=== PATIENT | male | born 1950 | race African-American/Black ===

== ENCOUNTER 2017-07-04 14:49 | Inpatient (IN) | payer OTHER, MEDICARE ==
[~2017-07-04] VITALS: Ht 172.7 cm; Wt 62.7 kg
[~2017-07-04 14:49] MED LIST: AMLODIPINE BESY10 M1 PO; AMLODIPINE10 MG PO; APRESOLINE50 MG PO; ASPIR 8181 MG PO; ASPIRIN EC81 M1 PO; ATORVASTATIN CA40 MG PO; BENADRYL ALLERG25 M1 PO; CALCIUM500 M1 PO; CARVEDILOL12.5 MG PO; CARVEDILOL6.25 M1 PO; COREG 25 MG TAB25 MG PO; COREG6.25 M1 PO; EDARBI40 M1 PO; FUROSEMIDE40 M1 PO; FUROSEMIDE80 M1 PO; HUMALOG MI100 UNIT/1 SC; HUMALOG MI100 UNIT/3 SC; HUMALOG MIX 75/10 ML SC; HUMALOG MIX75/253 ML SC; HYDRALAZINE HC100 M1 PO; HYDRALAZINE HCL25 M1 PO; HYDRALAZINE HCL25 MG PO; HYDRALAZINE10 MG PO; IMDUR30 MG PO; ISOSORBIDE MONO30 M1 PO; ISOSORBIDE MONO60 M1 PO; LASIX40 MG PO; LISINOPRIL10 M1 PO; LISINOPRIL10 MG PO; METOPROLOL SUCC25 MG; METOPROLOL SUCC25 MG PO; NEPHROCAPS1 TAB PO; NOVOLOG100 U/ML SC; OYSTER SHELL C500 M1 PO; OYSTER SHELL C500 M2 PO; PLAVIX 75MG TAB75 MG PO; PRAVASTATIN SOD20 M2 PO; PRAVASTATIN SOD20 MG PO; PRILOSEC 20MG C20 MG PO; PRINIVIL 5MG5 MG PO; PRINIVIL10 MG PO; PROCRIT20000 U/ML IV; PROCRIT20000 UNIT AD; RENAL CAPS SOFTG1 MG PO; RENVELA0.8 GM PO; RENVELA800 M1 PO; TOPROL XL25 MG PO; TRANDATE-NORMO100 MG PO; VALTREX 500MG500 MG PO; VITAMIN D1000 UNIT PO; VITAMIN D31000 IU PO; ZESTRIL10 M1 PO
--- NOTE | 2017-07-04 18:22 | ED GENERAL ADULT ---
History of Present Illness General Chief Complaint: General Adult Stated Complaint: SIB DR FOR DVT OF R ARM Source: patient, family Exam Limitations: no limitations Vital Signs & Intake/Output Vital Signs & Intake/Output Vital Signs Date Time Temp Pulse Resp B/P B/P Pulse O2 O2 Flow FiO2 Mean Ox Delivery Rate 07/09 0646 98.2 78 20 142/78 93 Nasal Cannula 07/09 0409 95 Nasal 2.0L Cannula 07/08 2312 98.6 77 20 152/62 95 Nasal 2.0L Cannula 07/08 2250 73 158/72 07/08 2249 73 158/72 07/08 1700 73 148/74 07/08 1443 98.5 73 20 148/74 87 07/08 1211 75 156/72 07/08 1100 75 156/72 07/08 1100 75 156/72 07/08 1100 753 156/72 ED Intake and Output 07/09 0000 07/08 1200 Intake Total 540 185.55 Output Total 175 30 Balance 365 155.55 Intake, IV 85.55 Intake, Oral 540 100 Output, Urine 175 30 Allergies Coded Allergies: NO KNOWN ALLERGIES (02/08/16) Reconcile Medications Amlodipine Besylate 10 MG TABLET 1 TAB PO DAILY HEART/BP (Reported) Aspirin (Ecotrin*) 81 MG TABLET.DR 1 TAB PO DAILY HEART/BLOOD (Reported) Azilsartan Medoxomil (Edarbi) 40 MG TABLET 1 TAB PO DAILY BP (Reported) Calcium Carbonate (Calcium) 500 MG CALCIUM (1,250 MG) TABLET 1 TAB PO DAILY SUPPLEMENT (Reported) Cholecalciferol (Vitamin D3) (Vitamin D) 1,000 UNIT TABLET 1 TAB PO DAILY SUPPLEMENT (Reported) Epoetin Slava (Procrit) 20,000 UNIT/ML VIAL 8,000 UNITS AD Monday DIALYSIS (Reported) Furosemide 80 MG TABLET 1 TAB PO AD DIURETIC (Reported) Hydralazine HCl 100 MG TABLET 1 TAB PO TID HEART (Reported) Insulin NPL/Insulin Lispro (Humalog Mix 75-25 Vial) 100 UNIT/1 ML VIAL 9 UNITS SC QAM DIABETES (Reported) Insulin NPL/Insulin Lispro (Humalog Mix 75-25 Vial) 100 UNIT/ML (75-25) VIAL 6 UNITS SC QHS DM (Reported) Insulin NPL/Insulin Lispro (Humalog Mix 75-25 Vial) 100 UNIT/ML (75-25) VIAL 6 U SC 5PM TAKES WITH DINNER (Reported) Isosorbide Mononitrate (Isosorbide Mononitrate ER) 60 MG TAB.ER.24H 1 TAB PO DAILY HEART (Reported) Labetalol HCl 100 MG TABLET 2 TAB PO BID HTN (Reported) Multiple Vitamin (Multivitamins) 1 EACH TABLET 1 TAB PO DAILY SUPPLEMENT ( Reported) Pravastatin Sodium 20 MG TABLET 1 TAB PO DAILY CHOLESTEROL (Reported) Prochlorperazine Maleate 10 MG TABLET 1 TAB PO Q6 PRN NAUSEA (Reported) Sevelamer Carbonate (Renvela) 800 MG TABLET 2 TAB PO TID KIDNEYS (Reported) Triage Note: 66M WITH HX METS [employer] [facility] [employer] DR HENSLEY DUE TO RIGHT ARM SWELLING, HAD U/S DONE WITH + OCCLUSIVE THROMBUS TO R ARM. DIALYSIS PT WITH SHUNT TO LEFT ARM. CONSTANT ACHING PAIN TO RIGHT ARM, WEAK. +RADIAL AND BRACHIAL PULSES TO AFFECTED ARM. AAOX3, DENIES SOB Triage Nurses Notes Reviewed? yes Onset: Gradual Duration: day(s): Timing: recent history Severity: moderate HPI: 66yo male with hx of CKD on dialysis, Stage IV right lung CA sent in by Dr. Saucedo to ED for right internal jugular DVT. Patient has had swelling of right arm for the past few days which has been steadily getting worse and his oncologist, Dr. Saucedo, obtained a right upper extremity ultrasound today showing a nearly occlusive thrombus in right internal jugular vein. Patient was sent here immediately for admission to the hospital. Patient is not currently on any blood thinners. He has no history of a blood clot. Patient complains of aching pain systemically as well as pleuritic pain with inspiration. He denies hemoptysis. (Yenny MENDEZ,Coral Demarco) Past History Travel History Traveled to [place] past 21 day No Medical History Any Pertinent Medical History? see below for history Neurological: NONE EENT: NONE Cardiovascular: cardiomyopathy (ischemic), CHF (systolic), hypertension, hyperlipidemia, CARDIAC CATH WITH bare-metal stents to the LAD and left circumflex pulmonary htn on [employer] Respiratory: NONE Gastrointestinal: NONE Hepatic: NONE Renal: chronic kidney disease (stage V on HD), HD- M/W/F RCW-ESME CATH Musculoskeletal: NONE Psychiatric: NONE Endocrine: diabetes (uncontrolled) Blood Disorders: NONE Cancer(s): NONE DEAF/HARD OF HEARING SPECIALIST/Reproductive: NONE Other Medical Hx: Shingles History of MRSA: No History of VRE: No History of CDIFF: No Surgical History Surgical History: cardiac cathwith bare-metal stents in LAD and left circumflex Psychosocial History Who do you live with Family What is your primary language Austrian Tobacco Use: Current Daily Use Daily Tobacco Use Amount/Type: =< 4 Cigarettes daily Illicit Drug Use: denies illicit drug use Family History Family History, If Any: MOTHER FH: cancer FATHER FH: cancer Hx Contributory? No (Coral Delacruz) Review of Systems Review of Systems Constitutional: Reports: no symptoms. EENTM: Reports: no symptoms. Respiratory: Reports: see HPI. Cardiovascular: Reports: see HPI. GI: Reports: no symptoms. Genitourinary: Reports: no symptoms. Musculoskeletal: Reports: see HPI. Skin: Reports: no symptoms. Neurological/Psychological: Reports: no symptoms. Hematologic/Endocrine: Reports: see HPI. Immunologic/Allergic: Reports: no symptoms. All Other Systems: Reviewed and Negative (Coral Delacruz) Physical Exam Physical Exam General Appearance: well developed/nourished, no apparent distress, alert, awake Head: atraumatic, normal appearance Eyes: Bilateral: normal appearance. Ears, Nose, Throat: hearing grossly normal Neck: normal inspection, supple, full range of motion Respiratory: normal breath sounds, no respiratory distress, lungs clear Cardiovascular: regular rate/rhythm Peripheral Pulses: 2+ radial (R), 2+ radial (L) Rectal: normal exam, normal rectal tone, heme negative stool Back: normal inspection, normal range of motion Extremities: normal range of motion, moderate swelling of right arm with tenderness Neurologic/Psych: awake, alert, oriented x 3 Skin: intact, normal color, warm/dry Core Measures ACS in differential dx? No CVA/TIA Diagnosis: No Sepsis Present: No Sepsis Focused Exam Completed? No (Coral Delacruz) Progress Differential Diagnoses I considered the following diagnoses in my evaluation of the patient: [DVT, cellulitis, edema, lung cancer] Plan of Care: Orders Procedure Date/time Status PROTHROMBIN TIME 07/09 600 Active CBC WITHOUT DIFFERENTIAL 07/09 600 Active BASIC ELECTROLYTES PLUS BUN&CR 07/09 06 Active PARTIAL THROMBOPLASTIN TIME 07/09 0500 Active OXYGEN SETUP (GEN) 07/08 2200 Complete PARTIAL THROMBOPLASTIN TIME 12/30 2000 Complete Nursing Misc 07/08 UNK Complete Current Medications Sig/Jed Start time Last Medication Dose Stop Time Status Admin Furosemide 40 MG SuTuThSa@1000 07/08 1000 AC 07/08 (Lasix) 1211 Lidocaine/Prilocaine 1 PENNY MoWeFr PRN 07/06 1530 AC (EMLA) Sevelamer Carbonate 1,600 MG 0800,1200,1700 07/06 0800 AC 07/08 (Renvela) 1700 Labetalol HCl 200 MG BID 07/05 2200 AC 07/08 (Trandate-Normodyne 2249 200MG Tab) Acetaminophen 650 MG Q6P PRN 07/05 2115 AC (Tylenol) Hydrocodone Bitart/ 1 TAB Q6P PRN 07/05 211 AC Acetaminophen (Vicodin) Morphine Sulfate 2 MG Q4P PRN 07/05 2115 AC 07/07 (Morphine) 2318 Pravastatin Sodium 20 MG 1700 07/05 1700 AC 07/08 (Pravachol) 1751 Prochlorperazine 10 MG TIDAC PRN 07/05 1133 AC 07/08 (Compazine) 0759 Epoetin Slava 6,000 UNIT MoWeFr PRN 07/05 1115 AC (Epogen Inj 3000 (DIALYSIS PATIENTS) Paricalcitol 4 MCG MoWeFr PRN 07/05 1115 AC (Zemplar Inj. 2MCG/ ML) Insulin Aspart 0 TIDAC 07/05 1100 AC 07/08 (NovoLOG) 0805 Amlodipine Besylate 10 MG DAILY 07/05 1000 AC 07/08 (Norvasc) 1100 Aspirin Buffered 81 MG DAILY 07/05 1000 AC 07/08 (Ecotrin) 1100 Calcium Carbonate 500 MG DAILY 07/05 1000 AC 07/08 (TUMS) 1001 Cholecalciferol 1,000 IU DAILY 07/05 1000 AC 07/08 (Vitamin D) 1100 Hydralazine HCl 100 MG TID 07/05 1000 AC 07/08 (Apresoline) 2250 Isosorbide 60 MG DAILY 07/05 1000 AC 07/08 Mononitrate 1100 (Imdur) Losartan Potassium 25 MG DAILY 07/05 1000 AC 07/08 (Cozaar) 1000 Multivitamins 1 TAB DAILY 07/05 1000 AC 07/08 Therapeutic 1100 (Theragran-M Vitamins Tabs) Heparin Sodium 25,000 UNIT Q24H 07/04 1900 AC 07/08 (Porcine) 2006 (Heparin) Sodium Chloride 500 ML Laboratory Tests 07/09/17 0610: PT Pending, INR Pending 07/09/17 0610: Sodium Pending, Potassium Pending, Chloride Pending, Carbon Dioxide Pending, Anion Gap Pending, BUN Pending, Creatinine Pending, BUN/Creatinine Ratio Pending , APTT Pending, CBC w Diff Pending, WBC Pending, RBC Pending, Hgb Pending, Hct Pending, MCV Pending, MCH Pending, RDW Pending, Plt Count Pending, MPV Pending, PUBS MCHC Pending 07/08/17 2055: APTT 37 07/08/17 1110: APTT [address] Vasquez spoke with Dr. Saucedo regarding this patient. It is recommended that patient be started on heparin then bridged to Coumadin. General medicine admission was also recommended. Discussed this patient with hospitalist, Dr. Kraus who recommends chest CT scan. Patient to be admitted regarding his DVT requiring IV anticoagulation, vascular consult, heme/on consult. Diagnostic Imaging: Viewed by Me: CT Scan, Ultrasound. Discussed w/RAD: CT Scan, Ultrasound. Radiology Impression: PATIENT: JAYSON ACHARYA PRESENT AGE: 66 PATIENT ACCOUNT NO: [id number] : 48 LOCATION: [facility] ORDERING PHYSICIAN: Artis Saucedo MD SERVICE DATE: 07/04/17 EXAM TYPE: US - US- UNILATERAL VENOUS DOPPLER EXAMINATION: US TRIPLEX UPPER EXTREMITY, RIGHT CLINICAL INFORMATION: 66-year-old male with history of large cell neuroendocrine lung cancer with new right upper extremity edema. COMPARISON: None TECHNIQUE: Color-flow triplex imaging with spectral analysis and compression Doppler were performed on the upper extremity. FINDINGS: Nearly occlusive thrombus is seen within the right internal jugular vein, above the insertion of the patient's tunneled dialysis catheter. The right subclavian and axillary veins demonstrate normal color Doppler flow suggesting patency. The right brachial and basilic veins are easily compressible and demonstrate normal color Doppler flow suggesting patency. The right cephalic vein is easily compressible suggesting patency. The right ulnar and radial veins are patent. IMPRESSION: Nearly occlusive thrombus within the right internal jugular vein. The remaining right upper extremity veins are patent. This critical result was discussed with Dr. Wisdom at 2:45 PM on 07/04/2017and it was ascertained that the content and urgency of the report was understood at the time of direct communication. DICTATED BY: Juan David Davenport DO DATE/TIME DICTATED:07/04/171439 CATALOGUE COMPILER:YANCY DATE/TIME TRANSCRIBED:07/04/171439 CONFIDENTIAL, DO NOT COPY WITHOUT APPROPRIATE AUTHORIZATION. <Electronically signed in Other Vendor System> SIGNED BY: Juan David Davenport DO 07/04/17 1450, PATIENT: JAYSON ACHARYA PRESENT AGE: 66 PATIENT ACCOUNT NO: [id number] : 48 LOCATION: [facility] ORDERING PHYSICIAN: Coral MENDEZ SERVICE DATE: 07/04/17 EXAM TYPE: CAT - CT CHEST WO IV CONTRAST EXAMINATION: CT CHEST WITHOUT CONTRAST CLINICAL INFORMATION: Recent right IJ thrombosis. Presumptive diagnosis: Right-sided lung mass. COMPARISON: CT lung biopsy images dated 04/06/2017 and PET-CT dated 03/28/2017 TECHNIQUE: Multidetector volumetric CT imaging of the chest was done. Axial MIP volume rendering provided. Sagittal and coronal reformatted images were obtained. DLP: 393.3 mGy-cm FINDINGS: PRODUCTION CONTROL CLERK: Right IJ dialysis catheter terminates in the right atrium. LUNGS: The 5.8 x 4.4 x 6.7 cm mass in the posterior segment of the right upper lobe is increased in size from 5.6 x 3.3 cm (axial images only) on the prior lung biopsy images from 04/06/2017. The 2.7 x 2.3 cm nodule in the medial aspect of the right lobe just to the right of the trachea and esophagus on image 17/18 of series 2 is decreased in size from 2.9 x 2.8 cm. The 1.3 cm nodule at the anterolateral aspect of the right upper lobe on image 18/80 of series 2 is unchanged. The 1.8 cm nodule in the anterior aspect of the right lower lobe on image 43/80 of series 2 is increased in size from 0.8 cm on the prior study. Numerous smaller nodules in both lungs are new if not increased in size as compared to prior. There is a nodular bands of airspace opacification in the lingula on image 31/80 series 2 which measures 3.6 by likely a conglomeration of smaller nodule seen on the prior study. The dominant mass in the right upper lobe with associated with hilar adenopathy and produces mild narrowing of the right upper lobe bronchi. There is similar mild narrowing of the right middle lobe bronchus. Right lower lobe bronchus is patent. There is atelectasis in the left lower lobe adjacent to the effusion. MEDIASTINUM: There is a 2.6 cm (short axis) precarinal lymph node which is similar in size to the prior PET-CT. Adenopathy is present in both hilar regions, though not well defined without intravenous contrast. Calcific atherosclerosis is present in the coronary arteries and thoracic aorta. Heart is enlarged. Small pericardial effusion. Adenopathy is near the SVC which appears narrow in caliber, though unchanged from prior. Right IJ dialysis catheter terminates in the high right atrium. PLEURA: There is a small to moderate-sized dependent left pleural effusion. No right-sided effusion. AXILLA: No lymphadenopathy. UPPER ABDOMEN: Kidneys appear atrophic. Gallbladder is hydropic. There is an ill-defined 1.8 cm hypodense lesion in the inferior aspect of hepatic segment 6 (image 77/80 of series 2. A similar small ill-defined 2 cm hypoattenuating lesion is present in hepatic segment 7 laterally on image 63/80 of series 2. These are not apparent on prior studies. There is diffuse soft tissue anasarca. OSSEOUS STRUCTURES: Diffuse idiopathic skeletal hyperostosis is present in the thoracic spine. No acute fractures. No osseous lesions are identified. IMPRESSION: 1. Progressive enlargement of the dominant 6.7 cm right upper lobe mass as compared to the prior study. Numerous additional pulmonary nodules are increased in size or new as compared to prior. These findings are consistent with progression of the underlying malignant disease. Adenopathy appears unchanged the comparison is limited without intravenous contrast. 2. Right IJ central venous catheter terminates in the right atrium. Assessment of the thrombus is limited without intravenous contrast material. Of note, there is mediastinal adenopathy near the SVC. 3. Two hypodense lesions in the right hepatic lobe which are not seen on prior studies, potentially additional metastatic disease. Consider correlation with an MRI of the abdomen if warranted. 4. Small to moderate-sized left pleural effusion 5. Anasarca. DICTATED BY: Last High MD DATE/TIME DICTATED:07/04/172017 CATALOGUE COMPILER:YANCY DATE/TIME TRANSCRIBED:07/04/172017 CONFIDENTIAL, DO NOT COPY WITHOUT APPROPRIATE AUTHORIZATION. <Electronically signed in Other Vendor System> SIGNED BY: Last High MD 07/04/172042 Initial ED EKG: sinus rhythm @75bpm, LAD, prolonged QT interval, nonspecific ST changes (Coral Delacruz) Departure Departure Disposition: STILL A PATIENT Condition: Stable Clinical Impression Primary Impression: DVT (deep venous thrombosis) Qualifiers: DVT location: upper extremity Affected thrombotic vein of extremity : other upper extremity vein Chronicity: acute Laterality: right Qualified Code: I82.621 - Acute embolism and thrombosis of deep veins of right upper extremity Referrals: Manuel MUSE,Corby Pack (PCP/Family) Departure Forms: Customer Survey General Discharge Information Admission Note Documentation of Exam: Documentation of any treatments & extenuating circumstances including Concerns Regarding Discharge (functional status, medication knowledge or non-compliance, living conditions, etc.) that warrant an admission rather than observation: [DVT requiring IV anticoagulation, vascular consults, heme/onc consult, possible nephrology consult, premature discharge would be medically unsafe] (Coral Delacruz) Admission Note Spoke With: Shane Kraus MD Documentation of Exam: Documentation of any treatments & extenuating circumstances including Concerns Regarding Discharge (functional status, medication knowledge or non-compliance, living conditions, etc.) that warrant an admission rather than observation: [IV ANTICOAGULATION, RENAL CONSULT, VASCULAR CONSULT] PA/SAMPLE HAND Co-Sign Statement Statement: ED Attending supervision documentation- [X] I saw and evaluated the patient. I have also reviewed all the pertinent lab results and diagnostic results. I agree with the findings and the plan of care as documented in the PA's/SAMPLE HAND's documentation. [X] I have reviewed the ED Record and agree with the PA's/SAMPLE HAND's documentation. [] Additions or exceptions (if any) to the PAs/SAMPLE HAND's note and plan are summarized below: [Anticoagulation for a DVT, will need dialysis while in house, a vascular consultation] (Kaushik MUSE,Dorian West) Critical Care Note Critical Care Note Critical Care Time: 30-74 min (Coral Delacruz)
--- NOTE | 2017-07-04 20:43 | CT SCAN REPORT ---
EXAMINATION: CT CHEST WITHOUT CONTRAST CLINICAL INFORMATION: Recent right IJ thrombosis. Presumptive diagnosis: Right-sided lung mass. COMPARISON: CT lung biopsy images dated 04/06/2017 and PET-CT dated 03/28/2017 TECHNIQUE: Multidetector volumetric CT imaging of the chest was done. Axial MIP volume rendering provided. Sagittal and coronal reformatted images were obtained. DLP: 393.3 mGy-cm FINDINGS: RESEARCH PROGRAM MANAGER: Right IJ dialysis catheter terminates in the right atrium. LUNGS: The 5.8 x 4.4 x 6.7 cm mass in the posterior segment of the right upper lobe is increased in size from 5.6 x 3.3 cm (axial images only) on the prior lung biopsy images from 04/06/2017. The 2.7 x 2.3 cm nodule in the medial aspect of the right lobe just to the right of the trachea and esophagus on image 17/18 of series 2 is decreased in size from 2.9 x 2.8 cm. The 1.3 cm nodule at the anterolateral aspect of the right upper lobe on image 18/80 of series 2 is unchanged. The 1.8 cm nodule in the anterior aspect of the right lower lobe on image 43/80 of series 2 is increased in size from 0.8 cm on the prior study. Numerous smaller nodules in both lungs are new if not increased in size as compared to prior. There is a nodular bands of airspace opacification in the lingula on image 31/80 series 2 which measures 3.6 by likely a conglomeration of smaller nodule seen on the prior study. The dominant mass in the right upper lobe with associated with hilar adenopathy and produces mild narrowing of the right upper lobe bronchi. There is similar mild narrowing of the right middle lobe bronchus. Right lower lobe bronchus is patent. There is atelectasis in the left lower lobe adjacent to the effusion. MEDIASTINUM: There is a 2.6 cm (short axis) precarinal lymph node which is similar in size to the prior PET-CT. Adenopathy is present in both hilar regions, though not well defined without intravenous contrast. Calcific atherosclerosis is present in the coronary arteries and thoracic aorta. Heart is enlarged. Small pericardial effusion. Adenopathy is near the SVC which appears narrow in caliber, though unchanged from prior. Right IJ dialysis catheter terminates in the high right atrium. PLEURA: There is a small to moderate-sized dependent left pleural effusion. No right-sided effusion. AXILLA: No lymphadenopathy. UPPER ABDOMEN: Kidneys appear atrophic. Gallbladder is hydropic. There is an ill-defined 1.8 cm hypodense lesion in the inferior aspect of hepatic segment 6 (image 77/80 of series 2. A similar small ill-defined 2 cm hypoattenuating lesion is present in hepatic segment 7 laterally on image 63/80 of series 2. These are not apparent on prior studies. There is diffuse soft tissue anasarca. OSSEOUS STRUCTURES: Diffuse idiopathic skeletal hyperostosis is present in the thoracic spine. No acute fractures. No osseous lesions are identified. IMPRESSION: 1. Progressive enlargement of the dominant 6.7 cm right upper lobe mass as compared to the prior study. Numerous additional pulmonary nodules are increased in size or new as compared to prior. These findings are consistent with progression of the underlying malignant disease. Adenopathy appears unchanged the comparison is limited without intravenous contrast. 2. Right IJ central venous catheter terminates in the right atrium. Assessment of the thrombus is limited without intravenous contrast material. Of note, there is mediastinal adenopathy near the SVC. 3. Two hypodense lesions in the right hepatic lobe which are not seen on prior studies, potentially additional metastatic disease. Consider correlation with an MRI of the abdomen if warranted. 4. Small to moderate-sized left pleural effusion 5. Anasarca.
[2017-07-04 20:58] LABS: ABSOLUTE BASOPHIL COUNT 0 /CUMM (0.0-0.2); ABSOLUTE EOSINOPHIL COUNT 0.1 /CUMM (0.0-0.7); ABSOLUTE GRANULOCYTE CT 11.9 /CUMM (1.4-6.5); ABSOLUTE LYMPH COUNT 0.9 /CUMM (1.2-3.4); BASOPHIL % 0.1 % (0.0-2.0); EOSINOPHIL % 0.8 % (0-5); HEMATOCRIT 30.7 % (42-52); MEAN CORPUSCULAR HGB 30.7 PG (27.0-31.0); MEAN CORPUSCULAR HGB CONC 32.9 G/DL (33.0-37.0); MEAN CORPUSCULAR VOLUME 93.3 FL (80.0-94.0); MEAN PLATELET VOLUME 7.4 FL (7.4-10.4); PLATELET COUNT 276 /CUMM (130-400); RBC DISTRIBUTION WIDTH 15.7 % (11.5-14.5); RED BLOOD CELL CT 3.29 /CUMM (4.70-6.10); WHITE BLOOD CELL COUNT 13.9 /CUMM (4.8-10.8)
[2017-07-04 21:06] LABS: PT 12.1 SEC (9.4-12.5); PTT 26 SEC (25-37)
[2017-07-04 21:20] LABS: GRANULOCYTE % 85.6 % (42.2-75.2)
--- NOTE | 2017-07-04 22:00 | History & Physical ---
Esmer John MD,[facility] 07/04/17 2159: General Information and HPI MD Statement: I have seen and personally examined JAYSON ACHARYA and documented this H&P. The patient is a 66 year old M who presented with a patient stated chief complaint of thrombosis in R arm. Source of Information: patient, old records, police History of Present Illness: 66-year-old gentleman with PMH of ESRD secondary to diabetic nephropathy ( dialysis Monday/Monday/Monday), hypertension, hyperlipidemia, coronary artery disease (s/p bare metal stents previously to LAD and left circumflex), prior ischemic cardiomyopathy with normalized EF [last echocardiogram in Mar 2017 EF 50-55% ], prior history of poximal cephalix vein thrombosis, Stage IV right lung CA (reported brain and liver mets, s/p radiotherapy) presented to the ED from Dr Saucedo office for evaluation of ED for right internal jugular DVT. Patient was poor historian, no family members were present for taking history. Patient noted that he was diagnosed with lung cancer in November 2016, he had 2 rounds of chemotherapy and was planned to received 3rd round today in Dr. Saucedo office. He was found to have right arm swelling, ultrasound was performed which showed thrombosis of the right internal jugular vein and he was sent to ED. Upon further questioning he admitted to have gradual increase in swelling of the right arm in the last couple of days. He also received Neupogen during the last week after which he had bone pain. He reported decreased activity because of lower extremities swelling, decreased appetite, insomnia, cough with white phlegm. He was being dialyzed from left arm AV fistula but he noted that it was diagnosed to be nonfunctional and is planned for surgical intervention in July. Allergies/Medications Allergies: Coded Allergies: NO KNOWN ALLERGIES (02/08/16) Home Med list Amlodipine Besylate 10 MG TABLET 1 TAB PO DAILY HEART/BP (Reported) Aspirin (Ecotrin*) 81 MG TABLET.DR 1 TAB PO DAILY HEART/BLOOD (Reported) Azilsartan Medoxomil (Edarbi) 40 MG TABLET 1 TAB PO DAILY BP (Reported) Calcium Carbonate (Calcium) 500 MG CALCIUM (1,250 MG) TABLET 1 TAB PO DAILY SUPPLEMENT (Reported) Cholecalciferol (Vitamin D3) (Vitamin D) 1,000 UNIT TABLET 1 TAB PO DAILY SUPPLEMENT (Reported) Epoetin Slava (Procrit) 20,000 UNIT/ML VIAL 8,000 UNITS AD Monday DIALYSIS (Reported) Furosemide 80 MG TABLET 1 TAB PO AD DIURETIC (Reported) Hydralazine HCl 100 MG TABLET 1 TAB PO TID HEART (Reported) Insulin NPL/Insulin Lispro (Humalog Mix 75-25 Vial) 100 UNIT/1 ML VIAL 9 UNITS SC QAM DIABETES (Reported) Insulin NPL/Insulin Lispro (Humalog Mix 75-25 Vial) 100 UNIT/ML (75-25) VIAL 6 UNITS SC QHS DM (Reported) Insulin NPL/Insulin Lispro (Humalog Mix 75-25 Vial) 100 UNIT/ML (75-25) VIAL 6 U SC 5PM TAKES WITH DINNER (Reported) Isosorbide Mononitrate (Isosorbide Mononitrate ER) 60 MG TAB.ER.24H 1 TAB PO DAILY HEART (Reported) Labetalol HCl 100 MG TABLET 2 TAB PO BID HTN (Reported) Multiple Vitamin (Multivitamins) 1 EACH TABLET 1 TAB PO DAILY SUPPLEMENT ( Reported) Pravastatin Sodium 20 MG TABLET 1 TAB PO DAILY CHOLESTEROL (Reported) Prochlorperazine Maleate 10 MG TABLET 1 TAB PO Q6 PRN NAUSEA (Reported) Sevelamer Carbonate (Renvela) 800 MG TABLET 2 TAB PO TID KIDNEYS (Reported) Past History Travel History Traveled to [place] past 21 day No Medical History Neurological: NONE EENT: NONE Cardiovascular: cardiomyopathy (ischemic), CHF (systolic), hypertension, hyperlipidemia, CARDIAC CATH WITH bare-metal stents to the LAD and left circumflex pulmonary htn on [employer] Respiratory: NONE Gastrointestinal: NONE Hepatic: NONE Renal: chronic kidney disease (stage V on HD), HD- M/W/F [facility] CATH Musculoskeletal: NONE Psychiatric: NONE Endocrine: diabetes (uncontrolled) Blood Disorders: NONE Cancer(s): NONE 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 girlfriend Primary Language: Danish Illicit Drug Use: denies illicit drug use Functional Ability ADLs Independent: dressing, eating, toileting, bathing. Ambulation: independent IADLs Independent: finances, telephone, medication admin. Needs Assist: shopping, housework, food prep, transportation. Review of Systems Review of Systems Constitutional: Reports: see HPI. Exam & Diagnostic Data Last 24 Hrs of Vital Signs/I&O Vital Signs Date Time Temp Pulse Resp B/P B/P Pulse O2 O2 Flow FiO2 Mean Ox Delivery Rate 07/05 0300 98.7 74 20 184/80 98 Room Air 07/05 0000 98.2 78 16 182/80 99 Room Air Room Air 07/04 2159 97.7 74 18 198/87 96 Room Air 07/04 1511 98.6 79 16 98 Room Air Intake & Output 07/05 0800 07/05 0000 07/04 1600 Intake Total 0 Output Total Balance 0 Intake, Oral 0 Patient 142 lb Weight Weight Reported by Patient Measurement Method Physical Exam General Appearance Alert, Oriented X3, Cooperative, No Acute Distress, poor historian, agitated at times Skin No Significant Lesion Skin Temp/Moisture Exam: Warm/Dry Sepsis Skin Exam (color): Normal for Ethnicity HEENT Atraumatic, EOMI, Mucous Membr. moist/pink, right side tunneled cath Neck No JVD Cardiovascular Normal S1, Normal S2 Lungs decrased breathing sounds bilaterally Abdomen Soft, No Tenderness Neurological Normal Speech, Strength at 5/5 X4 Ext, grossly normal Extremities Left arm AV fistula, RIGht arm swelling, bilateral LE edema Last 24 Hrs of Labs/Har[place]: Laboratory Tests 07/05/17 0300: Troponin I Pending, APTT Pending 07/04/171842: Troponin I Cancelled, Lupus Anticoagulant Pending, LA PTT Screen Pending, Dil Junaid Viper Venom Pending, Protein C Activity Pending, Protein S Pending, Factor V Leiden Pending, Factor V Leiden Interp Pending 07/04/171842: Anion Gap 14, Estimated GFR 12 L, BUN/Creatinine Ratio 5.6 L, Glucose 193 H, Calcium 9.7, Total Bilirubin 0.5, AST 25, ALT 13 L, Alkaline Phosphatase 109, Troponin I 0.02, Total Protein 6.1 L, Albumin 3.5, Globulin 2.6, Albumin/ Globulin Ratio 1.3, PT 12.1, INR 1.15, APTT 26, CBC w Diff NO MAN DIFF REQ, RBC 3.29 L, MCV 93.3, MCH 30.7, RDW 15.7 H, MPV 7.4, Gran % 85.6 H, Lymphocytes % 6.5 L, Monocytes % 7.0, Eosinophils % 0.8, Basophils % 0.1, Absolute Granulocytes 11.9 H, Absolute Lymphocytes 0.9 L, Absolute Monocytes 1.0 H, Absolute Eosinophils 0.1, Absolute Basophils 0, PUBS MCHC 32.9 L Assessment/Plan Assessment: 66-year-old gentleman with presented to the ED from Dr Saucedo office for evaluation of ED for right internal jugular DVT visited for 3rd round of chenmotherapy PMH: ESRD secondary to diabetic nephropathy (dialysis Monday/Monday/Monday), hypertension, hyperlipidemia, coronary artery disease (s/p bare metal stents previously to LAD and left circumflex), prior ischemic cardiomyopathy with normalized EF [last echocardiogram in Mar 2017 EF 50-55% ], prior history of poximal cephalix vein thrombosis, Stage IV right lung CA (reported brain mets, s /p radiotherapy). VS: No fever, pulse oximetry more than 95% in room air, pulse rate 79, respiratory rate 16, blood pressure 182/80 Labs at admission: Imagings at admission: Patient was admitted to telemetry floor for management of following conditions: DVT RIJ line Most likely in the setting of lung carcinoma. Patient will be started on IV heparin -Admit to telemetry floor -Monitor vital sign -IV heparin -Vascular consult in a.m. ESRD on dialysis Patient is on on MWF, we will continue dialysis in hospital -Nephro consult today -Dialysis today -Continue home medication, Lasix, sevelamir, vitamin D3, Procrit. Lung cancer -Consult Dr. Woodall -[facility] -O2 supplement when necessary chronic medical conditions: IDDM, CAD, hypertension, hyperlipidemia -Continue home medications -Accu-Cheks -Serial EKG and troponins DVT PPx: IV heparin and ALPS FC Heart healthy diet As Ranked By This Provider Problem List: 1. ESRD (end stage renal disease) 2. Thrombosis of intravascular line 3. DVT (deep venous thrombosis) Qualifiers DVT location: upper extremity Affected thrombotic vein of extremity: other upper extremity vein Chronicity: acute Laterality: right Qualified Code: I82.621 - Acute embolism and thrombosis of deep veins of right upper extremity Core Measures/Misc (03/26) Acute Coronary Syndrome ACS Diagnosis: No Congestive Heart Failure Congestive Heart Failure Diagnosis No Cerebrovascular Accident CVA/TIA Diagnosis: No VTE (View Protocol) VTE Risk Factors Age>40 No Mechanical VTE Prophylaxis d/t N/A MechProphylax Ordered No VTE Pharm Prophylaxis d/t NA PharmProphylax ordered Sepsis (View protocol) Sepsis Present: No Shari Pollard MD 07/05/17 0101: Resident Review Statement Resident Statement: examined this patient, discussed with internet marketing specialist, agreed with internet marketing specialist, discussed with family, reviewed EMR data (avail), discussed with nursing Other Findings: patient is a 66 YO M with PMH significant for CKD on dialysis (M,W,F), Stage IV large neuroendocrine tumor in the lung, ischemic cardiomyopathy (without CHF), HTN, HLD, DM sent in by Dr. Saucedo to ED for right internal jugular DVT. Patient has had swelling of right arm for the past few days which has been steadily getting worse and his oncologist Dr. Saucedo, obtained a RUE USG today showing a nearly occlusive thrombus in right internal jugular vein. Patient was diagnosed with stage IV Lung cancer on mar 14 2017 with metastasis in brain and liver. He underwent brain irradiation followed by 2 cycles of chemo so far. Today he went for his 3rd round of chemo and found to have signficnat swelling of his right arm. Few days ago he received Neupogen and suffering from significant bone pains, lying on the bed. Unable to eat well, reportedly had nausea and decreased appetite. He denies any fever, LOC, pain in the right arm. Patient reportedly had nonfunctional left AV fistula which needed to be repaired in July by tara. Currently undergoing dialysis by another axis present on right side - ?? Krystian vs port. Vital signs at presentation Afebrile, blood pressure 198/67 mmHg, heart rate 80s Physical examination Alert and oriented, mild distress, HEENT: PERRLA, palpable swelling in the right side of the neck. chest as well as to normal, systolic murmur present, lungs crackles at bases, right upper extremity significantly swollen 3+ edema. Abdomen normal bowel sounds. Labs White count of 13.9, H&H 10/30, platelets 276, AST 25/ALT 13, ALT 109, PT 12, INR 1.15, APTT 26. Venous Doppler Nearly occlusive thrombus within the right internal jugular vein with other remaining upper extremity veins being patent Chest CT Worsening right upper lobe miles around 6.7 cm increased compared to previous one. Scattered multiple pulmonary nodules. Thrombus in the right IJ thrombus is not completely evaluated. Right hepatic lobe consists of 2 hypodense lesions. Echocardiogram in March 2017 CONCLUSIONS Normal overall left and right ventricular systolic function. Mild left atrial enlargement. Mild to moderate Tricuspid regurgitation. Moderate Pulmonary hypertension. Small Pericardial effusion. Assessment Patient is a 66-year-old male with multiple comorbid conditions including stage IV lung carcinoma, ischemic cardiomyopathy, hypertension, hyperlipidemia, ESRD on dialysis presented to the [facility] after found to have right IJ thrombus which appears secondary to hypercoagulable state in the setting of adenocarcinoma. Vital signs unremarkable except for high blood pressure, labs unremarkable, CT chest shows worsening of right upper lobe miles despite on chemotherapy, venous Doppler demonstrated significant right IJ thrombus with remaining upper extremity veins being patent. Diagnosis Right IJ thrombus in the setting of widely disseminated stage IV lung cancer Problem list 1. Right internal jugular thrombus 2. 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 ESRD on dialysis - Monday, Monday, Monday 4. Uncontrolled diabetes mellitus 5. Ischemic cardiomyopathy 6. status post cardiac cath with bare-metal stents in LAD and left circumflex 7. Hypertension 8. Hyperlipidemia Plan Admit to telemetry floor Right internal jugular vein thrombosis Probably secondary to carcinoma. Patient was started on IV heparin bolus in the ER followed by IV heparin. * Continue IV heparin * Vascular consult in a.m. * consult Dr. Bustillo * As the patient has acute clot. 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 He is due for 3rd cycle of chemotherapy. * Consult * Symptomatic management ESRD on dialysis - Monday, Monday, Monday Undergoes dialysis 3 times a week with an axis on the right side. * Nephro consult * Dialysis today * Continue sevelamir, vitamin D3, Procrit. * Furosemide 80 mg on nondialysis days, 40 mg on dialysis days for its antihypertensive properties Uncontrolled diabetes mellitus Patient is insulin-dependent. Patient is on insulin mix 60 units subcutaneous in the morning and at 5 PM. Insulin lispro 9 units at bedtime. * Continue insulin * Accu-Cheks Ischemic cardiomyopathy s/p cardiac cath with bare-metal stents in LAD and left circumflex Currently denies any chest pain. We will continue all the home medications. * serial EKG and trop * Continue ASA, atorvastatin, Adarbi (converted to losartan), Coreg 6.25mg BID, Pravastatin * Continue imdur 60mg for antianginal properties. Hypertension Continue amlodipine 10mg daily, labetalol 200mg daily, hydralazine 100mg TID. Hyperlipidemia Continue pravastatin 20mg daily DVT prophylaxis on IV heparin Code status full code. Shane Kraus 07/05/17 0809: Attending MD Review Statement Attending Statement Attending MD Statement: examined this patient, discuss w/resident/PA/GENETIC ENGINEER, agreed w/resident/PA/GENETIC ENGINEER, reviewed EMR data (avail), reviewed images, amended to note Attending Assessment/Plan: CC: Right arm swelling PMH: ESRD on hemodialysis through a tunneled catheter on the right, history of HFrEF with normalized ejection fraction, HTN, CAD S/P stent, DM, NSVT, HLD, recently diagnosed non-small cell lung cancer stage IV Patient has been receiving chemotherapy outpatient for his lung cancer, today was the third round of chemotherapy when in the doctor's office it was noticed that patient has right arm swelling and pain. Patient does not complain much, has been almost bed bound because of bilateral lower extremity edema, decreased appetite, feeling weak and lethargic. Patient does not provide any much history. He has nonfunctioning left AV facial. In the oncologist office DVT Doppler was obtained for the right upper extremity and he was found to have nearly occluding the right IJ thrombus. Patient is a poor historian, appears frustrated and does not provide any detail , admits chronic cough, pain all over. Family not bedside. Vitals: Blood pressure 198/67 otherwise unremarkable. On exam: A O 3, cooperative, no acute distress, neck supple, JVD normal, no lymphadenopathy, mucosa moist, no focal neurological deficit, bilateral lower extremity edema, right upper extremity edema, right-sided tunneled catheter, no facial symmetry, no obvious skin rashes or inflammation CVS: S1-S2, RRR. RS: Decreased air entry right, no obvious crackles. Abdomen: Soft, NT, ND, bowel sounds present. Labs: WBC 13.9, hemoglobin 10.1, hematocrit 30.7, platelet 276, neutrophils 85%, , creatinine 4.8, BUN 27, glucose 193, otherwise BMP LFT unremarkable, troponin 0.02 Right upper extremity venous Doppler reviewed:Nearly occlusive thrombus within the right internal jugular vein. The remaining right upper extremity veins are patent. CT chest: 1. Progressive enlargement of the dominant 6.7 cm right upper lobe mass as compared to the prior study. Numerous additional pulmonary nodules are increased in size or new as compared to prior. These findings are consistent with progression of the underlying malignant disease. Adenopathy appears unchanged the comparison is limited without intravenous contrast. 2. Right IJ central venous catheter terminates in the right atrium. Assessment of the thrombus is limited without intravenous contrast material. Of note, there is mediastinal adenopathy near the SVC. 3. Two hypodense lesions in the right hepatic lobe which are not seen on prior studies, potentially additional metastatic disease. Consider correlation with an MRI of the abdomen if warranted. 4. Small to moderate-sized left pleural effusion 5. Anasarca. Assessment and plan 66-year-old male with past medical history significant for ESRD on hemodialysis through a tunneled catheter on the right, history of HFrEF with normalized ejection fraction, HTN, CAD S/P stent, DM, NSVT, HLD, recently diagnosed non- small cell lung cancer stage IV. Patient was found to have a right IJ thrombus on outpatient evaluation, when he went for expected chemotherapy today. Patient was found to have right upper extremity swelling which is new for him. He also has bilateral lower extremity edema. He has left AV fistula which is nonworking. According to him they have been using his tunneled catheter for chemotherapy as well as dialysis. I could not locate any port. Oncologist was called who suggested to admit and start heparin. We also obtained CT to see any tumor compression as patient has right upper lobe lung mass. IV contrast could not be obtained because of the ESRD. They did not mention anything about SVC compression but there is a lymphadenopathy near SVC, patient does not have any facial symmetry or any stridor. + Right IJ thrombus + History of non-small cell lung cancer stage IV + Moderate left pleural effusion + Malnutrition with anasarca + Leukocytosis unclear etiology + History of ESRD on hemodialysis through a tunneled catheter on the right, history of HFrEF with normalized ejection fraction, HTN, CAD S/P stent, DM, NSVT , HLD, - Admit to telemetry - Continuous telemetry monitoring - Serial troponin and EKG - Continue heparin ip - Heme consult in a.m. - Vascular consult in AM - Continue all his home medications - Nephrology consult for dialysis - ? Access for dialysis with this thrombosis - patient is full code
[2017-07-04] MEDS ORDERED: HUMALOG MI100 UNIT/1 SC (22:13)
[2017-07-04] MEDS ORDERED: LABETALOL HCL100 M1 PO (22:14)
[2017-07-04] MEDS ORDERED: PROCHLORPERAZIN10 MG PO (22:16)
[2017-07-04] MEDS ORDERED: MULTIVITAMINS1 EAC9 PO (22:16)
[2017-07-05 03:00] VITALS: BP 184/80
[2017-07-05 05:30] LABS: PTT 73 SEC (25-37)
[2017-07-05 06:56] VITALS: BP 152/78
[2017-07-05 08:09] LABS: ABSOLUTE BASOPHIL COUNT 0.1 /CUMM (0.0-0.2); ABSOLUTE EOSINOPHIL COUNT 0.1 /CUMM (0.0-0.7); ABSOLUTE GRANULOCYTE CT 12.6 /CUMM (1.4-6.5); ABSOLUTE MONOCYTE COUNT 0.9 /CUMM (0.10-0.60); BASOPHIL % 0.4 % (0.0-2.0); EOSINOPHIL % 0.5 % (0-5); GRANULOCYTE % 86.2 % (42.2-75.2); MEAN CORPUSCULAR HGB CONC 33.4 G/DL (33.0-37.0); MEAN PLATELET VOLUME 7.9 FL (7.4-10.4); PLATELET COUNT 278 /CUMM (130-400); RBC DISTRIBUTION WIDTH 15.9 % (11.5-14.5); RED BLOOD CELL CT 3.33 /CUMM (4.70-6.10); WHITE BLOOD CELL COUNT 14.6 /CUMM (4.8-10.8)
--- NOTE | 2017-07-05 08:12 | Admission Certification ---
Admission Certification Certification Statement - As attending physician, I certify that at the time of - admission, based on clinical presentation, severity of - symptoms, need for further diagnostic testing and - therapeutic interventions, and risk of adverse outcomes - without in-hospital treatment, in my clinical assessment, - this patient requires an acute hospital stay for a minimum - of two nights or longer. I have also considered psychsocial - factors such as support system, advanced age, financial - issues, cognitive issues, and failed out-patient treatments, - past re-admission history, safety of patient, and lack of - compliance as applicable. Specific rationale supporting this admission is: Right IJ thrombus
--- NOTE | 2017-07-05 10:21 | Cons- Oncology ---
General Information and HPI Consulting Request Date of Consult: 07/05/17 Requested By: Shane Kraus MD Reason for Consult: IJ clot, stage IV lung cancer Source of Information: patient Exam Limitations: no limitations History of Present Illness: Mr. 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 He was seen in clinic to get cycle 3 of carboplatin and etoposide yesterday. He noted increasing fatigue, decrease appetite, and insomnia. He also noted right arm swelling which was new. He has dyspnea with exertion. He has decreased stamina. He denies any chest pain. He does have bone pain after the Neulasta. He had no fever or chills. He was sent to have US of the right upper extremity. This was noted to be positive for right IJ DVT. He was sent to ED for evaluation and anticoagulation initiation. He is now on heparin drip. Allergies/Medications Allergies: Coded Allergies: NO KNOWN ALLERGIES (02/08/16) Home Med List: Amlodipine Besylate 10 MG TABLET 1 TAB PO DAILY HEART/BP (Reported) Aspirin (Ecotrin*) 81 MG TABLET.DR 1 TAB PO DAILY HEART/BLOOD (Reported) Azilsartan Medoxomil (Edarbi) 40 MG TABLET 1 TAB PO DAILY BP (Reported) Calcium Carbonate (Calcium) 500 MG CALCIUM (1,250 MG) TABLET 1 TAB PO DAILY SUPPLEMENT (Reported) Cholecalciferol (Vitamin D3) (Vitamin D) 1,000 UNIT TABLET 1 TAB PO DAILY SUPPLEMENT (Reported) Epoetin Slava (Procrit) 20,000 UNIT/ML VIAL 8,000 UNITS AD Monday DIALYSIS (Reported) Furosemide 80 MG TABLET 1 TAB PO AD DIURETIC (Reported) Hydralazine HCl 100 MG TABLET 1 TAB PO TID HEART (Reported) Insulin NPL/Insulin Lispro (Humalog Mix 75-25 Vial) 100 UNIT/1 ML VIAL 9 UNITS SC QAM DIABETES (Reported) Insulin NPL/Insulin Lispro (Humalog Mix 75-25 Vial) 100 UNIT/ML (75-25) VIAL 6 UNITS SC QHS DM (Reported) Insulin NPL/Insulin Lispro (Humalog Mix 75-25 Vial) 100 UNIT/ML (75-25) VIAL 6 U SC 5PM TAKES WITH DINNER (Reported) Isosorbide Mononitrate (Isosorbide Mononitrate ER) 60 MG TAB.ER.24H 1 TAB PO DAILY HEART (Reported) Labetalol HCl 100 MG TABLET 2 TAB PO BID HTN (Reported) Multiple Vitamin (Multivitamins) 1 EACH TABLET 1 TAB PO DAILY SUPPLEMENT ( Reported) Pravastatin Sodium 20 MG TABLET 1 TAB PO DAILY CHOLESTEROL (Reported) Prochlorperazine Maleate 10 MG TABLET 1 TAB PO Q6 PRN NAUSEA (Reported) Sevelamer Carbonate (Renvela) 800 MG TABLET 2 TAB PO TID KIDNEYS (Reported) Current Medications: Current Medications Sig/Jed Start time Last Medication Dose Route Stop Time Status Admin Amlodipine Besylate 10 MG DAILY 07/05 1000 AC PO Aspirin Buffered 81 MG DAILY 07/05 1000 AC PO Calcium Carbonate 500 MG DAILY 07/05 1000 AC PO Cholecalciferol 1,000 IU DAILY 07/05 1000 AC PO Epoetin Slava 6,000 UNIT MoWeFr PRN 07/05 1115 AC IV Epoetin Slava 8,000 UNIT 07/05 1000 DC SC Furosemide 40 MG BID 07/06 1000 AC PO Heparin Sodium 0 .STK-MED ONE 07/04 2057 DC (Porcine) .ROUTE Heparin Sodium 25,000 UNIT Q24H 07/04 1900 AC 07/04 (Porcine) IV 2110 Sodium Chloride 500 ML Heparin Sodium 4,000 UNIT ONCE ONE 07/04 1900 DC 07/04 (Porcine) IV 07/04 1901 2110 Hydralazine HCl 100 MG TID 07/05 1000 AC 07/05 PO 1053 Influenza Virus 0.5 ML ONCE ONE 07/05 0815 DC Vaccine IM 07/05 0816 Insulin Aspart 0 TIDAC 07/05 1100 AC SC Isosorbide 60 MG DAILY 07/05 1000 AC Mononitrate PO Labetalol HCl 200 MG BID 07/05 2200 AC PO Labetalol HCl 100 MG BID 07/05 1000 DC 07/05 PO 1054 Losartan Potassium 25 MG DAILY 07/05 1000 AC PO Multivitamins 1 TAB DAILY 07/05 1000 AC Therapeutic PO Paricalcitol 4 MCG MoWeFr PRN 07/05 1115 AC IV Pravastatin Sodium 20 MG 1700 07/05 1700 AC PO Prochlorperazine 10 MG TIDAC PRN 07/05 1133 UNVr PO Prochlorperazine 10 MG Q6 PRN 07/05 0030 DC 07/05 PO 1006 Sevelamer Carbonate 1,600 MG TID 07/05 1000 DC PO Sevelamer Carbonate 1,600 MG 0800,1200,1700 07/05 0800 AC PO Review of Systems Review of Systems Constitutional: Reports: malaise, weakness. EENTM: Denies: blurred vision, double vision. Cardiovascular: Denies: chest pain. Respiratory: Reports: short of breath. Denies: cough. GI: Denies: abdominal pain. Genitourinary: Denies: discharge. Musculoskeletal: Reports: back pain, joint pain. Skin: Denies: jaundice. Neurological/Psychological: Reports: depressed. Denies: cognitive dysfunction. 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 girlfriend Primary Language: Portuguese Smoking Status: Former Smoker Illicit Drug Use: denies illicit drug use Functional Ability ADLs Independent: dressing, eating, toileting, bathing. Ambulation: independent IADLs Independent: finances, telephone, medication admin. Needs Assist: shopping, housework, food prep, transportation. Exam & Diagnostic Data Vital Signs and I&O Vital Signs Date Time Temp Pulse Resp B/P B/P Pulse O2 O2 Flow FiO2 Mean Ox Delivery Rate 07/05 1053 74 160/70 07/05 0656 98.4 77 18 152/78 94 Room Air 07/05 0300 98.7 74 20 184/80 98 Room Air 07/05 0000 98.2 78 16 182/80 99 Room Air Room Air 07/04 2159 97.7 74 18 198/87 96 Room Air 07/04 1511 98.6 79 16 98 Room Air Intake & Output 07/05 1600 07/05 0800 07/05 0000 Intake Total 69.6 0 Output Total Balance 69.6 0 Intake, IV 69.6 Intake, Oral 0 Patient 64.41 kg Weight Physical Exam General Appearance: well developed/nourished, no apparent distress, comfortable Eyes: Bilateral: PERRL. Respiratory: normal breath sounds, chest non-tender, no respiratory distress, quiet respiration, crackles Cardiovascular: regular rate/rhythm Gastrointestinal: normal bowel sounds, soft, non-tender Extremities: no edema, LUE with AV fistula, +bruit Neurologic/Psych: awake, alert, oriented x 3 Other Physical Findings: right dialysis catheter Last 48 Hours of Lab Results: Laboratory Tests 07/05 07/05 07/04 0630 0300 1843 Chemistry Sodium (137 - 145 mmol/L) 141 Potassium (3.5 - 5.1 mmol/L) 3.7 Chloride (98 - 107 mmol/L) 103 Carbon Dioxide (22 - 30 mmol/L) 21 L Anion Gap (5 - 16) 16 BUN (9 - 20 mg/dL) 29 H Creatinine (0.7 - 1.2 mg/dL) 5.3 *H Estimated GFR (>60 ml/min) 11 L BUN/Creatinine Ratio (7 - 25 %) 5.5 L Troponin I (<0.11 ng/ml) 0.02 0.01 Cancelled Coagulation APTT (25 - 37 SEC) 73 H Lupus Anticoagulant Pending LA PTT Screen Pending Dil Junaid Viper Venom Pending Protein C Activity Pending Protein S Pending Factor V Leiden Pending Factor V Leiden Interp Pending Hematology CBC w Diff NO MAN DIFF REQ WBC (4.8 - 10.8 /CUMM) 14.6 H RBC (4.70 - 6.10 /CUMM) 3.33 L Hgb (14.0 - 18.0 G/DL) 10.3 L Hct (42 - 52 %) 31.0 L MCV (80.0 - 94.0 FL) 93.0 MCH (27.0 - 31.0 PG) 31.0 RDW (11.5 - 14.5 %) 15.9 H Plt Count (130 - 400 /CUMM) 278 MPV (7.4 - 10.4 FL) 7.9 Gran % (42.2 - 75.2 %) 86.2 H Lymphocytes % (20.5 - 51.1 %) 6.9 L Monocytes % (1.7 - 9.3 %) 6.0 Eosinophils % (0 - 5 %) 0.5 Basophils % (0.0 - 2.0 %) 0.4 Absolute Granulocytes (1.4 - 6.5 /CUMM) 12.6 H Absolute Lymphocytes (1.2 - 3.4 /CUMM) 1.0 L Absolute Monocytes (0.10 - 0.60 /CUMM) 0.9 H Absolute Eosinophils (0.0 - 0.7 /CUMM) 0.1 Absolute Basophils (0.0 - 0.2 /CUMM) 0.1 PUBS MCHC (33.0 - 37.0 G/DL) 33.4 07/04 1843 Chemistry Sodium (137 - 145 mmol/L) 138 Potassium (3.5 - 5.1 mmol/L) 4.3 Chloride (98 - 107 mmol/L) 103 Carbon Dioxide (22 - 30 mmol/L) 22 Anion Gap (5 - 16) 14 BUN (9 - 20 mg/dL) 27 H Creatinine (0.7 - 1.2 mg/dL) 4.8 H Estimated GFR (>60 ml/min) 12 L BUN/Creatinine Ratio (7 - 25 %) 5.6 L Glucose (65 - 99 mg/dL) 193 H Calcium (8.4 - 10.2 mg/dL) 9.7 Total Bilirubin (0.2 - 1.3 mg/dL) 0.5 AST (17 - 59 U/L) 25 ALT (21 - 72 U/L) 13 L Alkaline Phosphatase (< 127 U/L) 109 Troponin I (<0.11 ng/ml) 0.02 Total Protein (6.3 - 8.2 g/dL) 6.1 L Albumin (3.5 - 5.0 g/dL) 3.5 Globulin (1.9 - 4.2 gm/dL) 2.6 Albumin/Globulin Ratio (1.1 - 2.2 %) 1.3 Coagulation PT (9.4 - 12.5 SEC) 12.1 INR (0.90 - 1.17) 1.15 APTT (25 - 37 SEC) 26 Hematology CBC w Diff NO MAN DIFF REQ WBC (4.8 - 10.8 /CUMM) 13.9 H RBC (4.70 - 6.10 /CUMM) 3.29 L Hgb (14.0 - 18.0 G/DL) 10.1 L Hct (42 - 52 %) 30.7 L MCV (80.0 - 94.0 FL) 93.3 MCH (27.0 - 31.0 PG) 30.7 RDW (11.5 - 14.5 %) 15.7 H Plt Count (130 - 400 /CUMM) 276 MPV (7.4 - 10.4 FL) 7.4 Gran % (42.2 - 75.2 %) 85.6 H Lymphocytes % (20.5 - 51.1 %) 6.5 L Monocytes % (1.7 - 9.3 %) 7.0 Eosinophils % (0 - 5 %) 0.8 Basophils % (0.0 - 2.0 %) 0.1 Absolute Granulocytes (1.4 - 6.5 /CUMM) 11.9 H Absolute Lymphocytes (1.2 - 3.4 /CUMM) 0.9 L Absolute Monocytes (0.10 - 0.60 /CUMM) 1.0 H Absolute Eosinophils (0.0 - 0.7 /CUMM) 0.1 Absolute Basophils (0.0 - 0.2 /CUMM) 0 PUBS MCHC (33.0 - 37.0 G/DL) 32.9 L Imaging/Other Studies: CT chest 07/04/2017: 1. Progressive enlargement of the dominant 6.7 cm right upper lobe mass as compared to the prior study. Numerous additional pulmonary nodules are increased in size or new as compared to prior. These findings are consistent with progression of the underlying malignant disease. Adenopathy appears unchanged the comparison is limited without intravenous contrast. 2. Right IJ central venous catheter terminates in the right atrium. Assessment of the thrombus is limited without intravenous contrast material. Of note, there is mediastinal adenopathy near the SVC. 3. Two hypodense lesions in the right hepatic lobe which are not seen on prior studies, potentially additional metastatic disease. Consider correlation with an MRI of the abdomen if warranted. 4. Small to moderate-sized left pleural effusion 5. Anasarca. Assessment/Plan Assessment: Mr. 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 DVT is likely line related and malignancy related. He should be anticoagulated with heparin and bridge to warfarin. His ESRD prevents him from having other anticoagulant. His lung disease seems to have progressed after two cycles. He may need a change of therapy given the progression. This will be discussed as an outpatient. His chemotherapy administration will be difficult given his poor access. He will need port placement. This will be difficult with the dialysis line and DVT. He will need AV fistula evaluation and revision as soon as possible. Recommendations: Right IJ DVT: -Heparin transition to warfarin -VQ scan for PE evaluation AV fistula: -vascular evaluation for revision Stage IV large cell neuroendocrine: -pending access -obtain CT abdomen/pelvis -consider change to carboplatin/irinotecan ESRD: -nephrology consultation for dialysis Problem List: 1. Thrombosis of intravascular line 2. ESRD (end stage renal disease) Other Findings/Comments: Please call [phone] with any questions or concerns. Consult Acknowledgment - Thank you for your consult request.
--- NOTE | 2017-07-05 10:54 | PN- Housestaff ---
Anni MUSE,Mary 07/05/17 1054: Subjective Follow-up For: Right IJ thrombus Metastatic lung carcinoma with metastases to brain and liver End-stage renal disease on dialysis Diabetes Chemotherapy cardiomyopathy status post placement of bare metal stents History of proximal cephalic vein thrombus Tele-Events Since Last Visit: Normal sinus rhythm rate 74-78 Subjective: Patient was seen and examined bedside. Patient states that he is feeling okay. He has no chest pain and no shortness of breath. He states that he hasn't slept well in 3 days. Patient is currently on a heparin drip. Review of Systems Constitutional: Reports: no symptoms. EENTM: Reports: no symptoms. Cardiovascular: Reports: no symptoms. Respiratory: Reports: no symptoms. Gastrointestinal: Reports: no symptoms. Genitourinary: Reports: no symptoms. Musculoskeletal: Reports: no symptoms. Skin: Reports: no symptoms. Neurological/Psychological: Reports: no symptoms. Hematologic/Endocrine: Reports: no symptoms. Immunologic/Allergic: Reports: no symptoms. Objective Last 24 Hrs of Vital Signs/I&O Vital Signs Date Time Temp Pulse Resp B/P B/P Pulse O2 O2 Flow FiO2 Mean Ox Delivery Rate 07/05 1627 72 169/80 07/05 1517 72 169/80 07/05 1452 98.2 72 20 169/80 95 Room Air 07/05 1053 74 160/70 07/05 0656 98.4 77 18 152/78 94 Room Air 07/05 0300 98.7 74 20 184/80 98 Room Air 07/05 0000 98.2 78 16 182/80 99 Room Air Room Air 07/04 2159 97.7 74 18 198/87 96 Room Air Intake & Output 07/05 1600 07/05 0800 07/05 0000 Intake Total 665.6 69.6 0 Output Total 200 Balance 465.6 69.6 0 Intake, IV 185.6 69.6 Intake, Oral 480 0 Output, Urine 200 Patient 142 lb Weight Physical Exam General Appearance: Alert, Oriented X3, Cooperative, No Acute Distress Skin: No Rashes, No Breakdown, No Significant Lesion Skin Temp/Moisture Exam: Warm/Dry Sepsis Skin Exam (color): Normal for Ethnicity HEENT: Atraumatic, PERRLA, EOMI, Mucous Membr. moist/pink Neck: Supple, No JVD (right IJ catheter clean) Cardiovascular: Regular Rate, Normal S1, Normal S2, No Murmurs Lungs: Clear to Auscultation, Normal Air Movement Abdomen: Normal Bowel Sounds, Soft, No Tenderness, No Hepatospenomegaly, No Masses Neurological: Normal Speech Extremities: No Clubbing, No Cyanosis, No Edema, Normal Pulses, No Tenderness/ Swelling Vascular: Normal Pulses, Pulses Symmetrical Sepsis Peripheral Pulse Location: Radial Sepsis Peripheral Pulse Exam: Normal Sepsis Cap Refill Exam: <2 Sec Current Medications: Current Medications Sig/Jed Start time Last Medication Dose Route Stop Time Status Admin Amlodipine Besylate 10 MG DAILY 07/05 1000 AC 07/05 PO 1517 Aspirin Buffered 81 MG DAILY 07/05 1000 AC 07/05 PO 1517 Calcium Carbonate 500 MG DAILY 07/05 1000 AC 07/05 PO 1517 Cholecalciferol 1,000 IU DAILY 07/05 1000 AC 07/05 PO 1517 Epoetin Slava 6,000 UNIT MoWeFr PRN 07/05 1115 AC IV Epoetin Slava 8,000 UNIT 07/05 1000 DC SC Furosemide 40 MG BID 07/06 1000 AC PO Heparin Sodium 0 .STK-MED ONE 07/04 2057 DC (Porcine) .ROUTE Heparin Sodium 25,000 UNIT Q24H 07/04 1900 AC 07/04 (Porcine) IV 2110 Sodium Chloride 500 ML Heparin Sodium 4,000 UNIT ONCE ONE 07/04 1900 DC 07/04 (Porcine) IV 07/04 190 2110 Hydralazine HCl 100 MG TID 07/05 1000 AC 07/05 PO 1627 Influenza Virus 0.5 ML ONCE ONE 07/05 0815 DC Vaccine IM 07/05 0816 Insulin Aspart 0 TIDAC 07/05 1100 AC SC Isosorbide 60 MG DAILY 07/05 1000 AC 07/05 Mononitrate PO 1517 Labetalol HCl 200 MG BID 07/05 2200 AC PO Labetalol HCl 100 MG BID 07/05 1000 DC 07/05 PO 1054 Losartan Potassium 25 MG DAILY 07/05 1000 AC 07/05 PO 1517 Multivitamins 1 TAB DAILY 07/05 1000 AC 07/05 Therapeutic PO 1517 Paricalcitol 4 MCG MoWeFr PRN 07/05 1115 AC IV Pravastatin Sodium 20 MG 1700 07/05 1700 AC 07/05 PO 1627 Prochlorperazine 10 MG TIDAC PRN 07/05 1133 AC 07/05 PO 1515 Prochlorperazine 10 MG Q6 PRN 07/05 0030 DC 07/05 PO 1006 Sevelamer Carbonate 1,600 MG TID 07/05 1000 DC PO Sevelamer Carbonate 1,600 MG 0800,1200,1700 07/05 0800 AC 07/05 PO 1518 Warfarin Sodium 5 MG COUMADIN 1700 ONE 07/05 1700 DC PO 07/05 1701 Last 24 Hrs of Lab/[place] Results Last 24 Hrs of Labs/Mics: Laboratory Tests 07/05/17 1459: APTT 92 H 07/05/17 1147: Anion Gap 11, Estimated GFR 10 L, BUN/Creatinine Ratio 5.3 L, Calcium 9.2, CBC w Diff NO MAN DIFF REQ, RBC 3.29 L, MCV 92.4, MCH 30.7, RDW 15.1 H, MPV 7.9, Gran % 84.6 H, Lymphocytes % 7.2 L, Monocytes % 7.2, Eosinophils % 0.5, Basophils % 0.5, Absolute Granulocytes 10.7 H, Absolute Lymphocytes 0.9 L, Absolute Monocytes 0.9 H, Absolute Eosinophils 0.1, Absolute Basophils 0.1, PUBS MCHC 33.2 07/05/17 0630: Anion Gap 16, Estimated GFR 11 L, BUN/Creatinine Ratio 5.5 L, Troponin I 0.02, CBC w Diff NO MAN DIFF REQ, RBC 3.33 L, MCV 93.0, MCH 31.0, RDW 15.9 H, MPV 7.9, Gran % 86.2 H, Lymphocytes % 6.9 L, Monocytes % 6.0, Eosinophils % 0.5, Basophils % 0.4, Absolute Granulocytes 12.6 H, Absolute Lymphocytes 1.0 L, Absolute Monocytes 0.9 H, Absolute Eosinophils 0.1, Absolute Basophils 0.1, PUBS MCHC 33.4 07/05/17 0300: Troponin I 0.01, APTT 73 H 07/04/17 184: Troponin I Cancelled, Lupus Anticoagulant Pending, LA PTT Screen Pending, Dil Junaid Viper Venom Pending, Protein C Activity Pending, Protein S Pending, Factor V Leiden Pending, Factor V Leiden Interp Pending 07/04/17 184: Anion Gap 14, Estimated GFR 12 L, BUN/Creatinine Ratio 5.6 L, Glucose 193 H, Calcium 9.7, Total Bilirubin 0.5, AST 25, ALT 13 L, Alkaline Phosphatase 109, Troponin I 0.02, Total Protein 6.1 L, Albumin 3.5, Globulin 2.6, Albumin/ Globulin Ratio 1.3, PT 12.1, INR 1.15, APTT 26, CBC w Diff NO MAN DIFF REQ, RBC 3.29 L, MCV 93.3, MCH 30.7, RDW 15.7 H, MPV 7.4, Gran % 85.6 H, Lymphocytes % 6.5 L, Monocytes % 7.0, Eosinophils % 0.8, Basophils % 0.1, Absolute Granulocytes 11.9 H, Absolute Lymphocytes 0.9 L, Absolute Monocytes 1.0 H, Absolute Eosinophils 0.1, Absolute Basophils 0, PUBS MCHC 32.9 L Assessment/Plan Assessment: Assessment: 66-year-old gentleman with PMH of ESRD secondary to diabetic nephropathy ( dialysis Monday/Monday/Monday), hypertension, hyperlipidemia, coronary artery disease (s/p bare metal stents previously to LAD and left circumflex), prior ischemic cardiomyopathy with normalized EF [last echocardiogram in Mar 2017 EF 50-55% ], prior history of proximal cephalic vein thrombosis, 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 Patient has had this line for 2 years and receives hemodialysis through it. Vitals at admission were normal except blood pressure 182/80. Chest xray showed a known right upper lobe mass and persistent left lung base density that had no significant change from prior xray on 04/06/17. CT chest showed enlargement of the right upper mass with numerous additional pulmonary nodules. Central line assessment by CT was limited without intravenous contrast which was avoided in this ESRD patient. Of note patient has left AVF placed by Dr. Cruz. According to Dr. Durand, nephrology, who the patient has seen outpatient for treatment, the AVF is functional but not used as attempted cannulation was painful when it was attempted to be used. Thus, the RIJ continues to be used. The patient is set to have further cannulation in July with Dr. Cruz. Patient was admitted to telemetry floor for management of following conditions: DVT RIJ LINE ESRD ON DIALYSIS LUNG CANCER Plan: DVT RIJ line: Likely in the setting on indwelling catheter and cancer, both predisposing to coagulation. Patient was started on heparin drip in the ED. -Continue heparin drip with bridge to coumadin, goal INR 2-3 -Patient cannot have other anticoagulants due to ESRD -CT head showed no hemorrhagic conversion of his proximal cephalic thrombus -As per vascular surgery, if line is working, keep line and anticoagulate. -He will follow up with Dr. Cruz and if AVF is less painful and functioning, RIJ line will be removed. -VQ scan for PE evaluation ESRD on dialysis: -Continue MWF hemodialysis through tunneled catheter -Continue home medication, lasix, sevelamir, vitamin D3, procrit, eopgen, paricalcitol Lung cancer: -As per Dr. Saucedo, patient will likely need port placement given his current poor access and need for chemotherapy. -Chemotherapy seems to not be working. Drug may need to be altered. -Nebs -O2 supplementation when necessary Chronic medical conditions: IDDM, CAD, hypertension, hyperlipidemia -Continue home medications -Accu-Cheks -Serial EKG and troponins were negative DVT PPx: IV heparin, coumadin and ALPS Full Code Heart healthy diet Problem List: 1. Thrombosis of intravascular line 2. ESRD (end stage renal disease) 3. Lung mass Pain Ratin Pain Location: Generalized Pain Goal: Pain 4 or less Pain Plan: Offer pain pathway Tomorrow's Labs & Rationales: CBC, BEP Quincy Madrigal 07/05/17 1132: Attending MD Review Statement Attending Statement Attending MD Statement: examined this patient, discuss w/resident/PA/MACHINE TOOL ELECTRICIAN, agreed w/resident/PA/MACHINE TOOL ELECTRICIAN, discussed with family, reviewed EMR data (avail), discussed with nursing, discussed with case mgmt, reviewed images, amended to note Attending Assessment/Plan: 66 o/m with pmh of esrd on dialysis, htn, cad s/p stent, dm, nsvt, hld, lung cancer stage 4 admitted to telemetry monitoring for RIJ thrombus, and moderate plerual effusion and malnutrition with anasarca. Patient seen/examined bedside. No new complaints. Plan is to continue with heparin iv with transition to couamdin, vascular surgery consulted and recommend a/c and follow with Dr Cruz outpatient. Nephrology Dr Santillan for dialysis plan. M/W/F. Hematology/oncology for anticoagulation in his lung cancer histroy. f/u o/p for chemo. cont home meds gi/dvt prophyalxis full code.
--- NOTE | 2017-07-05 11:10 | Cons- Vascular Surgery ---
General Information and HPI Consulting Request Date of Consult: 07/05/17 Requested By: Shane Kraus MD History of Present Illness: 66-year-old man with multiple medical issues and stage IV lung cancer as well as end-stage renal diseaseon dialysis via right tunneled line which she is had for 2 years presented to the hospital with right arm swelling. An outside ultrasound has shown right IJ thrombosis. The patient has had left arm brachial basilic AV fistula creation by Dr. Cruz. Apparently The dialysis nurses have not been able to access the fistula. he is on the OR schedule for left arm AV fistula revision by Dr. Cruz in July. Allergies/Medications Allergies: Coded Allergies: NO KNOWN ALLERGIES (02/08/16) Home Med List: Amlodipine Besylate 10 MG TABLET 1 TAB PO DAILY HEART/BP (Reported) Aspirin (Ecotrin*) 81 MG TABLET.DR 1 TAB PO DAILY HEART/BLOOD (Reported) Azilsartan Medoxomil (Edarbi) 40 MG TABLET 1 TAB PO DAILY BP (Reported) Calcium Carbonate (Calcium) 500 MG CALCIUM (1,250 MG) TABLET 1 TAB PO DAILY SUPPLEMENT (Reported) Cholecalciferol (Vitamin D3) (Vitamin D) 1,000 UNIT TABLET 1 TAB PO DAILY SUPPLEMENT (Reported) Epoetin Slava (Procrit) 20,000 UNIT/ML VIAL 8,000 UNITS AD Monday DIALYSIS (Reported) Furosemide 80 MG TABLET 1 TAB PO AD DIURETIC (Reported) Hydralazine HCl 100 MG TABLET 1 TAB PO TID HEART (Reported) Insulin NPL/Insulin Lispro (Humalog Mix 75-25 Vial) 100 UNIT/1 ML VIAL 9 UNITS SC QAM DIABETES (Reported) Insulin NPL/Insulin Lispro (Humalog Mix 75-25 Vial) 100 UNIT/ML (75-25) VIAL 6 UNITS SC QHS DM (Reported) Insulin NPL/Insulin Lispro (Humalog Mix 75-25 Vial) 100 UNIT/ML (75-25) VIAL 6 U SC 5PM TAKES WITH DINNER (Reported) Isosorbide Mononitrate (Isosorbide Mononitrate ER) 60 MG TAB.ER.24H 1 TAB PO DAILY HEART (Reported) Labetalol HCl 100 MG TABLET 2 TAB PO BID HTN (Reported) Multiple Vitamin (Multivitamins) 1 EACH TABLET 1 TAB PO DAILY SUPPLEMENT ( Reported) Pravastatin Sodium 20 MG TABLET 1 TAB PO DAILY CHOLESTEROL (Reported) Prochlorperazine Maleate 10 MG TABLET 1 TAB PO Q6 PRN NAUSEA (Reported) Sevelamer Carbonate (Renvela) 800 MG TABLET 2 TAB PO TID KIDNEYS (Reported) Past History Medical History Neurological: NONE EENT: NONE Cardiovascular: cardiomyopathy (ischemic), CHF (systolic), hypertension, hyperlipidemia, CARDIAC CATH WITH bare-metal stents to the LAD and left circumflex pulmonary htn on LifeVest Respiratory: NONE Gastrointestinal: NONE Hepatic: NONE Renal: chronic kidney disease (stage V on HD), HD- M/W/F [facility]ME CATH Musculoskeletal: NONE Psychiatric: NONE Endocrine: diabetes (uncontrolled) Blood Disorders: NONE Cancer(s): NONE 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 girlfriend Primary Language: Irish Smoking Status: Former Smoker Illicit Drug Use: denies illicit drug use Functional Ability ADLs Independent: dressing, eating, toileting, bathing. Ambulation: independent IADLs Independent: finances, telephone, medication admin. Needs Assist: shopping, housework, food prep, transportation. Review of Systems Review of Systems: patient denies headache, dizziness, cough, palpitation, diarrhea or constipation Exam & Diagnostic Data Vital Signs and I&O Vital Signs Date Time Temp Pulse Resp B/P B/P Pulse O2 O2 Flow FiO2 Mean Ox Delivery Rate 07/05 1053 74 160/70 07/05 0656 98.4 77 18 152/78 94 Room Air 07/05 0300 98.7 74 20 184/80 98 Room Air 07/05 0000 98.2 78 16 182/80 99 Room Air Room Air 07/04 2159 97.7 74 18 198/87 96 Room Air 07/04 1511 98.6 79 16 98 Room Air Intake & Output 07/05 1600 07/05 0800 07/05 0000 07/04 1600 07/04 0800 07/04 0000 Intake Total 69.6 0 Output Total Balance 69.6 0 Intake, IV 69.6 Intake, Oral 0 Patient 142 lb 142 lb Weight Weight Reported by Patient Measurement Method Physical Exam: patient is alert and oriented 3 Lungs: Clear to auscultation bilaterally Cardiovascular: Regular rate and rhythm Abdomen: Soft, nontender and nondistended Extremities: There is moderate swelling of the right upper extremity. The right arm feel soft and there is a palpable radial pulse. There is a great palpable thrill over the left arm AV fistula. There is no facial swelling. Assessment/Plan Assessment/Plan 66-year-old man with stage IV lung cancer and end-stage renal disease on dialysis via I right tunneled line catheter which has been there for 2 years presented with right arm swelling and was found to have right IJ thrombosis. If the right tunneled line catheter is functioning, I would recommend anticoagulation with heparin with bridged to Coumadin when appropriate. The patient to follow with Dr. Cruz for his operation in July. Thank you for asking me to be involved in the care of this patient. Consult Acknowledgment - Thank you for your consult request. Attending MD Review Statement Attending Statement Attending MD Statement: examined this patient, discuss w/resident/PA/LOGGING TRACTOR OPERATOR SWAMP
[2017-07-05 12:10] LABS: ABSOLUTE BASOPHIL COUNT 0.1 /CUMM (0.0-0.2); ABSOLUTE EOSINOPHIL COUNT 0.1 /CUMM (0.0-0.7); ABSOLUTE GRANULOCYTE CT 10.7 /CUMM (1.4-6.5); ABSOLUTE LYMPH COUNT 0.9 /CUMM (1.2-3.4); ABSOLUTE MONOCYTE COUNT 0.9 /CUMM (0.10-0.60); BASOPHIL % 0.5 % (0.0-2.0); EOSINOPHIL % 0.5 % (0-5); HEMATOCRIT 30.5 % (42-52); MEAN CORPUSCULAR HGB 30.7 PG (27.0-31.0); MEAN CORPUSCULAR HGB CONC 33.2 G/DL (33.0-37.0); MEAN CORPUSCULAR VOLUME 92.4 FL (80.0-94.0); MEAN PLATELET VOLUME 7.9 FL (7.4-10.4); PLATELET COUNT 277 /CUMM (130-400); RBC DISTRIBUTION WIDTH 15.1 % (11.5-14.5); RED BLOOD CELL CT 3.29 /CUMM (4.70-6.10); WHITE BLOOD CELL COUNT 12.7 /CUMM (4.8-10.8)
--- NOTE | 2017-07-05 12:19 | Cons- Nephrology ---
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 The patient has been getting his hemodialysis via a right chest wall IJ catheter. He had a left upper arm AV fistula (?brachiocephalic) with Dr. Cruz earlier this fall. It is been declared usable in the outpatient dialysis unit has attempted cannulation although the patient refused further as he said it hurt. As a result, his right chest wall catheter continues to use. He has an appointment with Dr. Cruz in a couple weeks. The patient says he has noticed right arm swelling for the last week. He had presented to his oncologist office with the symptoms of right arm swelling for which she was sent for an ultrasound. The ultrasound demonstrated thrombosis of the right IJ and he was sent to the ED. He has since been started on a heparin drip. He has been seen by vascular surgery who has recommended the same. Further work-up here with CT scan done without contrast notable for progression of his cancer. Patient gets his hemodialysis at the [facility] unit Monday and Monday. His dry weight is 63.5 kg and he generally requires only a liter of fluid removal to get there. His last dialysis was on Monday because of the holiday and he left at 63.8 kg. Allergies/Medications Allergies: Coded Allergies: NO KNOWN ALLERGIES (02/08/16) Home Med List: Amlodipine Besylate 10 MG TABLET 1 TAB PO DAILY HEART/BP (Reported) Aspirin (Ecotrin*) 81 MG TABLET.DR 1 TAB PO DAILY HEART/BLOOD (Reported) Azilsartan Medoxomil (Edarbi) 40 MG TABLET 1 TAB PO DAILY BP (Reported) Calcium Carbonate (Calcium) 500 MG CALCIUM (1,250 MG) TABLET 1 TAB PO DAILY SUPPLEMENT (Reported) Cholecalciferol (Vitamin D3) (Vitamin D) 1,000 UNIT TABLET 1 TAB PO DAILY SUPPLEMENT (Reported) Epoetin Slava (Procrit) 20,000 UNIT/ML VIAL 8,000 UNITS AD Monday DIALYSIS (Reported) Furosemide 80 MG TABLET 1 TAB PO AD DIURETIC (Reported) Hydralazine HCl 100 MG TABLET 1 TAB PO TID HEART (Reported) Insulin NPL/Insulin Lispro (Humalog Mix 75-25 Vial) 100 UNIT/1 ML VIAL 9 UNITS SC QAM DIABETES (Reported) Insulin NPL/Insulin Lispro (Humalog Mix 75-25 Vial) 100 UNIT/ML (75-25) VIAL 6 UNITS SC QHS DM (Reported) Insulin NPL/Insulin Lispro (Humalog Mix 75-25 Vial) 100 UNIT/ML (75-25) VIAL 6 U SC 5PM TAKES WITH DINNER (Reported) Isosorbide Mononitrate (Isosorbide Mononitrate ER) 60 MG TAB.ER.24H 1 TAB PO DAILY HEART (Reported) Labetalol HCl 100 MG TABLET 2 TAB PO BID HTN (Reported) Multiple Vitamin (Multivitamins) 1 EACH TABLET 1 TAB PO DAILY SUPPLEMENT ( Reported) Pravastatin Sodium 20 MG TABLET 1 TAB PO DAILY CHOLESTEROL (Reported) Prochlorperazine Maleate 10 MG TABLET 1 TAB PO Q6 PRN NAUSEA (Reported) Sevelamer Carbonate (Renvela) 800 MG TABLET 2 TAB PO TID KIDNEYS (Reported) Current Medications: Current Medications Sig/Jed Start time Last Medication Dose Route Stop Time Status Admin Amlodipine Besylate 10 MG DAILY 07/05 1000 AC PO Aspirin Buffered 81 MG DAILY 07/05 1000 AC PO Calcium Carbonate 500 MG DAILY 07/05 1000 AC PO Cholecalciferol 1,000 IU DAILY 07/05 1000 AC PO Epoetin Slava 6,000 UNIT MoWeFr PRN 07/05 1115 AC IV Epoetin Slava 8,000 UNIT 07/05 1000 DC SC Furosemide 40 MG BID 07/06 1000 AC PO Heparin Sodium 0 .STK-MED ONE 07/04 2057 DC (Porcine) .ROUTE Heparin Sodium 25,000 UNIT Q24H 07/040 AC 07/04 (Porcine) IV 2109 Sodium Chloride 500 ML Heparin Sodium 4,000 UNIT ONCE ONE 07/04 1900 DC 07/04 (Porcine) IV 07/040 Hydralazine HCl 100 MG TID 07/05 1000 AC 07/05 PO 1053 Influenza Virus 0.5 ML ONCE ONE 07/05 0815 DC Vaccine IM 07/05 0816 Insulin Aspart 0 TIDAC 07/05 1100 AC SC Isosorbide 60 MG DAILY 07/05 1000 AC Mononitrate PO Labetalol HCl 200 MG BID 07/05 2200 AC PO Labetalol HCl 100 MG BID 07/05 1000 DC 07/05 PO 1054 Losartan Potassium 25 MG DAILY 07/05 1000 AC PO Multivitamins 1 TAB DAILY 07/05 1000 AC Therapeutic PO Paricalcitol 4 MCG MoWeFr PRN 07/05 1115 AC IV Pravastatin Sodium 20 MG 1700 07/05 1700 AC PO Prochlorperazine 10 MG TIDAC PRN 07/05 1133 AC PO Prochlorperazine 10 MG Q6 PRN 07/05 0030 DC 07/05 PO 1006 Sevelamer Carbonate 1,600 MG TID 07/05 1000 DC PO Sevelamer Carbonate 1,600 MG 0800,1200,1700 07/05 0800 AC PO Review of Systems Review of Systems: Complete 14 point ROS neg except as per HPI Past History Travel History Traveled to [place] past 21 day No Medical History Neurological: NONE EENT: NONE Cardiovascular: cardiomyopathy (ischemic), CHF (systolic), hypertension, hyperlipidemia, CARDIAC CATH WITH bare-metal stents to the LAD and left circumflex pulmonary htn on LifeVest Respiratory: NONE Gastrointestinal: NONE Hepatic: NONE Renal: chronic kidney disease (stage V on HD), HD- M/W/F W-BETHEL CATH Musculoskeletal: NONE Psychiatric: NONE Endocrine: diabetes (uncontrolled) Blood Disorders: NONE Cancer(s): NONE 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 girlfriend Primary Language: Mauritanian Smoking Status: Former Smoker Illicit Drug Use: denies illicit drug use Functional Ability ADLs Independent: dressing, eating, toileting, bathing. Ambulation: independent IADLs Independent: finances, telephone, medication admin. Needs Assist: shopping, housework, food prep, transportation. Exam & Diagnostic Data Vital Signs and I&O Vital Signs Date Time Temp Pulse Resp B/P B/P Pulse O2 O2 Flow FiO2 Mean Ox Delivery Rate 07/05 1053 74 160/70 07/05 0656 98.4 77 18 152/78 94 Room Air 07/05 0300 98.7 74 20 184/80 98 Room Air 07/05 0000 98.2 78 16 182/80 99 Room Air Room Air 07/04 2159 97.7 74 18 198/87 96 Room Air 07/04 1511 98.6 79 16 98 Room Air Intake & Output 07/05 1600 07/05 0400 07/04 0400 07/03 040 Intake Total 69.6 0 Output Total Balance 69.6 0 Intake, IV 69.6 Intake, Oral 0 Patient 142 lb 142 lb Weight Weight Reported by Patient Measurement Method Physical Exam: Gen - OK appearing Head - NCAT Eyes - EOMI, anicteric sclera Neck - supple, no LAD CV - RRR, no m/r/g Chest - clear anteriorly, no w/r/r Abd - soft, NTND, BS+ Upper ext- warm, RUE pitting edema, ELVIRA AVF +thrill/+bruit Lower ext - warm, no edema Skin - no rash or jaundice Neuro - AOX3, grossly nonfocal Results Pertinent Lab Results: Laboratory Tests 07/05 07/05 1147 0630 Chemistry Sodium (137 - 145 mmol/L) 136 L 141 Potassium (3.5 - 5.1 mmol/L) 3.7 3.7 Chloride (98 - 107 mmol/L) 101 103 Carbon Dioxide (22 - 30 mmol/L) 24 21 L Anion Gap (5 - 16) 11 16 BUN (9 - 20 mg/dL) 29 H 29 H Creatinine (0.7 - 1.2 mg/dL) 5.5 *H 5.3 *H Estimated GFR (>60 ml/min) 10 L 11 L BUN/Creatinine Ratio (7 - 25 %) 5.3 L 5.5 L Calcium (8.4 - 10.2 mg/dL) 9.2 Troponin I (<0.11 ng/ml) 0.02 Hematology CBC w Diff NO MAN DIFF REQ NO MAN DIFF REQ WBC (4.8 - 10.8 /CUMM) 12.7 H 14.6 H RBC (4.70 - 6.10 /CUMM) 3.29 L 3.33 L Hgb (14.0 - 18.0 G/DL) 10.1 L 10.3 L Hct (42 - 52 %) 30.5 L 31.0 L MCV (80.0 - 94.0 FL) 92.4 93.0 MCH (27.0 - 31.0 PG) 30.7 31.0 RDW (11.5 - 14.5 %) 15.1 H 15.9 H Plt Count (130 - 400 /CUMM) 277 278 MPV (7.4 - 10.4 FL) 7.9 7.9 Gran % (42.2 - 75.2 %) 84.6 H 86.2 H Lymphocytes % (20.5 - 51.1 %) 7.2 L 6.9 L Monocytes % (1.7 - 9.3 %) 7.2 6.0 Eosinophils % (0 - 5 %) 0.5 0.5 Basophils % (0.0 - 2.0 %) 0.5 0.4 Absolute Granulocytes (1.4 - 6.5 /CUMM) 10.7 H 12.6 H Absolute Lymphocytes (1.2 - 3.4 /CUMM) 0.9 L 1.0 L Absolute Monocytes (0.10 - 0.60 /CUMM) 0.9 H 0.9 H Absolute Eosinophils (0.0 - 0.7 /CUMM) 0.1 0.1 Absolute Basophils (0.0 - 0.2 /CUMM) 0.1 0.1 PUBS MCHC (33.0 - 37.0 G/DL) 33.2 33.4 07/05 07/04 07/04 0300 1843 1843 Chemistry Sodium (137 - 145 mmol/L) 138 Potassium (3.5 - 5.1 mmol/L) 4.3 Chloride (98 - 107 mmol/L) 103 Carbon Dioxide (22 - 30 mmol/L) 22 Anion Gap (5 - 16) 14 BUN (9 - 20 mg/dL) 27 H Creatinine (0.7 - 1.2 mg/dL) 4.8 H Estimated GFR (>60 ml/min) 12 L BUN/Creatinine Ratio (7 - 25 %) 5.6 L Glucose (65 - 99 mg/dL) 193 H Calcium (8.4 - 10.2 mg/dL) 9.7 Total Bilirubin (0.2 - 1.3 mg/dL) 0.5 AST (17 - 59 U/L) 25 ALT (21 - 72 U/L) 13 L Alkaline Phosphatase (< 127 U/L) 109 Troponin I (<0.11 ng/ml) 0.01 Cancelled 0.02 Total Protein (6.3 - 8.2 g/dL) 6.1 L Albumin (3.5 - 5.0 g/dL) 3.5 Globulin (1.9 - 4.2 gm/dL) 2.6 Albumin/Globulin Ratio (1.1 - 2.2 %) 1.3 Coagulation PT (9.4 - 12.5 SEC) 12.1 INR (0.90 - 1.17) 1.15 APTT (25 - 37 SEC) 73 H 26 Lupus Anticoagulant Pending LA PTT Screen Pending Dil Junaid Viper Venom Pending Protein C Activity Pending Protein S Pending Factor V Leiden Pending Factor V Leiden Interp Pending Hematology CBC w Diff NO MAN DIFF REQ WBC (4.8 - 10.8 /CUMM) 13.9 H RBC (4.70 - 6.10 /CUMM) 3.29 L Hgb (14.0 - 18.0 G/DL) 10.1 L Hct (42 - 52 %) 30.7 L MCV (80.0 - 94.0 FL) 93.3 MCH (27.0 - 31.0 PG) 30.7 RDW (11.5 - 14.5 %) 15.7 H Plt Count (130 - 400 /CUMM) 276 MPV (7.4 - 10.4 FL) 7.4 Gran % (42.2 - 75.2 %) 85.6 H Lymphocytes % (20.5 - 51.1 %) 6.5 L Monocytes % (1.7 - 9.3 %) 7.0 Eosinophils % (0 - 5 %) 0.8 Basophils % (0.0 - 2.0 %) 0.1 Absolute Granulocytes (1.4 - 6.5 /CUMM) 11.9 H Absolute Lymphocytes (1.2 - 3.4 /CUMM) 0.9 L Absolute Monocytes (0.10 - 0.60 /CUMM) 1.0 H Absolute Eosinophils (0.0 - 0.7 /CUMM) 0.1 Absolute Basophils (0.0 - 0.2 /CUMM) 0 PUBS MCHC (33.0 - 37.0 G/DL) 32.9 L Imaging/Other Studies: EXAM TYPE: CAT - CT CHEST WO IV CONTRAST EXAMINATION: CT CHEST WITHOUT CONTRAST CLINICAL INFORMATION: Recent right IJ thrombosis. Presumptive diagnosis: Right-sided lung mass. COMPARISON: CT lung biopsy images dated 04/06/2017 and PET-CT dated 03/28/2017 TECHNIQUE: Multidetector volumetric CT imaging of the chest was done. Axial MIP volume rendering provided. Sagittal and coronal reformatted images were obtained. DLP: 393.3 mGy-cm FINDINGS: MERCHANDISING PROFESSOR: Right IJ dialysis catheter terminates in the right atrium. LUNGS: The 5.8 x 4.4 x 6.7 cm mass in the posterior segment of the right upper lobe is increased in size from 5.6 x 3.3 cm (axial images only) on the prior lung biopsy images from 04/06/2017. The 2.7 x 2.3 cm nodule in the medial aspect of the right lobe just to the right of the trachea and esophagus on image 17/18 of series 2 is decreased in size from 2.9 x 2.8 cm. The 1.3 cm nodule at the anterolateral aspect of the right upper lobe on image 18/80 of series 2 is unchanged. The 1.8 cm nodule in the anterior aspect of the right lower lobe on image 43/80 of series 2 is increased in size from 0.8 cm on the prior study. Numerous smaller nodules in both lungs are new if not increased in size as compared to prior. There is a nodular bands of airspace opacification in the lingula on image 31/80 series 2 which measures 3.6 by likely a conglomeration of smaller nodule seen on the prior study. The dominant mass in the right upper lobe with associated with hilar adenopathy and produces mild narrowing of the right upper lobe bronchi. There is similar mild narrowing of the right middle lobe bronchus. Right lower lobe bronchus is patent. There is atelectasis in the left lower lobe adjacent to the effusion. MEDIASTINUM: There is a 2.6 cm (short axis) precarinal lymph node which is similar in size to the prior PET-CT. Adenopathy is present in both hilar regions, though not well defined without intravenous contrast. Calcific atherosclerosis is present in the coronary arteries and thoracic aorta. Heart is enlarged. Small pericardial effusion. Adenopathy is near the SVC which appears narrow in caliber, though unchanged from prior. Right IJ dialysis catheter terminates in the high right atrium. PLEURA: There is a small to moderate-sized dependent left pleural effusion. No right-sided effusion. AXILLA: No lymphadenopathy. UPPER ABDOMEN: Kidneys appear atrophic. Gallbladder is hydropic. There is an ill-defined 1.8 cm hypodense lesion in the inferior aspect of hepatic segment 6 (image 77/80 of series 2. A similar small ill-defined 2 cm hypoattenuating lesion is present in hepatic segment 7 laterally on image 63/80 of series 2. These are not apparent on prior studies. There is diffuse soft tissue anasarca. OSSEOUS STRUCTURES: Diffuse idiopathic skeletal hyperostosis is present in the thoracic spine. No acute fractures. No osseous lesions are identified. IMPRESSION: 1. Progressive enlargement of the dominant 6.7 cm right upper lobe mass as compared to the prior study. Numerous additional pulmonary nodules are increased in size or new as compared to prior. These findings are consistent with progression of the underlying malignant disease. Adenopathy appears unchanged the comparison is limited without intravenous contrast. 2. Right IJ central venous catheter terminates in the right atrium. Assessment of the thrombus is limited without intravenous contrast material. Of note, there is mediastinal adenopathy near the SVC. 3. Two hypodense lesions in the right hepatic lobe which are not seen on prior studies, potentially additional metastatic disease. Consider correlation with an MRI of the abdomen if warranted. 4. Small to moderate-sized left pleural effusion 5. Anasarca. Assessment/Plan Assessment/Recommendations Assessment: ESRD - Due for routine HD today. Has a ELVIRA AVF which has been deemed acceptable for use but the patient refused further cannulation - there may have been difficulty from our nurses in terms of cannulating as well. He continues HD via a R chest wall tunneled catheter which now has an associated DVT and ideally needs to be pulled. That being said, without it, he may not be able to reliably get HD. I would favor continuing anticoagulation (after confirming to hemorrhagic conversion of brain met) and initiating use of his AVF and if able to be reliably cannulated, pulling the tunneled cath in the next couple of weeks. The patient is agreeable to that plan. R IJ DVT - Started on AC. Clearly catheter associated. RUE edema - 2/2 thrombosis which clinically must extend to the SVC. Hopefully should improve with anticoagulation and removal of his catheter but may ultimately require angioplasty of the SVC - will defer to Dr. Cruz. Anemia - Hg at goal for level of CKD. Needs to continue Epogen 6000U TIW. MBD - Paricalcitol TIW. Recommendations: -Hep -> Coumadin bridge - Goal INR 2-3 - this can be followed at outpatient HD -CT Head to confirm no hemorrhagic conversion -Plan for HD on Monday using AVF for access with small needles -f/u with Dr. Cruz for AVF and then removal of tunneled HD catheter if AVF functioning -HD today - UF to EDW -Epogen 6000U TIW -Paricalcitol 4mcg TIW Please call [phone] with ?'s
[2017-07-05 13:02] LABS: GRANULOCYTE % 84.6 % (42.2-75.2)
[2017-07-05 14:52] VITALS: BP 169/80
[2017-07-05 16:38] LABS: PTT 92 SEC (25-37)
--- NOTE | 2017-07-05 18:07 | NUCLEAR MEDICINE REPORT ---
EXAMINATION: NM LUNG SCAN V/Q CLINICAL INFORMATION: DVT of right upper extremity. COMPARISON: CT chest 07/04/2017. TECHNIQUE: Ventilation/perfusion lung scan was performed routine. 7.81 mCi xenon-133 administered for ventilation. 4.4 mCi technetium 99m MAA given for perfusion. FINDINGS: Ventilation: Homogeneous perfusion of the right and left lung. No defect. There is good washout of the lungs Perfusion: No peripheral perfusion defects of lung. IMPRESSION: Normal ventilation/perfusion lung scan. No evidence of pulmonary embolism.
--- NOTE | 2017-07-05 18:42 | CT SCAN REPORT ---
EXAMINATION: CT HEAD WITHOUT CONTRAST CLINICAL INFORMATION: CT head for hemorrhagic conversion. DVT in the right upper extremity. COMPARISON: Brain MRI 03/23/2017. TECHNIQUE: Contiguous axial imaging was performed from the skull base to vertex without intravenous administration of contrast. DLP: 634 mGy-cm. FINDINGS: There is no intracranial hemorrhage or extra-axial collection. There is no CT evidence of large territory infarction. There is no dense vessel sign. The known 1 cm metastasis in the medial left temporal lobe is not well-defined. No other definite intracranial metastases are seen. There is redemonstration of chronic infarcts within the bilateral frontal lobe barrear radiata. There is mild scattered hypoattenuation in the bilateral cerebral white matter, which is nonspecific but likely reflects small vessel disease. There is mild diffuse brain parenchymal volume loss with prominence of the ventricles and sulci. The paranasal sinuses are clear. The mastoids and middle ear cavities are clear. IMPRESSION: 1. No intracranial hemorrhage, large territory infarction, or extra-axial collection. 2. The known 1 cm left medial temporal lobe metastasis is not well-defined. No other definite parenchymal lesions are seen. 3. Mild small vessel ischemic changes and chronic bilateral barrera radiata infarcts are again demonstrated.
--- NOTE | 2017-07-05 19:32 | CT SCAN REPORT ---
EXAMINATION: CT ABDOMEN AND PELVIS WITHOUT CONTRAST CLINICAL INFORMATION: Stage IV lung cancer. Rule out metastasis. COMPARISON: PET CT dated 03/28/2017. TECHNIQUE: Multidetector volumetric imaging was performed from the superior aspect of the liver through the pubic symphysis. Sagittal and coronal reformatted images were obtained on the technologist's workstation. DLP: 256.2 mGy-cm FINDINGS: LUNG BASES: Multiple pulmonary nodules are evident in the imaged portion of the right lung base. There is atelectasis in the left lower lobe due to the moderate-sized left pleural effusion. There is a small right pleural effusion. Heart is enlarged with calcific atherosclerosis in the coronary arteries. There is a small pericardial effusion. LIVER, GALLBLADDER, AND BILIARY TREE: Previously seen hypodense lesions are again noted in the right hepatic lobe, measuring 2.2 x 1.6 cm at the inferior tip of the right lobe on image 32/88 of series 2 and 2.4 x 1.4 cm on image 21/88 of series 2. Scrutinizing the prior PET CT, these measured 1.1 and 1 cm in diameter, at that time. No additional hepatic lesions are identified, though sensitivity is limited by the absence of intravenous contrast. These are normal in size and contour. Evaluation of the biliary ducts is limited by the absence of intravenous contrast in the presence of anasarca. The gallbladder is hydropic, measuring 5 cm in transverse diameter. No appreciable gallstones, gallbladder wall thickening, or obvious pericholecystic inflammatory changes. PANCREAS: Multifocal pancreatic calcifications are again noted, potentially due to chronic pancreatitis. The pancreas appears relatively atrophic. No ductal dilatation is identified. SPLEEN: Unremarkable. ADRENAL GLANDS: Unremarkable. KIDNEYS AND URETERS: Both kidneys are small, measuring 7.5 and 8.2 cm in diameter (right and left, respectively). There is mild associated cortical thinning. No hydronephrosis or urolithiasis. No focal lesions are identified. Ureters are unremarkable. BLADDER: Partially filled and unremarkable. GASTROINTESTINAL TRACT: Stomach, small bowel, and colon are normal in caliber. No bowel wall thickening or surrounding inflammatory changes. Appendix is normal. No intraperitoneal free air. There is a small volume of intraperitoneal free fluid, most notably around the liver and in the deep pelvis. ABDOMINAL WALL: No significant hernia is appreciated. There is diffuse soft tissue anasarca. LYMPH NODES: Normal. VASCULAR: Calcific atherosclerosis is present in the abdominal aorta and its branch vessels. No aneurysmal dilatation. PELVIC VISCERA: The prostate and seminal vesicles are unremarkable. OSSEOUS STRUCTURES: There is ankylosis of the SI joints and thoracic spine, either due to ankylosing spondylitis or, more likely, diffuse idiopathic skeletal hyperostosis. Marked degenerative disc disease is present at L5-S1. Multilevel facet arthropathy is present throughout the lumbar spine. There is a chronic superior endplate compression deformity at L1. No acute fractures. IMPRESSION: 1. Two hypoattenuating lesions within the right hepatic lobe measuring 2.4 and 2.2 cm in diameter, potentially metastatic These are not well-seen on the prior PET CT from 03/28/2017, and both appear increased in size from that time. No additional lesions are identified, though sensitivity and specificity of this intra-abdominal evaluation is limited without intravenous contrast material. 2. Anasarca with a small volume intraperitoneal ascites. 3. Mild renal atrophy. 4. Atrophic pancreas with multifocal calcifications, suggesting chronic pancreatitis.
--- NOTE | 2017-07-05 20:31 | RADIOLOGY REPORT ---
EXAMINATION: XR CHEST CLINICAL INFORMATION: DVT right upper extremity. Recent IJ thrombosis. COMPARISON: Chest x-ray 03/29/2017. Ventilation/perfusion lung scan today. CT chest 07/04/2017 TECHNIQUE: 2 views of the chest were obtained. FINDINGS: Patient has a known mass in the right upper lobe causing density at the medial right lung apex. Additional smaller lung lesions seen on CT chest are depicted with CAT scan than plain film x-ray. There is a moderate to large volume left pleural effusion opacifying the left lung base and silhouetting the left diaphragm. Underlying infiltrate or atelectasis could be present. This is similar in volume to the prior exams. No significant central pulmonary vascular congestion. Central port catheter tip at cavoatrial junction. IMPRESSION: Persistent density left lung base due to left pleural effusion and probable underlying consolidation/atelectasis. Known mass in right upper lobe posteriorly. No significant change since prior chest x-ray 04/06/2017.
[2017-07-05 22:09] VITALS: BP 140/80
[2017-07-06 01:11] LABS: PTT 48 SEC (25-37)
[2017-07-06 06:48] VITALS: BP 142/68
--- NOTE | 2017-07-06 08:04 | PN- Oncology ---
Subjective Subjective: He is feeling well. His right arm is less swollen. He had a busy day yesterday. He denies any new pain. He does have some nausea. He had an episode of emesis after breakfast yesterday. Review of Systems Constitutional: Denies: chills, fever. Cardiovascular: Denies: chest pain. Gastrointestinal: Reports: nausea, vomiting. Denies: abdominal pain, diarrhea. Musculoskeletal: Denies: back pain. All Other Systems: Reviewed and Negative Objective Vital Signs and I&Os Vital Signs Date Time Temp Pulse Resp B/P B/P Pulse O2 O2 Flow FiO2 Mean Ox Delivery Rate 07/06 0648 98.8 76 18 142/68 93 Room Air 07/06 0000 Room Air 07/05 2209 98.4 84 20 140/80 90 07/05 2131 72 169/80 07/05 1627 72 169/80 07/05 1517 72 169/80 07/05 1452 98.2 72 20 169/80 95 Room Air 07/05 1053 74 160/70 Intake & Output 07/06 0800 07/06 0000 07/05 1600 07/05 0800 07/05 0000 07/04 1600 Intake Total 426.4 200 665.6 69.6 0 Output Total 200 200 Balance 226.4 200 465.6 69.6 0 Intake, IV 186.4 185.6 69.6 Intake, Oral 240 200 480 0 Output, Urine 200 200 Patient 64.41 kg 64.41 kg Weight Weight Reported by Patient Measurement Method Physical Exam: General Appearance: well developed/nourished, no apparent distress, comfortable HEENT: right face swollen. Eyes: Bilateral: PERRL. Respiratory: normal breath sounds, chest non-tender, no respiratory distress, quiet respiration, crackles Cardiovascular: regular rate/rhythm Gastrointestinal: normal bowel sounds, soft, non-tender Extremities: no edema, LUE with AV fistula, +bruit Neurologic/Psych: awake, alert, oriented x 3 Other Physical Findings: right dialysis catheter Current Medications: Current Medications Sig/Jed Start time Last Medication Dose Route Stop Time Status Admin Acetaminophen 650 MG Q6P PRN 07/05 2115 AC PO Amlodipine Besylate 10 MG DAILY 07/05 1000 AC 07/05 PO 1517 Aspirin Buffered 81 MG DAILY 07/05 1000 AC 07/05 PO 1517 Calcium Carbonate 500 MG DAILY 07/05 1000 AC 07/05 PO 1517 Cholecalciferol 1,000 IU DAILY 07/05 1000 AC 07/05 PO 1517 Epoetin Slava 6,000 UNIT MoWeFr PRN 07/05 1115 AC IV Epoetin Slava 8,000 UNIT MONDAY WED THURSDAY 07/05 1000 DC SC Furosemide 40 MG BID 07/06 1000 DC PO Furosemide 40 MG SuTuThSa@0700,1500 07/06 1000 AC PO Heparin Sodium 2,564 UNIT ONCE ONE 07/06 0133 DC 07/06 (Porcine) IV 07/06 0134 0211 Heparin Sodium 25,000 UNIT Q24H 07/04 1900 AC 07/05 (Porcine) IV 1900 Sodium Chloride 500 ML Hydralazine HCl 100 MG TID 07/05 1000 AC 07/05 PO 2131 Hydrocodone Bitart/ 1 TAB Q6P PRN 07/05 2115 AC Acetaminophen PO Influenza Virus 0.5 ML ONCE ONE 07/05 0815 DC Vaccine IM 07/05 0816 Insulin Aspart 0 TIDAC 07/05 1100 AC SC Isosorbide 60 MG DAILY 07/05 1000 AC 07/05 Mononitrate PO 1517 Labetalol HCl 200 MG BID 07/05 2200 AC 07/05 PO 2131 Labetalol HCl 100 MG BID 07/05 1000 DC 07/05 PO 1054 Losartan Potassium 25 MG DAILY 07/05 1000 AC 07/05 PO 1517 Morphine Sulfate 2 MG Q4P PRN 07/05 2115 AC 07/05 IV 2131 Multivitamins 1 TAB DAILY 07/05 1000 AC 07/05 Therapeutic PO 1517 Paricalcitol 4 MCG MoWeFr PRN 07/05 1115 AC IV Pravastatin Sodium 20 MG 1700 07/05 1700 AC 07/05 PO 1627 Prochlorperazine 10 MG TIDAC PRN 07/05 1133 AC 07/06 PO 0737 Prochlorperazine 10 MG Q6 PRN 07/05 0030 DC 07/05 PO 1006 Sevelamer Carbonate 1,600 MG TID 07/05 1000 DC PO Sevelamer Carbonate 1,600 MG 0800,1200,1700 07/05 0800 AC PO Warfarin Sodium 5 MG COUMADIN 1700 ONE 07/05 1700 DC 07/05 PO 07/05 1701 1800 Results Last 24 Hours of Lab Results: Laboratory Tests 07/06 07/06 07/05 07/05 0647 0020 1459 1147 Chemistry Sodium (137 - 145 mmol/L) Pending 136 L Potassium (3.5 - 5.1 mmol/L) Pending 3.7 Chloride (98 - 107 mmol/L) Pending 101 Carbon Dioxide (22 - 30 mmol/L) Pending 24 Anion Gap (5 - 16) Pending 11 BUN (9 - 20 mg/dL) Pending 29 H Creatinine (0.7 - 1.2 mg/dL) Pending 5.5 *H Estimated GFR (>60 ml/min) 10 L BUN/Creatinine Ratio (7 - 25 %) Pending 5.3 L Calcium (8.4 - 10.2 mg/dL) 9.2 Coagulation PT Pending INR Pending APTT (25 - 37 SEC) 48 H 92 H Hematology CBC w Diff Pending NO MAN DIFF REQ WBC (4.8 - 10.8 /CUMM) Pending 12.7 H RBC (4.70 - 6.10 /CUMM) Pending 3.29 L Hgb (14.0 - 18.0 G/DL) Pending 10.1 L Hct (42 - 52 %) Pending 30.5 L MCV (80.0 - 94.0 FL) Pending 92.4 MCH (27.0 - 31.0 PG) Pending 30.7 RDW (11.5 - 14.5 %) Pending 15.1 H Plt Count (130 - 400 /CUMM) Pending 277 MPV (7.4 - 10.4 FL) Pending 7.9 Gran % (42.2 - 75.2 %) 84.6 H Lymphocytes % (20.5 - 51.1 %) 7.2 L Monocytes % (1.7 - 9.3 %) 7.2 Eosinophils % (0 - 5 %) 0.5 Basophils % (0.0 - 2.0 %) 0.5 Absolute Granulocytes (1.4 - 6.5 /CUMM) 10.7 H Absolute Lymphocytes (1.2 - 3.4 /CUMM) 0.9 L Absolute Monocytes (0.10 - 0.60 /CUMM) 0.9 H Absolute Eosinophils (0.0 - 0.7 /CUMM) 0.1 Absolute Basophils (0.0 - 0.2 /CUMM) 0.1 PUBS MCHC (33.0 - 37.0 G/DL) Pending 33.2 Recent Imaging Studies: VQ scan 07/05/2017: Normal ventilation/perfusion lung scan. No evidence of pulmonary embolism. CT Head 07/05/2017: 1. No intracranial hemorrhage, large territory infarction, or extra-axial collection. 2. The known 1 cm left medial temporal lobe metastasis is not well-defined. No other definite parenchymal lesions are seen. 3. Mild small vessel ischemic changes and chronic bilateral barrera radiata infarcts are again demonstrated. CT abdomen/pelvis 07/05/2017: 1. Two hypoattenuating lesions within the right hepatic lobe measuring 2.4 and 2.2 cm in diameter, potentially metastatic These are not well-seen on the prior PET CT from 03/28/2017, and both appear increased in size from that time. No additional lesions are identified, though sensitivity and specificity of this intra-abdominal evaluation is limited without intravenous contrast material. 2. Anasarca with a small volume intraperitoneal ascites. 3. Mild renal atrophy. 4. Atrophic pancreas with multifocal calcifications, suggesting chronic pancreatitis. Assessment/Plan Assessment/Recommendations: Mr. 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 DVT is likely line related and malignancy related. He should be anticoagulated with heparin and bridge to warfarin. He is doing well clinically. Swelling seems to have improved. Staging scan demonstrated progression of disease after 2 cycles. I will plan to switch him to a different regimen as an outpatient. Option would be carboplatin with irinotecan. IV access will be an issue for the patient. He will need a port ultimately. Right IJ DVT: -Heparin transition to warfarin Stage IV large cell neuroendocrine: -consider change to carboplatin/irinotecan -follow up as outaptient ESRD: -nephrology following Please call [phone] with any questions/concerns. Problem List: 1. Thrombosis of intravascular line 2. ESRD (end stage renal disease) 3. DVT (deep venous thrombosis) 4. Lung cancer
[2017-07-06 08:41] LABS: ABSOLUTE BASOPHIL COUNT 0 /CUMM (0.0-0.2); ABSOLUTE EOSINOPHIL COUNT 0.1 /CUMM (0.0-0.7); ABSOLUTE GRANULOCYTE CT 9.3 /CUMM (1.4-6.5); ABSOLUTE LYMPH COUNT 0.9 /CUMM (1.2-3.4); ABSOLUTE MONOCYTE COUNT 1.3 /CUMM (0.10-0.60); BASOPHIL % 0.3 % (0.0-2.0); EOSINOPHIL % 0.8 % (0-5); GRANULOCYTE % 79.9 % (42.2-75.2); HEMATOCRIT 29.3 % (42-52); MEAN CORPUSCULAR HGB 31.2 PG (27.0-31.0); MEAN CORPUSCULAR HGB CONC 33.1 G/DL (33.0-37.0); MEAN CORPUSCULAR VOLUME 94.3 FL (80.0-94.0); MEAN PLATELET VOLUME 7.9 FL (7.4-10.4); PLATELET COUNT 272 /CUMM (130-400); RBC DISTRIBUTION WIDTH 15.5 % (11.5-14.5); RED BLOOD CELL CT 3.11 /CUMM (4.70-6.10); WHITE BLOOD CELL COUNT 11.7 /CUMM (4.8-10.8)
[2017-07-06 09:08] LABS: PT 12.7 SEC (9.4-12.5)
--- NOTE | 2017-07-06 09:12 | PN- Housestaff ---
Anni MUSE,Mary 07/06/17 0911: Subjective Follow-up For: RIJ catheter thrombus esrd on dialysis lung cancer iddm cad sp stents d Tele-Events Since Last Visit: nsr 85-94 Subjective: patient seen and evaluated. Notes that he feels good. Complains of baseline all over pain since he began his cancer treatments. Review of Systems Constitutional: Reports: no symptoms. EENTM: Reports: no symptoms. Cardiovascular: Reports: no symptoms. Respiratory: Reports: no symptoms. Gastrointestinal: Reports: no symptoms. Genitourinary: Reports: no symptoms. Musculoskeletal: Reports: muscle pain. Skin: Reports: no symptoms. Neurological/Psychological: Reports: no symptoms. Hematologic/Endocrine: Reports: no symptoms. Immunologic/Allergic: Reports: no symptoms. Objective Last 24 Hrs of Vital Signs/I&O Vital Signs Date Time Temp Pulse Resp B/P B/P Pulse O2 O2 Flow FiO2 Mean Ox Delivery Rate 07/06 1431 98.4 74 18 140/76 93 Room Air 07/06 0834 76 146/60 07/06 0800 Room Air 07/06 0648 98.8 76 18 142/68 93 Room Air 07/06 0000 Room Air 07/05 2209 98.4 84 20 140/80 90 07/05 2131 72 169/80 Intake & Output 07/06 1600 07/06 0800 07/06 0000 Intake Total 702 426.4 200 Output Total 200 200 Balance 502 226.4 200 Intake, IV 142 186.4 Intake, Oral 560 240 200 Output, Urine 200 200 Patient 137 lb 137 lb Weight Weight Chair scale Measurement Method Physical Exam General Appearance: Alert, Oriented X3, Cooperative, No Acute Distress Skin: No Rashes Skin Temp/Moisture Exam: Warm/Dry HEENT: Atraumatic Cardiovascular: Regular Rate, Normal S1, Normal S2, No Murmurs Lungs: Clear to Auscultation, Normal Air Movement Abdomen: Normal Bowel Sounds, Soft, No Tenderness Extremities: No Clubbing, No Edema, Normal Pulses Vascular: Normal Pulses, Pulses Symmetrical Current Medications: Current Medications Sig/Jed Start time Last Medication Dose Route Stop Time Status Admin Acetaminophen 650 MG Q6P PRN 07/055 AC PO Amlodipine Besylate 10 MG DAILY 07/05 1000 AC 07/06 PO 0835 Aspirin Buffered 81 MG DAILY 07/05 1000 AC 07/06 PO 0834 Calcium Carbonate 500 MG DAILY 07/05 1000 AC 07/06 PO 0835 Cholecalciferol 1,000 IU DAILY 07/05 1000 AC 07/06 PO 0835 Epoetin Slava 6,000 UNIT MoWeFr PRN 07/05 1115 AC IV Furosemide 40 MG BID 07/06 1000 DC PO Furosemide 40 MG SuTuThSa@0700,1500 07/06 1000 AC 07/06 PO 0834 Heparin Sodium 5,000 UNIT .STK-MED ONE 07/06 0202 DC (Porcine) IV 07/06 0203 Heparin Sodium 2,564 UNIT ONCE ONE 07/06 0133 DC 07/06 (Porcine) IV 07/06 0134 0211 Heparin Sodium 25,000 UNIT Q24H 07/04 1900 AC 07/05 (Porcine) IV 1900 Sodium Chloride 500 ML Hydralazine HCl 100 MG TID 07/05 1000 AC 07/06 PO 0834 Hydrocodone Bitart/ 1 TAB Q6P PRN 07/05 2115 AC Acetaminophen PO Insulin Aspart 0 TIDAC 07/05 1100 AC 07/06 SC 1219 Isosorbide 60 MG DAILY 07/05 1000 AC 07/06 Mononitrate PO 0834 Labetalol HCl 200 MG BID 07/05 2200 AC 07/06 PO 0835 Lidocaine/Prilocaine 1 PENNY MoWeFr PRN 07/06 1530 AC TOP Losartan Potassium 25 MG DAILY 07/05 1000 AC 07/06 PO 0834 Morphine Sulfate 2 MG Q4P PRN 07/05 2115 AC 07/05 IV 2131 Multivitamins 1 TAB DAILY 07/05 1000 AC 07/06 Therapeutic PO 0835 Paricalcitol 4 MCG MoWeFr PRN 07/05 1115 AC IV Pravastatin Sodium 20 MG 1700 07/05 1700 AC 07/05 PO 1627 Prochlorperazine 10 MG TIDAC PRN 07/05 1133 AC 07/06 PO 0737 Sevelamer Carbonate 1,600 MG 0800,1200,1700 07/06 0800 AC PO Sevelamer Carbonate 1,600 MG 0800,1200,1700 07/05 0800 DC PO Warfarin Sodium 5 MG COUMADIN 1700 ONE 07/06 1700 AC PO 07/06 1701 Warfarin Sodium 5 MG COUMADIN 1700 ONE 07/05 1700 DC 07/05 PO 07/05 1701 1800 Last 24 Hrs of Lab/Haroon Results Last 24 Hrs of Labs/Mics: Laboratory Tests 07/06/17 0647: Anion Gap 11, Estimated GFR 16 L, BUN/Creatinine Ratio 4.9 L, PT 12.7 H, INR 1.21 H, APTT > 120 *H, CBC w Diff NO MAN DIFF REQ, RBC 3.11 L, MCV 94.3 H, MCH 31.2 H, RDW 15.5 H, MPV 7.9, Gran % 79.9 H, Lymphocytes % 7.7 L, Monocytes % 11.3 H, Eosinophils % 0.8, Basophils % 0.3, Absolute Granulocytes 9.3 H, Absolute Lymphocytes 0.9 L, Absolute Monocytes 1.3 H, Absolute Eosinophils 0.1, Absolute Basophils 0, PUBS MCHC 33.1 07/06/17 0020: APTT 48 H Assessment/Plan Assessment: Assessment: 66-year-old gentleman with PMH of ESRD secondary to diabetic nephropathy ( dialysis Monday/Monday/Monday), hypertension, hyperlipidemia, coronary artery disease (s/p bare metal stents previously to LAD and left circumflex), prior ischemic cardiomyopathy with normalized EF [last echocardiogram in Mar 2017 EF 50-55% ], prior history of proximal cephalic vein thrombosis, 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 Patient has had this line for 2 years and receives hemodialysis through it. Vitals at admission were normal except blood pressure 182/80. Chest xray showed a known right upper lobe mass and persistent left lung base density that had no significant change from prior xray on 04/06/17. CT chest showed enlargement of the right upper mass with numerous additional pulmonary nodules. Central line assessment by CT was limited without intravenous contrast which was avoided in this ESRD patient. Of note patient has left AVF placed by Dr. Cruz. According to Dr. Durand, nephrology, who the patient has seen outpatient for treatment, the AVF is functional but not used as attempted cannulation was painful when it was attempted to be used. Thus, the RIJ continues to be used. The patient is set to have further cannulation in July with Dr. Cruz. Patient was admitted to telemetry floor for management of following conditions: DVT RIJ LINE ESRD ON DIALYSIS LUNG CANCER Plan: DVT RIJ line: Likely in the setting on indwelling catheter and cancer, both predisposing to coagulation. Patient was started on heparin drip in the ED. -Continue heparin drip with bridge to coumadin, goal INR 2-3 -Patient cannot have other anticoagulants due to ESRD -CT head showed no hemorrhagic conversion of his proximal cephalic thrombus -As per vascular surgery, if line is working, keep line and anticoagulate. -He will follow up with Dr. Cruz and if AVF is less painful and functioning, RIJ line will be removed. -VQ scan showed no evidence of PE ESRD on dialysis: -Continue MWF hemodialysis through tunneled catheter -Continue home medication, lasix, sevelamir, vitamin D3, procrit, eopgen, paricalcitol Lung cancer: -As per Dr. Saucedo, patient will likely need port placement given his current poor access and need for chemotherapy. -CT abdomen and pelvis showed liver metastases increased since prior study. -Chemotherapy seems to not be working. Drug may need to be altered. -Nebs -O2 supplementation when necessary Chronic medical conditions: IDDM, CAD, hypertension, hyperlipidemia -Continue home medications -Accu-Cheks -Serial EKG and troponins were negative DVT PPx: IV heparin, coumadin and ALPS Full Code Heart healthy diet Problem List: 1. Ischemic cardiomyopathy 2. DVT (deep venous thrombosis) 3. ESRD (end stage renal disease) 4. Thrombosis of intravascular line 5. Lung mass Pain Ratin Pain Location: generalized Pain Goal: Pain 4 or less Pain Plan: pathway Tomorrow's Labs & Rationales: cbc bep Quincy Madrigal 07/06/17 1158: Attending MD Review Statement Attending Statement Attending MD Statement: examined this patient, discuss w/resident/PA/[employer]ST WORKER, agreed w/resident/PA/[employer]ST WORKER, discussed with family, reviewed EMR data (avail), discussed with nursing, discussed with case mgmt, reviewed images, amended to note Attending Assessment/Plan: 66 o/m with pmh of esrd on dialysis, htn, cad s/p stent, dm, nsvt, hld, lung cancer stage 4 admitted to telemetry monitoring for RIJ thrombus, and moderate plerual effusion and malnutrition with anasarca. Patient seen/examined bedside. No new complaints. Plan is to continue with heparin iv with transition to couamdin, vascular surgery consulted and recommend a/c and follow with Dr Cruz outpatient. Monitor INR. Coumadin 5 mg given yestedray. Nephrology Dr Santillan for dialysis plan. M/W/F. Had dialysis yesterday Hematology/oncology for anticoagulation in his lung cancer histroy. f/u o/p for chemo. cont home meds, asa, sevelamer, amlodopine, nitrates, losartan, hydralazine, labetalol, lasix. gi/dvt prophyalxis full code. Plan of care d.wed patient bedside.
--- NOTE | 2017-07-06 09:12 | Discharge Summary ---
See Addendum Visit Information Visit Dates Admission Date: 07/04/17 Discharge Date: 07/14/17 Hospital Course Course Attending Physician: Queta MUSE,Juan Jose Flynn Primary Care Physician: Corby Jackson MD Hospital Course: 66-year-old gentleman with PMH of ESRD secondary to diabetic nephropathy ( dialysis Monday/Monday/Monday), hypertension, hyperlipidemia, coronary artery disease (s/p bare metal stents previously to LAD and left circumflex), prior ischemic cardiomyopathy with normalized EF [last echocardiogram in Mar 2017 EF 50-55% ], prior history of proximal cephalic vein thrombosis, Stage IV right lung CA (reported brain and liver mets, s/p radiotherapy) presented to the ED from Dr Sauecdo office for evaluation of ED for right internal jugular DVT found on ultrasound at Dr. Saucedo's office. Patient was poor historian, no family members were present for taking history. Patient noted that he was diagnosed with lung cancer in November 2016, he had 2 rounds of chemotherapy and was planned to received 3rd round today in Dr. Saucedo office. He was found to have right arm swelling, ultrasound was performed which showed thrombosis of the right internal jugular vein and he was sent to ED. Upon further questioning he admitted to have gradual increase in swelling of the right arm in the last couple of days. He also received Neupogen during the last week after which he had bone pain. He reported decreased activity because of lower extremities swelling, decreased appetite, insomnia, cough with white phlegm. He was being dialyzed from left arm AV fistula but he noted that it was diagnosed to be nonfunctional and is planned for surgical intervention in July. Patient has had right tunneled line for 2 years and receives hemodialysis and chemotherapy through it. Vitals at admission were normal except blood pressure 182/80. Chest xray showed a known right upper lobe mass and persistent left lung base density that had no significant change from prior xray on 04/06/17. CT chest showed enlargement of the right upper mass with numerous additional pulmonary nodules. Central line assessment by CT was limited without intravenous contrast which was avoided in this ESRD patient. Of note patient has left AVF placed by Dr. Cruz. According to Dr. Durand, nephrology, who the patient has seen outpatient for treatment, the AVF is functional but not used as attempted cannulation was painful when it was attempted to be used and it may need to be superficialized. Thus, the RIJ continues to be used. The patient is set to have further cannulation in July with Dr. Cruz. Patient was admitted to telemetry floor for management of following conditions: DVT RIJ LINE ESRD ON DIALYSIS LUNG CANCER UPPER EXTREMITY SWELLING WHAT WAS DONE: DVT RIJ line: Likely in the setting on indwelling catheter and cancer, both predisposing to coagulation. Patient was started on heparin drip in the ED with warfarin and was bridged for 5 days. His INR slowly climbed and is now 2.54 on discharge. He had 7.5 mg warfarin to raise his INR quickly but is now on 5mg which he will be discharged on with instrucitons to take every day and follow up with INR reads. -Patient cannot have other newer anticoagulants or Lovenox due to ESRD -CT head showed no hemorrhagic conversion of his proximal cephalic thrombus so anticoagulation was deemed safe. -As per vascular surgery, if line is working, keep line for now. -He will follow up with Dr. Cruz for superficialize of line. -VQ scan showed no evidence of PE (no conversion of DVT) ESRD on dialysis: -Continue MWF hemodialysis through tunneled catheter. Last received it today 07/14. -URR: Although no fixed percentage can be said to represent an adequate dialysis, patients generally live longer and have fewer hospitalizations if the URR is at least 60 percent. URR is 62.96% on 07/12. URR was found to be 60% on 07/14, less than optimal. Dr. Santillan has ordered dailysis output time to increase to 3.5 hours. -Patient continued on phosphate binders. -Continue home medication, lasix, vitamin D3, procrit, eopgen, paricalcitol Lung cancer with mets: -CT chest showed: 1. Progressive enlargement of the dominant 6.7 cm right upper lobe mass as compared to the prior study. Numerous additional pulmonary nodules are increased in size or new as compared to prior. These findings are consistent with progression of the underlying malignant disease. Adenopathy appears unchanged the comparison is limited without intravenous contrast. -CT abdomen and pelvis showed liver metastases increased since prior study. -Plan for transition to carboplatin/irinotecan as an outpatient as current regimen seems to not be working despite patient being clinically stable. -Nebs -O2 supplementation when necessary. patient was persistently on oxygen, usually 1-2L. On 1/4, the patient was noted to desaturate on rest to 85%. He was ambulated on 07/14 and found to have sats of 87%. Patient should have home oxygen when necessary. Chronic medical conditions: IDDM, CAD, hypertension, hyperlipidemia -Continue home [id number]-Serial EKG and troponins were negative Upper extremity swelling, resolving -Doppler ultrasound upper and lower extremities showed no evidence of DVT but a superficial thrombus in the right upper extremity -Patient already on anticoagulation Disposition -Patient will be discharged home with oxygen DVT PPx: IV heparin, coumadin and ALPS Full Code Diabetic diet Patient instructed to follow up with Dr. Santillan, Fly Liu, Dr. Cruz vascular surgeon, PCP Dr. Jackson, and oncologist Dr. Abreu Allergies: Coded Allergies: NO KNOWN ALLERGIES (NONE 07/14/17) Disposition Summary Disposition Principal Diagnosis: right IJ thrombus Additional Diagnosis: acute hypoxic respiratory failure - desaturating to 85-87% on rest Discharge Disposition: home or self care Discharge Instructions General Discharge Information Code Status: Full Code Patient's Diet: renal dialysis diet Patient's Activity: as tolerated Follow-Up Instructions/Appts: 1. please follow up with your primary care doctor in one week 2. please follow up with Dr. Santillan in 2 weeks/Fly Liu 3. please follow up with Dr. Cruz vascular surgeon for a-v fistula surgery in the next weeks. 4. please follow up with Dr. Bustillo oncologist in 1-2 weeks Medications at Discharge Discharge Medications: Stop taking the following medications: Furosemide (Furosemide) 80 MG TABLET ORAL As Directed Continue taking these medications: Hydralazine HCl (Hydralazine HCl) 100 MG TABLET 1 Tablet ORAL THREE TIMES DAILY Qty = 90 Comments: Last Taken: 03/15/17 Time: 10:00 AM Pravastatin Sodium (Pravastatin Sodium) 20 MG TABLET 1 Tablet ORAL DAILY Comments: Last Taken: 03/15/17 Time: 5:00 PM Aspirin (Ecotrin*) 81 MG TABLET. 1 Tablet ORAL DAILY Comments: Last Taken: 03/15/17 Time: 10:00 AM Insulin NPL/Insulin Lispro (Humalog Mix 75-25 Vial) 100 UNIT/1 ML VIAL 9 Units Inject into fatty tissue Every Morning Amlodipine Besylate (Amlodipine Besylate) 10 MG TABLET 1 Tablet ORAL DAILY Qty = 90 Comments: Last Taken: 03/15/17 Time: 10:00 AM Azilsartan Medoxomil (Edarbi) 40 MG TABLET 1 Tablet ORAL DAILY Comments: NOT TAKEN IN HOSPITAL Calcium Carbonate (Calcium) 500 MG CALCIUM (1,250 MG) TABLET 1 Tablet ORAL DAILY Comments: Last Taken: 03/15/17 Time: 10:00 AM Cholecalciferol (Vitamin D3) (Vitamin D) 1,000 UNIT TABLET 1 Tablet ORAL DAILY Comments: Last Taken: 03/15/17 Time: 10:00 AM Epoetin Slava (Procrit) 20,000 UNIT/ML VIAL 8,000 Units Right Ear MONDAY, MONDAY AND MONDAY Comments: Last Taken: 03/15/17 Time: 10:00 AM Insulin NPL/Insulin Lispro (Humalog Mix 75-25 Vial) 100 UNIT/ML (75-25) VIAL 6 Units Inject into fatty tissue TAKE AT BEDTIME Isosorbide Mononitrate (Isosorbide Mononitrate ER) 60 MG TAB.ER.24H 1 Tablet ORAL DAILY Qty = 90 Comments: Last Taken: 03/15/17 Time: 10:00 AM Sevelamer Carbonate (Renvela) 800 MG TABLET 2 Tablet ORAL THREE TIMES DAILY Comments: Last Taken: 03/15/17 Time: 12:00 PM Insulin NPL/Insulin Lispro (Humalog Mix 75-25 Vial) 100 UNIT/ML (75-25) VIAL 6 Units Inject into fatty tissue 5 PM Labetalol HCl (Labetalol HCl) 100 MG TABLET 2 Tablet ORAL TWICE DAILY Multiple Vitamin (Multivitamins) 1 EACH TABLET 1 Tablet ORAL DAILY Prochlorperazine Maleate (Prochlorperazine Maleate) 10 MG TABLET 1 Tablet ORAL EVERY SIX HOURS as needed for NAUSEA Start taking the following new medications: Furosemide (Furosemide) 40 MG TABLET 2 Tablet ORAL NONDIALYSIS DAYS Qty = 60 No Refills Instructions: take (2) 40mg pills (80mg total) in the morning on non-dialysis days - , , mon, sun Warfarin Sodium (Coumadin) 5 MG TABLET 1 Tablet ORAL DAILY Qty = 30 No Refills Copies To: [facility] - Corby Brady MD; Sheryl MUSE,Artis; Jacque MUSE, Kody Vigil; Anthony MUSE,Rj
[2017-07-06 09:15] LABS: PTT > 120 SEC (25-37)
[2017-07-06 14:31] VITALS: BP 140/76
--- NOTE | 2017-07-06 15:56 | PN- Nephrology ---
Assessment/Plan Assessment: 1. 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 Status post left upper arm aVF. The patient does not wish this to be used tomorrow. In spite of having ordered the EMLA cream he declines having the access cannulated. 3. End-stage renal disease 4. Volume status. 5. diabetic nephropathy (dialysis Monday/Monday/Monday), 6. HTN, 7. HLD, 8. CAD (s/p bare metal stents previously to LAD and left circumflex), Suggestion: 1. He will be dialyzed tomorrow 2. Initially, consideration was given to attempting to use the access. The patient does not wish to proceed with that plan. He reports being in too much pain. It is painful for him to take a deep breath. Add to this, the news today that although doing well clinically, there is radiographic evidence of disease progression. Will hold off on cannulating the access and await input from Dr. Cruz Subjective Subjective: Patient is despondent. He received word today that his cancer has progressed. He was also told that he needs to have a new chemotherapy regimen instituted. He does not wish to tell his family. Objective Vital Signs and I&Os Vital Signs Date Time Temp Pulse Resp B/P B/P Pulse O2 O2 Flow FiO2 Mean Ox Delivery Rate 07/06 1431 98.4 74 18 140/76 93 Room Air 07/06 0834 76 146/60 07/06 0800 Room Air 07/06 0648 98.8 76 18 142/68 93 Room Air 07/06 0000 Room Air 07/05 2209 98.4 84 20 140/80 90 07/05 2131 72 169/80 07/05 1627 72 169/80 Intake & Output 07/06 1600 07/06 0400 07/05 1600 07/05 0400 07/04 1600 07/04 0400 Intake Total 1128.4 200 735.2 0 Output Total 400 200 Balance 728.4 200 535.2 0 Intake, IV 328.4 255.2 Intake, Oral 800 200 480 0 Output, Urine 400 200 Patient 137 lb 142 lb 142 lb Weight Weight Chair scale Reported by Patient Measurement Method Physical Exam General Appearance: well developed/nourished, no apparent distress, alert, awake , thin Head: atraumatic Ears, Nose, Throat: normal pharynx, normal ENT inspection, hearing grossly normal Neck: normal inspection, supple Respiratory: normal breath sounds Cardiovascular: regular rate/rhythm Peripheral Pulses: 2+ popliteal (R), 2+ popliteal (L), 2+ tibialis posterior (R), 2+ tibialis posterior (L), 2+ dorsalis pedis (R), 2+ dorsalis pedis (L) Abdomen: normal bowel sounds, soft, non-tender Extremities: normal inspection, normal capillary refill Current Medications: Current Medications Sig/Jed Start time Last Medication Dose Route Stop Time Status Admin Acetaminophen 650 MG Q6P PRN 07/05 2115 AC PO Amlodipine Besylate 10 MG DAILY 07/05 1000 AC 07/06 PO 0835 Aspirin Buffered 81 MG DAILY 07/05 1000 AC 07/06 PO 0834 Calcium Carbonate 500 MG DAILY 07/05 1000 AC 07/06 PO 0835 Cholecalciferol 1,000 IU DAILY 07/05 1000 AC 07/06 PO 0835 Epoetin Slava 6,000 UNIT MoWeFr PRN 07/05 1115 AC IV Furosemide 40 MG BID 07/06 1000 DC PO Furosemide 40 MG SuTuThSa@0700,1500 07/06 1000 AC 07/06 PO 0834 Heparin Sodium 5,000 UNIT .STK-MED ONE 07/06 0202 DC (Porcine) IV 07/06 0203 Heparin Sodium 2,564 UNIT ONCE ONE 07/06 0133 DC 07/06 (Porcine) IV 07/06 0134 0211 Heparin Sodium 25,000 UNIT Q24H 07/04 1900 AC 07/05 (Porcine) IV 1900 Sodium Chloride 500 ML Hydralazine HCl 100 MG TID 07/05 1000 AC 07/06 PO 0834 Hydrocodone Bitart/ 1 TAB Q6P PRN 07/055 AC Acetaminophen PO Insulin Aspart 0 TIDAC 07/05 1100 AC 07/06 SC 1219 Isosorbide 60 MG DAILY 07/05 1000 AC 07/06 Mononitrate PO 0834 Labetalol HCl 200 MG BID 07/05 2200 AC 07/06 PO 0835 Lidocaine/Prilocaine 1 PENNY MoWeFr PRN 07/06 1530 AC TOP Losartan Potassium 25 MG DAILY 07/05 1000 AC 07/06 PO 0834 Morphine Sulfate 2 MG Q4P PRN 07/05 2115 AC 07/05 IV 2131 Multivitamins 1 TAB DAILY 07/05 1000 AC 07/06 Therapeutic PO 0835 Paricalcitol 4 MCG MoWeFr PRN 07/05 1115 AC IV Pravastatin Sodium 20 MG 1700 07/05 1700 AC 07/05 PO 1627 Prochlorperazine 10 MG TIDAC PRN 07/05 1133 AC 07/06 PO 0737 Sevelamer Carbonate 1,600 MG 0800,1200,1700 07/06 0800 AC PO Sevelamer Carbonate 1,600 MG 0800,1200,1700 07/05 0800 DC PO Warfarin Sodium 5 MG COUMADIN 17007/06 1700 AC PO 07/06 1701 Warfarin Sodium 5 MG COUMADIN 1700 07/05 1700 DC 07/05 PO 07/05 1701 1800 Results Pertinent Lab Results: Laboratory Tests 07/06 07/06 07/05 0647 0020 1459 Chemistry Sodium (137 - 145 mmol/L) 139 Potassium (3.5 - 5.1 mmol/L) 3.5 Chloride (98 - 107 mmol/L) 102 Carbon Dioxide (22 - 30 mmol/L) 25 Anion Gap (5 - 16) 11 BUN (9 - 20 mg/dL) 18 Creatinine (0.7 - 1.2 mg/dL) 3.7 H Estimated GFR (>60 ml/min) 16 L BUN/Creatinine Ratio (7 - 25 %) 4.9 L Coagulation PT (9.4 - 12.5 SEC) 12.7 H INR (0.90 - 1.17) 1.21 H APTT (25 - 37 SEC) > 120 *H 48 H 92 H Hematology CBC w Diff NO MAN DIFF REQ WBC (4.8 - 10.8 /CUMM) 11.7 H RBC (4.70 - 6.10 /CUMM) 3.11 L Hgb (14.0 - 18.0 G/DL) 9.7 L Hct (42 - 52 %) 29.3 L MCV (80.0 - 94.0 FL) 94.3 H MCH (27.0 - 31.0 PG) 31.2 H RDW (11.5 - 14.5 %) 15.5 H Plt Count (130 - 400 /CUMM) 272 MPV (7.4 - 10.4 FL) 7.9 Gran % (42.2 - 75.2 %) 79.9 H Lymphocytes % (20.5 - 51.1 %) 7.7 L Monocytes % (1.7 - 9.3 %) 11.3 H Eosinophils % (0 - 5 %) 0.8 Basophils % (0.0 - 2.0 %) 0.3 Absolute Granulocytes (1.4 - 6.5 /CUMM) 9.3 H Absolute Lymphocytes (1.2 - 3.4 /CUMM) 0.9 L Absolute Monocytes (0.10 - 0.60 /CUMM) 1.3 H Absolute Eosinophils (0.0 - 0.7 /CUMM) 0.1 Absolute Basophils (0.0 - 0.2 /CUMM) 0 PUBS MCHC (33.0 - 37.0 G/DL) 33.1 07/05 07/05 1147 0630 Chemistry Sodium (137 - 145 mmol/L) 136 L 141 Potassium (3.5 - 5.1 mmol/L) 3.7 3.7 Chloride (98 - 107 mmol/L) 101 103 Carbon Dioxide (22 - 30 mmol/L) 24 21 L Anion Gap (5 - 16) 11 16 BUN (9 - 20 mg/dL) 29 H 29 H Creatinine (0.7 - 1.2 mg/dL) 5.5 *H 5.3 *H Estimated GFR (>60 ml/min) 10 L 11 L BUN/Creatinine Ratio (7 - 25 %) 5.3 L 5.5 L Calcium (8.4 - 10.2 mg/dL) 9.2 Troponin I (<0.11 ng/ml) 0.02 Hematology CBC w Diff NO MAN DIFF REQ NO MAN DIFF REQ WBC (4.8 - 10.8 /CUMM) 12.7 H 14.6 H RBC (4.70 - 6.10 /CUMM) 3.29 L 3.33 L Hgb (14.0 - 18.0 G/DL) 10.1 L 10.3 L Hct (42 - 52 %) 30.5 L 31.0 L MCV (80.0 - 94.0 FL) 92.4 93.0 MCH (27.0 - 31.0 PG) 30.7 31.0 RDW (11.5 - 14.5 %) 15.1 H 15.9 H Plt Count (130 - 400 /CUMM) 277 278 MPV (7.4 - 10.4 FL) 7.9 7.9 Gran % (42.2 - 75.2 %) 84.6 H 86.2 H Lymphocytes % (20.5 - 51.1 %) 7.2 L 6.9 L Monocytes % (1.7 - 9.3 %) 7.2 6.0 Eosinophils % (0 - 5 %) 0.5 0.5 Basophils % (0.0 - 2.0 %) 0.5 0.4 Absolute Granulocytes (1.4 - 6.5 /CUMM) 10.7 H 12.6 H Absolute Lymphocytes (1.2 - 3.4 /CUMM) 0.9 L 1.0 L Absolute Monocytes (0.10 - 0.60 /CUMM) 0.9 H 0.9 H Absolute Eosinophils (0.0 - 0.7 /CUMM) 0.1 0.1 Absolute Basophils (0.0 - 0.2 /CUMM) 0.1 0.1 PUBS MCHC (33.0 - 37.0 G/DL) 33.2 33.4 07/05 07/04 07/04 0300 1843 1843 Chemistry Sodium (137 - 145 mmol/L) 138 Potassium (3.5 - 5.1 mmol/L) 4.3 Chloride (98 - 107 mmol/L) 103 Carbon Dioxide (22 - 30 mmol/L) 22 Anion Gap (5 - 16) 14 BUN (9 - 20 mg/dL) 27 H Creatinine (0.7 - 1.2 mg/dL) 4.8 H Estimated GFR (>60 ml/min) 12 L BUN/Creatinine Ratio (7 - 25 %) 5.6 L Glucose (65 - 99 mg/dL) 193 H Calcium (8.4 - 10.2 mg/dL) 9.7 Total Bilirubin (0.2 - 1.3 mg/dL) 0.5 AST (17 - 59 U/L) 25 ALT (21 - 72 U/L) 13 L Alkaline Phosphatase (< 127 U/L) 109 Troponin I (<0.11 ng/ml) 0.01 Cancelled 0.02 Total Protein (6.3 - 8.2 g/dL) 6.1 L Albumin (3.5 - 5.0 g/dL) 3.5 Globulin (1.9 - 4.2 gm/dL) 2.6 Albumin/Globulin Ratio (1.1 - 2.2 %) 1.3 Coagulation PT (9.4 - 12.5 SEC) 12.1 INR (0.90 - 1.17) 1.15 APTT (25 - 37 SEC) 73 H 26 Lupus Anticoagulant Pending LA PTT Screen Pending Dil Junaid Viper Venom Pending Protein C Activity Pending Protein S Pending Factor V Leiden Pending Factor V Leiden Interp Pending Hematology CBC w Diff NO MAN DIFF REQ WBC (4.8 - 10.8 /CUMM) 13.9 H RBC (4.70 - 6.10 /CUMM) 3.29 L Hgb (14.0 - 18.0 G/DL) 10.1 L Hct (42 - 52 %) 30.7 L MCV (80.0 - 94.0 FL) 93.3 MCH (27.0 - 31.0 PG) 30.7 RDW (11.5 - 14.5 %) 15.7 H Plt Count (130 - 400 /CUMM) 276 MPV (7.4 - 10.4 FL) 7.4 Gran % (42.2 - 75.2 %) 85.6 H Lymphocytes % (20.5 - 51.1 %) 6.5 L Monocytes % (1.7 - 9.3 %) 7.0 Eosinophils % (0 - 5 %) 0.8 Basophils % (0.0 - 2.0 %) 0.1 Absolute Granulocytes (1.4 - 6.5 /CUMM) 11.9 H Absolute Lymphocytes (1.2 - 3.4 /CUMM) 0.9 L Absolute Monocytes (0.10 - 0.60 /CUMM) 1.0 H Absolute Eosinophils (0.0 - 0.7 /CUMM) 0.1 Absolute Basophils (0.0 - 0.2 /CUMM) 0 PUBS MCHC (33.0 - 37.0 G/DL) 32.9 L
[2017-07-06 21:36] LABS: PTT 61 SEC (25-37)
[2017-07-06 23:03] VITALS: BP 150/84
[2017-07-07 06:58] VITALS: BP 152/62
--- NOTE | 2017-07-07 08:58 | PN- Oncology ---
Subjective Subjective: He denies any new symptoms. He has no fever or chills. He has no new pain. He has no nausea or vomiting. He does not want this AV fistula used until Dr. Cruz sees him. Review of Systems: Constitutional: Denies: chills, fever. Cardiovascular: Denies: chest pain. Gastrointestinal: Reports: nausea, vomiting. Denies: abdominal pain, diarrhea. Musculoskeletal: Denies: back pain. All Other Systems: Reviewed and Negative Objective Vital Signs and I&Os Vital Signs Date Time Temp Pulse Resp B/P B/P Pulse O2 O2 Flow FiO2 Mean Ox Delivery Rate 07/07 0658 98.8 72 16 152/62 90 Room Air 07/06 2303 98.7 75 16 150/84 93 Room Air 07/06 2224 74 140/76 07/06 2223 74 140/76 07/06 1700 74 140/76 07/06 1431 98.4 74 18 140/76 93 Room Air Intake & Output 07/07 1600 07/07 0800 07/07 0000 07/06 1600 07/06 0800 07/06 0000 Intake Total 100 400 702 426.4 200 Output Total 500 200 200 Balance 100 -100 502 226.4 200 Intake, IV 142 186.4 Intake, Oral 100 400 560 240 200 Output, Urine 500 200 200 Patient 63.673 kg 62.199 kg 62.199 kg Weight Weight Chair scale Measurement Method Physical Exam: General Appearance: well developed/nourished, no apparent distress, comfortable HEENT: right face swollen (improved). Respiratory: normal breath sounds, chest non-tender, no respiratory distress, quiet respiration, crackles Cardiovascular: regular rate/rhythm Gastrointestinal: normal bowel sounds, soft, non-tender Extremities: no edema, LUE with AV fistula, +bruit Neurologic/Psych: awake, alert, oriented x 3 Other Physical Findings: right dialysis catheter Current Medications: Current Medications Sig/Jed Start time Last Medication Dose Route Stop Time Status Admin Acetaminophen 650 MG Q6P PRN 07/05 2115 AC PO Amlodipine Besylate 10 MG DAILY 07/05 1000 AC 07/06 PO 0835 Aspirin Buffered 81 MG DAILY 07/05 1000 AC 07/06 PO 0834 Calcium Carbonate 500 MG DAILY 07/05 1000 AC 07/06 PO 0835 Cholecalciferol 1,000 IU DAILY 07/05 1000 AC 07/06 PO 0835 Epoetin Slava 6,000 UNIT MoWeFr PRN 07/05 1115 AC IV Furosemide 40 MG SuTuThSa@1000 07/08 1000 AC PO Furosemide 40 MG BID 07/06 1000 DC PO Furosemide 40 MG SuTuThSa@0700,1500 07/06 1000 DC 07/06 PO 0834 Heparin Sodium 25,000 UNIT Q24H 07/04 1900 AC 07/07 (Porcine) IV 0555 Sodium Chloride 500 ML Hydralazine HCl 100 MG TID 07/05 1000 AC 07/06 PO 2223 Hydrocodone Bitart/ 1 TAB Q6P PRN 07/05 2115 AC Acetaminophen PO Insulin Aspart 0 TIDAC 07/05 1100 AC 07/06 SC 1219 Isosorbide 60 MG DAILY 07/05 1000 AC 07/06 Mononitrate PO 0834 Labetalol HCl 200 MG BID 07/05 2200 AC 07/06 PO 0835 Lidocaine/Prilocaine 1 PENNY MoWeFr PRN 07/06 1530 AC TOP Losartan Potassium 25 MG DAILY 07/05 1000 AC 07/06 PO 0834 Morphine Sulfate 2 MG Q4P PRN 07/05 2115 AC 07/05 IV 2131 Multivitamins 1 TAB DAILY 07/05 1000 AC 07/06 Therapeutic PO 0835 Paricalcitol 4 MCG MoWeFr PRN 07/05 1115 AC IV Pravastatin Sodium 20 MG 1700 07/05 1700 AC 07/06 PO 1700 Prochlorperazine 10 MG TIDAC PRN 07/05 1133 AC 07/07 PO 0752 Sevelamer Carbonate 1,600 MG 0800,1200,1700 07/06 0800 AC PO Warfarin Sodium 5 MG COUMADIN 1700 ONE 07/06 1700 DC 07/06 PO 07/06 1701 1755 Results Last 24 Hours of Lab Results: Laboratory Tests 07/06 2110 Coagulation APTT (25 - 37 SEC) 61 H Assessment/Plan Assessment/Recommendations: Mr. 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 DVT is likely line related and malignancy related. He should be anticoagulated with heparin and bridge to warfarin. He continues to do well. He has no new symptoms. He has progression of disease. I will change therapy for the patient as an outpatient. Right IJ DVT: -Heparin transition to warfarin Stage IV large cell neuroendocrine: -Plan for carboplatin/irinotecan as an outpatient -follow up as outaptient ESRD: -nephrology following Please call [phone] with any questions/concerns. Problem List: 1. Thrombosis of intravascular line 2. DVT (deep venous thrombosis) 3. ESRD (end stage renal disease) 4. Large cell neuroendocrine carcinoma
--- NOTE | 2017-07-07 09:17 | PN- Housestaff ---
Anni MUSE,Mary 07/07/17 0917: Subjective Follow-up For: Right IJ line thrombosis End-stage renal disease on dialysis Stage IV large neuroendocrine carcinoma IDDM Ischemic cardiomyopathy Tele-Events Since Last Visit: Normal sinus rhythm 70-75 with PVCs and PACs Subjective: Patient was seen and examined bedside. He denies any nausea but still complains of generalized pain. He notes it's painful on deep inspiration. Patient is being continued on heparin drip. Patient is to get dialysis today. Review of Systems Constitutional: Reports: weakness. EENTM: Reports: no symptoms. Cardiovascular: Reports: no symptoms. Respiratory: Reports: see HPI (pain on deep inspiration). Gastrointestinal: Reports: no symptoms. Genitourinary: Reports: no symptoms. Musculoskeletal: Reports: back pain, muscle pain, neck pain. Skin: Reports: no symptoms. Neurological/Psychological: Reports: no symptoms. Hematologic/Endocrine: Reports: no symptoms. Immunologic/Allergic: Reports: other. Objective Last 24 Hrs of Vital Signs/I&O Vital Signs Date Time Temp Pulse Resp B/P B/P Pulse O2 O2 Flow FiO2 Mean Ox Delivery Rate 07/07 1049 80 18 158/68 07/07 1049 80 18 158/68 07/07 1048 80 18 158/68 07/07 1048 80 18 158/68 07/07 0932 Room Air 07/07 0658 98.8 72 16 152/62 90 Room Air 07/06 2303 98.7 75 16 150/84 93 Room Air 07/06 2224 74 140/76 07/06 2223 74 140/76 07/06 1700 74 140/76 07/06 1431 98.4 74 18 140/76 93 Room Air Intake & Output 07/07 1600 07/07 0800 07/07 0000 Intake Total 100 400 Output Total 500 Balance 100 -100 Intake, Oral 100 400 Output, Urine 500 Patient 140 lb Weight Physical Exam General Appearance: Alert, Oriented X3, Cooperative, No Acute Distress Skin: No Rashes, No Breakdown, No Significant Lesion Skin Temp/Moisture Exam: Warm/Dry Sepsis Skin Exam (color): Normal for Ethnicity HEENT: Atraumatic Neck: Supple, No JVD Cardiovascular: Regular Rate, Normal S1, Normal S2, No Murmurs Lungs: Clear to Auscultation, Normal Air Movement Abdomen: Normal Bowel Sounds, Soft, No Tenderness Neurological: Normal Speech Extremities: No Clubbing, No Cyanosis, No Edema, Normal Pulses, No Tenderness/ Swelling Vascular: Normal Pulses Current Medications: Current Medications Sig/Jed Start time Last Medication Dose Route Stop Time Status Admin Acetaminophen 650 MG Q6P PRN 07/05 2115 AC PO Amlodipine Besylate 10 MG DAILY 07/05 1000 AC 07/07 PO 1049 Aspirin Buffered 81 MG DAILY 07/05 1000 AC 07/07 PO 0925 Calcium Carbonate 500 MG DAILY 07/05 1000 AC 07/06 PO 0835 Cholecalciferol 1,000 IU DAILY 07/05 1000 AC 07/07 PO 0925 Epoetin Slava 6,000 UNIT MoWeFr PRN 07/05 1115 AC IV Furosemide 40 MG SuTuThSa@1000 07/08 1000 AC PO Furosemide 40 MG SuTuThSa@0700,1500 07/06 1000 DC 07/06 PO 0834 Heparin Sodium 4,777.5 UNIT ONCE ONE 07/07 1130 DC 07/07 (Porcine) IV 07/07 1131 1142 Heparin Sodium 25,000 UNIT Q24H 07/04 1900 AC 07/07 (Porcine) IV 0555 Sodium Chloride 500 ML Hydralazine HCl 100 MG TID 07/05 1000 AC 07/07 PO 1048 Hydrocodone Bitart/ 1 TAB Q6P PRN 07/05 2115 AC Acetaminophen PO Insulin Aspart 0 TIDAC 07/05 1100 AC 07/06 SC 1219 Isosorbide 60 MG DAILY 07/05 1000 AC 07/07 Mononitrate PO 1048 Labetalol HCl 200 MG BID 07/05 2200 AC 07/06 PO 0835 Lidocaine/Prilocaine 1 PENNY MoWeFr PRN 07/06 1530 AC TOP Losartan Potassium 25 MG DAILY 07/05 1000 AC 07/07 PO 1049 Morphine Sulfate 2 MG Q4P PRN 07/05 2115 AC 07/05 IV 2131 Multivitamins 1 TAB DAILY 07/05 1000 AC 07/07 Therapeutic PO 0925 Paricalcitol 4 MCG MoWeFr PRN 07/05 1115 AC IV Pravastatin Sodium 20 MG 1700 07/05 1700 AC 07/06 PO 1700 Prochlorperazine 10 MG TIDAC PRN 07/05 1133 AC 07/07 PO 0752 Sevelamer Carbonate 1,600 MG 0800,1200,1700 07/06 0800 AC PO Warfarin Sodium 5 MG COUMADIN 1700 ONE 07/06 1700 DC 07/06 PO 07/06 1701 1755 Last 24 Hrs of Lab/Haroon Results Last 24 Hrs of Labs/Mics: Laboratory Tests 07/07/17 1151: CBC w Diff NO MAN DIFF REQ, RBC 3.24 L, MCV 91.2, MCH 30.6, RDW 15.9 H, MPV 8.1, Gran % 79.6 H, Lymphocytes % 7.9 L, Monocytes % 11.3 H, Eosinophils % 0.7, Basophils % 0.5, Absolute Granulocytes 8.9 H, Absolute Lymphocytes 0.9 L, Absolute Monocytes 1.3 H, Absolute Eosinophils 0.1, Absolute Basophils 0.1, PUBS MCHC 33.6 07/07/17 1150: Anion Gap 13, Estimated GFR 12 L, BUN/Creatinine Ratio 5.1 L, Calcium 9.2 07/07/17 0925: APTT 40 H 07/06/17 2110: APTT 61 H Assessment/Plan Assessment: Assessment: 66-year-old gentleman with PMH of ESRD secondary to diabetic nephropathy ( dialysis Monday/Monday/Monday), hypertension, hyperlipidemia, coronary artery disease (s/p bare metal stents previously to LAD and left circumflex), prior ischemic cardiomyopathy with normalized EF [last echocardiogram in Mar 2017 EF 50-55% ], prior history of proximal cephalic vein thrombosis, 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 Patient has had this line for 2 years and receives hemodialysis through it. Vitals at admission were normal except blood pressure 182/80. Chest xray showed a known right upper lobe mass and persistent left lung base density that had no significant change from prior xray on 04/06/17. CT chest showed enlargement of the right upper mass with numerous additional pulmonary nodules. Central line assessment by CT was limited without intravenous contrast which was avoided in this ESRD patient. Of note patient has left AVF placed by Dr. Cruz. According to Dr. Durand, nephrology, who the patient has seen outpatient for treatment, the AVF is functional but not used as attempted cannulation was painful when it was attempted to be used. Thus, the RIJ continues to be used. The patient is set to have further cannulation in July with Dr. Cruz. Patient was admitted to telemetry floor for management of following conditions: DVT RIJ LINE ESRD ON DIALYSIS LUNG CANCER Plan: DVT RIJ line: Likely in the setting on indwelling catheter and cancer, both predisposing to coagulation. Patient was started on heparin drip in the ED. -Continue heparin drip with bridge to coumadin, goal INR 2-3 -Follow INR. INR today is 1.21. -Patient cannot have other anticoagulants due to ESRD -CT head showed no hemorrhagic conversion of his proximal cephalic thrombus -As per vascular surgery, if line is working, keep line and anticoagulate. -He will follow up with Dr. Cruz and if AVF is less painful and functioning, RIJ line will be removed. -VQ scan showed no evidence of PE ESRD on dialysis: -Continue MWF hemodialysis through tunneled catheter -Continue home medication, lasix, sevelamir, vitamin D3, procrit, eopgen, paricalcitol -Patient will be ready to be discharged on Monday. [facility] will be closed Monday for so he will receive dialysis on Monday before discharge. Lung cancer: -As per Dr. Saucedo, patient will likely need port placement given his current poor access and need for chemotherapy. -CT abdomen and pelvis showed liver metastases increased since prior study. -Plan for transition to carboplatin/irinotecan as an outpatient as current regimen seems to not be working despite patient being clinically stable. -Nebs -O2 supplementation when necessary Chronic medical conditions: IDDM, CAD, hypertension, hyperlipidemia -Continue home medications -Accu-Cheks -Serial EKG and troponins were negative DVT PPx: IV heparin, coumadin and ALPS Full Code Heart healthy diet Problem List: 1. Lung mass 2. ESRD (end stage renal disease) 3. Thrombosis of intravascular line 4. Large cell neuroendocrine carcinoma Pain Ratin Pain Location: generalized pain Pain Goal: Pain 4 or less Pain Plan: pain pathway Tomorrow's Labs & Rationales: cbc bep inr Quincy Madrigal 07/07/17 1047: Attending MD Review Statement Attending Statement Attending MD Statement: examined this patient, discuss w/resident/PA/WEALTH MANAGEMENT DIRECTOR, agreed w/resident/PA/WEALTH MANAGEMENT DIRECTOR, discussed with family, reviewed EMR data (avail), discussed with nursing, discussed with case mgmt, reviewed images, amended to note Attending Assessment/Plan: 66 o/m with pmh of esrd on dialysis, htn, cad s/p stent, dm, nsvt, hld, lung cancer stage 4 admitted to telemetry monitoring for RIJ thrombus, and moderate plerual effusion and malnutrition with anasarca. Patient seen/examined bedside. No new complaints. INR today f/u. Plan is to continue with heparin iv with transition to couamdin, vascular surgery consulted and recommend a/c and follow with Dr Cruz outpatient. Monitor INR. Coumadin [address] Santillan for dialysis plan. M/W/F. Hematology/oncology for anticoagulation in his lung cancer histroy. f/u o/p for chemo. cont home meds, asa, sevelamer, amlodopine, nitrates, losartan, hydralazine, labetalol, lasix. gi/dvt prophyalxis full code. Plan of care reyes patient bedside.
[2017-07-07 11:22] LABS: PTT 40 SEC (25-37)
--- NOTE | 2017-07-07 12:45 | PN- Nephrology ---
Assessment/Plan Assessment: 1. 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 Status post left upper arm aVF. He will need follow-up with Dr. Cruz . 3. End-stage renal disease 4. Volume status. Difficult to discern. Suspect he has lost body mass with his current were dealing 5. diabetic nephropathy (dialysis Monday/Monday/Monday), 6. HTN, 7. HLD, 8. CAD (s/p bare metal stents previously to LAD and left circumflex), 9. Right IJ thrombus. He remains on anticoagulation. Reviewing some of the recommendations it is been suggested that simply anticoagulating if the access namely the catheter is still working and leaving in place. Suggestion: 1. He will be dialyzed again Monday 2. With regards to his aVF, it does seem to be far too underdeveloped to attempt cannulation. Subjective Subjective: Patient seen with hemodialysis. He feels well. Says that he still has pain with deep breath. He remarks that the identification bracelet on his right arm when he was admitted fit snugly on his wrist and now is quite loose. Objective Vital Signs and I&Os Vital Signs Date Time Temp Pulse Resp B/P B/P Pulse O2 O2 Flow FiO2 Mean Ox Delivery Rate 07/07 1049 80 18 158/68 07/07 1049 80 18 158/68 07/07 1048 80 18 158/68 07/07 1048 80 18 158/68 07/07 0932 Room Air 07/07 0658 98.8 72 16 152/62 90 Room Air 07/06 2303 98.7 75 16 150/84 93 Room Air 07/06 2224 74 140/76 07/06 2223 74 140/76 07/06 1700 74 140/76 07/06 1431 98.4 74 18 140/76 93 Room Air Intake & Output 07/07 1600 07/07 0400 07/06 1600 07/06 0400 07/05 1600 07/05 0400 Intake Total 648 808 8146.4 200 735.2 0 Output Total 500 400 200 Balance 100 -100 728.4 200 535.2 0 Intake, IV 328.4 255.2 Intake, Oral 100 400 800 200 480 0 Output, Urine 500 400 200 Patient 140 lb 137 lb 142 lb Weight Weight Chair scale Measurement Method Physical Exam: General Appearance: well developed/nourished, no apparent distress, alert, awake , thin Head: atraumatic normocephalic Neck: normal inspection, supple, no masses, right IJ Rufus catheter in place Respiratory: normal breath sounds anteriorly. He cannot take a deep breath because of pain. Cardiovascular: regular rate/rhythm Abdomen: normal bowel sounds, soft, non-tender Extremities: His right arm is less edematous. Current Medications: Current Medications Sig/Jed Start time Last Medication Dose Route Stop Time Status Admin Acetaminophen 650 MG Q6P PRN 07/05 2115 AC PO Amlodipine Besylate 10 MG DAILY 07/05 1000 AC 07/07 PO 1049 Aspirin Buffered 81 MG DAILY 07/05 1000 AC 07/07 PO 0925 Calcium Carbonate 500 MG DAILY 07/05 1000 AC 07/06 PO 0835 Cholecalciferol 1,000 IU DAILY 07/05 1000 AC 07/07 PO 0925 Epoetin Slava 6,000 UNIT MoWeFr PRN 07/05 1115 AC IV Furosemide 40 MG SuTuThSa@1000 07/08 1000 AC PO Furosemide 40 MG SuTuThSa@0700,1500 07/06 1000 DC 07/06 PO 0834 Heparin Sodium 4,777.5 UNIT ONCE ONE 07/07 1130 DC 07/07 (Porcine) IV 07/07 1131 1142 Heparin Sodium 25,000 UNIT Q24H 07/04 1900 AC 07/07 (Porcine) IV 0555 Sodium Chloride 500 ML Hydralazine HCl 100 MG TID 07/05 1000 AC 07/07 PO 1048 Hydrocodone Bitart/ 1 TAB Q6P PRN 07/05 2115 AC Acetaminophen PO Insulin Aspart 0 TIDAC 07/05 1100 AC 07/06 SC 1219 Isosorbide 60 MG DAILY 07/05 1000 AC 07/07 Mononitrate PO 1048 Labetalol HCl 200 MG BID 07/05 2200 AC 07/06 PO 0835 Lidocaine/Prilocaine 1 PENNY MoWeFr PRN 07/06 1530 AC TOP Losartan Potassium 25 MG DAILY 07/05 1000 AC 07/07 PO 1049 Morphine Sulfate 2 MG Q4P PRN 07/05 2115 AC 07/05 IV 2131 Multivitamins 1 TAB DAILY 07/05 1000 AC 07/07 Therapeutic PO 0925 Paricalcitol 4 MCG MoWeFr PRN 07/05 1115 AC IV Pravastatin Sodium 20 MG 1700 07/05 1700 AC 07/06 PO 1700 Prochlorperazine 10 MG TIDAC PRN 07/05 1133 AC 07/07 PO 0752 Sevelamer Carbonate 1,600 MG 0800,1200,1700 07/06 0800 AC PO Warfarin Sodium 5 MG COUMADIN 1700 ONE 07/06 1700 DC 07/06 PO 07/06 1701 1755 Results Pertinent Lab Results: Laboratory Tests 07/07 07/06 07/06 07/06 0925 2110 0647 0020 Chemistry Sodium (137 - 145 mmol/L) 139 Potassium (3.5 - 5.1 mmol/L) 3.5 Chloride (98 - 107 mmol/L) 102 Carbon Dioxide (22 - 30 mmol/L) 25 Anion Gap (5 - 16) 11 BUN (9 - 20 mg/dL) 18 Creatinine (0.7 - 1.2 mg/dL) 3.7 H Estimated GFR (>60 ml/min) 16 L BUN/Creatinine Ratio (7 - 25 %) 4.9 L Coagulation PT (9.4 - 12.5 SEC) 12.7 H INR (0.90 - 1.17) 1.21 H APTT (25 - 37 SEC) 40 H 61 H > 120 *H 48 H Hematology CBC w Diff NO MAN DIFF REQ WBC (4.8 - 10.8 /CUMM) 11.7 H RBC (4.70 - 6.10 /CUMM) 3.11 L Hgb (14.0 - 18.0 G/DL) 9.7 L Hct (42 - 52 %) 29.3 L MCV (80.0 - 94.0 FL) 94.3 H MCH (27.0 - 31.0 PG) 31.2 H RDW (11.5 - 14.5 %) 15.5 H Plt Count (130 - 400 /CUMM) 272 MPV (7.4 - 10.4 FL) 7.9 Gran % (42.2 - 75.2 %) 79.9 H Lymphocytes % (20.5 - 51.1 %) 7.7 L Monocytes % (1.7 - 9.3 %) 11.3 H Eosinophils % (0 - 5 %) 0.8 Basophils % (0.0 - 2.0 %) 0.3 Absolute Granulocytes (1.4 - 6.5 /CUMM) 9.3 H Absolute Lymphocytes (1.2 - 3.4 /CUMM) 0.9 L Absolute Monocytes (0.10 - 0.60 /CUMM) 1.3 H Absolute Eosinophils (0.0 - 0.7 /CUMM) 0.1 Absolute Basophils (0.0 - 0.2 /CUMM) 0 PUBS MCHC (33.0 - 37.0 G/DL) 33.1 07/05 07/05 1459 1147 Chemistry Sodium (137 - 145 mmol/L) 136 L Potassium (3.5 - 5.1 mmol/L) 3.7 Chloride (98 - 107 mmol/L) 101 Carbon Dioxide (22 - 30 mmol/L) 24 Anion Gap (5 - 16) 11 BUN (9 - 20 mg/dL) 29 H Creatinine (0.7 - 1.2 mg/dL) 5.5 *H Estimated GFR (>60 ml/min) 10 L BUN/Creatinine Ratio (7 - 25 %) 5.3 L Calcium (8.4 - 10.2 mg/dL) 9.2 Coagulation APTT (25 - 37 SEC) 92 H Hematology CBC w Diff NO MAN DIFF REQ WBC (4.8 - 10.8 /CUMM) 12.7 H RBC (4.70 - 6.10 /CUMM) 3.29 L Hgb (14.0 - 18.0 G/DL) 10.1 L Hct (42 - 52 %) 30.5 L MCV (80.0 - 94.0 FL) 92.4 MCH (27.0 - 31.0 PG) 30.7 RDW (11.5 - 14.5 %) 15.1 H Plt Count (130 - 400 /CUMM) 277 MPV (7.4 - 10.4 FL) 7.9 Gran % (42.2 - 75.2 %) 84.6 H Lymphocytes % (20.5 - 51.1 %) 7.2 L Monocytes % (1.7 - 9.3 %) 7.2 Eosinophils % (0 - 5 %) 0.5 Basophils % (0.0 - 2.0 %) 0.5 Absolute Granulocytes (1.4 - 6.5 /CUMM) 10.7 H Absolute Lymphocytes (1.2 - 3.4 /CUMM) 0.9 L Absolute Monocytes (0.10 - 0.60 /CUMM) 0.9 H Absolute Eosinophils (0.0 - 0.7 /CUMM) 0.1 Absolute Basophils (0.0 - 0.2 /CUMM) 0.1 PUBS MCHC (33.0 - 37.0 G/DL) 33.2 07/05 07/05 07/04 0630 0300 1843 Chemistry Sodium (137 - 145 mmol/L) 141 Potassium (3.5 - 5.1 mmol/L) 3.7 Chloride (98 - 107 mmol/L) 103 Carbon Dioxide (22 - 30 mmol/L) 21 L Anion Gap (5 - 16) 16 BUN (9 - 20 mg/dL) 29 H Creatinine (0.7 - 1.2 mg/dL) 5.3 *H Estimated GFR (>60 ml/min) 11 L BUN/Creatinine Ratio (7 - 25 %) 5.5 L Troponin I (<0.11 ng/ml) 0.02 0.01 Cancelled Coagulation APTT (25 - 37 SEC) 73 H Lupus Anticoagulant Pending LA PTT Screen Pending Dil Junaid Viper Venom Pending Protein C Activity Pending Protein S Pending Factor V Leiden Pending Factor V Leiden Interp Pending Hematology CBC w Diff NO MAN DIFF REQ WBC (4.8 - 10.8 /CUMM) 14.6 H RBC (4.70 - 6.10 /CUMM) 3.33 L Hgb (14.0 - 18.0 G/DL) 10.3 L Hct (42 - 52 %) 31.0 L MCV (80.0 - 94.0 FL) 93.0 MCH (27.0 - 31.0 PG) 31.0 RDW (11.5 - 14.5 %) 15.9 H Plt Count (130 - 400 /CUMM) 278 MPV (7.4 - 10.4 FL) 7.9 Gran % (42.2 - 75.2 %) 86.2 H Lymphocytes % (20.5 - 51.1 %) 6.9 L Monocytes % (1.7 - 9.3 %) 6.0 Eosinophils % (0 - 5 %) 0.5 Basophils % (0.0 - 2.0 %) 0.4 Absolute Granulocytes (1.4 - 6.5 /CUMM) 12.6 H Absolute Lymphocytes (1.2 - 3.4 /CUMM) 1.0 L Absolute Monocytes (0.10 - 0.60 /CUMM) 0.9 H Absolute Eosinophils (0.0 - 0.7 /CUMM) 0.1 Absolute Basophils (0.0 - 0.2 /CUMM) 0.1 PUBS MCHC (33.0 - 37.0 G/DL) 33.4 07/04 1843 Chemistry Sodium (137 - 145 mmol/L) 138 Potassium (3.5 - 5.1 mmol/L) 4.3 Chloride (98 - 107 mmol/L) 103 Carbon Dioxide (22 - 30 mmol/L) 22 Anion Gap (5 - 16) 14 BUN (9 - 20 mg/dL) 27 H Creatinine (0.7 - 1.2 mg/dL) 4.8 H Estimated GFR (>60 ml/min) 12 L BUN/Creatinine Ratio (7 - 25 %) 5.6 L Glucose (65 - 99 mg/dL) 193 H Calcium (8.4 - 10.2 mg/dL) 9.7 Total Bilirubin (0.2 - 1.3 mg/dL) 0.5 AST (17 - 59 U/L) 25 ALT (21 - 72 U/L) 13 L Alkaline Phosphatase (< 127 U/L) 109 Troponin I (<0.11 ng/ml) 0.02 Total Protein (6.3 - 8.2 g/dL) 6.1 L Albumin (3.5 - 5.0 g/dL) 3.5 Globulin (1.9 - 4.2 gm/dL) 2.6 Albumin/Globulin Ratio (1.1 - 2.2 %) 1.3 Coagulation PT (9.4 - 12.5 SEC) 12.1 INR (0.90 - 1.17) 1.15 APTT (25 - 37 SEC) 26 Hematology CBC w Diff NO MAN DIFF REQ WBC (4.8 - 10.8 /CUMM) 13.9 H RBC (4.70 - 6.10 /CUMM) 3.29 L Hgb (14.0 - 18.0 G/DL) 10.1 L Hct (42 - 52 %) 30.7 L MCV (80.0 - 94.0 FL) 93.3 MCH (27.0 - 31.0 PG) 30.7 RDW (11.5 - 14.5 %) 15.7 H Plt Count (130 - 400 /CUMM) 276 MPV (7.4 - 10.4 FL) 7.4 Gran % (42.2 - 75.2 %) 85.6 H Lymphocytes % (20.5 - 51.1 %) 6.5 L Monocytes % (1.7 - 9.3 %) 7.0 Eosinophils % (0 - 5 %) 0.8 Basophils % (0.0 - 2.0 %) 0.1 Absolute Granulocytes (1.4 - 6.5 /CUMM) 11.9 H Absolute Lymphocytes (1.2 - 3.4 /CUMM) 0.9 L Absolute Monocytes (0.10 - 0.60 /CUMM) 1.0 H Absolute Eosinophils (0.0 - 0.7 /CUMM) 0.1 Absolute Basophils (0.0 - 0.2 /CUMM) 0 PUBS MCHC (33.0 - 37.0 G/DL) 32.9 L
[2017-07-07 13:16] LABS: ABSOLUTE BASOPHIL COUNT 0.1 /CUMM (0.0-0.2); ABSOLUTE EOSINOPHIL COUNT 0.1 /CUMM (0.0-0.7); ABSOLUTE GRANULOCYTE CT 8.9 /CUMM (1.4-6.5); ABSOLUTE LYMPH COUNT 0.9 /CUMM (1.2-3.4); ABSOLUTE MONOCYTE COUNT 1.3 /CUMM (0.10-0.60); BASOPHIL % 0.5 % (0.0-2.0); EOSINOPHIL % 0.7 % (0-5); GRANULOCYTE % 79.6 % (42.2-75.2); HEMATOCRIT 29.6 % (42-52); MEAN CORPUSCULAR HGB 30.6 PG (27.0-31.0); MEAN CORPUSCULAR HGB CONC 33.6 G/DL (33.0-37.0); MEAN CORPUSCULAR VOLUME 91.2 FL (80.0-94.0); MEAN PLATELET VOLUME 8.1 FL (7.4-10.4); PLATELET COUNT 287 /CUMM (130-400); RBC DISTRIBUTION WIDTH 15.9 % (11.5-14.5); RED BLOOD CELL CT 3.24 /CUMM (4.70-6.10); WHITE BLOOD CELL COUNT 11.2 /CUMM (4.8-10.8)
[2017-07-07 19:42] LABS: PTT > 120 SEC (25-37)
[2017-07-08 02:30] LABS: PTT 45 SEC (25-37)
[2017-07-08 06:52] VITALS: BP 156/72
[2017-07-08 08:13] LABS: ABSOLUTE BASOPHIL COUNT 0.1 /CUMM (0.0-0.2); ABSOLUTE EOSINOPHIL COUNT 0.1 /CUMM (0.0-0.7); ABSOLUTE GRANULOCYTE CT 9.1 /CUMM (1.4-6.5); ABSOLUTE LYMPH COUNT 0.8 /CUMM (1.2-3.4); ABSOLUTE MONOCYTE COUNT 1.5 /CUMM (0.10-0.60); BASOPHIL % 0.6 % (0.0-2.0); EOSINOPHIL % 0.9 % (0-5); GRANULOCYTE % 78.6 % (42.2-75.2); HEMATOCRIT 29.6 % (42-52); MEAN CORPUSCULAR HGB 31.2 PG (27.0-31.0); MEAN CORPUSCULAR HGB CONC 33.2 G/DL (33.0-37.0); MEAN CORPUSCULAR VOLUME 94.1 FL (80.0-94.0); PLATELET COUNT 298 /CUMM (130-400); RBC DISTRIBUTION WIDTH 16.2 % (11.5-14.5); RED BLOOD CELL CT 3.14 /CUMM (4.70-6.10); WHITE BLOOD CELL COUNT 11.5 /CUMM (4.8-10.8)
[2017-07-08 09:01] LABS: PT 13.3 SEC (9.4-12.5)
--- NOTE | 2017-07-08 10:01 | PN- Housestaff ---
Keith MUSE,Melissa 07/08/17 1001: Subjective Follow-up For: Right IJ line thrombosis End-stage renal disease on dialysis Stage IV large neuroendocrine carcinoma IDDM Ischemic cardiomyopathy Subjective: Patient seen and examined lying on bed complaining of nausea patient received Zofran no overnight acute events Review of Systems Constitutional: Reports: see HPI. Objective Last 24 Hrs of Vital Signs/I&O Vital Signs Date Time Temp Pulse Resp B/P B/P Pulse O2 O2 Flow FiO2 Mean Ox Delivery Rate 07/08 1211 75 156/72 07/08 1100 75 156/72 07/08 1100 75 156/72 07/08 1100 753 156/72 07/08 0652 98.2 75 18 156/72 93 Room Air 07/07 2038 178/82 07/07 1743 184/74 Intake & Output 07/08 1600 07/08 0800 07/08 0000 Intake Total 185.55 275 Output Total 30 Balance 155.55 275 Intake, IV 85.55 Intake, Oral 100 275 Output, Urine 30 Physical Exam General Appearance: Alert, Oriented X3, Cooperative, No Acute Distress Cardiovascular: Normal S1, Normal S2 Abdomen: Normal Bowel Sounds, Soft Neurological: Normal Speech Current Medications: Current Medications Sig/Jed Start time Last Medication Dose Route Stop Time Status Admin Acetaminophen 650 MG Q6P PRN 07/05 2115 AC PO Amlodipine Besylate 10 MG DAILY 07/05 1000 AC 07/08 PO 1100 Aspirin Buffered 81 MG DAILY 07/05 1000 AC 07/08 PO 1100 Calcium Carbonate 500 MG DAILY 07/05 1000 AC 07/08 PO 1001 Cholecalciferol 1,000 IU DAILY 07/05 1000 AC 07/08 PO 1100 Epoetin Slava 6,000 UNIT MoWeFr PRN 07/05 1115 AC IV Furosemide 40 MG SuTuThSa@1000 07/08 1000 AC 07/08 PO 1211 Heparin Sodium 5,000 UNIT .STK-MED ONE 07/08 0330 DC (Porcine) IV 07/08 0331 Heparin Sodium 2,500 UNIT ONCE ONE 07/08 0245 DC 07/08 (Porcine) IV 07/08 0246 0334 Heparin Sodium 25,000 UNIT Q24H 07/04 1900 AC 07/07 (Porcine) IV 2039 Sodium Chloride 500 ML Hydralazine HCl 100 MG TID 07/05 1000 AC 07/08 PO 1100 Hydrocodone Bitart/ 1 TAB Q6P PRN 12/27 2115 AC Acetaminophen PO Insulin Aspart 0 TIDAC 07/05 1100 AC 07/08 SC 0805 Isosorbide 60 MG DAILY 07/05 1000 AC 07/08 Mononitrate PO 1100 Labetalol HCl 200 MG BID 07/05 2200 AC 07/08 PO 1211 Lidocaine/Prilocaine 1 PENNY MoWeFr PRN 07/06 1530 AC TOP Losartan Potassium 25 MG DAILY 07/05 1000 AC 07/07 PO 1049 Morphine Sulfate 2 MG Q4P PRN 07/05 2115 AC 07/07 IV 2318 Multivitamins 1 TAB DAILY 07/05 1000 AC 07/08 Therapeutic PO 1100 Paricalcitol 4 MCG MoWeFr PRN 07/05 1115 AC IV Pravastatin Sodium 20 MG 1700 07/05 1700 AC 07/07 PO 1742 Prochlorperazine 10 MG TIDAC PRN 07/05 1133 AC 07/08 PO 0759 Sevelamer Carbonate 1,600 MG 0800,1200,1700 07/06 0800 AC PO Warfarin Sodium 5 MG COUMADIN 1700 ONE 07/07 1700 DC 07/07 PO 07/07 1701 1743 Last 24 Hrs of Lab/Har[place] Results Last 24 Hrs of Labs/Mics: Laboratory Tests 07/08/17 1110: APTT 38 H 07/08/17 0645: CBC w Diff NO MAN DIFF REQ, RBC 3.14 L, MCV 94.1 H, MCH 31.2 H, RDW 16.2 H, MPV 8.0, Gran % 78.6 H, Lymphocytes % 6.8 L, Monocytes % 13.1 H, Eosinophils % 0.9, Basophils % 0.6, Absolute Granulocytes 9.1 H, Absolute Lymphocytes 0.8 L, Absolute Monocytes 1.5 H, Absolute Eosinophils 0.1, Absolute Basophils 0.1, PUBS MCHC 33.2 07/08/17 0627: Anion Gap 10, Estimated GFR 19 L, BUN/Creatinine Ratio 4.2 L, PT 13.3 H, INR 1.27 H 07/08/17 0200: APTT 45 H 07/07/17 1730: APTT > 120 *H Assessment/Plan Assessment: Assessment: 66-year-old gentleman with PMH of ESRD secondary to diabetic nephropathy ( dialysis Monday/Monday/Monday), hypertension, hyperlipidemia, coronary artery disease (s/p bare metal stents previously to LAD and left circumflex), prior ischemic cardiomyopathy with normalized EF [last echocardiogram in Mar 2017 EF 50-55% ], prior history of proximal cephalic vein thrombosis, 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 Patient has had this line for 2 years and receives hemodialysis through it. Vitals at admission were normal except blood pressure 182/80. Chest xray showed a known right upper lobe mass and persistent left lung base density that had no significant change from prior xray on 04/06/17. CT chest showed enlargement of the right upper mass with numerous additional pulmonary nodules. Central line assessment by CT was limited without intravenous contrast which was avoided in this ESRD patient. Of note patient has left AVF placed by Dr. Cruz. According to Dr. Durand, nephrology, who the patient has seen outpatient for treatment, the AVF is functional but not used as attempted cannulation was painful when it was attempted to be used. Thus, the RIJ continues to be used. The patient is set to have further cannulation in July with Dr. Cruz. Patient was admitted to telemetry floor for management of following conditions: DVT RIJ LINE ESRD ON DIALYSIS LUNG CANCER Plan: DVT RIJ line: Likely in the setting on indwelling catheter and cancer, both predisposing to coagulation. Patient was started on heparin drip in the ED. -Continue heparin drip with bridge to coumadin, goal INR 2-3 -Follow INR. Dose Coumadin accordingly -Patient cannot have other anticoagulants due to ESRD -CT head showed no hemorrhagic conversion of his proximal cephalic thrombus -As per vascular surgery, if line is working, keep line and anticoagulate. -He will follow up with Dr. Cruz and if AVF is less painful and functioning, RIJ line will be removed. -VQ scan showed no evidence of PE ESRD on dialysis: -Continue MWF hemodialysis through tunneled catheter -Continue home medication, lasix, sevelamir, vitamin D3, procrit, eopgen, paricalcitol -Patient will be ready to be discharged on Monday. [facility] will be closed Monday for New 's Day so he will receive dialysis on Monday before discharge. Lung cancer: -As per Dr. Saucedo, patient will likely need port placement given his current poor access and need for chemotherapy. -CT abdomen and pelvis showed liver metastases increased since prior study. -Plan for transition to carboplatin/irinotecan as an outpatient as current regimen seems to not be working despite patient being clinically stable. -Nebs -O2 supplementation when necessary Chronic medical conditions: IDDM, CAD, hypertension, hyperlipidemia -Continue home [id number]-Serial EKG and troponins were negative DVT PPx: IV heparin, coumadin and ALPS Full Code Heart healthy diet Problem List: 1. Lung mass Pain Ratin Pain Location: diffuse Pain Goal: Pain 4 or less Pain Plan: prm Tomorrow's Labs & Rationales: cbc inr bep Rafy MUSE,Amir 07/08/17 1300: Attending MD Review Statement Attending Statement Attending MD Statement: examined this patient, discuss w/resident/PA/KNIFE EDGER, agreed w/resident/PA/KNIFE EDGER, reviewed EMR data (avail), discussed with nursing w/resident/PA/KNIFE EDGER, reviewed EMR data (avail), discussed with nursing
[2017-07-08 11:47] LABS: PTT 38 SEC (25-37)
[2017-07-08 14:43] VITALS: BP 148/74
[2017-07-08 22:10] LABS: PTT 37 SEC (25-37)
[2017-07-08 23:12] VITALS: BP 152/62
[2017-07-09 06:46] VITALS: BP 142/78
--- NOTE | 2017-07-09 08:25 | PN- Housestaff ---
Fanny MUSE,[facility] 07/09/17 0825: Subjective Follow-up For: Right IJ line thrombosis End-stage renal disease on dialysis Stage IV large neuroendocrine carcinoma IDDM Ischemic cardiomyopathy Tele-Events Since Last Visit: NSR with heart rate 71-75. No overnight events. Subjective: patient was seen and examined at bedside. He was upset that he is not informed prior to having his dialysis. He got a breathing treatment earlier in the morning and does not like having the mask on his face. He still complains of having some mild shortness of breath. Review of Systems Constitutional: Reports: no symptoms. Objective Last 24 Hrs of Vital Signs/I&O Vital Signs Date Time Temp Pulse Resp B/P B/P Pulse O2 O2 Flow FiO2 Mean Ox Delivery Rate 07/09 0646 98.2 78 20 142/78 93 Nasal Cannula 07/09 0409 95 Nasal 2.0L Cannula 07/08 2312 98.6 77 20 152/62 95 Nasal 2.0L Cannula 07/08 2250 73 158/72 07/08 2249 73 158/72 07/08 1700 73 148/74 07/08 1443 98.5 73 20 148/74 87 Intake & Output 07/09 1600 07/09 0800 07/09 0000 Intake Total 240 440 Output Total 250 175 Balance -10 265 Intake, Oral 240 440 Output, Urine 250 175 Physical Exam General Appearance: Alert, Oriented X3, Cooperative, No Acute Distress Skin: No Rashes, No Breakdown Skin Temp/Moisture Exam: Warm/Dry Sepsis Skin Exam (color): Normal for Ethnicity HEENT: Atraumatic Cardiovascular: Normal S1, Normal S2, No Murmurs Lungs: expiratory wheezing Abdomen: Soft, No Tenderness Neurological: Normal Speech Extremities: No Edema Assessment/Plan Assessment: Assessment: 66-year-old gentleman with PMH of ESRD secondary to diabetic nephropathy ( dialysis Monday/Monday/Monday), hypertension, hyperlipidemia, coronary artery disease (s/p bare metal stents previously to LAD and left circumflex), prior ischemic cardiomyopathy with normalized EF [last echocardiogram in Mar 2017 EF 50-55% ], prior history of proximal cephalic vein thrombosis, 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 Patient has had this line for 2 years and receives hemodialysis through it. Vitals at admission were normal except blood pressure 182/80. Chest xray showed a known right upper lobe mass and persistent left lung base density that had no significant change from prior xray on 04/06/17. CT chest showed enlargement of the right upper mass with numerous additional pulmonary nodules. Central line assessment by CT was limited without intravenous contrast which was avoided in this ESRD patient. Of note patient has left AVF placed by Dr. Cruz. According to Dr. Durand, nephrology, who the patient has seen outpatient for treatment, the AVF is functional but not used as attempted cannulation was painful when it was attempted to be used. Thus, the RIJ continues to be used. The patient is set to have further cannulation in July with Dr. Cruz. Patient was admitted to telemetry floor for management of following conditions: DVT RIJ LINE ESRD ON DIALYSIS LUNG CANCER Plan: DVT RIJ line: Likely in the setting on indwelling catheter and cancer, both predisposing to coagulation. Patient was started on heparin drip in the ED. -Continue heparin drip with bridge to coumadin, goal INR 2-3 -Follow INR. Dose Coumadin accordingly. - INR was subtherapeutic today. Will increase warfarin to 7.5mg today. Once INR therapeutic, he can discharged. -Patient cannot have other anticoagulants due to ESRD -CT head showed no hemorrhagic conversion of his proximal cephalic thrombus -As per vascular surgery, if line is working, keep line and anticoagulate. -He will follow up with Dr. Cruz and if AVF is less painful and functioning, RIJ line will be removed. -VQ scan showed no evidence of PE ESRD on dialysis: -Continue MWF hemodialysis through tunneled catheter -Continue home medication, lasix, sevelamir, vitamin D3, procrit, eopgen, paricalcitol -He got dialysis today but could not be discharged as his INR is still subtherapeutic. Lung cancer: -As per Dr. Saucedo, patient will likely need port placement given his current poor access and need for chemotherapy. -CT abdomen and pelvis showed liver metastases increased since prior study. -Plan for transition to carboplatin/irinotecan as an outpatient as current regimen seems to not be working despite patient being clinically stable. -Nebs -O2 supplementation when necessary Chronic medical conditions: IDDM, CAD, hypertension, hyperlipidemia -Continue home [id number]-Serial EKG and troponins were negative DVT PPx: IV heparin, coumadin and ALPS Full Code Diabetic diet Problem List: 1. Thrombosis of intravascular line Pain Ratin Pain Location: none Pain Goal: Remain pain free Pain Plan: none Tomorrow's Labs & Rationales: CBC, BEP, INR Rafy MUSE,Amir 07/09/17 1138: Attending MD Review Statement Attending Statement Attending MD Statement: examined this patient, discuss w/resident/PA/PAYABLE PROCESSOR, agreed w/resident/PA/PAYABLE PROCESSOR, reviewed EMR data (avail), discussed with nursing Attending Assessment/Plan: Chart reviewed. Case d/w the team. Pt currently receiving dialysis. Titrate coumadin dose for therapeutic INR. Rest of the plan as per resident's note
[2017-07-09 08:28] LABS: PT 14.3 SEC (9.4-12.5)
[2017-07-09 08:31] LABS: PTT 79 SEC (25-37)
[2017-07-09 08:36] LABS: ABSOLUTE BASOPHIL COUNT 0.1 /CUMM (0.0-0.2); ABSOLUTE EOSINOPHIL COUNT 0.1 /CUMM (0.0-0.7); ABSOLUTE GRANULOCYTE CT 9.1 /CUMM (1.4-6.5); ABSOLUTE LYMPH COUNT 0.8 /CUMM (1.2-3.4); ABSOLUTE MONOCYTE COUNT 1.5 /CUMM (0.10-0.60); BASOPHIL % 0.6 % (0.0-2.0); GRANULOCYTE % 78.5 % (42.2-75.2); HEMATOCRIT 28.3 % (42-52); MEAN CORPUSCULAR HGB 31.1 PG (27.0-31.0); MEAN CORPUSCULAR HGB CONC 33.1 G/DL (33.0-37.0); MEAN CORPUSCULAR VOLUME 93.9 FL (80.0-94.0); MEAN PLATELET VOLUME 8.2 FL (7.4-10.4); PLATELET COUNT 302 /CUMM (130-400); RBC DISTRIBUTION WIDTH 16.7 % (11.5-14.5); RED BLOOD CELL CT 3.02 /CUMM (4.70-6.10); WHITE BLOOD CELL COUNT 11.5 /CUMM (4.8-10.8)
[2017-07-09 11:02] LABS: ABSOLUTE BASOPHIL COUNT 0.1 /CUMM (0.0-0.2); ABSOLUTE EOSINOPHIL COUNT 0.1 /CUMM (0.0-0.7); ABSOLUTE GRANULOCYTE CT 8.7 /CUMM (1.4-6.5); ABSOLUTE LYMPH COUNT 0.8 /CUMM (1.2-3.4); ABSOLUTE MONOCYTE COUNT 1.3 /CUMM (0.10-0.60); BASOPHIL % 0.9 % (0.0-2.0); EOSINOPHIL % 1.1 % (0-5); GRANULOCYTE % 78.5 % (42.2-75.2); HEMATOCRIT 28.5 % (42-52); MEAN CORPUSCULAR HGB CONC 32.8 G/DL (33.0-37.0); MEAN CORPUSCULAR VOLUME 94.4 FL (80.0-94.0); MEAN PLATELET VOLUME 8.2 FL (7.4-10.4); PLATELET COUNT 311 /CUMM (130-400); RBC DISTRIBUTION WIDTH 16.5 % (11.5-14.5); RED BLOOD CELL CT 3.01 /CUMM (4.70-6.10); WHITE BLOOD CELL COUNT 11.1 /CUMM (4.8-10.8)
--- NOTE | 2017-07-09 13:55 | PN- Nephrology ---
Assessment/Plan Assessment: Stable with dialysis today. Suggestion: With breathing difficultly attempt 2 liters UF with dialysis. Subjective Subjective: Patient s/p dialysis earlier today, no new issues. Objective Vital Signs and I&Os Vital Signs Date Time Temp Pulse Resp B/P B/P Pulse O2 O2 Flow FiO2 Mean Ox Delivery Rate 07/09 1258 84 186/88 07/09 0800 96 Nasal 2.0L Cannula 07/09 0646 98.2 78 20 142/78 93 Nasal Cannula 07/09 0409 95 Nasal 2.0L Cannula 07/08 2312 98.6 77 20 152/62 95 Nasal 2.0L Cannula 07/08 2250 73 158/72 07/08 2249 73 158/72 07/08 1700 73 148/74 07/08 1443 98.5 73 20 148/74 87 Intake & Output 07/09 1600 07/09 0400 07/08 1600 07/08 0400 07/07 1600 07/07 0400 Intake Total 240 240 485.55 275 500 400 Output Total 250 75 130 500 Balance -10 165 355.55 275 500 -100 Intake, IV 85.55 200 Intake, Oral 240 240 400 275 300 400 Output, Urine 250 75 130 500 Patient 140 lb Weight Physical Exam: NAD VS as above Lungs: clear CV: No rub Abd: nontednerf Exts: 1+ right arm edema Neuro: A&O Current Medications: Current Medications Sig/Jed Start time Last Medication Dose Route Stop Time Status Admin Acetaminophen 650 MG Q6P PRN 07/05 2115 AC PO Amlodipine Besylate 10 MG DAILY 07/05 1000 AC 07/08 PO 1100 Aspirin Buffered 81 MG DAILY 07/05 1000 AC 07/08 PO 1100 Calcium Carbonate 500 MG DAILY 07/05 1000 AC 07/08 PO 1001 Cholecalciferol 1,000 IU DAILY 07/05 1000 AC 07/08 PO 1100 Epoetin Slava 6,000 UNIT MoWeFr PRN 07/05 1115 AC IV Furosemide 40 MG SuTuThSa@1000 07/08 1000 AC 07/08 PO 1211 Heparin Sodium 4,800 UNIT ONCE ONE 07/08 2320 DC 07/09 (Porcine) IV 07/08 2321 0009 Heparin Sodium 25,000 UNIT Q24H 07/04 1900 AC 07/08 (Porcine) IV 2007 Sodium Chloride 500 ML Hydralazine HCl 100 MG TID 07/05 1000 AC 07/08 PO 2250 Hydrocodone Bitart/ 1 TAB Q6P PRN 07/05 2115 AC Acetaminophen PO Insulin Aspart 0 TIDAC 07/05 1100 AC 07/08 SC 0805 Isosorbide 60 MG DAILY 07/05 1000 AC 07/08 Mononitrate PO 1100 Labetalol HCl 200 MG BID 07/05 2200 AC 07/09 PO 1258 Lidocaine/Prilocaine 1 PENNY MoWeFr PRN 07/06 1530 AC TOP Losartan Potassium 25 MG DAILY 07/05 1000 AC 07/08 PO 1000 Morphine Sulfate 2 MG Q4P PRN 07/05 2115 AC 07/09 IV 1237 Multivitamins 1 TAB DAILY 07/05 1000 AC 07/08 Therapeutic PO 1100 Paricalcitol 4 MCG MoWeFr PRN 07/05 1115 AC IV Pravastatin Sodium 20 MG 1700 07/05 1700 AC 07/08 PO 1751 Prochlorperazine 10 MG TIDAC PRN 07/05 1133 AC 07/09 PO 1257 Sevelamer Carbonate 1,600 MG 0800,1200,1700 07/06 0800 AC 07/08 PO 1700 Warfarin Sodium 7.5 MG COUMADIN 1700 ONE 07/09 1700 AC PO 07/09 1701 Warfarin Sodium 5 MG COUMADIN 1700 ONE 07/08 1700 DC 07/08 PO 07/08 1701 1752 Results Pertinent Lab Results: Laboratory Tests 07/09 07/09 0843 0610 Coagulation PT (9.4 - 12.5 SEC) 14.3 H INR (0.90 - 1.17) 1.37 H Hematology CBC w Diff NO MAN DIFF REQ WBC (4.8 - 10.8 /CUMM) 11.1 H RBC (4.70 - 6.10 /CUMM) 3.01 L Hgb (14.0 - 18.0 G/DL) 9.3 L Hct (42 - 52 %) 28.5 L MCV (80.0 - 94.0 FL) 94.4 H MCH (27.0 - 31.0 PG) 31.0 RDW (11.5 - 14.5 %) 16.5 H Plt Count (130 - 400 /CUMM) 311 MPV (7.4 - 10.4 FL) 8.2 Gran % (42.2 - 75.2 %) 78.5 H Lymphocytes % (20.5 - 51.1 %) 7.4 L Monocytes % (1.7 - 9.3 %) 12.1 H Eosinophils % (0 - 5 %) 1.1 Basophils % (0.0 - 2.0 %) 0.9 Absolute Granulocytes (1.4 - 6.5 /CUMM) 8.7 H Absolute Lymphocytes (1.2 - 3.4 /CUMM) 0.8 L Absolute Monocytes (0.10 - 0.60 /CUMM) 1.3 H Absolute Eosinophils (0.0 - 0.7 /CUMM) 0.1 Absolute Basophils (0.0 - 0.2 /CUMM) 0.1 PUBS MCHC (33.0 - 37.0 G/DL) 32.8 L 07/09 07/08 07/08 0610 2055 1110 Chemistry Sodium (137 - 145 mmol/L) 136 L Potassium (3.5 - 5.1 mmol/L) 4.0 Chloride (98 - 107 mmol/L) 100 Carbon Dioxide (22 - 30 mmol/L) 26 Anion Gap (5 - 16) 11 BUN (9 - 20 mg/dL) 20 Creatinine (0.7 - 1.2 mg/dL) 4.5 H Estimated GFR (>60 ml/min) 13 L BUN/Creatinine Ratio (7 - 25 %) 4.4 L Glucose (65 - 99 mg/dL) 180 H Calcium (8.4 - 10.2 mg/dL) 9.6 Coagulation APTT (25 - 37 SEC) 79 H 37 38 H Hematology CBC w Diff NO MAN DIFF REQ WBC (4.8 - 10.8 /CUMM) 11.5 H RBC (4.70 - 6.10 /CUMM) 3.02 L Hgb (14.0 - 18.0 G/DL) 9.4 L Hct (42 - 52 %) 28.3 L MCV (80.0 - 94.0 FL) 93.9 MCH (27.0 - 31.0 PG) 31.1 H RDW (11.5 - 14.5 %) 16.7 H Plt Count (130 - 400 /CUMM) 302 MPV (7.4 - 10.4 FL) 8.2 Gran % (42.2 - 75.2 %) 78.5 H Lymphocytes % (20.5 - 51.1 %) 6.9 L Monocytes % (1.7 - 9.3 %) 13.0 H Eosinophils % (0 - 5 %) 1.0 Basophils % (0.0 - 2.0 %) 0.6 Absolute Granulocytes (1.4 - 6.5 /CUMM) 9.1 H Absolute Lymphocytes (1.2 - 3.4 /CUMM) 0.8 L Absolute Monocytes (0.10 - 0.60 /CUMM) 1.5 H Absolute Eosinophils (0.0 - 0.7 /CUMM) 0.1 Absolute Basophils (0.0 - 0.2 /CUMM) 0.1 PUBS MCHC (33.0 - 37.0 G/DL) 33.1 07/08 07/08 07/08 0645 0627 0200 Chemistry Sodium (137 - 145 mmol/L) 139 Potassium (3.5 - 5.1 mmol/L) 3.6 Chloride (98 - 107 mmol/L) 102 Carbon Dioxide (22 - 30 mmol/L) 27 Anion Gap (5 - 16) 10 BUN (9 - 20 mg/dL) 14 Creatinine (0.7 - 1.2 mg/dL) 3.3 H Estimated GFR (>60 ml/min) 19 L BUN/Creatinine Ratio (7 - 25 %) 4.2 L Coagulation PT (9.4 - 12.5 SEC) 13.3 H INR (0.90 - 1.17) 1.27 H APTT (25 - 37 SEC) 45 H Hematology CBC w Diff NO MAN DIFF REQ WBC (4.8 - 10.8 /CUMM) 11.5 H RBC (4.70 - 6.10 /CUMM) 3.14 L Hgb (14.0 - 18.0 G/DL) 9.8 L Hct (42 - 52 %) 29.6 L MCV (80.0 - 94.0 FL) 94.1 H MCH (27.0 - 31.0 PG) 31.2 H RDW (11.5 - 14.5 %) 16.2 H Plt Count (130 - 400 /CUMM) 298 MPV (7.4 - 10.4 FL) 8.0 Gran % (42.2 - 75.2 %) 78.6 H Lymphocytes % (20.5 - 51.1 %) 6.8 L Monocytes % (1.7 - 9.3 %) 13.1 H Eosinophils % (0 - 5 %) 0.9 Basophils % (0.0 - 2.0 %) 0.6 Absolute Granulocytes (1.4 - 6.5 /CUMM) 9.1 H Absolute Lymphocytes (1.2 - 3.4 /CUMM) 0.8 L Absolute Monocytes (0.10 - 0.60 /CUMM) 1.5 H Absolute Eosinophils (0.0 - 0.7 /CUMM) 0.1 Absolute Basophils (0.0 - 0.2 /CUMM) 0.1 PUBS MCHC (33.0 - 37.0 G/DL) 33.2 07/07 07/07 07/07 1730 1151 1150 Chemistry Sodium (137 - 145 mmol/L) 137 Potassium (3.5 - 5.1 mmol/L) 3.4 L Chloride (98 - 107 mmol/L) 101 Carbon Dioxide (22 - 30 mmol/L) 23 Anion Gap (5 - 16) 13 BUN (9 - 20 mg/dL) 24 H Creatinine (0.7 - 1.2 mg/dL) 4.7 H Estimated GFR (>60 ml/min) 12 L BUN/Creatinine Ratio (7 - 25 %) 5.1 L Calcium (8.4 - 10.2 mg/dL) 9.2 Coagulation APTT (25 - 37 SEC) > 120 *H Hematology CBC w Diff NO MAN DIFF REQ WBC (4.8 - 10.8 /CUMM) 11.2 H RBC (4.70 - 6.10 /CUMM) 3.24 L Hgb (14.0 - 18.0 G/DL) 9.9 L Hct (42 - 52 %) 29.6 L MCV (80.0 - 94.0 FL) 91.2 MCH (27.0 - 31.0 PG) 30.6 RDW (11.5 - 14.5 %) 15.9 H Plt Count (130 - 400 /CUMM) 287 MPV (7.4 - 10.4 FL) 8.1 Gran % (42.2 - 75.2 %) 79.6 H Lymphocytes % (20.5 - 51.1 %) 7.9 L Monocytes % (1.7 - 9.3 %) 11.3 H Eosinophils % (0 - 5 %) 0.7 Basophils % (0.0 - 2.0 %) 0.5 Absolute Granulocytes (1.4 - 6.5 /CUMM) 8.9 H Absolute Lymphocytes (1.2 - 3.4 /CUMM) 0.9 L Absolute Monocytes (0.10 - 0.60 /CUMM) 1.3 H Absolute Eosinophils (0.0 - 0.7 /CUMM) 0.1 Absolute Basophils (0.0 - 0.2 /CUMM) 0.1 PUBS MCHC (33.0 - 37.0 G/DL) 33.6 07/07 07/06 3102 1176 Coagulation APTT (25 - 37 SEC) 40 H 61 H
[2017-07-09 14:40] VITALS: BP 158/80
[2017-07-09 18:45] LABS: PTT 74 SEC (25-37)
[2017-07-09 23:05] VITALS: BP 148/64
[2017-07-10 07:21] VITALS: BP 157/80
[2017-07-10 08:13] LABS: ABSOLUTE BASOPHIL COUNT 0 /CUMM (0.0-0.2); ABSOLUTE EOSINOPHIL COUNT 0.1 /CUMM (0.0-0.7); ABSOLUTE GRANULOCYTE CT 7.2 /CUMM (1.4-6.5); ABSOLUTE LYMPH COUNT 0.7 /CUMM (1.2-3.4); ABSOLUTE MONOCYTE COUNT 1.1 /CUMM (0.10-0.60); BASOPHIL % 0.1 % (0.0-2.0); EOSINOPHIL % 1.4 % (0-5); GRANULOCYTE % 78.9 % (42.2-75.2); HEMATOCRIT 26.9 % (42-52); MEAN CORPUSCULAR HGB 31.1 PG (27.0-31.0); MEAN CORPUSCULAR HGB CONC 32.9 G/DL (33.0-37.0); MEAN CORPUSCULAR VOLUME 94.4 FL (80.0-94.0); MEAN PLATELET VOLUME 7.9 FL (7.4-10.4); PLATELET COUNT 306 /CUMM (130-400); RED BLOOD CELL CT 2.85 /CUMM (4.70-6.10); WHITE BLOOD CELL COUNT 9.1 /CUMM (4.8-10.8)
[2017-07-10 08:47] LABS: PTT 67 SEC (25-37)
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
[2017-07-10 14:33] VITALS: BP 144/62
[2017-07-10 21:18] LABS: PTT 61 SEC (25-37)
[2017-07-10 22:01] VITALS: BP 150/68
[2017-07-11 07:10] VITALS: BP 190/80
--- NOTE | 2017-07-11 07:19 | PN- Oncology ---
Subjective Subjective: He reports swelling in his extremities. This is new to him. He reports that the machine was off the whole night and didn't think he got any medication. Review of Systems Constitutional: Denies: chills, diaphoresis, fever, weakness. Cardiovascular: Denies: chest pain. Respiratory: Reports: short of breath. Gastrointestinal: Denies: abdominal pain. Musculoskeletal: Reports: see HPI (swelling in extremities), joint swelling. All Other Systems: Reviewed and Negative Objective Vital Signs and I&Os Vital Signs Date Time Temp Pulse Resp B/P B/P Pulse O2 O2 Flow FiO2 Mean Ox Delivery Rate 07/11 0000 Nasal 1.0L Cannula 07/10 2300 74 150/68 07/10 2201 98.1 74 18 150/68 91 07/10 2200 74 150/68 07/10 1700 72 144/62 07/10 1433 97.9 72 18 144/62 95 Nasal 1.0L Cannula 07/10 1026 74 160/80 07/10 1026 74 160/80 07/10 1026 74 160/80 07/10 1026 74 160/80 07/10 0920 74 160/80 07/10 0800 95 Nasal 1.0L Cannula 07/10 0721 98.9 74 20 157/80 91 Intake & Output 07/11 0800 07/11 0000 07/10 1600 07/10 0800 07/10 0000 07/09 1600 Intake Total 273.6 100 620 130 65 785 Output Total 100 758 848 3452 Balance 273.6 0 470 30 65 -1315 Intake, IV 173.6 130 65 185 Intake, Oral 100 100 620 600 Output, 2000 Dialysate Output, Urine 100 150 100 100 Patient 64.524 kg 62.369 kg Weight Weight Chair scale Chair scale Measurement Method Physical Exam: General Appearance: well developed/nourished, no apparent distress, comfortable HEENT: right face slightly edematous. Respiratory: normal breath sounds, chest non-tender, no respiratory distress, quiet respiration, crackles Cardiovascular: regular rate/rhythm Gastrointestinal: normal bowel sounds, soft, non-tender Extremities: edema in bilateral lower extremities up to ankle and upper extremities worse on the right side, LUE with AV fistula, +bruit Neurologic/Psych: awake, alert, oriented x 3 Other Physical Findings: right dialysis catheter Current Medications: Current Medications Sig/Jed Start time Last Medication Dose Route Stop Time Status Admin Acetaminophen 650 MG Q6P PRN 07/05 2115 AC PO Albuterol Sulfate 3 ML Q4P PRN 07/09 1415 AC INH Amlodipine Besylate 10 MG DAILY 07/05 1000 AC 07/10 PO 1026 Aspirin Buffered 81 MG DAILY 07/05 1000 AC 07/10 PO 1026 Calcium Carbonate 500 MG DAILY 07/05 1000 AC 07/08 PO 1001 Cholecalciferol 1,000 IU DAILY 07/05 1000 AC 07/10 PO 1025 Epoetin Slava 6,000 UNIT MoWeFr PRN 07/05 1115 AC IV Furosemide 40 MG ONCE ONE 07/10 1030 DC 07/10 PO 07/10 1031 1025 Furosemide 40 MG SuTuThSa@1000 07/08 1000 AC 07/08 PO 1211 Heparin Sodium 25,000 UNIT Q24H 07/04 1900 AC 07/11 (Porcine) IV 0010 Sodium Chloride 500 ML Hydralazine HCl 100 MG TID 07/05 1000 AC 07/10 PO 2200 Hydrocodone Bitart/ 1 TAB Q6P PRN 07/05 2115 AC Acetaminophen PO Insulin Aspart 0 TIDAC 07/05 1100 AC 07/10 SC 0920 Isosorbide 60 MG DAILY 07/05 1000 AC 07/10 Mononitrate PO 1026 Labetalol HCl 200 MG BID 07/05 2200 AC 07/10 PO 0920 Lidocaine/Prilocaine 1 PENNY MoWeFr PRN 07/06 1530 AC TOP Losartan Potassium 25 MG DAILY 07/05 1000 AC 07/10 PO 1026 Morphine Sulfate 2 MG Q4P PRN 07/05 2115 AC 07/09 IV 1237 Multivitamins 1 TAB DAILY 07/05 1000 AC 07/10 Therapeutic PO 1025 Paricalcitol 4 MCG MoWeFr PRN 07/05 1115 AC IV Pravastatin Sodium 20 MG 1700 07/05 1700 AC 07/10 PO 1800 Prochlorperazine 10 MG TIDAC PRN 07/05 1133 AC 07/09 PO 1257 Sevelamer Carbonate 1,600 MG 0800,1200,1700 07/06 0800 AC 07/10 PO 0921 Warfarin Sodium 7.5 MG COUMADIN 1700 ONE 07/10 1700 DC 07/10 PO 07/10 1701 1800 Results Last 24 Hours of Lab Results: Laboratory Tests 07/11 07/10 0630 2014 Chemistry Sodium Pending Potassium Pending Chloride Pending Carbon Dioxide Pending Anion Gap Pending BUN Pending Creatinine Pending BUN/Creatinine Ratio Pending Coagulation PT Pending INR Pending APTT (25 - 37 SEC) 61 H Hematology CBC w Diff Pending WBC Pending RBC Pending Hgb Pending Hct Pending MCV Pending MCH Pending RDW Pending Plt Count Pending MPV Pending PUBS MCHC Pending Assessment/Plan Assessment/Recommendations: Mr. 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 DVT is likely line related and malignancy related. He should be anticoagulated with heparin and bridge to warfarin. He has more swelling today in the lower extremities. Heparin drip was apparently off overnight per the patient. He has new swelling. These should be evaluated for new thrombosis. He should continue to be on heparin drip. I will plan for change in therapy as outpatient for his lung cancert. Right IJ DVT: -Heparin transition to warfarin -Obtain US of the lower extremities and upper extremities for new DVT Stage IV large cell neuroendocrine: -Likely carboplatin/irinotecan as an outpatient -follow up as outaptient ESRD: -nephrology following -dialysis as per nephrology -AV fistula evaluation as per vascular Please call [phone] with any questions/concerns. Problem List: 1. Large cell neuroendocrine carcinoma 2. Thrombosis of intravascular line 3. ESRD (end stage renal disease)
[2017-07-11 08:08] LABS: ABSOLUTE BASOPHIL COUNT 0 /CUMM (0.0-0.2); ABSOLUTE EOSINOPHIL COUNT 0.2 /CUMM (0.0-0.7); ABSOLUTE GRANULOCYTE CT 8.1 /CUMM (1.4-6.5); ABSOLUTE LYMPH COUNT 0.8 /CUMM (1.2-3.4); ABSOLUTE MONOCYTE COUNT 1.3 /CUMM (0.10-0.60); BASOPHIL % 0.3 % (0.0-2.0); GRANULOCYTE % 77.8 % (42.2-75.2); MEAN CORPUSCULAR HGB 31.3 PG (27.0-31.0); MEAN CORPUSCULAR HGB CONC 33.1 G/DL (33.0-37.0); MEAN CORPUSCULAR VOLUME 94.6 FL (80.0-94.0); PLATELET COUNT 317 /CUMM (130-400); RBC DISTRIBUTION WIDTH 16.7 % (11.5-14.5); RED BLOOD CELL CT 2.96 /CUMM (4.70-6.10); WHITE BLOOD CELL COUNT 10.4 /CUMM (4.8-10.8)
[2017-07-11 08:15] LABS: PT 17.6 SEC (9.4-12.5)
--- NOTE | 2017-07-11 10:35 | PN- Housestaff ---
Anni MUSE,Mary 07/11/17 1035: Subjective Follow-up For: Right IJ thrombus End-stage renal disease Upper extremity swelling Stage IV lung cancer with brain metastases and now liver metastases Tele-Events Since Last Visit: Sinus rhythm First-degree AV block 77-80 with prolonged MN 0.24 Subjective: Patient seen and examined today. He states that he has pain in his right arm which is slightly more swollen than yesterday. Otherwise he is tired and says that he feels "okay" Review of Systems Constitutional: Reports: no symptoms. EENTM: Reports: no symptoms. Cardiovascular: Reports: no symptoms. Respiratory: Reports: no symptoms. Gastrointestinal: Reports: no symptoms. Genitourinary: Reports: no symptoms. Musculoskeletal: Reports: back pain, joint pain, muscle pain. Skin: Reports: no symptoms. Neurological/Psychological: Reports: no symptoms. Hematologic/Endocrine: Reports: no symptoms. Immunologic/Allergic: Reports: no symptoms. Objective Last 24 Hrs of Vital Signs/I&O Vital Signs Date Time Temp Pulse Resp B/P B/P Pulse O2 O2 Flow FiO2 Mean Ox Delivery Rate 07/11 1600 98.2 78 16 152/70 92 Nasal 1.0L Cannula 07/11 1600 93 Nasal 2.0L Cannula 07/11 0910 76 190/80 07/11 0910 76 190/80 07/11 0910 76 190/80 07/11 0909 76 190/80 07/11 0800 92 Nasal 1.0L Cannula 07/11 0710 98.4 76 12 190/80 92 Nasal 1.0L Cannula 07/11 0000 Nasal 1.0L Cannula 07/10 2300 74 150/68 07/10 2201 98.1 74 18 150/68 91 07/10 2200 74 150/68 Intake & Output 07/11 1600 07/11 0800 07/11 0000 Intake Total 473.6 273.6 100 Output Total 150 100 Balance 323.6 273.6 0 Intake, IV 173.6 173.6 Intake, Oral 300 100 100 Output, Urine 150 100 Patient 142 lb Weight Weight Chair scale Measurement Method Physical Exam General Appearance: Alert, Oriented X3, Cooperative, No Acute Distress Skin: No Rashes, No Breakdown, No Significant Lesion Skin Temp/Moisture Exam: Warm/Dry Sepsis Skin Exam (color): Normal for Ethnicity HEENT: PERRLA Neck: Supple Cardiovascular: Normal S1, Normal S2, No Murmurs, Gallops, Rubs Lungs: Clear to Auscultation, Normal Air Movement Abdomen: Normal Bowel Sounds, Soft, No Tenderness Extremities: No Clubbing, No Cyanosis, Normal Pulses, No Tenderness/Swelling, UPPER EXTREMITY EDEMA Vascular: Normal Pulses, Pulses Symmetrical Current Medications: Current Medications Sig/Jed Start time Last Medication Dose Route Stop Time Status Admin Acetaminophen 650 MG Q6P PRN 07/05 2115 AC PO Albuterol Sulfate 3 ML Q4P PRN 07/09 1415 AC INH Amlodipine Besylate 10 MG DAILY 07/05 1000 AC 07/11 PO 0910 Aspirin Buffered 81 MG DAILY 07/05 1000 AC 07/11 PO 0910 Calcium Carbonate 500 MG DAILY 07/05 1000 AC 07/11 PO 0910 Cholecalciferol 1,000 IU DAILY 07/05 1000 AC 07/11 PO 0910 Epoetin Slava 6,000 UNIT MoWeFr PRN 07/05 1115 AC IV Furosemide 40 MG SuTuThSa@1000 07/08 1000 AC 07/11 PO 0914 Heparin Sodium 25,000 UNIT Q24H 07/04 1900 AC 07/11 (Porcine) IV 0010 Sodium Chloride 500 ML Hydralazine HCl 100 MG TID 07/05 1000 AC 07/11 PO 0909 Hydrocodone Bitart/ 1 TAB Q6P PRN 07/05 2115 AC Acetaminophen PO Insulin Aspart 0 TIDAC 07/05 1100 AC 07/10 SC 0920 Isosorbide 60 MG DAILY 07/05 1000 AC 07/11 Mononitrate PO 0910 Labetalol HCl 200 MG BID 07/05 2200 AC 07/10 PO 0920 Lidocaine/Prilocaine 1 PENNY MoWeFr PRN 07/06 1530 AC TOP Losartan Potassium 25 MG DAILY 07/05 1000 AC 07/11 PO 0910 Morphine Sulfate 2 MG Q4P PRN 07/05 2115 AC 07/09 IV 1237 Multivitamins 1 TAB DAILY 07/05 1000 AC 07/11 Therapeutic PO 0910 Paricalcitol 4 MCG MoWeFr PRN 07/05 1115 AC IV Pravastatin Sodium 20 MG 1700 07/05 1700 AC 07/10 PO 1800 Prochlorperazine 10 MG TIDAC PRN 07/05 1133 AC 07/09 PO 1257 Sevelamer Carbonate 1,600 MG 0800,1200,1700 07/06 0800 AC 07/10 PO 0921 Warfarin Sodium 7.5 MG COUMADIN 1700 ONE 07/11 1700 DC PO 07/11 1701 Last 24 Hrs of Lab/Haroon Results Last 24 Hrs of Labs/Mics: Laboratory Tests 07/11/17 1050: APTT 60 H 07/11/17 0630: Anion Gap 12, Estimated GFR 13 L, BUN/Creatinine Ratio 4.7 L, PT 17.6 H, INR 1.68 H, CBC w Diff NO MAN DIFF REQ, RBC 2.96 L, MCV 94.6 H, MCH 31.3 H, RDW 16.7 H, MPV 8.0, Gran % 77.8 H, Lymphocytes % 7.6 L, Monocytes % 12.3 H, Eosinophils % 2.0, Basophils % 0.3, Absolute Granulocytes 8.1 H, Absolute Lymphocytes 0.8 L, Absolute Monocytes 1.3 H, Absolute Eosinophils 0.2, Absolute Basophils 0, PUBS MCHC 33.1 07/10/172014: APTT 61 H Assessment/Plan Assessment: Assessment: 66-year-old gentleman with PMH of ESRD secondary to diabetic nephropathy ( dialysis Monday/Monday/Monday), hypertension, hyperlipidemia, coronary artery disease (s/p bare metal stents previously to LAD and left circumflex), prior ischemic cardiomyopathy with normalized EF [last echocardiogram in Mar 2017 EF 50-55% ], prior history of proximal cephalic vein thrombosis, 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 Patient has had this line for 2 years and receives hemodialysis through it. Vitals at admission were normal except blood pressure 182/80. Chest xray showed a known right upper lobe mass and persistent left lung base density that had no significant change from prior xray on 04/06/17. CT chest showed enlargement of the right upper mass with numerous additional pulmonary nodules. Central line assessment by CT was limited without intravenous contrast which was avoided in this ESRD patient. Of note patient has left AVF placed by Dr. Cruz. According to Dr. Durand, nephrology, who the patient has seen outpatient for treatment, the AVF is functional but not used as attempted cannulation was painful when it was attempted to be used. Thus, the RIJ continues to be used. The patient is set to have further cannulation in July with Dr. Cruz. Patient was admitted to telemetry floor for management of following conditions: DVT RIJ LINE ESRD ON DIALYSIS LUNG CANCER Patient is now found to have upper extremity swelling and increased pain. He continues to have subtherapeutic INR. Plan: DVT RIJ line: Likely in the setting on indwelling catheter and cancer, both predisposing to coagulation. Patient was started on heparin drip in the ED. -Continue heparin drip with bridge to coumadin, goal INR 2-3 -Follow INR. Dose Coumadin accordingly. Patient's INR was again subtherapeutic , we will continue to give 7.5 mg of warfarin and can discharge the patient once he is in the therapeutic range. -Patient cannot have other anticoagulants due to ESRD -CT head showed no hemorrhagic conversion of his proximal cephalic thrombus -As per vascular surgery, if line is working, keep line and anticoagulate. -He will follow up with Dr. Cruz and if AVF is less painful and functioning, RIJ line will be removed. -VQ scan showed no evidence of PE ESRD on dialysis: -Continue MWF hemodialysis through tunneled catheter. He will receive hemodialysis tomorrow before he leaves. -Continue home medication, lasix, sevelamir, vitamin D3, procrit, eopgen, paricalcitol Lung cancer: -As per Dr. Saucedo, patient will likely need port placement given his current poor access and need for chemotherapy. -CT abdomen and pelvis showed liver metastases increased since prior study. -Plan for transition to carboplatin/irinotecan as an outpatient as current regimen seems to not be working despite patient being clinically stable. -Nebs -O2 supplementation when necessary Chronic medical conditions: IDDM, CAD, hypertension, hyperlipidemia -Continue home [id number]-Serial EKG and troponins were negative Upper extremity swelling Doppler ultrasound upper and lower extremities showed no evidence of DVT but a superficial thrombus in the right upper extremity Results communicated to the family. DVT PPx: IV heparin, coumadin and ALPS Full Code Diabetic diet Problem List: 1. ESRD (end stage renal disease) 2. Thrombosis of intravascular line 3. Large cell neuroendocrine carcinoma 4. Edema of upper extremity Pain Ratin Pain Location: Generalized Pain Goal: Pain 4 or less Pain Plan: Pain pathway Tomorrow's Labs & Rationales: INR, CBC, BEP Cindy Birchkarlos 07/11/17 1420: Attending MD Review Statement Attending Statement Attending MD Statement: examined this patient, discuss w/resident/PA/STEAM FITTER SUPERVISOR MAINTENANCE, agreed w/resident/PA/STEAM FITTER SUPERVISOR MAINTENANCE, reviewed EMR data (avail), discussed with nursing, discussed with case mgmt Attending Assessment/Plan: Pt upset about not getting heparin drip overning. Pt on heparin drip for Rt IJ thrombosis. Also on coumadin and INR today is 1.68, give 7.5 mg coumadin. F/u on INR and once above 2 will dc on coumadin. d/w pt the care plan.
[2017-07-11 12:18] LABS: PTT 60 SEC (25-37)
[2017-07-11 16:00] VITALS: BP 152/70
--- NOTE | 2017-07-11 16:02 | ULTRASOUND REPORT ---
EXAMINATION: US TRIPLEX OF LOWER EXTREMITIES, BILATERAL CLINICAL INFORMATION: Shortness of breath. COMPARISON: None TECHNIQUE: Color-flow triplex imaging with spectral analysis and compression Doppler were performed on the lower extremities. FINDINGS: Respiratory variation, normal compression and augmented flow are noted throughout the lower extremities. The visualized common femoral vein, superficial femoral vein, profunda femoral vein, popliteal vein and midcalf peroneal and posterior tibial venous segments show no evidence of deep venous thrombosis. There is no Acm's cyst. IMPRESSION: Normal triplex scan without evidence of deep venous thrombosis involving the lower extremities.
--- NOTE | 2017-07-11 16:28 | ULTRASOUND REPORT ---
EXAMINATION: DUPLEX VENOUS ULTRASOUND OF THE BILATERAL UPPER EXTREMITIES. CLINICAL HISTORY: History of lung cancer with right internal jugular vein DVT. COMPARISON: Right upper extremity ultrasound June 2812.24 TECHNIQUE: Grayscale, color and Doppler ultrasound of the deep veins of the right upper extremity were performed. FINDINGS: The right and left internal jugular, subclavian and axillary veins demonstrate color Doppler flow suggesting patency. The previously seen thrombus in the low right internal jugular vein/innominate vein is no longer visualized. However, slow flow is identified. The bilateral brachial and basilic veins are easily compressible and demonstrate normal color Doppler flow suggesting patency. There is a small amount of nonocclusive mural thrombus seen within the mid right basilic vein. The cephalic veins are not visualized. IMPRESSION: 1. Slow flow within the right internal jugular vein without associated DVT. 2. Minimal nonocclusive mural thrombus within the mid right basilic vein, a superficial vein. 3. No thrombus identified within the veins of the left upper extremity.
[2017-07-11 23:00] LABS: PTT 85 SEC (25-37)
[2017-07-11 23:08] VITALS: BP 162/78
[2017-07-12 06:51] VITALS: BP 158/74
[2017-07-12 08:11] LABS: ABSOLUTE BASOPHIL COUNT 0 /CUMM (0.0-0.2); ABSOLUTE EOSINOPHIL COUNT 0.1 /CUMM (0.0-0.7); ABSOLUTE GRANULOCYTE CT 12.1 /CUMM (1.4-6.5); ABSOLUTE LYMPH COUNT 0.5 /CUMM (1.2-3.4); ABSOLUTE MONOCYTE COUNT 1.1 /CUMM (0.10-0.60); BASOPHIL % 0.1 % (0.0-2.0); EOSINOPHIL % 0.7 % (0-5); HEMATOCRIT 28.1 % (42-52); MEAN CORPUSCULAR HGB 31.4 PG (27.0-31.0); MEAN CORPUSCULAR HGB CONC 33.5 G/DL (33.0-37.0); MEAN CORPUSCULAR VOLUME 93.8 FL (80.0-94.0); MEAN PLATELET VOLUME 7.9 FL (7.4-10.4); RBC DISTRIBUTION WIDTH 17.1 % (11.5-14.5); RED BLOOD CELL CT 2.99 /CUMM (4.70-6.10); WHITE BLOOD CELL COUNT 13.9 /CUMM (4.8-10.8)
--- NOTE | 2017-07-12 08:29 | PN- Oncology ---
Subjective Subjective: He continues to have edema. He states he had constipation and had enema used. He did have an accident this morning. He has no fever or chills. He had US of the extremities yesterday and was negative for DVT. Review of Systems: Constitutional: Denies: chills, diaphoresis, fever, weakness. Cardiovascular: Denies: chest pain. Respiratory: Reports: short of breath. Gastrointestinal: Denies: abdominal pain. Musculoskeletal: Reports: swelling in extremities. All Other Systems: Reviewed and Negative Objective Vital Signs and I&Os Vital Signs Date Time Temp Pulse Resp B/P B/P Pulse O2 O2 Flow FiO2 Mean Ox Delivery Rate 07/12 0651 98.7 73 18 158/74 96 Nasal Cannula 07/12 0000 Nasal 1.0L Cannula 07/11 2308 98.1 77 16 162/78 93 Nasal 1.0L Cannula 07/11 2217 78 152/70 07/11 2216 78 152/70 07/11 1600 78 152/70 07/11 1600 98.2 78 16 152/70 92 Nasal 1.0L Cannula 07/11 1600 93 Nasal 2.0L Cannula 07/11 0910 76 190/80 07/11 0910 76 190/80 07/11 0910 76 190/80 07/11 0909 76 190/80 Intake & Output 07/12 1600 07/12 0800 07/12 0000 07/11 1600 07/11 0800 07/11 0000 Intake Total 100 200 473.6 273.6 100 Output Total 100 150 100 Balance 0 200 323.6 273.6 0 Intake, IV 173.6 173.6 Intake, Oral 100 200 300 100 100 Number 1 Bowel Movements Output, Urine 100 150 100 Patient 66.678 kg 64.41 kg Weight Weight Chair scale Measurement Method Physical Exam: General Appearance: well developed/nourished, no apparent distress, comfortable Respiratory: normal breath sounds, chest non-tender, no respiratory distress, quiet respiration, crackles Cardiovascular: regular rate/rhythm Gastrointestinal: normal bowel sounds, soft, non-tender Extremities: edema in bilateral lower extremities up to ankle and upper extremities worse on the right side, LUE with AV fistula, +bruit Neurologic/Psych: awake, alert, oriented x 3 Other Physical Findings: right dialysis catheter Current Medications: Current Medications Sig/Jed Start time Last Medication Dose Route Stop Time Status Admin Acetaminophen 650 MG Q6P PRN 07/05 2115 AC PO Albuterol Sulfate 3 ML Q4P PRN 07/09 1415 AC INH Amlodipine Besylate 10 MG DAILY 07/05 1000 AC 07/11 PO 0910 Aspirin Buffered 81 MG DAILY 07/05 1000 AC 07/11 PO 0910 Calcium Carbonate 500 MG DAILY 07/05 1000 AC 07/11 PO 0910 Cholecalciferol 1,000 IU DAILY 07/05 1000 AC 07/11 PO 0910 Epoetin Slava 6,000 UNIT MoWeFr PRN 07/05 1115 AC IV Furosemide 40 MG SuTuThSa@1000 07/08 1000 AC 07/11 PO 0914 Heparin Sodium 25,000 UNIT Q24H 07/04 1900 AC 07/12 (Porcine) IV 0343 Sodium Chloride 500 ML Hydralazine HCl 100 MG TID 07/05 1000 AC 07/11 PO 1600 Hydrocodone Bitart/ 1 TAB Q6P PRN 07/05 2115 AC Acetaminophen PO Insulin Aspart 0 TIDAC 07/05 1100 AC 07/10 SC 0920 Isosorbide 60 MG DAILY 07/05 1000 AC 07/11 Mononitrate PO 0910 Labetalol HCl 200 MG BID 07/05 2200 AC 07/11 PO 2216 Lidocaine/Prilocaine 1 PENNY MoWeFr PRN 07/06 1530 AC TOP Losartan Potassium 25 MG DAILY 07/05 1000 AC 07/11 PO 0910 Morphine Sulfate 2 MG Q4P PRN 07/05 2115 AC 07/09 IV 1237 Multivitamins 1 TAB DAILY 07/05 1000 AC 07/11 Therapeutic PO 0910 Paricalcitol 4 MCG MoWeFr PRN 07/05 1115 AC IV Pravastatin Sodium 20 MG 1700 07/05 1700 AC 07/11 PO 1700 Prochlorperazine 10 MG TIDAC PRN 07/05 1133 AC 07/09 PO 1257 Senna 187 MG AT BEDTIME 07/11 2200 AC 07/11 PO 2216 Sevelamer Carbonate 1,600 MG 0800,1200,1700 07/06 0800 AC 07/10 PO 0921 Sodium Phosphate 1 UNIT ONCE ONE 07/12 0230 DC 07/12 SD 07/12 0231 0226 Warfarin Sodium 7.5 MG COUMADIN 1700 ONE 07/11 1700 DC 07/11 PO 07/11 1701 2217 Results Last 24 Hours of Lab Results: Laboratory Tests 07/12 07/11 07/11 0640 2215 1050 Chemistry Sodium Pending Potassium Pending Chloride Pending Carbon Dioxide Pending Anion Gap Pending BUN Pending Creatinine Pending BUN/Creatinine Ratio Pending Coagulation PT Pending INR Pending APTT (25 - 37 SEC) Pending 85 H 60 H Hematology CBC w Diff Pending WBC Pending RBC Pending Hgb Pending Hct Pending MCV Pending MCH Pending RDW Pending Plt Count Pending MPV Pending Gran % Pending Lymphocytes % Pending Monocytes % Pending Eosinophils % Pending Basophils % Pending Absolute Granulocytes Pending Absolute Lymphocytes Pending Absolute Monocytes Pending Absolute Eosinophils Pending Absolute Basophils Pending PUBS MCHC Pending Recent Imaging Studies: US upper extremities 07/11/2017: 1. Slow flow within the right internal jugular vein without associated DVT. 2. Minimal nonocclusive mural thrombus within the mid right basilic vein, a superficial vein. 3. No thrombus identified within the veins of the left upper extremity. US lower extremities 07/11/2017: Normal triplex scan without evidence of deep venous thrombosis involving the lower extremities. Assessment/Plan Assessment/Recommendations: Mr. 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 DVT is likely line related and malignancy related. He should be anticoagulated with heparin and bridge to warfarin. He continues to have swelling. US was negative for DVT. RUE has improvement in his thrombosis with resolution of the RIJ thrombosis. He continues to transition to warfarin. I will plan for change in therapy as outpatient for his lung cancer. Right IJ DVT: -Continue heparin transition to warfarin Stage IV large cell neuroendocrine: -Likely carboplatin/irinotecan as an outpatient -follow up as outaptient ESRD: -dialysis as per nephrology -AV fistula evaluation as per vascular Please call [phone] with any questions/concerns. Problem List: 1. Edema of upper extremity 2. Large cell neuroendocrine carcinoma 3. Thrombosis of intravascular line 4. DVT (deep venous thrombosis) 5. ESRD (end stage renal disease)
[2017-07-12 08:36] LABS: PT 19.2 SEC (9.4-12.5)
[2017-07-12 08:47] LABS: PTT 118 SEC (25-37)
[2017-07-12 08:57] LABS: GRANULOCYTE % 87.4 % (42.2-75.2); PLATELET COUNT 334 /CUMM (130-400)
--- NOTE | 2017-07-12 09:17 | PN- Nephrology ---
Assessment/Plan Assessment: 1. ESRD 2. 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 ?Right IJ thrombus, with minimal nonocclusive mural thrombus within the right basilic vein - with right upper extremity edema on anticoagulation 4. Multiple comorbidities including diabetes mellitus, hypertension, coronary artery disease, hyperlipidemia Slow flow within the right internal jugular vein without associated DVT. 2. Minimal nonocclusive mural thrombus within the mid right basilic vein, a superficial vein. 3. No thrombus identified within the veins of the left upper extremity. Suggestion: 1. Hemodialysis today in progress with 2 L ultrafiltration planned as tolerated 2. Continue anticoagulation 3. Will check serum phosphorus and URR today Subjective Subjective: Patient in poor spirits overall. Feels bloated and constipated although he apparently did respond somewhat to an enema. Doppler ultrasound study results noted. Seen with hemodialysis today. Objective Vital Signs and I&Os Vital Signs Date Time Temp Pulse Resp B/P B/P Pulse O2 O2 Flow FiO2 Mean Ox Delivery Rate 07/12 0651 98.7 73 18 158/74 96 Nasal Cannula 07/12 0000 Nasal 1.0L Cannula 07/11 2308 98.1 77 16 162/78 93 Nasal 1.0L Cannula 07/11 2217 78 152/70 07/11 2216 78 152/70 07/11 1600 78 152/70 07/11 1600 98.2 78 16 152/70 92 Nasal 1.0L Cannula 07/11 1600 93 Nasal 2.0L Cannula Intake & Output 07/12 1600 07/12 0400 07/11 1600 07/11 0400 07/10 1600 07/10 0400 Intake Total 100 200 747.2 100 750 65 Output Total 100 150 100 250 Balance 0 200 597.2 0 500 65 Intake, IV 347.2 130 65 Intake, Oral 100 200 400 100 620 Number 1 Bowel Movements Output, Urine 100 150 100 250 Patient 147 lb 142 lb 142 lb Weight Weight Chair scale Chair scale Measurement Method Physical Exam: General: Well-developed, chronically ill-appearing black male in NAD Skin: No rash or lesions HEENT: Conjunctivae pale, sclerae anicteric, mucous membranes moist Neck: Without masses or thyromegaly, no supraclavicular or cervical adenopathy Chest: Clear anterolaterally Heart: Regular rate and rhythm without S3 or rub Abdomen: Soft with mild to moderate diffuse tenderness, no palpable masses or organomegaly Extremities: Without cyanosis or edema in lower extremities, right upper extremity diffusely edematous, left upper arm AVF positive bruit Neuro: No focal findings, no asterixis or myoclonus Results Pertinent Lab Results: Laboratory Tests 07/12 07/11 07/11 0640 2215 1050 Chemistry Sodium (137 - 145 mmol/L) 135 L Potassium (3.5 - 5.1 mmol/L) 4.1 Chloride (98 - 107 mmol/L) 99 Carbon Dioxide (22 - 30 mmol/L) 24 Anion Gap (5 - 16) 12 BUN (9 - 20 mg/dL) 27 H Creatinine (0.7 - 1.2 mg/dL) 5.5 *H Estimated GFR (>60 ml/min) 10 L BUN/Creatinine Ratio (7 - 25 %) 4.9 L Coagulation PT (9.4 - 12.5 SEC) 19.2 H INR (0.90 - 1.17) 1.84 H APTT (25 - 37 SEC) 118 *H 85 H 60 H Hematology CBC w Diff NO MAN DIFF REQ WBC (4.8 - 10.8 /CUMM) 13.9 H RBC (4.70 - 6.10 /CUMM) 2.99 L Hgb (14.0 - 18.0 G/DL) 9.4 L Hct (42 - 52 %) 28.1 L MCV (80.0 - 94.0 FL) 93.8 MCH (27.0 - 31.0 PG) 31.4 H RDW (11.5 - 14.5 %) 17.1 H Plt Count (130 - 400 /CUMM) 334 MPV (7.4 - 10.4 FL) 7.9 Gran % (42.2 - 75.2 %) 87.4 H Lymphocytes % (20.5 - 51.1 %) 3.6 L Monocytes % (1.7 - 9.3 %) 8.2 Eosinophils % (0 - 5 %) 0.7 Basophils % (0.0 - 2.0 %) 0.1 Absolute Granulocytes (1.4 - 6.5 /CUMM) 12.1 H Absolute Lymphocytes (1.2 - 3.4 /CUMM) 0.5 L Absolute Monocytes (0.10 - 0.60 /CUMM) 1.1 H Absolute Eosinophils (0.0 - 0.7 /CUMM) 0.1 Absolute Basophils (0.0 - 0.2 /CUMM) 0 PUBS MCHC (33.0 - 37.0 G/DL) 33.5 07/11 Chemistry Sodium (137 - 145 mmol/L) 137 Potassium (3.5 - 5.1 mmol/L) 4.0 Chloride (98 - 107 mmol/L) 101 Carbon Dioxide (22 - 30 mmol/L) 24 Anion Gap (5 - 16) 12 BUN (9 - 20 mg/dL) 21 H Creatinine (0.7 - 1.2 mg/dL) 4.5 H Estimated GFR (>60 ml/min) 13 L BUN/Creatinine Ratio (7 - 25 %) 4.7 L Coagulation PT (9.4 - 12.5 SEC) 17.6 H INR (0.90 - 1.17) 1.68 H APTT (25 - 37 SEC) 61 H Hematology CBC w Diff NO MAN DIFF REQ WBC (4.8 - 10.8 /CUMM) 10.4 RBC (4.70 - 6.10 /CUMM) 2.96 L Hgb (14.0 - 18.0 G/DL) 9.3 L Hct (42 - 52 %) 28.0 L MCV (80.0 - 94.0 FL) 94.6 H MCH (27.0 - 31.0 PG) 31.3 H RDW (11.5 - 14.5 %) 16.7 H Plt Count (130 - 400 /CUMM) 317 MPV (7.4 - 10.4 FL) 8.0 Gran % (42.2 - 75.2 %) 77.8 H Lymphocytes % (20.5 - 51.1 %) 7.6 L Monocytes % (1.7 - 9.3 %) 12.3 H Eosinophils % (0 - 5 %) 2.0 Basophils % (0.0 - 2.0 %) 0.3 Absolute Granulocytes (1.4 - 6.5 /CUMM) 8.1 H Absolute Lymphocytes (1.2 - 3.4 /CUMM) 0.8 L Absolute Monocytes (0.10 - 0.60 /CUMM) 1.3 H Absolute Eosinophils (0.0 - 0.7 /CUMM) 0.2 Absolute Basophils (0.0 - 0.2 /CUMM) 0 PUBS MCHC (33.0 - 37.0 G/DL) 33.1 07/10 07/09 0708 1815 Chemistry Sodium (137 - 145 mmol/L) 136 L Potassium (3.5 - 5.1 mmol/L) 3.8 Chloride (98 - 107 mmol/L) 101 Carbon Dioxide (22 - 30 mmol/L) 26 Anion Gap (5 - 16) 9 BUN (9 - 20 mg/dL) 16 Creatinine (0.7 - 1.2 mg/dL) 3.5 H Estimated GFR (>60 ml/min) 18 L BUN/Creatinine Ratio (7 - 25 %) 4.6 L Coagulation PT (9.4 - 12.5 SEC) 17.0 H INR (0.90 - 1.17) 1.63 H APTT (25 - 37 SEC) 67 H 74 H Hematology CBC w Diff NO MAN DIFF REQ WBC (4.8 - 10.8 /CUMM) 9.1 RBC (4.70 - 6.10 /CUMM) 2.85 L Hgb (14.0 - 18.0 G/DL) 8.9 L Hct (42 - 52 %) 26.9 L MCV (80.0 - 94.0 FL) 94.4 H MCH (27.0 - 31.0 PG) 31.1 H RDW (11.5 - 14.5 %) 17.0 H Plt Count (130 - 400 /CUMM) 306 MPV (7.4 - 10.4 FL) 7.9 Gran % (42.2 - 75.2 %) 78.9 H Lymphocytes % (20.5 - 51.1 %) 7.7 L Monocytes % (1.7 - 9.3 %) 11.9 H Eosinophils % (0 - 5 %) 1.4 Basophils % (0.0 - 2.0 %) 0.1 Absolute Granulocytes (1.4 - 6.5 /CUMM) 7.2 H Absolute Lymphocytes (1.2 - 3.4 /CUMM) 0.7 L Absolute Monocytes (0.10 - 0.60 /CUMM) 1.1 H Absolute Eosinophils (0.0 - 0.7 /CUMM) 0.1 Absolute Basophils (0.0 - 0.2 /CUMM) 0 PUBS MCHC (33.0 - 37.0 G/DL) 32.9 L
--- NOTE | 2017-07-12 11:18 | PN- Housestaff ---
See Addendum Subjective Follow-up For: Right IJ line thrombus End-stage renal disease Stage IV lung cancer Tele-Events Since Last Visit: Normal sinus rhythm with first-degree AV block 70-86 with PACs Subjective: Seen and examined. He is quite upset that overnight he had constipation requiring a fleets enema and manual disimpaction. Afterwards he had copious diarrhea which required cleanup by the nurse and is embarrassed and agitated. He is refusing dialysis but changed his mind and had dialysis today. Otherwise patient feels okay just with generalized pain that has been chronic. Review of Systems Constitutional: Reports: weakness. EENTM: Reports: no symptoms. Cardiovascular: Reports: no symptoms. Respiratory: Reports: no symptoms. Gastrointestinal: Reports: no symptoms. Genitourinary: Reports: no symptoms. Musculoskeletal: Reports: no symptoms. Skin: Reports: no symptoms. Neurological/Psychological: Reports: anxiety, depressed. Hematologic/Endocrine: Reports: no symptoms. Immunologic/Allergic: Reports: no symptoms. Objective Last 24 Hrs of Vital Signs/I&O Vital Signs Date Time Temp Pulse Resp B/P B/P Pulse O2 O2 Flow FiO2 Mean Ox Delivery Rate 07/12 1417 99.0 80 20 148/70 97 Nasal 2.0L Cannula 07/12 1337 78 190/90 07/12 1336 78 190/90 07/12 1336 78 190/90 07/12 1336 78 190/90 07/12 1336 78 190/90 07/12 1313 94 Nasal 1.0L Cannula 07/12 1200 94 Nasal 1.0L Cannula 07/12 0651 98.7 73 18 158/74 96 Nasal Cannula 07/12 0000 Nasal 1.0L Cannula 07/11 2308 98.1 77 16 162/78 93 Nasal 1.0L Cannula 07/11 2217 78 152/70 07/11 2216 78 152/70 07/11 1600 78 152/70 07/11 1600 98.2 78 16 152/70 92 Nasal 1.0L Cannula 07/11 1600 93 Nasal 2.0L Cannula Intake & Output 07/12 1600 03 0800 07/12 0000 Intake Total 520 100 200 Output Total 2200 100 Balance -1680 0 200 Intake, IV 160 Intake, Oral 360 100 200 Number 2 1 Bowel Movements Output, 2000 Dialysate Output, Urine 200 100 Patient 147 lb Weight Physical Exam General Appearance: Alert, Oriented X3, Cooperative, Mild Distress Skin: No Rashes, No Breakdown, No Significant Lesion Skin Temp/Moisture Exam: Warm/Dry HEENT: Atraumatic Cardiovascular: Regular Rate, Normal S1, Normal S2, No Murmurs Lungs: Clear to Auscultation, Normal Air Movement Abdomen: Normal Bowel Sounds, Soft, No Tenderness Neurological: Normal Speech Extremities: No Clubbing, No Cyanosis, Normal Pulses, patient continues to have right arm swelling Vascular: Normal Pulses, Pulses Symmetrical Current Medications: Current Medications Sig/Jed Start time Last Medication Dose Route Stop Time Status Admin Acetaminophen 650 MG Q6P PRN 07/05 211 AC PO Albuterol Sulfate 3 ML Q4P PRN 07/09 1415 DC INH Amlodipine Besylate 10 MG DAILY 07/05 1000 AC 07/12 PO 1336 Aspirin Buffered 81 MG DAILY 07/05 1000 AC 07/12 PO 1336 Calcium Carbonate 500 MG DAILY 07/05 1000 AC 07/11 PO 0910 Cholecalciferol 1,000 IU DAILY 07/05 1000 AC 07/12 PO 1337 Epoetin Slava 6,000 UNIT MoWeFr PRN 07/05 1115 AC IV Furosemide 40 MG SuTuThSa@1000 07/08 1000 AC 07/11 PO 0914 Heparin Sodium 25,000 UNIT Q24H 07/04 1900 AC 07/12 (Porcine) IV 0343 Sodium Chloride 500 ML Hydralazine HCl 100 MG TID 07/05 1000 AC 07/12 PO 1336 Hydrocodone Bitart/ 1 TAB Q6P PRN 07/05 2115 AC Acetaminophen PO Insulin Aspart 0 TIDAC 07/05 1100 AC 07/10 SC 0920 Isosorbide 60 MG DAILY 07/05 1000 AC 07/12 Mononitrate PO 1336 Labetalol HCl 200 MG BID 07/05 2200 AC 07/12 PO 1337 Lidocaine/Prilocaine 1 PENNY MoWeFr PRN 07/06 1530 AC TOP Losartan Potassium 25 MG DAILY 07/05 1000 AC 07/12 PO 1336 Morphine Sulfate 2 MG Q4P PRN 07/05 2115 AC 07/09 IV 1237 Multivitamins 1 TAB DAILY 07/05 1000 AC 07/12 Therapeutic PO 1336 Paricalcitol 4 MCG MoWeFr PRN 07/05 1115 AC IV Pravastatin Sodium 20 MG 1700 07/05 1700 AC 07/11 PO 1700 Prochlorperazine 10 MG TIDAC PRN 07/05 1133 AC 07/09 PO 1257 Senna 187 MG AT BEDTIME 07/11 2199 AC 07/11 PO 2216 Sevelamer Carbonate 1,600 MG 0800,1200,1700 07/06 0800 AC 07/10 PO 0921 Sodium Phosphate 1 UNIT ONCE ONE 07/12 0230 DC 07/12 TN 07/12 0231 0226 Warfarin Sodium 7.5 MG COUMADIN 1700 ONE 07/12 1700 AC PO 07/12 1701 Warfarin Sodium 7.5 MG COUMADIN 1700 ONE 07/11 1700 DC 07/11 PO 07/11 1701 2217 Last 24 Hrs of Lab/Haroon Results Last 24 Hrs of Labs/Mics: Laboratory Tests 07/12/17 1000: 07/12/17 0930: APTT Cancelled 07/12/17 0640: Anion Gap 12, Estimated GFR 10 L, BUN/Creatinine Ratio 4.9 L, Phosphorus 7.1 H, Magnesium 2.2, Albumin 3.3 L, PT 19.2 H, INR 1.84 H, APTT 118 *H, CBC w Diff NO MAN DIFF REQ, RBC 2.99 L, MCV 93.8, MCH 31.4 H, RDW 17.1 H, MPV 7.9, Gran % 87.4 H, Lymphocytes % 3.6 L, Monocytes % 8.2, Eosinophils % 0.7, Basophils % 0.1, Absolute Granulocytes 12.1 H, Absolute Lymphocytes 0.5 L, Absolute Monocytes 1.1 H, Absolute Eosinophils 0.1, Absolute Basophils 0, PUBS MCHC 33.5 07/11/17 2215: APTT 85 H Assessment/Plan Assessment: Assessment: 66-year-old gentleman with PMH of ESRD secondary to diabetic nephropathy ( dialysis Monday/Monday/Monday), hypertension, hyperlipidemia, coronary artery disease (s/p bare metal stents previously to LAD and left circumflex), prior ischemic cardiomyopathy with normalized EF [last echocardiogram in Mar 2017 EF 50-55% ], prior history of proximal cephalic vein thrombosis, 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 Patient has had this line for 2 years and receives hemodialysis through it. Vitals at admission were normal except blood pressure 182/80. Chest xray showed a known right upper lobe mass and persistent left lung base density that had no significant change from prior xray on 04/06/17. CT chest showed enlargement of the right upper mass with numerous additional pulmonary nodules. Central line assessment by CT was limited without intravenous contrast which was avoided in this ESRD patient. Of note patient has left AVF placed by Dr. Cruz. According to Dr. Durand, nephrology, who the patient has seen outpatient for treatment, the AVF is functional but not used as attempted cannulation was painful when it was attempted to be used. Thus, the RIJ continues to be used. The patient is set to have further cannulation in July with Dr. Cruz. Patient was admitted to telemetry floor for management of following conditions: DVT RIJ LINE ESRD ON DIALYSIS LUNG CANCER She was found to have upper extremity swelling and increased pain yesterday. He had a upper and lower extremity ultrasound which showed a superficial venous thrombus on the right side. He is continuing anticoagulation today his INR is 1.84. Plan: DVT RIJ line: Likely in the setting on indwelling catheter and cancer, both predisposing to coagulation. Patient was started on heparin drip in the ED. -Continue heparin drip with bridge to coumadin, goal INR 2-3 -Follow INR. Dose Coumadin accordingly. Patient's INR was again subtherapeutic , we will continue to give 7.5 mg of warfarin and can discharge the patient once he is in the therapeutic range. -Patient cannot have other newer anticoagulants or Lovenox due to ESRD -CT head showed no hemorrhagic conversion of his proximal cephalic thrombus -As per vascular surgery, if line is working, keep line and anticoagulate. -He will follow up with Dr. Cruz and if AVF is less painful and functioning, RIJ line will be removed. -VQ scan showed no evidence of PE ESRD on dialysis: -Continue MWF hemodialysis through tunneled catheter. He received hemodialysis today with 2 L removed. -Mag level is normal, albumin slightly low at 3.3, phosphorus level high at 7 but this level was before dialysis. -We will check phosphorus level tomorrow -Continue home medication, lasix, sevelamir, vitamin D3, procrit, eopgen, paricalcitol Lung cancer: -As per Dr. Saucedo, patient will likely need port placement given his current poor access and need for chemotherapy. -CT abdomen and pelvis showed liver metastases increased since prior study. -Plan for transition to carboplatin/irinotecan as an outpatient as current regimen seems to not be working despite patient being clinically stable. -Nebs -O2 supplementation when necessary Chronic medical conditions: IDDM, CAD, hypertension, hyperlipidemia -Continue home [id number]-Serial EKG and troponins were negative Upper extremity swelling Doppler ultrasound upper and lower extremities showed no evidence of DVT but a superficial thrombus in the right upper extremity Results communicated to the family. Patient already on anticoagulation DVT PPx: IV heparin, coumadin and ALPS Full Code Diabetic diet Problem List: 1. Edema of upper extremity 2. Large cell neuroendocrine carcinoma 3. Thrombosis of intravascular line 4. ESRD (end stage renal disease) 5. Lung mass Pain Ratin Pain Location: Generalized generalized Pain Goal: Pain 4 or less Pain Plan: Pain pathway Tomorrow's Labs & Rationales: CBC, BEP, INR
[2017-07-12 14:17] VITALS: BP 148/70
[2017-07-12 16:51] LABS: PTT 77 SEC (25-37)
[2017-07-12 22:13] VITALS: BP 148/64
[2017-07-13 05:08] LABS: ABSOLUTE BASOPHIL COUNT 0 /CUMM (0.0-0.2); ABSOLUTE EOSINOPHIL COUNT 0.1 /CUMM (0.0-0.7); ABSOLUTE GRANULOCYTE CT 6.1 /CUMM (1.4-6.5); ABSOLUTE LYMPH COUNT 0.7 /CUMM (1.2-3.4); ABSOLUTE MONOCYTE COUNT 1.3 /CUMM (0.10-0.60); BASOPHIL % 0.2 % (0.0-2.0); EOSINOPHIL % 1.8 % (0-5); GRANULOCYTE % 73.8 % (42.2-75.2); HEMATOCRIT 27.6 % (42-52); MEAN CORPUSCULAR HGB 31.1 PG (27.0-31.0); MEAN CORPUSCULAR HGB CONC 32.7 G/DL (33.0-37.0); MEAN CORPUSCULAR VOLUME 95.2 FL (80.0-94.0); MEAN PLATELET VOLUME 7.4 FL (7.4-10.4); PLATELET COUNT 314 /CUMM (130-400); RBC DISTRIBUTION WIDTH 17.2 % (11.5-14.5); RED BLOOD CELL CT 2.91 /CUMM (4.70-6.10); WHITE BLOOD CELL COUNT 8.2 /CUMM (4.8-10.8)
[2017-07-13 05:15] LABS: PT 23.6 SEC (9.4-12.5)
[2017-07-13 05:32] LABS: PTT > 120 SEC (25-37)
[2017-07-13 06:57] VITALS: BP 160/68
--- NOTE | 2017-07-13 11:33 | PN- Housestaff ---
Anni MUSE,Mary 07/13/17 1132: Subjective Follow-up For: right IJ line thrombus ESRD stage 4 lung cancer Tele-Events Since Last Visit: nsr [id number] Subjective: patient is talkative this morning. Is still having same generalized pain. Overnight he refused his labetolol but took his hydralazine, BP is 160 systolic. He received dialysis yesterday. Review of Systems Constitutional: Reports: weakness. EENTM: Reports: no symptoms. Cardiovascular: Reports: edema (right upper extremity). Respiratory: Reports: no symptoms. Gastrointestinal: Reports: diarrhea. Genitourinary: Reports: no symptoms. Musculoskeletal: Reports: no symptoms. Skin: Reports: no symptoms. Neurological/Psychological: Reports: no symptoms. Hematologic/Endocrine: Reports: no symptoms. Immunologic/Allergic: Reports: no symptoms. Objective Last 24 Hrs of Vital Signs/I&O Vital Signs Date Time Temp Pulse Resp B/P B/P Pulse O2 O2 Flow FiO2 Mean Ox Delivery Rate 07/13 1115 70 160/70 07/13 1115 70 160/70 07/13 1115 70 160/70 07/13 1114 70 160/70 07/13 0800 Nasal 2.0L Cannula 07/13 0657 98.4 74 20 160/68 94 Nasal Cannula 07/13 0000 Nasal 2.0L Cannula 07/12 2213 97.9 74 20 148/64 94 Nasal 2.0L Cannula 07/12 2143 85 160/68 07/12 2139 85 160/68 07/12 1724 78 140/60 07/12 1600 Nasal 2.0L Cannula 07/12 1417 99.0 80 20 148/70 97 Nasal 2.0L Cannula 07/12 1337 78 190/90 07/12 1336 78 190/90 07/12 1336 78 190/90 07/12 1336 78 190/90 07/12 1336 78 190/90 07/12 1313 94 Nasal 1.0L Cannula Intake & Output 07/13 1600 04 0800 07/13 0000 Intake Total 239.5 835 Output Total 100 200 Balance 139.5 635 Intake, IV 139.5 155 Intake, Oral 100 680 Number 1 Bowel Movements Output, Urine 100 200 Patient 137 lb Weight Weight Chair scale Measurement Method Physical Exam General Appearance: Alert, Oriented X3, Cooperative, No Acute Distress Skin: No Rashes, No Breakdown Skin Temp/Moisture Exam: Warm/Dry Sepsis Skin Exam (color): Normal for Ethnicity HEENT: Atraumatic Cardiovascular: Regular Rate, Normal S1, Normal S2, No Murmurs Lungs: Clear to Auscultation, Normal Air Movement Abdomen: Normal Bowel Sounds, Soft, No Tenderness Neurological: Normal Speech Extremities: No Clubbing, No Cyanosis, Normal Pulses, No Tenderness/Swelling Current Medications: Current Medications Sig/Jed Start time Last Medication Dose Route Stop Time Status Admin Acetaminophen 650 MG Q6P PRN 07/05 2115 AC PO Albuterol Sulfate 3 ML Q4P PRN 07/09 1415 DC INH Amlodipine Besylate 10 MG DAILY 07/05 1000 AC 07/13 PO 1114 Aspirin Buffered 81 MG DAILY 07/05 1000 AC 07/13 PO 1115 Calcium Carbonate 500 MG DAILY 07/05 1000 AC 07/13 PO 0826 Cholecalciferol 1,000 IU DAILY 07/05 1000 AC 07/13 PO 1115 Epoetin Slava 6,000 UNIT MoWeFr PRN 07/05 1115 AC IV Furosemide 40 MG SuTuThSa@1000 07/08 1000 AC 07/13 PO 1114 Heparin Sodium 25,000 UNIT Q24H 07/04 1900 DC 07/13 (Porcine) IV 0628 Sodium Chloride 500 ML Hydralazine HCl 100 MG TID 07/05 1000 AC 07/13 PO 1115 Hydrocodone Bitart/ 1 TAB Q6P PRN 07/05 2115 DC Acetaminophen PO Insulin Aspart 0 TIDAC 07/05 1100 AC 07/10 SC 0920 Isosorbide 60 MG DAILY 07/05 1000 AC 07/13 Mononitrate PO 1115 Labetalol HCl 200 MG BID 07/05 2200 AC 07/13 PO 1114 Lidocaine/Prilocaine 1 PENNY MoWeFr PRN 07/06 1530 AC TOP Losartan Potassium 25 MG DAILY 07/05 1000 AC 07/13 PO 1115 Morphine Sulfate 2 MG Q4P PRN 07/05 2115 DC 07/09 IV 1237 Multivitamins 1 TAB DAILY 07/05 1000 AC 07/13 Therapeutic PO 1114 Paricalcitol 4 MCG MoWeFr PRN 07/05 1115 AC IV Patient Medication 1 ED ONE ONE 07/13 1145 DC Teaching ED 07/13 1146 Pravastatin Sodium 20 MG 1700 07/05 1700 AC 07/12 PO 1722 Prochlorperazine 10 MG TIDAC PRN 07/05 1133 AC 07/13 PO 0851 Senna 187 MG AT BEDTIME 07/11 2200 AC 07/11 PO 2216 Sevelamer Carbonate 1,600 MG 0800,1200,1700 07/06 0800 AC 07/10 PO 0921 Warfarin Sodium 7.5 MG COUMADIN 1700 ONE 07/12 1700 DC 07/12 PO 07/12 1701 1722 Last 24 Hrs of Lab/Haroon Results Last 24 Hrs of Labs/Mics: Laboratory Tests 07/13/17 0415: PT 23.6 H, INR 2.27 H 07/13/17 0415: Anion Gap 12, Estimated GFR 16 L, BUN/Creatinine Ratio 4.1 L, Phosphorus 4.9 H, APTT > 120 *H, CBC w Diff NO MAN DIFF REQ, RBC 2.91 L, MCV 95.2 H, MCH 31.1 H, RDW 17.2 H, MPV 7.4, Gran % 73.8, Lymphocytes % 8.4 L, Monocytes % 15.8 H , Eosinophils % 1.8, Basophils % 0.2, Absolute Granulocytes 6.1, Absolute Lymphocytes 0.7 L, Absolute Monocytes 1.3 H, Absolute Eosinophils 0.1, Absolute Basophils 0, PUBS MCHC 32.7 L 07/12/17 1615: APTT 77 H 07/12/17 1540: BUN Cancelled Assessment/Plan Assessment: Assessment: 66-year-old gentleman with PMH of ESRD secondary to diabetic nephropathy ( dialysis Monday/Monday/Monday), hypertension, hyperlipidemia, coronary artery disease (s/p bare metal stents previously to LAD and left circumflex), prior ischemic cardiomyopathy with normalized EF [last echocardiogram in Mar 2017 EF 50-55% ], prior history of proximal cephalic vein thrombosis, 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 Patient has had this line for 2 years and receives hemodialysis through it. Vitals at admission were normal except blood pressure 182/80. Chest xray showed a known right upper lobe mass and persistent left lung base density that had no significant change from prior xray on 04/06/17. CT chest showed enlargement of the right upper mass with numerous additional pulmonary nodules. Central line assessment by CT was limited without intravenous contrast which was avoided in this ESRD patient. Of note patient has left AVF placed by Dr. Cruz. According to Dr. Durand, nephrology, who the patient has seen outpatient for treatment, the AVF is functional but not used as attempted cannulation was painful when it was attempted to be used. Thus, the RIJ continues to be used. The patient is set to have further cannulation in July with Dr. Cruz. Patient was admitted to telemetry floor for management of following conditions: DVT RIJ LINE ESRD ON DIALYSIS LUNG CANCER He was found to have upper extremity swelling and increased pain recently. He had a upper and lower extremity ultrasound which showed a superficial venous thrombus on the right side. He is continuing anticoagulation today his INR is 2.27. Plan: DVT RIJ line: Likely in the setting on indwelling catheter and cancer, both predisposing to coagulation. Patient was started on heparin drip in the ED. -Continue heparin drip with bridge to coumadin, goal INR 2-3 -Follow INR. Dose Coumadin accordingly. Patient's INR is therapeutic, we will continue to give 7.5 mg of warfarin and can discharge the patient once the weather clears as it is snowing and unsafe for discharge at the moment. -No need to continue heparin drip. -Patient cannot have other newer anticoagulants or Lovenox due to ESRD -CT head showed no hemorrhagic conversion of his proximal cephalic thrombus -As per vascular surgery, if line is working, keep line and anticoagulate. -He will follow up with Dr. Cruz and if AVF is less painful and functioning, RIJ line will be removed. -VQ scan showed no evidence of PE ESRD on dialysis: -Continue MWF hemodialysis through tunneled catheter. He received hemodialysis yesterday with 2 L removed. -Mag level is normal, phosphorus level 4.9 down from 7.1. -Continue home medication, lasix, sevelamir, vitamin D3, procrit, eopgen, paricalcitol -URR: Although no fixed percentage can be said to represent an adequate dialysis, patients generally live longer and have fewer hospitalizations if the URR is at least 60 percent. URR is 62.96%. -Repeat URR tomorrow Lung cancer: -As per Dr. Saucedo, patient will likely need port placement given his current poor access and need for chemotherapy. -CT abdomen and pelvis showed liver metastases increased since prior study. -Plan for transition to carboplatin/irinotecan as an outpatient as current regimen seems to not be working despite patient being clinically stable. -Nebs -O2 supplementation when necessary Chronic medical conditions: IDDM, CAD, hypertension, hyperlipidemia -Continue home [id number]-Serial EKG and troponins were negative Upper extremity swelling, resolving -Doppler ultrasound upper and lower extremities showed no evidence of DVT but a superficial thrombus in the right upper extremity -Results communicated to the family. -Patient already on anticoagulation Disposition -Patient will be discharged home with health services -For now we can stop tele as patient has stable heart rate and rhythm DVT PPx: IV heparin, coumadin and ALPS Full Code Diabetic diet Problem List: 1. Large cell neuroendocrine carcinoma 2. Thrombosis of intravascular line 3. Edema of upper extremity 4. ESRD (end stage renal disease) 5. Lung mass Pain Ratin Pain Location: generalized Pain Goal: Pain 4 or less Pain Plan: pain pathway Tomorrow's Labs & Rationales: inr Juan Jose Birch 07/13/17 1455: Attending MD Review Statement Attending Statement Attending MD Statement: examined this patient, discuss w/resident/PA/MANAGER PRIVATE, agreed w/resident/PA/MANAGER PRIVATE, reviewed EMR data (avail), discussed with nursing Attending Assessment/Plan: pts INR is therapeutic. Stop heparin drip. pt seen and examined. plan dc tomorrow after hemodialysis.
--- NOTE | 2017-07-13 12:55 | PN- Nephrology ---
Assessment/Plan Assessment: 1. ESRD 2. 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 ?Right IJ thrombus, with minimal nonocclusive mural thrombus within the right basilic vein - with right upper extremity edema (improving) on anticoagulation 4. Multiple comorbidities including diabetes mellitus, hypertension, coronary artery disease, hyperlipidemia Suggestion: 1. Hemodialysis scheduled for tomorrow 2. Continue anticoagulation 3. Will repeat URR with dialysis tomorrow Subjective Subjective: Patient looks and feels better today. He notes that the edema in his right arm has improved. Serum phosphorus down to 4.9. URR measured yesterday was low at 63% - will repeat tomorrow with dialysis. Objective Vital Signs and I&Os Vital Signs Date Time Temp Pulse Resp B/P B/P Pulse O2 O2 Flow FiO2 Mean Ox Delivery Rate 07/13 1115 70 160/70 07/13 1115 70 160/70 07/13 1115 70 160/70 07/13 1114 70 160/70 07/13 0800 Nasal 2.0L Cannula 07/13 0657 98.4 74 20 160/68 94 Nasal Cannula 07/13 0000 Nasal 2.0L Cannula 07/12 2213 97.9 74 20 148/64 94 Nasal 2.0L Cannula 07/12 2143 85 160/68 07/12 2139 85 160/68 07/12 1724 78 140/60 07/12 1600 Nasal 2.0L Cannula 07/12 1417 99.0 80 20 148/70 97 Nasal 2.0L Cannula 07/12 1337 78 190/90 07/12 1336 78 190/90 07/12 1336 78 190/90 07/12 1336 78 190/90 07/12 1336 78 190/90 07/12 1313 94 Nasal 1.0L Cannula Intake & Output 07/13 1600 07/13 0400 07/12 1600 07/12 0400 07/11 1600 07/11 0400 Intake Total 239.5 835 620 200 747.2 100 Output Total 036 853 8682 150 100 Balance 139.5 635 -1680 200 597.2 0 Intake, IV 139.5 155 160 347.2 Intake, Oral 100 680 460 200 400 100 Number 1 3 Bowel Movements Output, 2000 Dialysate Output, Urine 100 200 300 150 100 Patient 137 lb 147 lb 142 lb Weight Weight Chair scale Chair scale Measurement Method Physical Exam: General: Well-developed, chronically ill-appearing black male in NAD Skin: No rash or lesions HEENT: Conjunctivae pale, sclerae anicteric, mucous membranes moist Neck: Without masses or thyromegaly, no supraclavicular or cervical adenopathy Chest: Scattered rhonchi bilaterally Heart: Regular rate and rhythm without S3 or rub Abdomen: Soft with mild to moderate diffuse tenderness, no palpable masses or organomegaly Extremities: Without cyanosis or edema in lower extremities, right upper extremity diffusely edematous, left upper arm AVF positive bruit Neuro: No focal findings, no asterixis or myoclonus Results Pertinent Lab Results: Laboratory Tests 07/13 07/13 07/12 0415 0415 1615 Chemistry Sodium (137 - 145 mmol/L) 138 Potassium (3.5 - 5.1 mmol/L) 3.6 Chloride (98 - 107 mmol/L) 102 Carbon Dioxide (22 - 30 mmol/L) 24 Anion Gap (5 - 16) 12 BUN (9 - 20 mg/dL) 15 Creatinine (0.7 - 1.2 mg/dL) 3.7 H Estimated GFR (>60 ml/min) 16 L BUN/Creatinine Ratio (7 - 25 %) 4.1 L Phosphorus (2.5 - 4.5 mg/dL) 4.9 H Coagulation PT (9.4 - 12.5 SEC) 23.6 H INR (0.90 - 1.17) 2.27 H APTT (25 - 37 SEC) > 120 *H 77 H Hematology CBC w Diff NO MAN DIFF REQ WBC (4.8 - 10.8 /CUMM) 8.2 RBC (4.70 - 6.10 /CUMM) 2.91 L Hgb (14.0 - 18.0 G/DL) 9.0 L Hct (42 - 52 %) 27.6 L MCV (80.0 - 94.0 FL) 95.2 H MCH (27.0 - 31.0 PG) 31.1 H RDW (11.5 - 14.5 %) 17.2 H Plt Count (130 - 400 /CUMM) 314 MPV (7.4 - 10.4 FL) 7.4 Gran % (42.2 - 75.2 %) 73.8 Lymphocytes % (20.5 - 51.1 %) 8.4 L Monocytes % (1.7 - 9.3 %) 15.8 H Eosinophils % (0 - 5 %) 1.8 Basophils % (0.0 - 2.0 %) 0.2 Absolute Granulocytes (1.4 - 6.5 /CUMM) 6.1 Absolute Lymphocytes (1.2 - 3.4 /CUMM) 0.7 L Absolute Monocytes (0.10 - 0.60 /CUMM) 1.3 H Absolute Eosinophils (0.0 - 0.7 /CUMM) 0.1 Absolute Basophils (0.0 - 0.2 /CUMM) 0 PUBS MCHC (33.0 - 37.0 G/DL) 32.7 L 07/12 07/12 07/12 1540 UNK 0930 Chemistry BUN (9 - 20 mg/dL) Cancelled 10 Coagulation APTT Cancelled 07/12 07/11 07/11 0640 2215 1050 Chemistry Sodium (137 - 145 mmol/L) 135 L Potassium (3.5 - 5.1 mmol/L) 4.1 Chloride (98 - 107 mmol/L) 99 Carbon Dioxide (22 - 30 mmol/L) 24 Anion Gap (5 - 16) 12 BUN (9 - 20 mg/dL) 27 H Creatinine (0.7 - 1.2 mg/dL) 5.5 *H Estimated GFR (>60 ml/min) 10 L BUN/Creatinine Ratio (7 - 25 %) 4.9 L Phosphorus (2.5 - 4.5 mg/dL) 7.1 H Magnesium (1.6 - 2.3 mg/dL) 2.2 Albumin (3.5 - 5.0 g/dL) 3.3 L Coagulation PT (9.4 - 12.5 SEC) 19.2 H INR (0.90 - 1.17) 1.84 H APTT (25 - 37 SEC) 118 *H 85 H 60 H Hematology CBC w Diff NO MAN DIFF REQ WBC (4.8 - 10.8 /CUMM) 13.9 H RBC (4.70 - 6.10 /CUMM) 2.99 L Hgb (14.0 - 18.0 G/DL) 9.4 L Hct (42 - 52 %) 28.1 L MCV (80.0 - 94.0 FL) 93.8 MCH (27.0 - 31.0 PG) 31.4 H RDW (11.5 - 14.5 %) 17.1 H Plt Count (130 - 400 /CUMM) 334 MPV (7.4 - 10.4 FL) 7.9 Gran % (42.2 - 75.2 %) 87.4 H Lymphocytes % (20.5 - 51.1 %) 3.6 L Monocytes % (1.7 - 9.3 %) 8.2 Eosinophils % (0 - 5 %) 0.7 Basophils % (0.0 - 2.0 %) 0.1 Absolute Granulocytes (1.4 - 6.5 /CUMM) 12.1 H Absolute Lymphocytes (1.2 - 3.4 /CUMM) 0.5 L Absolute Monocytes (0.10 - 0.60 /CUMM) 1.1 H Absolute Eosinophils (0.0 - 0.7 /CUMM) 0.1 Absolute Basophils (0.0 - 0.2 /CUMM) 0 PUBS MCHC (33.0 - 37.0 G/DL) 33.5 07/11 Chemistry Sodium (137 - 145 mmol/L) 137 Potassium (3.5 - 5.1 mmol/L) 4.0 Chloride (98 - 107 mmol/L) 101 Carbon Dioxide (22 - 30 mmol/L) 24 Anion Gap (5 - 16) 12 BUN (9 - 20 mg/dL) 21 H Creatinine (0.7 - 1.2 mg/dL) 4.5 H Estimated GFR (>60 ml/min) 13 L BUN/Creatinine Ratio (7 - 25 %) 4.7 L Coagulation PT (9.4 - 12.5 SEC) 17.6 H INR (0.90 - 1.17) 1.68 H APTT (25 - 37 SEC) 61 H Hematology CBC w Diff NO MAN DIFF REQ WBC (4.8 - 10.8 /CUMM) 10.4 RBC (4.70 - 6.10 /CUMM) 2.96 L Hgb (14.0 - 18.0 G/DL) 9.3 L Hct (42 - 52 %) 28.0 L MCV (80.0 - 94.0 FL) 94.6 H MCH (27.0 - 31.0 PG) 31.3 H RDW (11.5 - 14.5 %) 16.7 H Plt Count (130 - 400 /CUMM) 317 MPV (7.4 - 10.4 FL) 8.0 Gran % (42.2 - 75.2 %) 77.8 H Lymphocytes % (20.5 - 51.1 %) 7.6 L Monocytes % (1.7 - 9.3 %) 12.3 H Eosinophils % (0 - 5 %) 2.0 Basophils % (0.0 - 2.0 %) 0.3 Absolute Granulocytes (1.4 - 6.5 /CUMM) 8.1 H Absolute Lymphocytes (1.2 - 3.4 /CUMM) 0.8 L Absolute Monocytes (0.10 - 0.60 /CUMM) 1.3 H Absolute Eosinophils (0.0 - 0.7 /CUMM) 0.2 Absolute Basophils (0.0 - 0.2 /CUMM) 0 PUBS MCHC (33.0 - 37.0 G/DL) 33.1
[2017-07-13 15:32] VITALS: BP 156/70
[2017-07-13 22:25] VITALS: BP 130/70
[2017-07-14 06:18] VITALS: BP 144/74
--- NOTE | 2017-07-14 07:41 | PN- Oncology ---
Subjective Subjective: He is doing better. He feels better. His mood is improved. He still has generalized pain. He still has swelling in his legs and right arm. Right arm is improved with elevation. Review of Systems: Constitutional: Denies: chills, diaphoresis, fever, weakness. Cardiovascular: Denies: chest pain. Respiratory: Reports: short of breath. Gastrointestinal: Denies: abdominal pain. Musculoskeletal: Reports: swelling the RUE, bilateral LE All Other Systems: Reviewed and Negative Objective Vital Signs and I&Os Vital Signs Date Time Temp Pulse Resp B/P B/P Pulse O2 O2 Flow FiO2 Mean Ox Delivery Rate 07/14 617 98.3 74 20 144/74 94 07/13 2225 99.0 74 20 130/70 96 07/13 2112 91 156/70 07/13 2112 91 156/70 07/13 1700 91 156/70 07/13 1600 Nasal 2.0L Cannula 07/13 1532 98.4 91 20 156/70 95 Nasal 2.0L Cannula 07/13 1115 70 160/70 07/13 1115 70 160/70 07/13 1115 70 160/70 07/13 1114 70 160/70 07/13 0800 Nasal 2.0L Cannula Intake & Output 07/14 0800 07/14 0000 07/13 1600 07/13 0800 07/13 0000 07/12 1600 Intake Total 100 200 500 239.5 835 520 Output Total 100 996 807 9677 Balance 100 100 500 139.5 635 -1680 Intake, IV 139.5 155 160 Intake, Oral 100 200 500 100 680 360 Number 1 2 Bowel Movements Output, 2000 Dialysate Output, Urine 100 100 200 200 Patient 63.049 kg 62.199 kg Weight Weight Chair scale Chair scale Measurement Method Physical Exam: General Appearance: well developed/nourished, no apparent distress, comfortable Respiratory: normal breath sounds, chest non-tender, no respiratory distress, quiet respiration, crackles Cardiovascular: regular rate/rhythm Gastrointestinal: normal bowel sounds, soft, non-tender Extremities: edema in bilateral lower extremities up to ankle worse on the right side, RUE edema (improved), LUE with AV fistula, +bruit Neurologic/Psych: awake, alert, oriented x 3 Other Physical Findings: right dialysis catheter Current Medications: Current Medications Sig/Jed Start time Last Medication Dose Route Stop Time Status Admin Acetaminophen 650 MG .STK-MED ONE 07/13 2211 DC PO 07/13 2212 Acetaminophen 650 MG Q6P PRN 07/05 2115 AC 07/13 PO 2213 Amlodipine Besylate 10 MG DAILY 07/05 1000 AC 07/13 PO 1114 Aspirin Buffered 81 MG DAILY 07/05 1000 AC 07/13 PO 1115 Calcium Carbonate 500 MG DAILY 07/05 1000 AC 07/13 PO 0826 Cholecalciferol 1,000 IU DAILY 07/05 1000 AC 07/13 PO 1115 Epoetin Slava 6,000 UNIT MoWeFr PRN 07/05 1115 AC IV Furosemide 40 MG SuTuThSa@1000 07/08 1000 AC 07/13 PO 1114 Heparin Sodium 25,000 UNIT Q24H 07/04 1900 DC 07/13 (Porcine) IV 0628 Sodium Chloride 500 ML Hydralazine HCl 100 MG TID 07/05 1000 AC 07/13 PO 1700 Insulin Aspart 0 TIDAC 07/05 1100 AC 07/10 SC 0920 Isosorbide 60 MG DAILY 07/05 1000 AC 07/13 Mononitrate PO 1115 Labetalol HCl 200 MG BID 07/05 2200 AC 07/13 PO 2112 Lidocaine/Prilocaine 1 PENNY MoWeFr PRN 07/06 1530 AC TOP Losartan Potassium 25 MG DAILY 07/05 1000 AC 07/13 PO 1115 Multivitamins 1 TAB DAILY 07/05 1000 AC 07/13 Therapeutic PO 1114 Paricalcitol 4 MCG MoWeFr PRN 07/05 1115 AC IV Patient Medication 1 ED ONE ONE 07/13 1145 DC 07/13 Teaching ED 07/13 1146 1337 Pravastatin Sodium 20 MG 1700 07/05 1700 AC 07/13 PO 1812 Prochlorperazine 10 MG TIDAC PRN 07/05 1133 AC 07/13 PO 0851 Senna 187 MG AT BEDTIME 07/11 2200 AC 07/11 PO 2216 Sevelamer Carbonate 1,600 MG 0800,1200,1700 07/06 0800 AC 07/13 PO 1700 Warfarin Sodium 5 MG COUMADIN 1700 ONE 07/13 1700 DC 07/13 PO 07/13 1701 1700 Results Last 24 Hours of Lab Results: Laboratory Tests 07/13 1215 Coagulation APTT Cancelled Assessment/Plan Assessment/Recommendations: Mr. 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 DVT is likely line-related and malignancy-related. He is now therapeutic on warfarin. Heparin drip is off. Symptomatically improved. He will be seen as an outpatient to discuss options for lung cancer treatment. Right IJ DVT: -continue warfarin with goal INR 2-3 Stage IV large cell neuroendocrine: -follow up as outaptient to discuss therapeutic options (likely carbo/irinotecan ) ESRD: -dialysis as per nephrology -AV fistula evaluation as per vascular Please call [phone] with any questions/concerns. Problem List: 1. Edema of upper extremity 2. Large cell neuroendocrine carcinoma 3. DVT (deep venous thrombosis) 4. ESRD (end stage renal disease)
[2017-07-14 08:44] LABS: ABSOLUTE BASOPHIL COUNT 0.1 /CUMM (0.0-0.2); ABSOLUTE EOSINOPHIL COUNT 0.3 /CUMM (0.0-0.7); ABSOLUTE GRANULOCYTE CT 5.5 /CUMM (1.4-6.5); ABSOLUTE LYMPH COUNT 0.7 /CUMM (1.2-3.4); BASOPHIL % 1.9 % (0.0-2.0); EOSINOPHIL % 3.4 % (0-5); GRANULOCYTE % 72.5 % (42.2-75.2); HEMATOCRIT 29.8 % (42-52); MEAN CORPUSCULAR HGB 31.1 PG (27.0-31.0); MEAN CORPUSCULAR HGB CONC 33.3 G/DL (33.0-37.0); MEAN CORPUSCULAR VOLUME 93.5 FL (80.0-94.0); MEAN PLATELET VOLUME 7.5 FL (7.4-10.4); PLATELET COUNT 342 /CUMM (130-400); RBC DISTRIBUTION WIDTH 17.1 % (11.5-14.5); RED BLOOD CELL CT 3.19 /CUMM (4.70-6.10); WHITE BLOOD CELL COUNT 7.6 /CUMM (4.8-10.8)
[2017-07-14 08:52] LABS: PT 26.4 SEC (9.4-12.5)
--- NOTE | 2017-07-14 11:52 | PN- Housestaff ---
See Addendum Subjective Follow-up For: rij line thrombus metastatic lung cancer esrd dialysis hypoxia Tele-Events Since Last Visit: off tele Subjective: patient feels ok today. he is gettign dialysis. his right arm is less swollen. still has generalized pain, gave tylenol. earger to leave today. Review of Systems Constitutional: Reports: weakness. Cardiovascular: Reports: no symptoms. Respiratory: Reports: short of breath. Gastrointestinal: Reports: no symptoms. Musculoskeletal: Reports: back pain, joint pain, muscle pain. Skin: Reports: no symptoms. Neurological/Psychological: Reports: no symptoms. Objective Last 24 Hrs of Vital Signs/I&O Vital Signs Date Time Temp Pulse Resp B/P B/P Pulse O2 O2 Flow FiO2 Mean Ox Delivery Rate 07/14 1422 99.0 73 20 144/70 92 Nasal 1.0L Cannula 07/14 1317 80 170/70 07/14 1317 80 170/70 07/14 1316 80 170/70 07/14 1316 80 170/70 07/14 1204 89 170/70 07/14 0800 95 Nasal 2.0L Cannula 07/14 0618 98.3 74 20 144/74 94 07/13 2225 99.0 74 20 130/70 96 07/13 2112 91 156/70 07/13 2112 91 156/70 07/13 1700 91 156/70 Intake & Output 07/14 1600 07/14 0800 07/14 0000 Intake Total 300 100 200 Output Total 200 200 100 Balance 100 -100 100 Intake, Oral 300 100 200 Output, Urine 200 200 100 Patient 138 lb 139 lb Weight Weight Chair scale Chair scale Measurement Method Physical Exam General Appearance: Alert, Oriented X3, Cooperative, No Acute Distress Cardiovascular: Regular Rate, Normal S1, Normal S2, No Murmurs Lungs: Clear to Auscultation, Normal Air Movement Extremities: No Clubbing, No Cyanosis, Normal Pulses, No Tenderness/Swelling Current Medications: Current Medications Sig/Jed Start time Last Medication Dose Route Stop Time Status Admin Acetaminophen 650 MG ONCE ONE 07/14 1145 DC 07/14 PO 07/14 1146 1205 Acetaminophen 650 MG .STK-MED ONE 07/13 2210 DC PO 07/13 2211 Acetaminophen 650 MG Q6P PRN 07/05 211 AC 07/13 PO 221 Amlodipine Besylate 10 MG DAILY 07/05 1000 AC 07/14 PO 1316 Aspirin Buffered 81 MG DAILY 07/05 1000 AC 07/14 PO 1316 Calcium Carbonate 500 MG DAILY 07/05 1000 AC 07/14 PO 1317 Cholecalciferol 1,000 IU DAILY 07/05 1000 AC 07/14 PO 1318 Epoetin Slava 6,000 UNIT MoWeFr PRN 07/05 1115 AC IV Furosemide 40 MG SuTuThSa@1000 07/08 1000 AC 07/13 PO 1114 Hydralazine HCl 100 MG TID 07/05 1000 AC 07/14 PO 1317 Insulin Aspart 0 TIDAC 07/05 1100 AC 07/10 SC 0920 Isosorbide 60 MG DAILY 07/05 1000 AC 07/14 Mononitrate PO 1317 Labetalol HCl 200 MG BID 07/05 2200 AC 07/14 PO 1204 Lidocaine/Prilocaine 1 PENNY MoWeFr PRN 07/06 1530 AC TOP Losartan Potassium 25 MG DAILY 07/05 1000 AC 07/14 PO 1316 Multivitamins 1 TAB DAILY 07/05 1000 AC 07/14 Therapeutic PO 1316 Paricalcitol 4 MCG MoWeFr PRN 07/05 1115 AC IV Pravastatin Sodium 20 MG 1700 07/05 1700 AC 07/13 PO 1812 Prochlorperazine 10 MG TIDAC PRN 07/05 1133 AC 07/14 PO 1204 Senna 187 MG AT BEDTIME 07/11 2200 AC 07/11 PO 2216 Sevelamer Carbonate 1,600 MG 0800,1200,1700 07/06 0800 AC 07/13 PO 1700 Warfarin Sodium 5 MG COUMADIN 1700 ONE 07/14 1700 AC PO 07/14 1701 Warfarin Sodium 5 MG COUMADIN 1700 ONE 07/13 1700 DC 07/13 PO 07/13 1701 1700 Assessment/Plan Assessment: Assessment: 66-year-old gentleman with PMH of ESRD secondary to diabetic nephropathy ( dialysis Monday/Monday/Monday), hypertension, hyperlipidemia, coronary artery disease (s/p bare metal stents previously to LAD and left circumflex), prior ischemic cardiomyopathy with normalized EF [last echocardiogram in Mar 2017 EF 50-55% ], prior history of proximal cephalic vein thrombosis, 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 Patient has had this line for 2 years and receives hemodialysis through it. Vitals at admission were normal except blood pressure 182/80. Chest xray showed a known right upper lobe mass and persistent left lung base density that had no significant change from prior xray on 04/06/17. CT chest showed enlargement of the right upper mass with numerous additional pulmonary nodules. Central line assessment by CT was limited without intravenous contrast which was avoided in this ESRD patient. Of note patient has left AVF placed by Dr. Cruz. According to Dr. Durand, nephrology, who the patient has seen outpatient for treatment, the AVF is functional but not used as attempted cannulation was painful when it was attempted to be used. Thus, the RIJ continues to be used. The patient is set to have further cannulation in July with Dr. Cruz. Patient was admitted to telemetry floor for management of following conditions: DVT RIJ LINE ESRD ON DIALYSIS LUNG CANCER He was found to have upper extremity swelling and increased pain recently. He had a upper and lower extremity ultrasound which showed a superficial venous thrombus on the right side. He is continuing anticoagulation today his INR is 2.54. He was also found to have desaturations yesterday morning to 85% on resting. Today was ambulated and found to have saturations to 87% on room air. PLAN DVT RIJ line: Likely in the setting on indwelling catheter and cancer, both predisposing to coagulation. Patient was started on heparin drip in the ED with warfarin and was bridged for 5 days. His INR slowly climbed and is now 2.54 on discharge. He had 7.5 mg warfarin to raise his INR quickly but is now on 5mg which he will be discharged on with instrucitons to take every day and follow up with INR reads. -Patient cannot have other newer anticoagulants or Lovenox due to ESRD -CT head showed no hemorrhagic conversion of his proximal cephalic thrombus so anticoagulation was deemed safe. -As per vascular surgery, if line is working, keep line for now. -He will follow up with Dr. Cruz for superficialize of line. -VQ scan showed no evidence of PE (no conversion of DVT) ESRD on dialysis: -Continue MWF hemodialysis through tunneled catheter. Last received it today 1/ 5. -URR: Although no fixed percentage can be said to represent an adequate dialysis, patients generally live longer and have fewer hospitalizations if the URR is at least 60 percent. URR is 62.96% on 07/12. URR was found to be 60% on 07/14, less than optimal. Dr. Santillan has ordered dailysis output time to increase to 3.5 hours. -Patient continued on phosphate binders. -Continue home medication, lasix, vitamin D3, procrit, eopgen, paricalcitol Lung cancer with mets: -CT chest showed: 1. Progressive enlargement of the dominant 6.7 cm right upper lobe mass as compared to the prior study. Numerous additional pulmonary nodules are increased in size or new as compared to prior. These findings are consistent with progression of the underlying malignant disease. Adenopathy appears unchanged the comparison is limited without intravenous contrast. -CT abdomen and pelvis showed liver metastases increased since prior study. -Plan for transition to carboplatin/irinotecan as an outpatient as current regimen seems to not be working despite patient being clinically stable. -Nebs -O2 supplementation when necessary. patient was persistently on oxygen, usually 1-2L. On 07/13, the patient was noted to desaturate on rest to 85%. He was ambulated on 07/14 and found to have sats of 87%. Patient should have home oxygen when necessary. Chronic medical conditions: IDDM, CAD, hypertension, hyperlipidemia -Continue home [id number]-Serial EKG and troponins were negative Upper extremity swelling, resolving -Doppler ultrasound upper and lower extremities showed no evidence of DVT but a superficial thrombus in the right upper extremity -Patient already on anticoagulation Disposition -Patient will be discharged home with oxygen DVT PPx: IV heparin, coumadin and ALPS Full Code Diabetic diet Patient instructed to follow up with Dr. Santillan, Fly Liu, Dr. Cruz vascular surgeon, PCP Dr. Jackson, and oncologist Dr. Abreu Problem List: 1. Edema of upper extremity 2. Large cell neuroendocrine carcinoma 3. Thrombosis of intravascular line 4. DVT (deep venous thrombosis) 5. ESRD (end stage renal disease) 6. Lung mass 7. Hypoxia Pain Ratin Pain Location: generalized Pain Goal: Pain 4 or less Pain Plan: pathway Tomorrow's Labs & Rationales: patient being discharged today
--- NOTE | 2017-07-14 13:01 | PN- Nephrology ---
Assessment/Plan Assessment: 1. ESRD 2. 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 ?Right IJ thrombus, with minimal nonocclusive mural thrombus within the right basilic vein - with right upper extremity edema (improving) on anticoagulation 4. Multiple comorbidities including diabetes mellitus, hypertension, coronary artery disease, hyperlipidemia Suggestion: 1. Hemodialysis today uneventful; repeat URR low at 60% 2. Continue anticoagulation - INR therapeutic 3. OK for discharge from Renal standpoint; will increase outpt dialysis time to 3.5 hrs Subjective Subjective: Seen with HD. Anxious to go home. Right arm edema continues to slowly improve. Objective Vital Signs and I&Os Vital Signs Date Time Temp Pulse Resp B/P B/P Pulse O2 O2 Flow FiO2 Mean Ox Delivery Rate 07/14 1204 89 170/70 07/14 0618 98.3 74 20 144/74 94 07/13 2225 99.0 74 20 130/70 96 07/13 2112 91 156/70 07/13 2112 91 156/70 07/13 1700 91 156/70 07/13 1600 Nasal 2.0L Cannula 07/13 1532 98.4 91 20 156/70 95 Nasal 2.0L Cannula Intake & Output 07/14 1600 07/14 0400 07/13 1600 07/13 0400 07/12 1600 07/12 0400 Intake Total 100 200 739.5 835 620 200 Output Total 200 100 687 130 5655 Balance -100 100 639.5 635 -1680 200 Intake, IV 139.5 155 160 Intake, Oral 100 200 600 680 460 200 Number 1 3 Bowel Movements Output, 2000 Dialysate Output, Urine 200 100 100 200 300 Patient 139 lb 137 lb 147 lb Weight Weight Chair scale Chair scale Measurement Method Physical Exam: General: Well-developed, chronically ill-appearing black male in NAD Skin: No rash or lesions HEENT: Conjunctivae pale, sclerae anicteric, mucous membranes moist Neck: Without masses or thyromegaly, no supraclavicular or cervical adenopathy Chest: Clear with poor air movement bilaterally Heart: Regular rate and rhythm without S3 or rub Abdomen: Soft, nontender, no palpable masses or organomegaly Extremities: Without cyanosis, bilateral pedal edema worse on left with ankle edema as well, right upper extremity diffusely edematous, left upper arm AVF positive bruit Neuro: No focal findings, no asterixis or myoclonus Results Pertinent Lab Results: Laboratory Tests 07/14 07/14 07/14 1140 0810 0600 Chemistry Sodium (137 - 145 mmol/L) 138 Potassium (3.5 - 5.1 mmol/L) 3.6 Chloride (98 - 107 mmol/L) 101 Carbon Dioxide (22 - 30 mmol/L) 26 Anion Gap (5 - 16) 12 BUN (9 - 20 mg/dL) 8 L 20 Cancelled Creatinine (0.7 - 1.2 mg/dL) 5.0 H Estimated GFR (>60 ml/min) 12 L BUN/Creatinine Ratio (7 - 25 %) 4.0 L Calcium (8.4 - 10.2 mg/dL) 10.2 Coagulation PT (9.4 - 12.5 SEC) 26.4 H INR (0.90 - 1.17) 2.54 H Hematology CBC w Diff NO MAN DIFF REQ WBC (4.8 - 10.8 /CUMM) 7.6 RBC (4.70 - 6.10 /CUMM) 3.19 L Hgb (14.0 - 18.0 G/DL) 9.9 L Hct (42 - 52 %) 29.8 L MCV (80.0 - 94.0 FL) 93.5 MCH (27.0 - 31.0 PG) 31.1 H RDW (11.5 - 14.5 %) 17.1 H Plt Count (130 - 400 /CUMM) 342 MPV (7.4 - 10.4 FL) 7.5 Gran % (42.2 - 75.2 %) 72.5 Lymphocytes % (20.5 - 51.1 %) 8.8 L Monocytes % (1.7 - 9.3 %) 13.4 H Eosinophils % (0 - 5 %) 3.4 Basophils % (0.0 - 2.0 %) 1.9 Absolute Granulocytes (1.4 - 6.5 /CUMM) 5.5 Absolute Lymphocytes (1.2 - 3.4 /CUMM) 0.7 L Absolute Monocytes (0.10 - 0.60 /CUMM) 1.0 H Absolute Eosinophils (0.0 - 0.7 /CUMM) 0.3 Absolute Basophils (0.0 - 0.2 /CUMM) 0.1 PUBS MCHC (33.0 - 37.0 G/DL) 33.3 07/13 07/13 07/13 1215 0415 0415 Chemistry Sodium (137 - 145 mmol/L) 138 Potassium (3.5 - 5.1 mmol/L) 3.6 Chloride (98 - 107 mmol/L) 102 Carbon Dioxide (22 - 30 mmol/L) 24 Anion Gap (5 - 16) 12 BUN (9 - 20 mg/dL) 15 Creatinine (0.7 - 1.2 mg/dL) 3.7 H Estimated GFR (>60 ml/min) 16 L BUN/Creatinine Ratio (7 - 25 %) 4.1 L Phosphorus (2.5 - 4.5 mg/dL) 4.9 H Coagulation PT (9.4 - 12.5 SEC) 23.6 H INR (0.90 - 1.17) 2.27 H APTT (25 - 37 SEC) Cancelled > 120 *H Hematology CBC w Diff NO MAN DIFF REQ WBC (4.8 - 10.8 /CUMM) 8.2 RBC (4.70 - 6.10 /CUMM) 2.91 L Hgb (14.0 - 18.0 G/DL) 9.0 L Hct (42 - 52 %) 27.6 L MCV (80.0 - 94.0 FL) 95.2 H MCH (27.0 - 31.0 PG) 31.1 H RDW (11.5 - 14.5 %) 17.2 H Plt Count (130 - 400 /CUMM) 314 MPV (7.4 - 10.4 FL) 7.4 Gran % (42.2 - 75.2 %) 73.8 Lymphocytes % (20.5 - 51.1 %) 8.4 L Monocytes % (1.7 - 9.3 %) 15.8 H Eosinophils % (0 - 5 %) 1.8 Basophils % (0.0 - 2.0 %) 0.2 Absolute Granulocytes (1.4 - 6.5 /CUMM) 6.1 Absolute Lymphocytes (1.2 - 3.4 /CUMM) 0.7 L Absolute Monocytes (0.10 - 0.60 /CUMM) 1.3 H Absolute Eosinophils (0.0 - 0.7 /CUMM) 0.1 Absolute Basophils (0.0 - 0.2 /CUMM) 0 PUBS MCHC (33.0 - 37.0 G/DL) 32.7 L 07/12 07/12 07/12 07/12 1615 1540 UNK 0930 Chemistry BUN (9 - 20 mg/dL) Cancelled 10 Coagulation APTT (25 - 37 SEC) 77 H Cancelled 07/12 07/11 0640 2215 Chemistry Sodium (137 - 145 mmol/L) 135 L Potassium (3.5 - 5.1 mmol/L) 4.1 Chloride (98 - 107 mmol/L) 99 Carbon Dioxide (22 - 30 mmol/L) 24 Anion Gap (5 - 16) 12 BUN (9 - 20 mg/dL) 27 H Creatinine (0.7 - 1.2 mg/dL) 5.5 *H Estimated GFR (>60 ml/min) 10 L BUN/Creatinine Ratio (7 - 25 %) 4.9 L Phosphorus (2.5 - 4.5 mg/dL) 7.1 H Magnesium (1.6 - 2.3 mg/dL) 2.2 Albumin (3.5 - 5.0 g/dL) 3.3 L Coagulation PT (9.4 - 12.5 SEC) 19.2 H INR (0.90 - 1.17) 1.84 H APTT (25 - 37 SEC) 118 *H 85 H Hematology CBC w Diff NO MAN DIFF REQ WBC (4.8 - 10.8 /CUMM) 13.9 H RBC (4.70 - 6.10 /CUMM) 2.99 L Hgb (14.0 - 18.0 G/DL) 9.4 L Hct (42 - 52 %) 28.1 L MCV (80.0 - 94.0 FL) 93.8 MCH (27.0 - 31.0 PG) 31.4 H RDW (11.5 - 14.5 %) 17.1 H Plt Count (130 - 400 /CUMM) 334 MPV (7.4 - 10.4 FL) 7.9 Gran % (42.2 - 75.2 %) 87.4 H Lymphocytes % (20.5 - 51.1 %) 3.6 L Monocytes % (1.7 - 9.3 %) 8.2 Eosinophils % (0 - 5 %) 0.7 Basophils % (0.0 - 2.0 %) 0.1 Absolute Granulocytes (1.4 - 6.5 /CUMM) 12.1 H Absolute Lymphocytes (1.2 - 3.4 /CUMM) 0.5 L Absolute Monocytes (0.10 - 0.60 /CUMM) 1.1 H Absolute Eosinophils (0.0 - 0.7 /CUMM) 0.1 Absolute Basophils (0.0 - 0.2 /CUMM) 0 PUBS MCHC (33.0 - 37.0 G/DL) 33.5
[2017-07-14 14:22] VITALS: BP 144/70
[2017-07-14] MEDS ORDERED: COUMADIN5 M2 PO (14:26)
[2017-07-14] MEDS ORDERED: FUROSEMIDE40 M1 PO (14:26)
--- NOTE | 2017-07-14 14:41 | Patient Discharge Instructions ---
Discharge Instructions General Discharge Information You were seen/treated for: blood clot Special Instructions: 1. please follow up with your primary care doctor in one week 2. please follow up with Dr. Santillan in 2 weeks/Fly Liu 3. please follow up with Dr. Cruz vascular surgeon for a-v fistula surgery in the next weeks. 4. please follow up with Dr. Bustillo oncologist in 1-2 weeks Diet Continue normal diet: Yes (renal dialysis diet) Recommended Diet: Renal Dialysis Activity Full Activity/No Limits: Yes Acute Coronary Syndrome Inclusion Criteria At DC or during hospital stay patient has or had the following: ACS DIAGNOSIS No Discharge Core Measures Meds if any: Prescribed or Continued at Discharge Meds if any: NOT Prescribed or Continued at Discharge Congestive Heart Failure Inclusion Criteria At DC or during hospital stay patient has or had the following: CHF DIAGNOSIS No Discharge Core Measures Meds if any: Prescribed or Continued at Discharge Meds if any: NOT Prescribed or Continued at Discharge Cerebrovascular accident Inclusion Criteria At DC or during hospital stay patient has or had the following: CVA/TIA Diagnosis No Discharge Core Measures Meds if any: Prescribed or Continued at Discharge Meds if any: NOT Prescribed or Continued at Discharge Venous thromboembolism Inclusion Criteria VTE Diagnosis Yes VTE Type Deep Venous Thrombosis VTE Confirmed by (Test) UNILATERAL VENOUS DOPPLER Discharge Core Measures - Per Current guidelines, there needs to be overlap - treatment for the first 5 days of Warfarin therapy. - If discharged on Warfarin prior to 5 days of - overlap therapy, the patient will need to be - assessed for post discharge needs including - *Post discharge parental anticoagulation - *Warfarin and/or parental anticoagulation education - *Follow up date to check INR post discharge At least 5 days overlap therapy as Inpatient Yes Meds if any: Prescribed or Continued at Discharge Note: Overlap Therapy is Warfarin and Anticoagulant Meds if any: NOT Prescribed or Continued at Discharge
== END 2017-07-14 16:54 | DRG 314 ==
LOC: ERH 14:49 → 1NO 21:27 → ERHI 21:27 → EDBEDREQ 07-05 00:19 → EDBEDREQTM 07-05 00:19 → ENRESERV 07-05 00:54 → 1NO 07-05 02:19 → ENTRNSPT 07-14 16:32 → 1NO 07-14 16:54 → CMPTRNSPT 07-14 17:05
PROVIDERS: Hospitalist; Internal Medicine; Internal Medicine Nephrology; Physician Assistant; Radiology Vascular & Interventional Radiology; Student in an Organized Health Care Education/Training Program
PROC: 5A1D70Z Performance of Urinary Filtration, Intermittent, Less than 6 Hours Per Day (ICD-10-PCS; principal; 2017-07-04)
DX: T82.868A Thrombosis due to vascular prosthetic devices, implants and grafts, initial encounter (principal); N18.6 End stage renal disease; I13.2 Hypertensive heart and chronic kidney disease with heart failure and with stage 5 chronic kidney disease, or end stage renal disease; E46 Unspecified protein-calorie malnutrition; C78.7 Secondary malignant neoplasm of liver and intrahepatic bile duct; I82.C11 Acute embolism and thrombosis of right internal jugular vein; I50.22 Chronic systolic (congestive) heart failure; I27.29 Other secondary pulmonary hypertension; C79.31 Secondary malignant neoplasm of brain; I42.9 Cardiomyopathy, unspecified; C34.90 Malignant neoplasm of unspecified part of unspecified bronchus or lung; Y83.8 Other surgical procedures as the cause of abnormal reaction of the patient, or of later complication, without mention of misadventure at the time of the procedure; E11.22 Type 2 diabetes mellitus with diabetic chronic kidney disease; E11.40 Type 2 diabetes mellitus with diabetic neuropathy, unspecified; E11.65 Type 2 diabetes mellitus with hyperglycemia; R60.1 Generalized edema; Z68.21 Body mass index [BMI] 21.0-21.9, adult; E78.5 Hyperlipidemia, unspecified; I25.10 Atherosclerotic heart disease of native coronary artery without angina pectoris; Z95.5 Presence of coronary angioplasty implant and graft; Z92.3 Personal history of irradiation; Z92.21 Personal history of antineoplastic chemotherapy; Z87.891 Personal history of nicotine dependence; D63.1 Anemia in chronic kidney disease
CPT/HCPCS: 1NSP; ERO; 36415; 74176; 78582; 82436; 93005; 93010; 93970; 96374; 99291; A9540; A9558; J0885; J1644; J2270; J2501

== ENCOUNTER 2017-07-31 13:50 | Inpatient (IN) | payer OTHER, MEDICARE ==
[~2017-07-31] VITALS: Ht 172.7 cm; Wt 60.0 kg
[~2017-07-31 13:50] MED LIST changes: +COUMADIN5 M2 PO; +LABETALOL HCL100 M1 PO; +MULTIVITAMINS1 EAC9 PO; +PROCHLORPERAZIN10 MG PO
--- NOTE | 2017-07-31 14:05 | ED GENERAL ADULT ---
History of Present Illness General Chief Complaint: General Adult Stated Complaint: BIBA, WEAKNESS Source: patient, old records, EMS Exam Limitations: no limitations Vital Signs & Intake/Output Vital Signs & Intake/Output Vital Signs Date Time Temp Pulse Resp B/P B/P Pulse O2 O2 Flow FiO2 Mean Ox Delivery Rate 07/31 1529 Nasal 2.0L Cannula 07/31 1358 97.6 84 18 144/70 100 Nasal 2.0L Cannula Allergies Coded Allergies: NO KNOWN ALLERGIES (NONE 07/14/17) Reconcile Medications Amlodipine Besylate 10 MG TABLET 1 TAB PO DAILY HEART/BP (Reported) Aspirin (Ecotrin*) 81 MG TABLET.DR 1 TAB PO DAILY HEART/BLOOD (Reported) Azilsartan Medoxomil (Edarbi) 40 MG TABLET 1 TAB PO DAILY BP (Reported) Calcium Carbonate (Calcium) 500 MG CALCIUM (1,250 MG) TABLET 1 TAB PO DAILY SUPPLEMENT (Reported) Cholecalciferol (Vitamin D3) (Vitamin D) 1,000 UNIT TABLET 1 TAB PO DAILY SUPPLEMENT (Reported) Epoetin Slava (Procrit) 20,000 UNIT/ML VIAL 8,000 UNITS AD Monday DIALYSIS (Reported) Furosemide 40 MG TABLET 2 TAB PO NONDIALYSIS DAYS chf take (2) 40mg pills (80mg total) in the morning on non-dialysis days - , , mon, sun Hydralazine HCl 100 MG TABLET 1 TAB PO TID HEART (Reported) Insulin NPL/Insulin Lispro (Humalog Mix 75-25 Vial) 100 UNIT/1 ML VIAL 9 UNITS SC QAM DIABETES (Reported) DID NOT TAKE IN HOSPITAL Insulin NPL/Insulin Lispro (Humalog Mix 75-25 Vial) 100 UNIT/ML (75-25) VIAL 6 UNITS SC QHS DM (Reported) Insulin NPL/Insulin Lispro (Humalog Mix 75-25 Vial) 100 UNIT/ML (75-25) VIAL 6 U SC 5PM TAKES WITH DINNER (Reported) Isosorbide Mononitrate (Isosorbide Mononitrate ER) 60 MG TAB.ER.24H 1 TAB PO DAILY HEART (Reported) Labetalol HCl 100 MG TABLET 2 TAB PO BID HTN (Reported) Multiple Vitamin (Multivitamins) 1 EACH TABLET 1 TAB PO DAILY SUPPLEMENT ( Reported) Pravastatin Sodium 20 MG TABLET 1 TAB PO DAILY CHOLESTEROL (Reported) Prochlorperazine Maleate 10 MG TABLET 1 TAB PO Q6 PRN NAUSEA (Reported) Sevelamer Carbonate (Renvela) 800 MG TABLET 2 TAB PO TID KIDNEYS (Reported) Warfarin Sodium (Coumadin) 5 MG TABLET 1 TAB PO DAILY anticoagulation, thrombus Triage Nurses Notes Reviewed? yes Onset: Gradual Duration: constant Timing: recent history Severity: moderate HPI: Patient is a 66-year-old male with a past medical history of end-stage renal dysfunction secondary to diabetic nephropathy dialysis Monday, hypertension and hyperlipidemia and CAD with coronary stents, ischemic cardiomyopathy proximal cephalic vein thrombosis stage for right lung cancer neuroendocrine and brain metastases which patient was admitted on 07/04/2017 to [facility] for concerns of DVT to the right intrajugular line patient was administered heparin There was noted for old records the patient also was admitted for acute respiratory failure Patient was discharged from [facility] on July 14 and since patient has been complaining of general body pain for the past 17 days, patient denies any fevers or chills shortness of breath and leg swelling Is complaining of a persistent 1 week history of PRODUCTIVE cough The friends who also lives with patient is very concerned that patient is unable to make his appointments to his oncologist chemotherapy (however he is not on chemotherapy right now) and dialysis where patient has an appointment today It is noted that the friends offered patient's his 10 mg of oxycodone however he refused to today The friend was also sheared during the history of present illness denies any altered mental status changes or delirium No injury has occurred no fall had occurred Denies any headache blurred vision Patient does state that he has improvement of right upper extremity swelling from previously admitted right DVT (Fern MENDEZ,Zev) Past History Travel History Traveled to [place] past 21 day No Medical History Any Pertinent Medical History? see below for history Neurological: NONE EENT: NONE Cardiovascular: cardiomyopathy (ischemic), CHF (systolic), hypertension, hyperlipidemia, CARDIAC CATH WITH bare-metal stents to the LAD and left circumflex pulmonary htn on [employer] Respiratory: NONE Gastrointestinal: NONE Hepatic: NONE Renal: chronic kidney disease (stage V on HD), HD- M/W/F RCW-ESME CATH Musculoskeletal: NONE Psychiatric: NONE Endocrine: diabetes (uncontrolled) Blood Disorders: NONE Cancer(s): NONE NEUROLOGY DIRECTOR/Reproductive: NONE Other Medical Hx: Shingles History of MRSA: No History of VRE: No History of CDIFF: No Influenza Vaccine: 03/17/17 Surgical History Surgical History: cardiac cathwith bare-metal stents in LAD and left circumflex Psychosocial History Who do you live with Family What is your primary language Hebrew Family History Family History, If Any: MOTHER FH: cancer FATHER FH: cancer Hx Contributory? No (Zev Jorge) Review of Systems Review of Systems Constitutional: Reports: see HPI. EENTM: Reports: no symptoms. Respiratory: Reports: no symptoms. Cardiovascular: Reports: no symptoms. GI: Reports: no symptoms. Genitourinary: Reports: no symptoms. Musculoskeletal: Reports: see HPI. Skin: Reports: no symptoms. Neurological/Psychological: Reports: no symptoms. Hematologic/Endocrine: Reports: no symptoms. Immunologic/Allergic: Reports: no symptoms. All Other Systems: Reviewed and Negative (Zev Jorge) Physical Exam Physical Exam General Appearance: comfortable, thin Head: atraumatic Eyes: Bilateral: normal appearance, PERRL, EOMI. Ears, Nose, Throat: hearing grossly normal Neck: normal inspection Respiratory: no respiratory distress, quiet respiration Cardiovascular: regular rate/rhythm Peripheral Pulses: 2+ radial (R), 2+ radial (L) Gastrointestinal: normal bowel sounds, soft Extremities: normal capillary refill, normal range of motion, RIGHT UPPER EXT. NOTED MILD GENERALIZED SWELLING Neurologic/Psych: no motor/sensory deficits, awake, alert, oriented x 3 Skin: intact, normal color, warm/dry Comments: Generalized point tenderness upon inspection of extremities bilaterally upper and lower abdomen and back and chest wall Core Measures ACS in differential dx? No CVA/TIA Diagnosis: No Sepsis Present: No Sepsis Focused Exam Completed? No (Zev Jorge) Progress Differential Diagnoses I considered the following diagnoses in my evaluation of the patient: [ Metastasis, cancer pain, URI, bronchitis,PNA, ] Plan of Care: Orders Procedure Date/time Status Renal Dialysis Diet 08/01 B Active LACTIC ACID 07/31 1839 Active Patient Data 07/31 1607 Active OXYGEN SETUP (GEN) 07/31 1603 Active Saline Lock 07/31 1603 Active Admit to inpatient 07/31 1603 Active Vital Signs 07/31 1603 Active Activity/Ambulation 07/31 1603 Active Code Status 07/31 1603 Active LOWER RESPIRATORY CULTURE 07/31 1543 Active BLOOD CULTURE 07/31 1539 Active LACTIC ACID 07/31 1539 Active Intake & Output 07/31 1513 Active RAPID VIRAL INFLUENZA A 07/31 1430 Complete TROPONIN LEVEL 07/31 1428 Complete COMPREHENSIVE METABOLIC PANEL 07/31 1428 Complete CBC WITHOUT DIFFERENTIAL 07/31 1428 Complete EKG 07/31 1428 Active Current Medications Sig/Jed Start time Last Medication Dose Stop Time Status Admin Azithromycin 500 MG ONCE ONE 07/31 1545 AC (Zithromax) 07/31 1644 Dextrose/Water 250 ML (D5W) Hydromorphone HCl 1 MG ONCE ONE 07/31 1430 CAN (Dilaudid) 07/31 1431 Laboratory Tests 07/31/17 1555: Lactic Acid Pending 07/31/17 1514: Anion Gap 17 H, Estimated GFR 12 L, BUN/Creatinine Ratio 9.2, Glucose 159 H, Calcium 10.4 H, Total Bilirubin 0.8, AST 35, ALT 30, Alkaline Phosphatase 103, Troponin I 0.03, Total Protein 6.2 L, Albumin 3.4 L, Globulin 2.8, Albumin/ Globulin Ratio 1.2, CBC w Diff MAN DIFF ORDERED, RBC 3.47 L, MCV 94.0, MCH 30.9 , RDW 16.6 H, MPV 7.1 L, Gran % 83.7 H, Lymphocytes % 6.8 L, Monocytes % 8.6 , Eosinophils % 0.5, Basophils % 0.4, Absolute Granulocytes 6.7 H, Absolute Lymphocytes 0.5 L, Absolute Monocytes 0.7 H, Absolute Eosinophils 0, Absolute Basophils 0, Platelet Estimate VERIFIED BY SMEAR, Poikilocytosis 1+, Anisocytosis 1+, Ovalocytes 1+, PUBS MCHC 32.9 L Microbiology 07/31 1557 BLOOD: Blood Culture - RECD 07/31 1555 BLOOD: Blood Culture - RECD 07/31 1543 LOWER RESP: Respiratory Culture - ORD 07/31 1543 LOWER RESP: Gram Stain - ORD 07/31 1500 NASOPHARYN: Influenza Virus A & B Rapid Smear - COMP Patient was alert and oriented no concerns of TIA or DVT \Patient was a capacity to make decisions Upon palpation of patient's entire body he was complaining of pain Patient has clear lungs auscultation Patient does have chest x-rays findings for concerns of a developing pneumonia patient also presents with weakness and cough Patient shows no signs at this time of sepsis or septic shock IV Rocephin and azithromycin will be ordered, discussed results with the patient discussed admission with patient who agrees Due to patient's immunocompromised state of dialysis and cancer and chest x-ray findings concerning of pneumonia that admission will be warranted Diagnostic Imaging: Viewed by Me: Radiology Read. Radiology Impression: acute abnormality CXR Impression: PNA Initial ED EKG: normal QRS complex, 79 BPM,LOW VOLTAGE, LAD Prior EKG: unchanged Comments: PATIENT: JAYSON ACHARYA PRESENT AGE: 66 PATIENT ACCOUNT NO: [id number] : 48 LOCATION: [facility] ORDERING PHYSICIAN: Zev MENDEZ SERVICE DATE: 07/31/17 EXAM TYPE: RAD - XRY-CHEST XRAY, TWO VIEWS EXAMINATION: CHEST 2 VIEWS CLINICAL INFORMATION: Cough. COMPARISON: 07/05/2017. TECHNIQUE: PA and lateral views of the chest were obtained. FINDINGS: The cardiac silhouette is stable. A right dual-lumen central venous line is in unchanged position. There is a moderate to large left pleural effusion. There is multifocal airspace disease, particularly within the left perihilar region and right upper lobe. The osseous structures are stable. IMPRESSION: Stable cardiomegaly. Large left pleural effusion. Multifocal airspace disease, nonspecific, but suspicious for pneumonia. Recommendation is for a followup chest series to be obtained following treatment and/or resolution of symptoms to assure resolution of this appearance. DICTATED BY: Rashad Sorensen MD DATE/TIME DICTATED:07/31/171518 [employer] MANAGER:YANCY (Zev Jorge) Departure Departure Disposition: STILL A PATIENT Condition: Stable Clinical Impression Primary Impression: Pneumonia Secondary Impressions: Cancer associated pain Referrals: Corby Jackson MD (PCP/Family) Departure Forms: Customer Survey General Discharge Information Admission Note Spoke With: Rashad Ruffin MD Documentation of Exam: Documentation of any treatments & extenuating circumstances including Concerns Regarding Discharge (functional status, medication knowledge or non-compliance, living conditions, etc.) that warrant an admission rather than observation: [ Patient requires IV antibiotics, IV pain management, oncology consultation, dialysis, case management consultation, possible short-term rehabilitation or placement possible cancer support possible home physical therapy] (Zev Jorge) PA/OPERATIONAL REVIEW SERGEANT Co-Sign Statement Statement: ED Attending supervision documentation- x I saw and evaluated the patient. I have also reviewed all the pertinent lab results and diagnostic results. I agree with the findings and the plan of care as documented in the PA's/OPERATIONAL REVIEW SERGEANT's documentation. Weakness with PMHx lung cancer ESRD pneumonia on CXR. I have reviewed the ED Record and agree with the PA's/OPERATIONAL REVIEW SERGEANT's documentation. [] Additions or exceptions (if any) to the PAs/OPERATIONAL REVIEW SERGEANT's note and plan are summarized below: [] (Willie MUSE,Abdirashid) Critical Care Note Critical Care Note Critical Care Time: 30-74 min (Fern MENDEZ,Zev)
[2017-07-31 15:26] LABS: ABSOLUTE BASOPHIL COUNT 0 /CUMM (0.0-0.2); ABSOLUTE EOSINOPHIL COUNT 0 /CUMM (0.0-0.7); ABSOLUTE GRANULOCYTE CT 6.7 /CUMM (1.4-6.5); ABSOLUTE LYMPH COUNT 0.5 /CUMM (1.2-3.4); ABSOLUTE MONOCYTE COUNT 0.7 /CUMM (0.10-0.60); BASOPHIL % 0.4 % (0.0-2.0); EOSINOPHIL % 0.5 % (0-5); GRANULOCYTE % 83.7 % (42.2-75.2); HEMATOCRIT 32.6 % (42-52); MEAN CORPUSCULAR HGB 30.9 PG (27.0-31.0); MEAN CORPUSCULAR HGB CONC 32.9 G/DL (33.0-37.0); MEAN PLATELET VOLUME 7.1 FL (7.4-10.4); PLATELET COUNT 269 /CUMM (130-400); RBC DISTRIBUTION WIDTH 16.6 % (11.5-14.5); RED BLOOD CELL CT 3.47 /CUMM (4.70-6.10)
--- NOTE | 2017-07-31 15:28 | RADIOLOGY REPORT ---
EXAMINATION: CHEST 2 VIEWS CLINICAL INFORMATION: Cough. COMPARISON: 07/05/2017. TECHNIQUE: PA and lateral views of the chest were obtained. FINDINGS: The cardiac silhouette is stable. A right dual-lumen central venous line is in unchanged position. There is a moderate to large left pleural effusion. There is multifocal airspace disease, particularly within the left perihilar region and right upper lobe. The osseous structures are stable. IMPRESSION: Stable cardiomegaly. Large left pleural effusion. Multifocal airspace disease, nonspecific, but suspicious for pneumonia. Recommendation is for a followup chest series to be obtained following treatment and/or resolution of symptoms to assure resolution of this appearance.
--- NOTE | 2017-07-31 17:14 | History & Physical ---
Sergio MUSE,[facility] 07/31/17 1714: General Information and HPI MD Statement: I have seen and personally examined JAYSON ACHARYA and documented this H&P. The patient is a 66 year old M who presented with a patient stated chief complaint of [weakness]. 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 The patient states that he felt well after discharge however his symptoms started to 3 days ago. The patient states that he feels very weak. He also endorses productive cough with chills for the past several days. He was also have dialysis today lower visit because he was here in the hospital. Patient denies any sick contacts. Allergies/Medications Allergies: Coded Allergies: NO KNOWN ALLERGIES (NONE 07/14/17) Home Med list Amlodipine Besylate 10 MG TABLET 1 TAB PO DAILY HEART/BP (Reported) Aspirin (Ecotrin*) 81 MG TABLET.DR 1 TAB PO DAILY HEART/BLOOD (Reported) Azilsartan Medoxomil (Edarbi) 40 MG TABLET 1 TAB PO DAILY BP (Reported) Calcium Carbonate (Calcium) 500 MG CALCIUM (1,250 MG) TABLET 1 TAB PO DAILY SUPPLEMENT (Reported) Cholecalciferol (Vitamin D3) (Vitamin D) 1,000 UNIT TABLET 1 TAB PO DAILY SUPPLEMENT (Reported) Epoetin Slava (Procrit) 20,000 UNIT/ML VIAL 8,000 UNITS AD Monday DIALYSIS (Reported) Furosemide 40 MG TABLET 2 TAB PO NONDIALYSIS DAYS chf take (2) 40mg pills (80mg total) in the morning on non-dialysis days - , , sat, sun Hydralazine HCl 100 MG TABLET 1 TAB PO TID HEART (Reported) Insulin NPL/Insulin Lispro (Humalog Mix 75-25 Vial) 100 UNIT/1 ML VIAL 9 UNITS SC QAM DIABETES (Reported) DID NOT TAKE IN HOSPITAL Insulin NPL/Insulin Lispro (Humalog Mix 75-25 Vial) 100 UNIT/ML (75-25) VIAL 6 UNITS SC QHS DM (Reported) Insulin NPL/Insulin Lispro (Humalog Mix 75-25 Vial) 100 UNIT/ML (75-25) VIAL 6 U SC 5PM TAKES WITH DINNER (Reported) Isosorbide Mononitrate (Isosorbide Mononitrate ER) 60 MG TAB.ER.24H 1 TAB PO DAILY HEART (Reported) Labetalol HCl 100 MG TABLET 2 TAB PO BID HTN (Reported) Multiple Vitamin (Multivitamins) 1 EACH TABLET 1 TAB PO DAILY SUPPLEMENT ( Reported) Pravastatin Sodium 20 MG TABLET 1 TAB PO DAILY CHOLESTEROL (Reported) Prochlorperazine Maleate 10 MG TABLET 1 TAB PO Q6 PRN NAUSEA (Reported) Sevelamer Carbonate (Renvela) 800 MG TABLET 2 TAB PO TID KIDNEYS (Reported) Warfarin Sodium (Coumadin) 5 MG TABLET 1 TAB PO DAILY anticoagulation, thrombus Past History Travel History Traveled to [place] past 21 day No Medical History Neurological: NONE EENT: NONE Cardiovascular: cardiomyopathy (ischemic), CHF (systolic), hypertension, hyperlipidemia, CARDIAC CATH WITH bare-metal stents to the LAD and left circumflex pulmonary htn on LifeVest Respiratory: LUNG CA Gastrointestinal: NONE Hepatic: NONE Renal: chronic kidney disease (stage V on HD), HD- M/W/F [facility] Musculoskeletal: NONE Psychiatric: NONE Endocrine: diabetes (uncontrolled) Blood Disorders: NONE Cancer(s): NONE 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 girlfriend Primary Language: Slovenian Functional Ability ADLs Independent: dressing, eating, toileting, bathing. Ambulation: independent IADLs Independent: finances, telephone, medication admin. Needs Assist: shopping, housework, food prep, transportation. Review of Systems Review of Systems Constitutional: Reports: see HPI, malaise, weakness. Respiratory: Reports: short of breath, sputum production. GI: Reports: no symptoms. Genitourinary: Reports: no symptoms. Musculoskeletal: Reports: no symptoms. Exam & Diagnostic Data Last 24 Hrs of Vital Signs/I&O Vital Signs Date Time Temp Pulse Resp B/P B/P Pulse O2 O2 Flow FiO2 Mean Ox Delivery Rate 07/31 2233 97.6 68 20 164/86 93 Room Air 07/31 1830 96.9 75 18 128/60 95 Nasal 2.0L Cannula 07/31 1823 95 Nasal 2.0L Cannula 07/31 1634 98.0 82 20 140/67 99 Nasal 2.0L Cannula 07/31 1529 Nasal 2.0L Cannula 07/31 1358 97.6 84 18 144/70 100 Nasal 2.0L Cannula Intake & Output 08/01 0800 08/01 0000 07/31 1600 Intake Total 120 0 Output Total 0 Balance 120 0 Intake, Oral 120 0 Output, Urine 0 Patient 142 lb Weight Weight Reported by Patient Measurement Method Physical Exam General Appearance Moderate Distress, patient has his eyes closed. Appears extremely tired. answering questions appropriately HEENT PERRLA, dry oral mucosa Cardiovascular Regular Rate, Normal S1, Normal S2 Lungs Clear to Auscultation, Normal Air Movement, anterior lung exam due to extreme fatigue from the patient Abdomen Normal Bowel Sounds, Soft, No Tenderness Extremities 2+ radial pulses, right upper extremity more swollen than left Last 24 Hrs of Labs/Haroon: Laboratory Tests 07/31/17 1555: Lactic Acid Cancelled 07/31/17 1555: Lactic Acid 0.7 07/31/17 1514: Anion Gap 17 H, Estimated GFR 12 L, BUN/Creatinine Ratio 9.2, Glucose 159 H, Calcium 10.4 H, Total Bilirubin 0.8, AST 35, ALT 30, Alkaline Phosphatase 103, Troponin I 0.03, Total Protein 6.2 L, Albumin 3.4 L, Globulin 2.8, Albumin/ Globulin Ratio 1.2, CBC w Diff MAN DIFF ORDERED, RBC 3.47 L, MCV 94.0, MCH 30.9 , RDW 16.6 H, MPV 7.1 L, Gran % 83.7 H, Lymphocytes % 6.8 L, Monocytes % 8.6 , Eosinophils % 0.5, Basophils % 0.4, Absolute Granulocytes 6.7 H, Absolute Lymphocytes 0.5 L, Absolute Monocytes 0.7 H, Absolute Eosinophils 0, Absolute Basophils 0, Platelet Estimate VERIFIED BY SMEAR, Poikilocytosis 1+, Anisocytosis 1+, Ovalocytes 1+, PUBS MCHC 32.9 L Microbiology 07/31 1728 URINE ROUT: Legionella Antigen - COLB 07/31 1728 URINE ROUT: Streptococcus pneumoniae Antigen (M - COLB 07/31 1557 BLOOD: Blood Culture - RECD 07/31 1555 BLOOD: Blood Culture - RECD 07/31 1543 LOWER RESP: Respiratory Culture - ORD 07/31 1543 LOWER RESP: Gram Stain - ORD 07/31 1500 NASOPHARYN: Influenza Virus A & B Rapid Smear - COMP Assessment/Plan Assessment: 66-year-old male with past medical history of cardiomyopathy, CHF EF 55%, hypertension, hyperlipidemia, CAD status post cardiac stent, CKD stage V on hemodialysis Monday, diabetes,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 #Generalized weakness most likely due to Pneumonia WBC 8.0 Received 1 dose of ceftriaxone and azithromycin in the ED -Follow-up urinary legionella, strep pneumo, epinephrine, and pancultures. 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 Wisdom #Chronic renal failure Patient is on dialysis Creatinine 5.0 -missed his dialysis today,consulted nephrology and patient is scheduled for a session tomorrow -Continue dialysis as scheduled on M/W/ -Continue sevelamer #History of hyperlipidemia, hypertension, diabetes Continue pravastatin, labetalol, hydralazine, amlodipine, Lasix, aspirin, novolog sliding scale, levemir -Monitor blood sugars in the setting of weakness/lethargy -Holding insulin for blood sugars less than 200 tonight #Vitamin supplementation #DVT prophylaxis #FULL CODE As Ranked By This Provider Problem List: 1. Pneumonia 2. Chronic renal failure 3. Thrombus Core Measures/Misc (03/26) Cerebrovascular Accident CVA/TIA Diagnosis: No Sepsis (View protocol) Sepsis Present: No Rashad Ruffin MD 07/31/171: Attending MD Review Statement Attending Statement Attending MD Statement: examined this patient, discuss w/resident/PA/SALES EXEC, agreed w/resident/PA/SALES EXEC, discussed with family, reviewed EMR data (avail), reviewed images, amended to note Attending Assessment/Plan: The patient is a 66 yo male with ho HTN, DM2, ESRD on dialysis (qMWF- secondary to diabetic nephropathy), h/o CHF (reduced EF), CAD (s/p bare metal stents LAC/ CX and life vest), h/o non-small cell cancer of the right lung with brain metastases (was on chemo, meeting with Oncology later this week to evaluate alternative), h/o proximal cephalic vein thrombosis and right IJ DVT (06/25), who presented in the [place] ED with c/o 1 week of productive cough and diffuse body pains. He has had improvement in RUE swelling. He is followed by Dr. Saucedo in oncology. Physical Exam: VS: T 97.6, P 84, R 18, BP 144/70, PO 100% on 2L nasal HEENT: eyes- PERRLA, EOMI herman- dry mucosa Neck: no JVD/bruits Chest: diminished breath sounds, otherwise clear Cor: RRR nl S1, S2 w/o murm Abd; BS+, soft, mild tenderness w/o guarding/rebound Ext: normal capillary refill; RUE w/mild swelling (less than prior per family), + generalized mild tenderness extremities Neuro: sleepy, non-focal exam Labs/Tests- as above Impression/Plan: #Diffuse Pain- etiology is unclear. Could be related to viral syndrome. No h/o bone metastases on prior evaluations. Plan: Admit to medical floor and treat with tylenol. Check CPK. Will re-evaluate in morning. PT consult. #Fever (low grade)/Possible Pneumonia- CXR read as multifocal air space disease "suspicious" for pneumonia. Patient is immunocompromized. Possibility of influenza may be considered in spite of negative rapid flu. Plan: Dobbs culture- may repeat rapid flu test (consider culture). Empiric treatment with Ceftriaxone/Zithromax for CAP- follow symptoms. #Non-Small Cell Lung Cancer- is s/p prior treatment with plan originally to consider alternative treatment at appointment later this week. Plan: Will notify Dr. Saucedo that patient is admitted. #Chronic Renal Failure- Cr as above. Was due for dialysis today. Plan: Nephrology consult Dr. Santillan obtained. Dialysis tomorrow as per Dr. Santillan (usual days qMWF). #DM2- on insulin. Plan: Will follow glucoscans and continue insulin. #CAD/HTN/HL- on multiple meds. Plan: Continue Amlodipine, Hydralazine, Isosorbide, Pravastatin, Labetalol, etc. #S/P DVT- on Coumadin. Plan: Follow INR on coumadin. INR 2-3. Gaurav MUSE,[facility] 07/31/17 1590: General Information and HPI MD Statement: I have seen and personally examined JAYSON ACHARYA and documented this H&P. The patient is a 66 year old M who presented with a patient stated chief complaint Core Measures/Misc (03/26) Acute Coronary Syndrome ACS Diagnosis: No Congestive Heart Failure Congestive Heart Failure Diagnosis No VTE (View Protocol) VTE Risk Factors Acute Medical Illness No Mechanical VTE Prophylaxis d/t N/A MechProphylax Ordered No VTE Pharm Prophylaxis d/t NA PharmProphylax ordered Resident Review Statement Resident Statement: examined this patient, discussed with accounting intern, agreed with accounting intern Other Findings: This is a 66-year-old gentleman with significant history of hypertension, CAD status post bare metal stent to the LAD and circumflex, diastolic heart failure with an EF of 55% on last echo (March 2017), hyperlipidemia , mild pulmonary hypertension, age for 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 She reported symptom free interval. Since last discharge until 3 days ago when he started developing a productive cough and generalized weakness. He decided to present to [place] ED today because he was feeling very tired to point that he could not ambulate freely and started also developing chills. He however denies any fevers, recent URI, sick contacts, recent travel, shortness of breath, chest pain, palpitation, any focal neurological deficit, abdominal pain, diarrhea or dysuria. Vital signs on presentation: Vital signs on presentation temperature 97.6, respiratory rate 18, BP 1 4470, pulse 84, O2 sats 100% on 2 L Pertinent physical examination: General: patient appeared mildly lethargic however oriented and alert 3. Lymp: No cervical lymphadenopathy was noted. Respiratory: Clear to auscultation bilateral. Abdomen: Nontender, nondistended with positive bowel sounds in all 4 quadrants. No CVA was appreciated. Her neurovascular regular rate S1-S2 with no murmurs gallops or rubs. Neuro: No focal deficit appreciated. Impression Generalized malaise with diffuse pain. Given the respiratory symptoms of productive cough, possibly the patient has an upper is to infection. The malaise diffuse pain and given the winter season winds consideration for possible influenza infection. Tear pneumonia is possible given that the chest x -ray is suggestive of multifocal airspace disease suspicious for pneumonia. He is afebrile though with no leukocytosis, however patient is immunocompromised. Given that the patient was recently discharged from the hospital hospital community-acquired pneumonia is considered. However, even though patient appears mildly lethargic, he is hemodynamically stable and afebrile, Recent history of right IJ DVT currently on Coumadin. History of chronic diseases: Non-small cell lung cancer, diabetes type 2 on insulin, end-stage renal disease on dialysis, CAD, hypertension, hyperlipidemia. Plan Admit to general medicine floor Continue supplementation to keep sats above 92% Ceftriaxone and azithromycin, will treated as community-acquired pneumonia and only consider MRSA and Pseudomonas therapy patient clinical status worsens Acetaminophen for pain Patient missed his dialysis today,consulted nephrology and patient is scheduled for a session tomorrow Accu-Chek 3 times a day and bedtime NovoLog and Levemir scale 2 new cardiac meds of amlodipine, hydralazine, isosorbide, pravastatin, Dose Coumadin per INR target 2-3 code:fc DVT PPX: Addressed by coumadin
--- NOTE | 2017-07-31 17:24 | History & Physical ---
General Information and HPI Allergies/Medications Allergies: Coded Allergies: NO KNOWN ALLERGIES (NONE 07/14/17) Home Med list Amlodipine Besylate 10 MG TABLET 1 TAB PO DAILY HEART/BP (Reported) Aspirin (Ecotrin*) 81 MG TABLET.DR 1 TAB PO DAILY HEART/BLOOD (Reported) Azilsartan Medoxomil (Edarbi) 40 MG TABLET 1 TAB PO DAILY BP (Reported) Calcium Carbonate (Calcium) 500 MG CALCIUM (1,250 MG) TABLET 1 TAB PO DAILY SUPPLEMENT (Reported) Cholecalciferol (Vitamin D3) (Vitamin D) 1,000 UNIT TABLET 1 TAB PO DAILY SUPPLEMENT (Reported) Epoetin Slava (Procrit) 20,000 UNIT/ML VIAL 8,000 UNITS AD Monday DIALYSIS (Reported) Furosemide 40 MG TABLET 2 TAB PO NONDIALYSIS DAYS chf take (2) 40mg pills (80mg total) in the morning on non-dialysis days - , , mon, sun Hydralazine HCl 100 MG TABLET 1 TAB PO TID HEART (Reported) Insulin NPL/Insulin Lispro (Humalog Mix 75-25 Vial) 100 UNIT/1 ML VIAL 9 UNITS SC QAM DIABETES (Reported) DID NOT TAKE IN HOSPITAL Insulin NPL/Insulin Lispro (Humalog Mix 75-25 Vial) 100 UNIT/ML (75-25) VIAL 6 UNITS SC QHS DM (Reported) Insulin NPL/Insulin Lispro (Humalog Mix 75-25 Vial) 100 UNIT/ML (75-25) VIAL 6 U SC 5PM TAKES WITH DINNER (Reported) Isosorbide Mononitrate (Isosorbide Mononitrate ER) 60 MG TAB.ER.24H 1 TAB PO DAILY HEART (Reported) Labetalol HCl 100 MG TABLET 2 TAB PO BID HTN (Reported) Multiple Vitamin (Multivitamins) 1 EACH TABLET 1 TAB PO DAILY SUPPLEMENT ( Reported) Pravastatin Sodium 20 MG TABLET 1 TAB PO DAILY CHOLESTEROL (Reported) Prochlorperazine Maleate 10 MG TABLET 1 TAB PO Q6 PRN NAUSEA (Reported) Sevelamer Carbonate (Renvela) 800 MG TABLET 2 TAB PO TID KIDNEYS (Reported) Warfarin Sodium (Coumadin) 5 MG TABLET 1 TAB PO DAILY anticoagulation, thrombus Past History Travel History Traveled to [place] past 21 day No Medical History Neurological: NONE EENT: NONE Cardiovascular: cardiomyopathy (ischemic), CHF (systolic), hypertension, hyperlipidemia, CARDIAC CATH WITH bare-metal stents to the LAD and left circumflex pulmonary htn on LifeVest Respiratory: LUNG CA Gastrointestinal: NONE Hepatic: NONE Renal: chronic kidney disease (stage V on HD), HD- M/W/F [facility] CATH Musculoskeletal: NONE Psychiatric: NONE Endocrine: diabetes (uncontrolled) Blood Disorders: NONE Cancer(s): NONE 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 girlfriend Primary Language: Hebrew Functional Ability ADLs Independent: dressing, eating, toileting, bathing. Ambulation: independent IADLs Independent: finances, telephone, medication admin. Needs Assist: shopping, housework, food prep, transportation. Core Measures/Misc (03/26) Cerebrovascular Accident CVA/TIA Diagnosis: No Sepsis (View protocol) Sepsis Present: No
--- NOTE | 2017-07-31 18:20 | Cons- Nephrology ---
General Information and HPI Consulting Request Date of Consult: 07/31/17 Requested By: Rashad Ruffin MD Reason for Consult: ESRD Source of Information: patient, old records Exam Limitations: no limitations History of Present Illness: Please see Dr. Durand's consultation from 07/05/17. The patient is a 66-year-old man with a history of dialysis-dependent ESRD and stage IV lung cancer with known metastases to brain and liver. He was recently hospitalized here at [facility] from 07/04/2017 through 07/14/2017 with a right internal jugular DVT and probable left lower lobe pneumonia. He now is back with severe weakness and a chest x-ray that suggests possible new infiltrates with a large left pleural effusion. He is being treated for presumed pneumonia with ceftriaxone and azithromycin. He admits to cough productive of clear sputum and some chills without rigors. He is not aware of having any fever. He missed his regularly scheduled dialysis today but denies any significant shortness of breath at this time. Allergies/Medications Allergies: Coded Allergies: NO KNOWN ALLERGIES (NONE 07/14/17) Home Med List: Amlodipine Besylate 10 MG TABLET 1 TAB PO DAILY HEART/BP (Reported) Aspirin (Ecotrin*) 81 MG TABLET.DR 1 TAB PO DAILY HEART/BLOOD (Reported) Azilsartan Medoxomil (Edarbi) 40 MG TABLET 1 TAB PO DAILY BP (Reported) Calcium Carbonate (Calcium) 500 MG CALCIUM (1,250 MG) TABLET 1 TAB PO DAILY SUPPLEMENT (Reported) Cholecalciferol (Vitamin D3) (Vitamin D) 1,000 UNIT TABLET 1 TAB PO DAILY SUPPLEMENT (Reported) Epoetin Slava (Procrit) 20,000 UNIT/ML VIAL 8,000 UNITS AD Monday DIALYSIS (Reported) Furosemide 40 MG TABLET 2 TAB PO NONDIALYSIS DAYS chf take (2) 40mg pills (80mg total) in the morning on non-dialysis days - , , mon, sun Hydralazine HCl 100 MG TABLET 1 TAB PO TID HEART (Reported) Insulin NPL/Insulin Lispro (Humalog Mix 75-25 Vial) 100 UNIT/1 ML VIAL 9 UNITS SC QAM DIABETES (Reported) DID NOT TAKE IN HOSPITAL Insulin NPL/Insulin Lispro (Humalog Mix 75-25 Vial) 100 UNIT/ML (75-25) VIAL 6 UNITS SC QHS DM (Reported) Insulin NPL/Insulin Lispro (Humalog Mix 75-25 Vial) 100 UNIT/ML (75-25) VIAL 6 U SC 5PM TAKES WITH DINNER (Reported) Isosorbide Mononitrate (Isosorbide Mononitrate ER) 60 MG TAB.ER.24H 1 TAB PO DAILY HEART (Reported) Labetalol HCl 100 MG TABLET 2 TAB PO BID HTN (Reported) Multiple Vitamin (Multivitamins) 1 EACH TABLET 1 TAB PO DAILY SUPPLEMENT ( Reported) Pravastatin Sodium 20 MG TABLET 1 TAB PO DAILY CHOLESTEROL (Reported) Prochlorperazine Maleate 10 MG TABLET 1 TAB PO Q6 PRN NAUSEA (Reported) Sevelamer Carbonate (Renvela) 800 MG TABLET 2 TAB PO TID KIDNEYS (Reported) Warfarin Sodium (Coumadin) 5 MG TABLET 1 TAB PO DAILY anticoagulation, thrombus Past History Travel History Traveled to [place] past 21 day No Medical History Neurological: NONE EENT: NONE Cardiovascular: cardiomyopathy (ischemic), CHF (systolic), hypertension, hyperlipidemia, CARDIAC CATH WITH bare-metal stents to the LAD and left circumflex pulmonary htn on LifeVest Respiratory: LUNG CA Gastrointestinal: NONE Hepatic: NONE Renal: chronic kidney disease (stage V on HD), HD- M/W/F [facility] CATH Musculoskeletal: NONE Psychiatric: NONE Endocrine: diabetes (uncontrolled) Blood Disorders: NONE Cancer(s): NONE 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 girlfriend Primary Language: Azeri Functional Ability ADLs Independent: dressing, eating, toileting, bathing. Ambulation: independent IADLs Independent: finances, telephone, medication admin. Needs Assist: shopping, housework, food prep, transportation. Exam & Diagnostic Data Vital Signs and I&O Vital Signs Date Time Temp Pulse Resp B/P B/P Pulse O2 O2 Flow FiO2 Mean Ox Delivery Rate 08/01 0618 97.9 69 20 120/76 96 Nasal Cannula 08/01 0000 Nasal 2.0L Cannula 07/313 97.6 68 20 164/86 93 Room Air 07/31 1830 96.9 75 18 128/60 95 Nasal 2.0L Cannula 07/31 1823 95 Nasal 2.0L Cannula 07/31 1634 98.0 82 20 140/67 99 Nasal 2.0L Cannula 07/31 1529 Nasal 2.0L Cannula 07/31 1358 97.6 84 18 144/70 100 Nasal 2.0L Cannula Intake & Output 08/01 1600 08/01 0400 07/31 1600 07/31 0400 07/30 0400 Intake Total 120 120 0 Output Total 100 0 Balance 20 120 0 Intake, Oral 120 120 0 Output, Urine 100 0 Patient 132 lb 142 lb Weight Weight Bed scale Reported by Patient Measurement Method Physical Exam: General: Chronically ill-appearing black male in no acute distress Skin: No rash or lesions HEENT: Conjunctivae pale, sclerae anicteric, mucous membranes dry Neck: Without masses or thyromegaly, no supraclavicular or cervical adenopathy Chest: Clear on right, markedly diminished breath sounds and dullness to percussion on the left; right IJ dialysis catheter in place Heart: Regular rate and rhythm without S3 or rub Abdomen: Soft and nontender without palpable masses or organomegaly Extremities: Without cyanosis; there is bilateral lower extremity edema slightly worse on the right. Neuro: Lethargic but easily arousable, no focal findings, no asterixis or myoclonus Assessment/Plan Assessment/Recommendations Assessment: 55-year-old man with dialysis-dependent end-stage renal disease and multiple comorbidities including a cardiomyopathy, metastatic lung cancer and recent pneumonia who now comes in with what appears to be a recurrent bout of pneumonia for which she is being treated with empiric antibiotic therapy. He missed his outpatient hemodialysis session today but has no indication for an acute dialysis session today. Recommendations: 1. No dialysis need today 2. We will arrange for hemodialysis tomorrow morning and then again on Monday to get him back to his regular schedule 3. Consider CT scan of chest 4. Continue antibiotic therapy Thank you. We will follow along with you.
[2017-07-31 18:30] VITALS: BP 128/60
[2017-07-31 22:33] VITALS: BP 164/86
--- NOTE | 2017-07-31 23:11 | Admission Certification ---
Admission Certification Certification Statement - As attending physician, I certify that at the time of - admission, based on clinical presentation, severity of - symptoms, need for further diagnostic testing and - therapeutic interventions, and risk of adverse outcomes - without in-hospital treatment, in my clinical assessment, - this patient requires an acute hospital stay for a minimum - of two nights or longer. I have also considered psychsocial - factors such as support system, advanced age, financial - issues, cognitive issues, and failed out-patient treatments, - past re-admission history, safety of patient, and lack of - compliance as applicable. Specific rationale supporting this admission is: The patient presents with diffuse body pain, fever, unable to ambulate, unable to get to planned dialysis. Needs admission for possible pneumonia, IV antibiotics, jean- culture, dialysis.
[2017-08-01 01:11] LABS: PT 31.6 SEC (9.4-12.5)
[2017-08-01 06:18] VITALS: BP 120/76
[2017-08-01 09:18] LABS: ABSOLUTE BASOPHIL COUNT 0 /CUMM (0.0-0.2); ABSOLUTE EOSINOPHIL COUNT 0.1 /CUMM (0.0-0.7); ABSOLUTE GRANULOCYTE CT 5.5 /CUMM (1.4-6.5); ABSOLUTE LYMPH COUNT 0.8 /CUMM (1.2-3.4); ABSOLUTE MONOCYTE COUNT 0.5 /CUMM (0.10-0.60); BASOPHIL % 0.4 % (0.0-2.0); EOSINOPHIL % 1.3 % (0-5); GRANULOCYTE % 78.9 % (42.2-75.2); HEMATOCRIT 30.9 % (42-52); MEAN CORPUSCULAR HGB 30.8 PG (27.0-31.0); MEAN CORPUSCULAR VOLUME 93.2 FL (80.0-94.0); MEAN PLATELET VOLUME 7.4 FL (7.4-10.4); PLATELET COUNT 267 /CUMM (130-400); RBC DISTRIBUTION WIDTH 16.2 % (11.5-14.5); RED BLOOD CELL CT 3.32 /CUMM (4.70-6.10)
--- NOTE | 2017-08-01 12:11 | PN- Nephrology ---
Assessment/Plan Assessment: 1. ESRD 2. Pneumonia with left pleural effusion 3. Multiple comorbidities as detailed elsewhere including metastatic lung cancer and cardiomyopathy Suggestion: 1. Hemodialysis today in progress with no significant ultrafiltration over 3.5 hours 2. Will dialyze again tomorrow to get him back on his regular Monday, Monday , Monday schedule 3. Consider CT scan of chest 4. Continue antibiotic therapy Subjective Subjective: Patient seen with dialysis and feels about the same. He remains afebrile with negative cultures and antigen studies thus far. Objective Vital Signs and I&Os Vital Signs Date Time Temp Pulse Resp B/P B/P Pulse O2 O2 Flow FiO2 Mean Ox Delivery Rate 08/01 0618 97.9 69 20 120/76 96 Nasal Cannula 08/01 0000 Nasal 2.0L Cannula 07/31 2233 97.6 68 20 164/86 93 Room Air 07/31 1830 96.9 75 18 128/60 95 Nasal 2.0L Cannula 07/31 1823 95 Nasal 2.0L Cannula 07/31 1634 98.0 82 20 140/67 99 Nasal 2.0L Cannula 07/31 1529 Nasal 2.0L Cannula 07/31 1358 97.6 84 18 144/70 100 Nasal 2.0L Cannula Intake & Output 08/01 1600 08/01 0400 07/31 1600 07/31 0400 07/30 1600 07/30 0400 Intake Total 120 120 0 Output Total 100 0 Balance 20 120 0 Intake, Oral 120 120 0 Output, Urine 100 0 Patient 132 lb 142 lb Weight Weight Bed scale Reported by Patient Measurement Method Physical Exam: General: Chronically ill-appearing black male in no acute distress Skin: No rash or lesions HEENT: Conjunctivae pale, sclerae anicteric, mucous membranes dry Neck: Without masses or thyromegaly, no supraclavicular or cervical adenopathy Chest: Clear on right, markedly diminished breath sounds and dullness to percussion on the left; right IJ dialysis catheter in place Heart: Regular rate and rhythm without S3 or rub Abdomen: Soft and nontender without palpable masses or organomegaly Extremities: Without cyanosis; there is bilateral lower extremity edema slightly worse on the right. Neuro: Lethargic but easily arousable, no focal findings, no asterixis or myoclonus Results Pertinent Lab Results: Laboratory Tests 08/01 08/01 08/01 1120 0750 0052 Chemistry Sodium (137 - 145 mmol/L) 141 Potassium (3.5 - 5.1 mmol/L) 4.7 Chloride (98 - 107 mmol/L) 101 Carbon Dioxide (22 - 30 mmol/L) 24 Anion Gap (5 - 16) 17 H BUN (9 - 20 mg/dL) 52 H Creatinine (0.7 - 1.2 mg/dL) 5.5 *H Estimated GFR (>60 ml/min) 10 L BUN/Creatinine Ratio (7 - 25 %) 9.5 Coagulation PT (9.4 - 12.5 SEC) Pending 31.6 H INR (0.90 - 1.17) Pending 3.04 H Hematology CBC w Diff MAN DIFF ORDERED WBC (4.8 - 10.8 /CUMM) 7.0 RBC (4.70 - 6.10 /CUMM) 3.32 L Hgb (14.0 - 18.0 G/DL) 10.2 L Hct (42 - 52 %) 30.9 L MCV (80.0 - 94.0 FL) 93.2 MCH (27.0 - 31.0 PG) 30.8 RDW (11.5 - 14.5 %) 16.2 H Plt Count (130 - 400 /CUMM) 267 MPV (7.4 - 10.4 FL) 7.4 Gran % (42.2 - 75.2 %) 78.9 H Lymphocytes % (20.5 - 51.1 %) 12.0 L Monocytes % (1.7 - 9.3 %) 7.4 Eosinophils % (0 - 5 %) 1.3 Basophils % (0.0 - 2.0 %) 0.4 Absolute Granulocytes (1.4 - 6.5 /CUMM) 5.5 Absolute Lymphocytes (1.2 - 3.4 /CUMM) 0.8 L Absolute Monocytes (0.10 - 0.60 /CUMM) 0.5 Absolute Eosinophils (0.0 - 0.7 /CUMM) 0.1 Absolute Basophils (0.0 - 0.2 /CUMM) 0 Platelet Estimate (ADEQUATE) VERIFIED BY SMEAR Poikilocytosis 1+ Anisocytosis 1+ Ovalocytes 1+ Ralph Cells 1+ PUBS MCHC (33.0 - 37.0 G/DL) 33.0 07/31 07/31 07/31 1555 1555 1514 Chemistry Sodium (137 - 145 mmol/L) 141 Potassium (3.5 - 5.1 mmol/L) 4.6 Chloride (98 - 107 mmol/L) 101 Carbon Dioxide (22 - 30 mmol/L) 22 Anion Gap (5 - 16) 17 H BUN (9 - 20 mg/dL) 46 H Creatinine (0.7 - 1.2 mg/dL) 5.0 H Estimated GFR (>60 ml/min) 12 L BUN/Creatinine Ratio (7 - 25 %) 9.2 Glucose (65 - 99 mg/dL) 159 H Lactic Acid (0.7 - 2.1 mmol/L) Cancelled 0.7 Calcium (8.4 - 10.2 mg/dL) 10.4 H Total Bilirubin (0.2 - 1.3 mg/dL) 0.8 AST (17 - 59 U/L) 35 ALT (21 - 72 U/L) 30 Alkaline Phosphatase (< 127 U/L) 103 Troponin I (<0.11 ng/ml) 0.03 Total Protein (6.3 - 8.2 g/dL) 6.2 L Albumin (3.5 - 5.0 g/dL) 3.4 L Globulin (1.9 - 4.2 gm/dL) 2.8 Albumin/Globulin Ratio (1.1 - 2.2 %) 1.2 Hematology CBC w Diff MAN DIFF ORDERED WBC (4.8 - 10.8 /CUMM) 8.0 RBC (4.70 - 6.10 /CUMM) 3.47 L Hgb (14.0 - 18.0 G/DL) 10.7 L Hct (42 - 52 %) 32.6 L MCV (80.0 - 94.0 FL) 94.0 MCH (27.0 - 31.0 PG) 30.9 RDW (11.5 - 14.5 %) 16.6 H Plt Count (130 - 400 /CUMM) 269 MPV (7.4 - 10.4 FL) 7.1 L Gran % (42.2 - 75.2 %) 83.7 H Lymphocytes % (20.5 - 51.1 %) 6.8 L Monocytes % (1.7 - 9.3 %) 8.6 Eosinophils % (0 - 5 %) 0.5 Basophils % (0.0 - 2.0 %) 0.4 Absolute Granulocytes (1.4 - 6.5 /CUMM) 6.7 H Absolute Lymphocytes (1.2 - 3.4 /CUMM) 0.5 L Absolute Monocytes (0.10 - 0.60 /CUMM) 0.7 H Absolute Eosinophils (0.0 - 0.7 /CUMM) 0 Absolute Basophils (0.0 - 0.2 /CUMM) 0 Platelet Estimate (ADEQUATE) VERIFIED BY SMEAR Poikilocytosis 1+ Anisocytosis 1+ Ovalocytes 1+ PUBS MCHC (33.0 - 37.0 G/DL) 32.9 L
[2017-08-01 12:18] LABS: PT 27.9 SEC (9.4-12.5)
--- NOTE | 2017-08-01 13:37 | PN- Housestaff ---
Sergio MUSE,[facility] 08/01/17 1337: Subjective Follow-up For: PNA Subjective: No acute events overnight. Patient feeling better today but still feels weak. Still having some SOB. Review of Systems Constitutional: Reports: see HPI, malaise, weakness. Cardiovascular: Reports: no symptoms. Respiratory: Reports: short of breath. Gastrointestinal: Reports: no symptoms. Genitourinary: Reports: no symptoms. Musculoskeletal: Reports: no symptoms. Objective Last 24 Hrs of Vital Signs/I&O Vital Signs Date Time Temp Pulse Resp B/P B/P Pulse O2 O2 Flow FiO2 Mean Ox Delivery Rate 08/01 1713 74 110/60 08/01 1616 Nasal 2.0L Cannula 08/01 1600 98 Nasal 2.0L Cannula 08/01 1408 97.6 77 20 124/80 98 Nasal 2.0L Cannula 08/01 1310 80 148/70 08/01 1309 80 148/70 08/01 1307 74 148/70 08/01 0800 96 Nasal 2.0L Cannula 08/01 0618 97.9 69 20 120/76 96 Nasal Cannula 08/01 0000 Nasal 2.0L Cannula 07/31 2233 97.6 68 20 164/86 93 Room Air Intake & Output 08/01 1600 08/01 0800 08/01 0000 Intake Total 400 120 120 Output Total 100 Balance 400 20 120 Intake, Oral 400 120 120 Output, Urine 100 Patient 127 lb 130 lb 142 lb Weight Weight Bed scale Reported by Patient Measurement Method Physical Exam General Appearance: Alert, Oriented X3, Cooperative Cardiovascular: tachycardia Lungs: decreased resp effort. take very shallow breaths Abdomen: Normal Bowel Sounds, Soft, No Tenderness Extremities: 2+ radial pulses Current Medications: Current Medications Sig/Jed Start time Last Medication Dose Route Stop Time Status Admin Amlodipine Besylate 10 MG DAILY 08/01 1000 AC 08/01 PO 1309 Aspirin Buffered 81 MG DAILY 08/01 1000 AC 08/01 PO 1308 Azithromycin 250 MG DAILY 08/01 1000 AC 08/01 PO 1312 Calcium Carbonate 500 MG DAILY 08/01 1000 AC PO Ceftriaxone Sodium 1,000 MG DAILY 08/01 1000 AC 08/01 IV 1312 Cholecalciferol 1,000 IU DAILY 08/01 1000 AC PO Epoetin Slava 3,000 UNIT DAILY PRN 08/01 0745 AC IV Furosemide 80 MG TUES THURS SAT 08/01 1000 AC PO Hydralazine HCl 100 MG TID 08/01 1000 AC 08/01 PO 1713 Insulin Aspart 0 TIDAC 08/01 0800 AC SC Labetalol HCl 200 MG BID 08/01 1000 AC 08/01 PO 1310 Pravastatin Sodium 20 MG 1700 08/01 1700 AC 08/01 PO 1710 Prochlorperazine 10 MG ONCE ONE 08/01 1730 DC 08/01 PO 08/01 1731 1723 Prochlorperazine 10 MG Q6 PRN 08/01 1300 AC 08/01 PO 1318 Sevelamer Carbonate 1,600 MG TID 08/01 1000 AC PO Last 24 Hrs of Lab/[place] Results Last 24 Hrs of Labs/Mics: Laboratory Tests 08/01/17 1120: PT 27.9 H, INR 2.68 H 08/01/17 0750: Anion Gap 17 H, Estimated GFR 10 L, BUN/Creatinine Ratio 9.5, CBC w Diff MAN DIFF ORDERED, RBC 3.32 L, MCV 93.2, MCH 30.8, RDW 16.2 H, MPV 7.4, Gran % 78.9 H, Lymphocytes % 12.0 L, Monocytes % 7.4, Eosinophils % 1.3, Basophils % 0.4, Absolute Granulocytes 5.5, Absolute Lymphocytes 0.8 L, Absolute Monocytes 0.5, Absolute Eosinophils 0.1, Absolute Basophils 0, Platelet Estimate VERIFIED BY SMEAR, Poikilocytosis 1+, Anisocytosis 1+, Ovalocytes 1+, Ralph Cells 1+, PUBS MCHC 33.0 08/01/17 0052: PT 31.6 H, INR 3.04 H Assessment/Plan Assessment: 66-year-old male with past medical history of cardiomyopathy, CHF EF 55%, hypertension, hyperlipidemia, CAD status post cardiac stent, CKD stage V on hemodialysis Monday, diabetes,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 #Generalized weakness most likely due to Pneumonia WBC 8.0 -> 7.0 Received 1 dose of ceftriaxone and azithromycin in the ED Flu negative Chest ct: 1. Numerous pulmonary parenchymal mass lesions as described with mediastinal and right hilar lymphadenopathy. Likely left hilar lymphadenopathy is well however the left hilar region is difficult to evaluate due to a large left-sided pleural effusion. There is mass effect on the right upper lobe bronchus from the right hilar lymphadenopathy. 2. Large left-sided pleural effusion and smaller right-sided pleural effusion. 3. Hypoattenuating mass in the lateral margin of the right lobe of the liver is suspicious, however is incompletely included in the study. -currently npo for potential chest tube - will talk to IR tomorrow -Follow-up urinary legionella, strep pneumo, and pancultures. 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 Wisdom #Chronic renal failure Patient is on dialysis Creatinine 5.0 -missed his dialysis monday but received it today -Continue dialysis as scheduled on // -Continue sevelamer #History of hyperlipidemia, hypertension, diabetes Continue pravastatin, labetalol, hydralazine, amlodipine, Lasix, aspirin, novolog sliding scale, levemir -Monitor blood sugars in the setting of weakness/lethargy -Holding insulin for blood sugars less than 200 tonight #Vitamin supplementation #DVT prophylaxis #FULL CODE Problem List: 1. Chronic renal failure 2. Pneumonia Pain Ratin Pain Location: chest Pain Goal: Pain 4 or less Pain Plan: pain pathway Tomorrow's Labs & Rationales: cbc bep inr Quincy Madrigal 08/01/17 1401: Attending MD Review Statement Attending Statement Attending MD Statement: examined this patient, discuss w/resident/PA/STAGE MANAGER, agreed w/resident/PA/STAGE MANAGER, discussed with family, reviewed EMR data (avail), discussed with nursing, discussed with case mgmt, reviewed images, amended to note Attending Assessment/Plan: Impression/Plan: #Diffuse Pain- etiology is unclear. Could be related to viral syndrome. No h/o bone metastases on prior evaluations. Plan: Admit to medical floor and provide pain control. #Fever (low grade)/Possible Pneumonia- CXR read as multifocal air space disease "suspicious" for pneumonia. Patient is immunocompromized. rapid flu negative Plan: Dobbs culture-f/u Empiric treatment with Ceftriaxone/Zithromax for CAP- obtain CT chest. #Non-Small Cell Lung Cancer- is s/p prior treatment with plan originally to consider alternative treatment at appointment later this week. Plan: notify Dr. Saucedo that patient is admitted. #Chronic Renal Failure-on dialysis, had today, f/u nephrology. #DM2- on insulin. Plan: Will follow glucoscans and continue insulin. #CAD/HTN/HL- on multiple meds. Plan: Continue Amlodipine, Hydralazine, Isosorbide, Pravastatin, Labetalol, etc. #S/P DVT- on Coumadin. non compliant. Plan: Follow INR on coumadin. INR 2-3.
[2017-08-01 14:08] VITALS: BP 124/80
--- NOTE | 2017-08-01 15:08 | Cons- Oncology ---
General Information and HPI Consulting Request Date of Consult: 08/01/17 Requested By: Quincy Madrigal MD Reason for Consult: Large cell neuroendocrine lung cancer, DVT Source of Information: patient, family, old records Exam Limitations: no limitations History of Present Illness: Mr. 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 He has productive cough for the last few days. He's been feeling weak and has not been able to ambulate too well. He was was to be seen at the cancer Center on but canceled due to diarrhea. He has not been feeling well since. He gets dialysis Monday, Monday, and Monday. He's been getting weaker at home. Of note he was recently hospitalized from 07/04/2017 to 07/14/2017 for new right IJ DVT. There is a possible lower lobe pneumonia. On admission his chest x-ray demonstrated a large left pleural effusion with new infiltrate. He was admitted and empirically treated for pneumonia with ceftriaxone and azithromycin. He continues to have pain in his chest with coughing. He denies any fever or chills. He denies any nausea or vomiting. He wants to get up and move around. Allergies/Medications Allergies: Coded Allergies: NO KNOWN ALLERGIES (NONE 07/14/17) Home Med List: Amlodipine Besylate 10 MG TABLET 1 TAB PO DAILY HEART/BP (Reported) Aspirin (Ecotrin*) 81 MG TABLET.DR 1 TAB PO DAILY HEART/BLOOD (Reported) Azilsartan Medoxomil (Edarbi) 40 MG TABLET 1 TAB PO DAILY BP (Reported) Calcium Carbonate (Calcium) 500 MG CALCIUM (1,250 MG) TABLET 1 TAB PO DAILY SUPPLEMENT (Reported) Cholecalciferol (Vitamin D3) (Vitamin D) 1,000 UNIT TABLET 1 TAB PO DAILY SUPPLEMENT (Reported) Epoetin Slava (Procrit) 20,000 UNIT/ML VIAL 8,000 UNITS AD Monday DIALYSIS (Reported) Furosemide 40 MG TABLET 2 TAB PO NONDIALYSIS DAYS chf take (2) 40mg pills (80mg total) in the morning on non-dialysis days - , , sat, sun Hydralazine HCl 100 MG TABLET 1 TAB PO TID HEART (Reported) Insulin NPL/Insulin Lispro (Humalog Mix 75-25 Vial) 100 UNIT/1 ML VIAL 9 UNITS SC QAM DIABETES (Reported) DID NOT TAKE IN HOSPITAL Insulin NPL/Insulin Lispro (Humalog Mix 75-25 Vial) 100 UNIT/ML (75-25) VIAL 6 UNITS SC QHS DM (Reported) Insulin NPL/Insulin Lispro (Humalog Mix 75-25 Vial) 100 UNIT/ML (75-25) VIAL 6 U SC 5PM TAKES WITH DINNER (Reported) Isosorbide Mononitrate (Isosorbide Mononitrate ER) 60 MG TAB.ER.24H 1 TAB PO DAILY HEART (Reported) Labetalol HCl 100 MG TABLET 2 TAB PO BID HTN (Reported) Multiple Vitamin (Multivitamins) 1 EACH TABLET 1 TAB PO DAILY SUPPLEMENT ( Reported) Pravastatin Sodium 20 MG TABLET 1 TAB PO DAILY CHOLESTEROL (Reported) Prochlorperazine Maleate 10 MG TABLET 1 TAB PO Q6 PRN NAUSEA (Reported) Sevelamer Carbonate (Renvela) 800 MG TABLET 2 TAB PO TID KIDNEYS (Reported) Warfarin Sodium (Coumadin) 5 MG TABLET 1 TAB PO DAILY anticoagulation, thrombus Current Medications: Current Medications Sig/Jed Start time Last Medication Dose Route Stop Time Status Admin Amlodipine Besylate 10 MG DAILY 08/01 1000 AC 08/01 PO 1309 Aspirin Buffered 81 MG DAILY 08/01 1000 AC 08/01 PO 1308 Azithromycin 250 MG DAILY 08/01 1000 AC 08/01 PO 1312 Azithromycin 500 MG ONCE ONE 07/31 1545 OR 07/31 Dextrose/Water 250 ML IV 07/31 1644 1633 Calcium Carbonate 500 MG DAILY 08/01 1000 AC PO Ceftriaxone Sodium 1,000 MG DAILY 08/01 1000 AC 08/01 IV 1312 Ceftriaxone Sodium 0 .STK-MED ONE 07/31 1631 DC .ROUTE Ceftriaxone Sodium 1,000 MG ONCE ONE 07/31 1545 DC 07/31 IV 07/31 1546 1633 Cholecalciferol 1,000 IU DAILY 08/01 1000 AC PO Epoetin Slava 3,000 UNIT DAILY PRN 08/01 0745 AC IV Furosemide 80 MG SAT 08/01 1000 AC PO Guaifenesin 600 MG ONCE ONE 07/31 1545 DC 07/31 PO 07/31 1546 1706 Hydralazine HCl 100 MG TID 08/01 1000 AC PO Hydromorphone HCl 0 .STK-MED ONE 07/31 1519 DC .ROUTE Hydromorphone HCl 2 MG ONCE ONE 07/31 1515 DC 07/31 SC 07/31 1516 1523 Hydromorphone HCl 1 MG ONCE ONE 07/31 1430 CAN IV 07/31 1431 Insulin Aspart 0 TIDAC 08/01 0800 AC SC Labetalol HCl 200 MG BID 08/01 1000 AC 08/01 PO 1310 Pravastatin Sodium 20 MG 1700 08/01 1700 AC PO Prochlorperazine 10 MG Q6 PRN 08/01 1300 AC 08/01 PO 1318 Sevelamer Carbonate 1,600 MG TID 08/01 1000 AC PO Review of Systems Review of Systems Constitutional: Reports: chills, weakness (generalized). Denies: fever. Cardiovascular: Reports: peripheral edema. Denies: chest pain. Respiratory: Reports: cough, short of breath, sputum production. Denies: hemoptysis, wheezing. GI: Reports: constipation, diarrhea. Genitourinary: Reports: frequency. Musculoskeletal: Reports: see HPI, back pain. Neurological/Psychological: Denies: anxiety, ataxia. Hematologic/Endocrine: Reports: bruising, bleeding. All Other Systems: Reviewed and Negative Past History Travel History Traveled to [place] past 21 day No Medical History Blood Transfusion Hx: No Neurological: NONE EENT: NONE Cardiovascular: cardiomyopathy (ischemic), CHF (systolic), hypertension, hyperlipidemia, CARDIAC CATH WITH bare-metal stents to the LAD and left circumflex pulmonary htn on [employer] Respiratory: right large neuroendocrine lung cancer Gastrointestinal: NONE Hepatic: NONE Renal: chronic kidney disease (stage V on HD), HD- M/W/F RCW-ESME CATH Musculoskeletal: NONE Psychiatric: NONE Endocrine: diabetes (uncontrolled) Blood Disorders: NONE Cancer(s): NONE DOORMAKER/Reproductive: NONE Other Medical Hx: Shingles Surgical History Surgical History: cardiac cathwith bare-metal stents in LAD and left circumflex Family History Relations & Conditions If Any: MOTHER FH: cancer FATHER FH: cancer Psychosocial History Where Do You Live? Home Who Do You Live With? girlfriend Services at Home: Nursing, Physical Therapy, Social Work Primary Language: Bangladeshi Smoking Status: Former Smoker Functional Ability ADLs Independent: dressing, eating, toileting, bathing. Ambulation: independent, walker IADLs Independent: finances, telephone, medication admin. Needs Assist: shopping, housework, food prep, transportation. Exam & Diagnostic Data Vital Signs and I&O Vital Signs Date Time Temp Pulse Resp B/P B/P Pulse O2 O2 Flow FiO2 Mean Ox Delivery Rate 08/01 1408 97.6 77 20 124/80 98 Nasal 2.0L Cannula 08/01 1310 80 148/70 08/01 1309 80 148/70 08/01 1307 74 148/70 08/01 0800 96 Nasal 2.0L Cannula 08/01 0618 97.9 69 20 120/76 96 Nasal Cannula 08/01 0000 Nasal 2.0L Cannula 07/31 2233 97.6 68 20 164/86 93 Room Air 07/31 1830 96.9 75 18 128/60 95 Nasal 2.0L Cannula 07/31 1823 95 Nasal 2.0L Cannula 07/31 1634 98.0 82 20 140/67 99 Nasal 2.0L Cannula 07/31 1529 Nasal 2.0L Cannula Intake & Output 08/01 1600 08/01 0800 08/01 0000 Intake Total 120 120 Output Total 100 Balance 20 120 Intake, Oral 120 120 Output, Urine 100 Patient 58.74 kg 64.353 kg Weight Weight Bed scale Reported by Patient Measurement Method Physical Exam General Appearance: no apparent distress, alert, awake, comfortable Head: atraumatic Eyes: Bilateral: PERRL, EOMI. Ears, Nose, Throat: normal pharynx Respiratory: normal breath sounds, quiet respiration, decreased breath sounds, crackles Cardiovascular: regular rate/rhythm Gastrointestinal: normal bowel sounds, soft, non-tender, no organomegaly Back: ecchymosis, no vertebral tenderness Extremities: right upper extremity with 2+ edema, left upper extremity with a very fissure av fissure in place Neurologic/Psych: awake, alert, oriented x 3 Last 48 Hours of Lab Results: Laboratory Tests 08/01 08/01 08/01 1120 0750 0052 Chemistry Sodium (137 - 145 mmol/L) 141 Potassium (3.5 - 5.1 mmol/L) 4.7 Chloride (98 - 107 mmol/L) 101 Carbon Dioxide (22 - 30 mmol/L) 24 Anion Gap (5 - 16) 17 H BUN (9 - 20 mg/dL) 52 H Creatinine (0.7 - 1.2 mg/dL) 5.5 *H Estimated GFR (>60 ml/min) 10 L BUN/Creatinine Ratio (7 - 25 %) 9.5 Coagulation PT (9.4 - 12.5 SEC) 27.9 H 31.6 H INR (0.90 - 1.17) 2.68 H 3.04 H Hematology CBC w Diff MAN DIFF ORDERED WBC (4.8 - 10.8 /CUMM) 7.0 RBC (4.70 - 6.10 /CUMM) 3.32 L Hgb (14.0 - 18.0 G/DL) 10.2 L Hct (42 - 52 %) 30.9 L MCV (80.0 - 94.0 FL) 93.2 MCH (27.0 - 31.0 PG) 30.8 RDW (11.5 - 14.5 %) 16.2 H Plt Count (130 - 400 /CUMM) 267 MPV (7.4 - 10.4 FL) 7.4 Gran % (42.2 - 75.2 %) 78.9 H Lymphocytes % (20.5 - 51.1 %) 12.0 L Monocytes % (1.7 - 9.3 %) 7.4 Eosinophils % (0 - 5 %) 1.3 Basophils % (0.0 - 2.0 %) 0.4 Absolute Granulocytes (1.4 - 6.5 /CUMM) 5.5 Absolute Lymphocytes (1.2 - 3.4 /CUMM) 0.8 L Absolute Monocytes (0.10 - 0.60 /CUMM) 0.5 Absolute Eosinophils (0.0 - 0.7 /CUMM) 0.1 Absolute Basophils (0.0 - 0.2 /CUMM) 0 Platelet Estimate (ADEQUATE) VERIFIED BY SMEAR Poikilocytosis 1+ Anisocytosis 1+ Ovalocytes 1+ Ralph Cells 1+ PUBS MCHC (33.0 - 37.0 G/DL) 33.0 07/31 07/31 07/31 1555 1555 1514 Chemistry Sodium (137 - 145 mmol/L) 141 Potassium (3.5 - 5.1 mmol/L) 4.6 Chloride (98 - 107 mmol/L) 101 Carbon Dioxide (22 - 30 mmol/L) 22 Anion Gap (5 - 16) 17 H BUN (9 - 20 mg/dL) 46 H Creatinine (0.7 - 1.2 mg/dL) 5.0 H Estimated GFR (>60 ml/min) 12 L BUN/Creatinine Ratio (7 - 25 %) 9.2 Glucose (65 - 99 mg/dL) 159 H Lactic Acid (0.7 - 2.1 mmol/L) Cancelled 0.7 Calcium (8.4 - 10.2 mg/dL) 10.4 H Total Bilirubin (0.2 - 1.3 mg/dL) 0.8 AST (17 - 59 U/L) 35 ALT (21 - 72 U/L) 30 Alkaline Phosphatase (< 127 U/L) 103 Troponin I (<0.11 ng/ml) 0.03 Total Protein (6.3 - 8.2 g/dL) 6.2 L Albumin (3.5 - 5.0 g/dL) 3.4 L Globulin (1.9 - 4.2 gm/dL) 2.8 Albumin/Globulin Ratio (1.1 - 2.2 %) 1.2 Hematology CBC w Diff MAN DIFF ORDERED WBC (4.8 - 10.8 /CUMM) 8.0 RBC (4.70 - 6.10 /CUMM) 3.47 L Hgb (14.0 - 18.0 G/DL) 10.7 L Hct (42 - 52 %) 32.6 L MCV (80.0 - 94.0 FL) 94.0 MCH (27.0 - 31.0 PG) 30.9 RDW (11.5 - 14.5 %) 16.6 H Plt Count (130 - 400 /CUMM) 269 MPV (7.4 - 10.4 FL) 7.1 L Gran % (42.2 - 75.2 %) 83.7 H Lymphocytes % (20.5 - 51.1 %) 6.8 L Monocytes % (1.7 - 9.3 %) 8.6 Eosinophils % (0 - 5 %) 0.5 Basophils % (0.0 - 2.0 %) 0.4 Absolute Granulocytes (1.4 - 6.5 /CUMM) 6.7 H Absolute Lymphocytes (1.2 - 3.4 /CUMM) 0.5 L Absolute Monocytes (0.10 - 0.60 /CUMM) 0.7 H Absolute Eosinophils (0.0 - 0.7 /CUMM) 0 Absolute Basophils (0.0 - 0.2 /CUMM) 0 Platelet Estimate (ADEQUATE) VERIFIED BY SMEAR Poikilocytosis 1+ Anisocytosis 1+ Ovalocytes 1+ PUBS MCHC (33.0 - 37.0 G/DL) 32.9 L Imaging/Other Studies: Chest x-ray 07/31/2017: The cardiac silhouette is stable. A right dual-lumen central venous line is in unchanged position. There is a moderate to large left pleural effusion. There is multifocal airspace disease, particularly within the left perihilar region and right upper lobe. The osseous structures are stable. Assessment/Plan Assessment: Mr. 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 He has productive cough for the last few days. He has unable to you in follow-up for clinic. On admission he was noted to have chest x-ray showing large left pleural effusion with some suspicion for pneumonia. He was started empirically on ceftriaxone and azithromycin. He is currently getting dialysis Monday, Monday, and Monday. Hopefully he'll improve respiratory dia and with his energy with treatment of pneumonia. His performance status continued decrease. I'm concerned that this may be related to disease progression. If he does not improve clinically, he would not be a candidate for chemotherapy. Hopefully he'll be able to be seen next week to discuss his care or status and ultimately decided on whether to continue with chemotherapy such as carboplatin and irinotecan. In addition he will need to discuss with his last decision regarding revision of AV fistula. With regard to his thrombosis, he is currently on warfarin is being managed by nephrology especially with dialysis. He came with slightly elevated INR but is now normal. I expect this to be increasing given his antibiotics and decreased oral intake. He should be at a therapeutic range of 2-3 for his INR. Recommendations: Pneumonia: -Antibiotics as per primary team -Encourage incentive spirometer -Early ambulation -If worsening shortness breath consider thoracentesis End-stage renal disease on dialysis: -Dialysis as per nephrology -Discussed with plastic surgery regarding left AV fistula and the need for port placement Metastatic large cell neuroendocrine tumor: -Failed carboplatin and etoposide -Plan for carboplatin and irinotecan Thoracic pain: -May be related to pneumonia -Pain control as per primary Problem List: 1. Thrombus 2. Chronic renal failure 3. Pneumonia 4. Cancer associated pain 5. Large cell neuroendocrine carcinoma 6. Pleural effusion Other Findings/Comments: Please call [phone] with any questions or concerns Consult Acknowledgment - Thank you for your consult request.
--- NOTE | 2017-08-01 15:58 | CT SCAN REPORT ---
EXAMINATION: CT CHEST WITHOUT CONTRAST CLINICAL INFORMATION: Productive cough and chills for the past few days COMPARISON: Chest x-ray dated 07/31/2017, 2:43 PM TECHNIQUE: Multidetector volumetric CT imaging of the chest was done. Axial MIP volume rendering provided. Sagittal and coronal reformatted images were obtained. 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 Findings are comparable to the plain film study of 07/31/2017. LUNGS: Numerous bilateral pulmonary mass lesions are identified, the largest is in the posterior aspect of the right lung apex, measuring 7.7 cm in greatest dimension, this is abutting the major and minor fissures. Additional soft tissue pulmonary masses as noted are diffusely distributed throughout the bilateral pulmonary parenchyma and are of varying sizes. There is a large left-sided pleural effusion, with central increased density in the left hilar region, likely compressive atelectasis containing air bronchograms. A small right-sided pleural effusion is present. MEDIASTINUM: A large lumen catheter is present within the SVC extending to the cavoatrial junction. Heavy coronary vascular calcifications are present as well as calcified atherosclerotic plaque throughout the thoracic aorta. Extensive soft tissue is present within the mediastinum suggestive of conglomerate lymphadenopathy, one of the largest structures in the right precarinal region measures at least 2 cm in size. Increased rounded masslike lesions are present in the right hilar region with associated narrowing of the right upper lobe bronchus. There is tissue surrounding the mainstem bronchi in the right hemithorax, with some suggestion of mass effect on the middle and lower mainstem bronchi as well as the right upper lobe bronchus. As noted, there is increased density in the left hilar region, it is indeterminate whether this is secondary to compressive atelectasis from the prominent left-sided pleural effusion or whether there is additional left hilar lymphadenopathy. There is cardiomegaly with left ventriculomegaly. PLEURA: Large left-sided pleural effusion and small right-sided pleural effusion as described in detail above. AXILLA: No lymphadenopathy. UPPER ABDOMEN: A hypoattenuating mass is noted at the lateral margin of the right lobe of the liver, incompletely included in the study measuring at least 1.6 cm in diameter. OSSEOUS STRUCTURES: No aggressive osseous lesions are noted. IMPRESSION: 1. Numerous pulmonary parenchymal mass lesions as described with mediastinal and right hilar lymphadenopathy. Likely left hilar lymphadenopathy is well however the left hilar region is difficult to evaluate due to a large left-sided pleural effusion. There is mass effect on the right upper lobe bronchus from the right hilar lymphadenopathy. 2. Large left-sided pleural effusion and smaller right-sided pleural effusion. 3. Hypoattenuating mass in the lateral margin of the right lobe of the liver is suspicious, however is incompletely included in the study.
[2017-08-01 21:58] VITALS: BP 160/74
[2017-08-02 05:48] VITALS: BP 118/60
--- NOTE | 2017-08-02 08:03 | PN- Oncology ---
Subjective Subjective: He had some pain in the right arm. He feels about the same. He had CT scan done yesterday. Review of Systems Constitutional: Denies: chills, fever. Cardiovascular: Denies: chest pain. Respiratory: Reports: short of breath. Gastrointestinal: Denies: abdominal pain. Musculoskeletal: Reports: joint pain. All Other Systems: Reviewed and Negative Objective Vital Signs and I&Os Vital Signs Date Time Temp Pulse Resp B/P B/P Pulse O2 O2 Flow FiO2 Mean Ox Delivery Rate 08/02 0548 97.5 74 20 118/60 92 Nasal 2.0L Cannula 08/018 75 160/74 08/01 2218 75 160/74 08/01 2158 97.6 75 20 160/74 97 Nasal 2.0L Cannula 08/01 1713 74 110/60 08/01 1616 Nasal 2.0L Cannula 08/01 1600 98 Nasal 2.0L Cannula 08/01 1408 97.6 77 20 124/80 98 Nasal 2.0L Cannula 08/01 1310 80 148/70 08/01 1309 80 148/70 08/01 1307 74 148/70 08/01 0800 96 Nasal 2.0L Cannula Intake & Output 08/02 0800 08/02 0000 08/01 1600 08/01 0800 08/01 0000 07/31 1600 Intake Total 350 400 120 120 0 Output Total 100 0 Balance 350 400 20 120 0 Intake, Oral 350 400 120 120 0 Number 1 Bowel Movements Output, Urine 100 0 Patient 64.609 kg 57.776 kg 58.74 kg 64.353 kg Weight Weight Bed scale Reported by Patient Measurement Method Physical Exam: General Appearance: no apparent distress, alert, awake, comfortable Ears, Nose, Throat: normal pharynx Respiratory: normal breath sounds, quiet respiration, decreased breath sounds, crackles Cardiovascular: regular rate/rhythm Gastrointestinal: normal bowel sounds, soft, non-tender, no organomegaly Back: ecchymosis, no vertebral tenderness Extremities: right upper extremity with 3+ edema, left upper extremity with av fissure in place Neurologic/Psych: awake, alert, oriented x 3 Current Medications: Current Medications Sig/Jed Start time Last Medication Dose Route Stop Time Status Admin Acetaminophen 650 MG ONCE ONE 08/02 129 CAN PO 08/02 130 Acetaminophen 1,000 MG ONCE ONE 08/02 129 CAN N/A 1 UNIT IV 08/02 0144 Amlodipine Besylate 10 MG DAILY 08/01 1000 AC 08/01 PO 1309 Aspirin Buffered 81 MG DAILY 08/01 1000 AC 08/01 PO 1308 Azithromycin 250 MG DAILY 08/01 1000 AC 08/01 PO 1312 Calcium Carbonate 500 MG DAILY 08/01 1000 AC PO Ceftriaxone Sodium 1,000 MG DAILY 08/01 1000 AC 08/01 IV 1312 Cholecalciferol 1,000 IU DAILY 08/01 1000 AC PO Epoetin Slava 3,000 UNIT DAILY PRN 08/01 0745 AC IV Furosemide 80 MG TUES THURS SAT 08/01 1000 AC PO Hydralazine HCl 100 MG TID 08/01 1000 AC 08/01 PO 2218 Insulin Aspart 0 TIDAC 08/01 0800 AC SC Labetalol HCl 200 MG BID 08/01 1000 AC 08/01 PO 2218 Oxycodone HCl 5 MG Q6 PRN 08/02 0130 AC 08/02 PO 0130 Oxycodone/ 1 TAB ONCE ONE 08/02 0130 CAN Acetaminophen PO 08/02 0131 Pravastatin Sodium 20 MG 1700 08/01 1700 AC 08/01 PO 1710 Prochlorperazine 10 MG ONCE ONE 08/01 1730 DC 08/01 PO 08/01 1731 1723 Prochlorperazine 10 MG Q6 PRN 08/01 1300 AC 08/01 PO 1318 Sevelamer Carbonate 1,600 MG TID 08/01 1000 AC PO Results Last 24 Hours of Lab Results: Laboratory Tests 08/01 08/01 1120 1018 Coagulation PT (9.4 - 12.5 SEC) 27.9 H Cancelled INR (0.90 - 1.17) 2.68 H Cancelled Recent Imaging Studies: CT chest 08/01/2017: 1. Numerous pulmonary parenchymal mass lesions as described with mediastinal and right hilar lymphadenopathy. Likely left hilar lymphadenopathy is well however the left hilar region is difficult to evaluate due to a large left-sided pleural effusion. There is mass effect on the right upper lobe bronchus from the right hilar lymphadenopathy. 2. Large left-sided pleural effusion and smaller right-sided pleural effusion. 3. Hypoattenuating mass in the lateral margin of the right lobe of the liver is suspicious, however is incompletely included in the study. Assessment/Plan Assessment/Recommendations: Mr. 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 On admission he was noted to have chest x-ray showing large left pleural effusion with some suspicion for pneumonia. He was started empirically on ceftriaxone and azithromycin. He is currently getting dialysis Monday, Monday, and Monday. CT demonstrated large pleural effusion on the left. He may benefit from thoracentesis. He is doing well on antibiotics. He has no fever. Clinically, he is stable. Pneumonia: -Antibiotics as per primary team -Early ambulation Pleural effusion: -consider thoracentesis End-stage renal disease on dialysis: -Dialysis as per nephrology Metastatic large cell neuroendocrine tumor: -Failed carboplatin and etoposide with plan for carboplatin/irinotecan -Follow up as outpatient -Pain control as per primary Please call [phone] with any questions or concerns. Problem List: 1. DVT (deep venous thrombosis) 2. ESRD (end stage renal disease) 3. Pleural effusion 4. Pneumonia 5. Cancer associated pain 6. Lung cancer
--- NOTE | 2017-08-02 10:04 | PN- Housestaff ---
Sergio MUSE,[facility] 08/02/17 1004: Subjective Follow-up For: L pleural effusion L cancer Subjective: No acute events overnight. Pt still feels weak and has SOB. Initially refused dialysis but then agreed to go. Review of Systems Constitutional: Reports: see HPI, malaise, weakness. Cardiovascular: Reports: no symptoms. Respiratory: Reports: short of breath. Gastrointestinal: Reports: no symptoms. Genitourinary: Reports: no symptoms. Musculoskeletal: Reports: no symptoms. Skin: Reports: no symptoms. Objective Last 24 Hrs of Vital Signs/I&O Vital Signs Date Time Temp Pulse Resp B/P B/P Pulse O2 O2 Flow FiO2 Mean Ox Delivery Rate 08/02 1625 Nasal 2.0L Cannula 08/02 0800 96 Nasal 2.0L Cannula 08/02 0548 97.5 74 20 118/60 92 Nasal 2.0L Cannula 08/02 0000 97 Nasal 2.0L Cannula 08/01 2218 75 160/74 08/01 2218 75 160/74 08/01 2158 97.6 75 20 160/74 97 Nasal 2.0L Cannula Intake & Output 08/02 1600 08/02 0800 08/02 0000 Intake Total 400 50 350 Output Total 200 0 Balance 200 50 350 Intake, IV 0 Intake, Oral 400 50 350 Number 1 Bowel Movements Output, Urine 200 0 Patient 142 lb Weight Physical Exam General Appearance: Alert, Oriented X3, Cooperative, No Acute Distress Cardiovascular: Normal S1, Normal S2, slight tachycardia Lungs: decreased air movement. poor resp inspiration effort Abdomen: Normal Bowel Sounds, Soft, No Tenderness Vascular: 2+ radial pulses Current Medications: Current Medications Sig/Jed Start time Last Medication Dose Route Stop Time Status Admin Acetaminophen 650 MG ONCE ONE 08/02 0845 DC PO 08/02 0846 Acetaminophen 650 MG ONCE ONE 08/02 0130 CAN PO 08/02 0131 Acetaminophen 1,000 MG ONCE ONE 08/02 0130 CAN N/A 1 UNIT IV 08/02 0144 Amlodipine Besylate 10 MG DAILY 08/01 1000 AC 08/01 PO 1309 Aspirin Buffered 81 MG DAILY 08/01 1000 AC 08/01 PO 1308 Azithromycin 250 MG DAILY 08/01 1000 DC 08/01 PO 1312 Calcium Carbonate 500 MG DAILY 08/01 1000 AC PO Ceftriaxone Sodium 1,000 MG DAILY 08/01 1000 DC 08/01 IV 1312 Cholecalciferol 1,000 IU DAILY 08/01 1000 AC PO Epoetin Slava 3,000 UNIT DAILY PRN 08/01 0745 AC IV Furosemide 80 MG TUES THURS SAT 08/01 1000 AC PO Hydralazine HCl 100 MG TID 08/01 1000 AC 08/01 PO 2218 Insulin Aspart 0 TIDAC 08/01 0800 AC SC Labetalol HCl 200 MG BID 08/01 1000 AC 08/01 PO 2218 Oxycodone HCl 5 MG Q6 PRN 08/02 0130 AC 08/02 PO 0130 Oxycodone/ 1 TAB ONCE ONE 08/02 0130 CAN Acetaminophen PO 08/02 0131 Patient Medication 1 ED ONE ONE 08/02 1100 DC Teaching ED 08/02 1101 Pravastatin Sodium 20 MG 1700 08/01 1700 AC 08/01 PO 1710 Prochlorperazine 10 MG Q6 PRN 08/01 1300 AC 08/01 PO 1318 Sevelamer Carbonate 1,600 MG TID 08/01 1000 AC PO Last 24 Hrs of Lab/Haroon Results Last 24 Hrs of Labs/Mics: Laboratory Tests 08/02/17 1236: Anion Gap 15, Estimated GFR 16 L, BUN/Creatinine Ratio 7.9, Calcium 9.0, Phosphorus 4.9 H, Albumin 3.1 L, PT 25.6 H, INR 2.46 H, CBC w Diff NO MAN DIFF REQ, RBC 3.26 L, MCV 92.4, MCH 30.6, MCHC 33.1, RDW 15.6 H, MPV 7.1 L, Gran % 78.4 H, Lymphocytes % 8.2 L, Monocytes % 11.8 H, Eosinophils % 1.6, Basophils % 0, Absolute Granulocytes 4.4, Absolute Lymphocytes 0.5 L, Absolute Monocytes 0.7 H, Absolute Eosinophils 0.1, Absolute Basophils 0 Assessment/Plan Assessment: 66-year-old male with past medical history of cardiomyopathy, CHF EF 55%, hypertension, hyperlipidemia, CAD status post cardiac stent, CKD stage V on hemodialysis Monday, diabetes,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 #Generalized weakness most likely due SOB due to Large L pleural effusion due to lung cancer WBC 8.0 -> 5.6 Received 1 dose of ceftriaxone and azithromycin in the ED Flu negative Chest ct: 1. Numerous pulmonary parenchymal mass lesions as described with mediastinal and right hilar lymphadenopathy. Likely left hilar lymphadenopathy is well however the left hilar region is difficult to evaluate due to a large left-sided pleural effusion. There is mass effect on the right upper lobe bronchus from the right hilar lymphadenopathy. 2. Large left-sided pleural effusion and smaller right-sided pleural effusion. 3. Hypoattenuating mass in the lateral margin of the right lobe of the liver is suspicious, however is incompletely included in the study. -holding coumadin with goal of <2. plan for IR US guided thoracentis monday. -Follow-up urinary legionella, strep pneumo, and pancultures. 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 Thrombus 2. Chronic renal failure 3. Pleural effusion 4. Generalized weakness Pain Ratin Pain Location: L chest Pain Goal: Pain 4 or less Pain Plan: pain pathway Tomorrow's Labs & Rationales: cbc bep Quincy Madrigal 08/02/17 1128: Attending MD Review Statement Attending Statement Attending MD Statement: examined this patient, discuss w/resident/PA/COMPUTATIONAL GENETICIST, agreed w/resident/PA/COMPUTATIONAL GENETICIST, discussed with family, reviewed EMR data (avail), discussed with nursing, discussed with case mgmt, reviewed images, amended to note Attending Assessment/Plan: Impression/Plan: #Large pleural effusion: Plan for thoracocentesis, INR supratherpeutic. f/u INR, Consult IR for possible thoracentesis #Fever (low grade)/Possible Pneumonia- CXR read as multifocal air space disease "suspicious" for pneumonia. Patient is immunocompromized. rapid flu negative, afebrile. Plan: Dobbs culture-f/u negative so far. Continue with Ceftriaxone/Zithromax for CAP- f/u CT chest suggestive of #Non-Small Cell Lung Cancer- is s/p prior treatment with plan originally to consider alternative treatment at appointment later this week. Plan: notified Dr. Saucedo that patient is admitted. Now presents with large pleural effusion left sided. #Chronic Renal Failure-on dialysis, f/u nephrology. Plan for dialysis as per nephro. #DM2- on insulin. Plan: Will follow glucoscans and continue insulin. #CAD/HTN/HL- on multiple meds. Plan: Continue Amlodipine, Hydralazine, Isosorbide, Pravastatin, Labetalol, etc. #S/P DVT- on Coumadin. non compliant. Plan: Follow INR on coumadin. INR 2-3.
[2017-08-02 13:17] LABS: ABSOLUTE BASOPHIL COUNT 0 /CUMM (0.0-0.2); ABSOLUTE EOSINOPHIL COUNT 0.1 /CUMM (0.0-0.7); ABSOLUTE GRANULOCYTE CT 4.4 /CUMM (1.4-6.5); ABSOLUTE LYMPH COUNT 0.5 /CUMM (1.2-3.4); ABSOLUTE MONOCYTE COUNT 0.7 /CUMM (0.10-0.60); BASOPHIL % 0 % (0.0-2.0); EOSINOPHIL % 1.6 % (0-5); GRANULOCYTE % 78.4 % (42.2-75.2); HEMATOCRIT 30.1 % (42-52); MEAN CORPUSCULAR HGB 30.6 PG (27.0-31.0); MEAN CORPUSCULAR HGB CONC 33.1 G/DL (33.0-37.0); MEAN CORPUSCULAR VOLUME 92.4 FL (80.0-94.0); MEAN PLATELET VOLUME 7.1 FL (7.4-10.4); PLATELET COUNT 250 /CUMM (130-400); RBC DISTRIBUTION WIDTH 15.6 % (11.5-14.5); RED BLOOD CELL CT 3.26 /CUMM (4.70-6.10); WHITE BLOOD CELL COUNT 5.6 /CUMM (4.8-10.8)
[2017-08-02 13:23] LABS: PT 25.6 SEC (9.4-12.5)
[2017-08-02 22:13] VITALS: BP 130/70
--- NOTE | 2017-08-02 22:19 | PN- Nephrology ---
Assessment/Plan Assessment: 1. ESRD 2. Pneumonia with left pleural effusion 3. Multiple comorbidities as detailed elsewhere including metastatic lung cancer and cardiomyopathy Suggestion: 1. Hemodialysis today in progress with 1-2L UF as tolerated over 3.5 hrs 2. Next HD for Mon am 08/04/17 3. Thoracentesis pending 4. Continue antibiotic therapy Subjective Subjective: Very weak and mildly sob without other specific complaints. Seen with dialysis. Thoracentesis planned for later this week once INR acceptable. Coumadin on hold. Objective Vital Signs and I&Os Vital Signs Date Time Temp Pulse Resp B/P B/P Pulse O2 O2 Flow FiO2 Mean Ox Delivery Rate 08/02 2212 98.9 84 20 130/70 94 08/02 1915 70 124/64 08/02 1915 70 142/64 08/02 1625 Nasal 2.0L Cannula 08/02 0800 96 Nasal 2.0L Cannula 08/02 0548 97.5 74 20 118/60 92 Nasal 2.0L Cannula 08/02 0000 97 Nasal 2.0L Cannula Intake & Output 08/02 1600 08/02 0400 08/01 1600 08/01 0400 07/31 1600 07/31 0400 Intake Total 450 350 520 120 0 Output Total 200 100 0 Balance 250 350 420 120 0 Intake, IV 0 Intake, Oral 450 350 520 120 0 Number 1 Bowel Movements Output, Urine 200 100 0 Patient 142 lb 127 lb 142 lb Weight Weight Bed scale Reported by Patient Measurement Method Physical Exam: General: Chronically ill-appearing black male in no acute distress Skin: No rash or lesions HEENT: Conjunctivae pale, sclerae anicteric, mucous membranes dry Neck: Without masses or thyromegaly, no supraclavicular or cervical adenopathy Chest: Clear on right, markedly diminished breath sounds and dullness to percussion on the left; right IJ dialysis catheter in place Heart: Regular rate and rhythm without S3 or rub Abdomen: Soft and nontender without palpable masses or organomegaly Extremities: Without cyanosis; there is bilateral lower extremity edema slightly worse on the right. Neuro: Lethargic but easily arousable, no focal findings, no asterixis or myoclonus Results Pertinent Lab Results: Laboratory Tests 08/02 08/02 08/01 1609 1236 1120 Chemistry Sodium (137 - 145 mmol/L) 141 142 Potassium (3.5 - 5.1 mmol/L) 3.4 L 3.6 Chloride (98 - 107 mmol/L) 100 100 Carbon Dioxide (22 - 30 mmol/L) 28 28 Anion Gap (5 - 16) 13 15 BUN (9 - 20 mg/dL) 9 30 H Creatinine (0.7 - 1.2 mg/dL) 1.3 H 3.8 H Estimated GFR (>60 ml/min) 55 L 16 L BUN/Creatinine Ratio (7 - 25 %) 6.9 L 7.9 Calcium (8.4 - 10.2 mg/dL) 7.7 L 9.0 Phosphorus (2.5 - 4.5 mg/dL) 4.9 H Albumin (3.5 - 5.0 g/dL) 3.1 L Coagulation PT (9.4 - 12.5 SEC) 25.6 H 27.9 H INR (0.90 - 1.17) 2.46 H 2.68 H Hematology CBC w Diff NO MAN DIFF REQ WBC (4.8 - 10.8 /CUMM) 5.6 RBC (4.70 - 6.10 /CUMM) 3.26 L Hgb (14.0 - 18.0 G/DL) 10.0 L Hct (42 - 52 %) 30.1 L MCV (80.0 - 94.0 FL) 92.4 MCH (27.0 - 31.0 PG) 30.6 MCHC (33.0 - 37.0 G/DL) 33.1 RDW (11.5 - 14.5 %) 15.6 H Plt Count (130 - 400 /CUMM) 250 MPV (7.4 - 10.4 FL) 7.1 L Gran % (42.2 - 75.2 %) 78.4 H Lymphocytes % (20.5 - 51.1 %) 8.2 L Monocytes % (1.7 - 9.3 %) 11.8 H Eosinophils % (0 - 5 %) 1.6 Basophils % (0.0 - 2.0 %) 0 Absolute Granulocytes (1.4 - 6.5 /CUMM) 4.4 Absolute Lymphocytes (1.2 - 3.4 /CUMM) 0.5 L Absolute Monocytes (0.10 - 0.60 /CUMM) 0.7 H Absolute Eosinophils (0.0 - 0.7 /CUMM) 0.1 Absolute Basophils (0.0 - 0.2 /CUMM) 0 08/01 08/01 08/01 1018 0750 0052 Chemistry Sodium (137 - 145 mmol/L) 141 Potassium (3.5 - 5.1 mmol/L) 4.7 Chloride (98 - 107 mmol/L) 101 Carbon Dioxide (22 - 30 mmol/L) 24 Anion Gap (5 - 16) 17 H BUN (9 - 20 mg/dL) 52 H Creatinine (0.7 - 1.2 mg/dL) 5.5 *H Estimated GFR (>60 ml/min) 10 L BUN/Creatinine Ratio (7 - 25 %) 9.5 Coagulation PT (9.4 - 12.5 SEC) Cancelled 31.6 H INR (0.90 - 1.17) Cancelled 3.04 H Hematology CBC w Diff MAN DIFF ORDERED WBC (4.8 - 10.8 /CUMM) 7.0 RBC (4.70 - 6.10 /CUMM) 3.32 L Hgb (14.0 - 18.0 G/DL) 10.2 L Hct (42 - 52 %) 30.9 L MCV (80.0 - 94.0 FL) 93.2 MCH (27.0 - 31.0 PG) 30.8 RDW (11.5 - 14.5 %) 16.2 H Plt Count (130 - 400 /CUMM) 267 MPV (7.4 - 10.4 FL) 7.4 Gran % (42.2 - 75.2 %) 78.9 H Lymphocytes % (20.5 - 51.1 %) 12.0 L Monocytes % (1.7 - 9.3 %) 7.4 Eosinophils % (0 - 5 %) 1.3 Basophils % (0.0 - 2.0 %) 0.4 Absolute Granulocytes (1.4 - 6.5 /CUMM) 5.5 Absolute Lymphocytes (1.2 - 3.4 /CUMM) 0.8 L Absolute Monocytes (0.10 - 0.60 /CUMM) 0.5 Absolute Eosinophils (0.0 - 0.7 /CUMM) 0.1 Absolute Basophils (0.0 - 0.2 /CUMM) 0 Platelet Estimate (ADEQUATE) VERIFIED BY SMEAR Poikilocytosis 1+ Anisocytosis 1+ Ovalocytes 1+ Ralph Cells 1+ PUBS MCHC (33.0 - 37.0 G/DL) 33.0 07/31 07/31 07/31 1555 1555 1514 Chemistry Sodium (137 - 145 mmol/L) 141 Potassium (3.5 - 5.1 mmol/L) 4.6 Chloride (98 - 107 mmol/L) 101 Carbon Dioxide (22 - 30 mmol/L) 22 Anion Gap (5 - 16) 17 H BUN (9 - 20 mg/dL) 46 H Creatinine (0.7 - 1.2 mg/dL) 5.0 H Estimated GFR (>60 ml/min) 12 L BUN/Creatinine Ratio (7 - 25 %) 9.2 Glucose (65 - 99 mg/dL) 159 H Lactic Acid (0.7 - 2.1 mmol/L) Cancelled 0.7 Calcium (8.4 - 10.2 mg/dL) 10.4 H Total Bilirubin (0.2 - 1.3 mg/dL) 0.8 AST (17 - 59 U/L) 35 ALT (21 - 72 U/L) 30 Alkaline Phosphatase (< 127 U/L) 103 Troponin I (<0.11 ng/ml) 0.03 Total Protein (6.3 - 8.2 g/dL) 6.2 L Albumin (3.5 - 5.0 g/dL) 3.4 L Globulin (1.9 - 4.2 gm/dL) 2.8 Albumin/Globulin Ratio (1.1 - 2.2 %) 1.2 Hematology CBC w Diff MAN DIFF ORDERED WBC (4.8 - 10.8 /CUMM) 8.0 RBC (4.70 - 6.10 /CUMM) 3.47 L Hgb (14.0 - 18.0 G/DL) 10.7 L Hct (42 - 52 %) 32.6 L MCV (80.0 - 94.0 FL) 94.0 MCH (27.0 - 31.0 PG) 30.9 RDW (11.5 - 14.5 %) 16.6 H Plt Count (130 - 400 /CUMM) 269 MPV (7.4 - 10.4 FL) 7.1 L Gran % (42.2 - 75.2 %) 83.7 H Lymphocytes % (20.5 - 51.1 %) 6.8 L Monocytes % (1.7 - 9.3 %) 8.6 Eosinophils % (0 - 5 %) 0.5 Basophils % (0.0 - 2.0 %) 0.4 Absolute Granulocytes (1.4 - 6.5 /CUMM) 6.7 H Absolute Lymphocytes (1.2 - 3.4 /CUMM) 0.5 L Absolute Monocytes (0.10 - 0.60 /CUMM) 0.7 H Absolute Eosinophils (0.0 - 0.7 /CUMM) 0 Absolute Basophils (0.0 - 0.2 /CUMM) 0 Platelet Estimate (ADEQUATE) VERIFIED BY SMEAR Poikilocytosis 1+ Anisocytosis 1+ Ovalocytes 1+ PUBS MCHC (33.0 - 37.0 G/DL) 32.9 L
[2017-08-03 06:43] VITALS: BP 124/74
--- NOTE | 2017-08-03 07:22 | PN- Housestaff ---
Sergio MUSE,[facility] 08/03/17 0722: Subjective Follow-up For: L pleural effusion Subjective: No acute events overnight. Complaining of R shoulder and hip pain. States he felt drowsy this AM after the pain medication. Demanding to have thoracoentesis done today. Review of Systems Constitutional: Reports: see HPI, malaise, weakness. Cardiovascular: Reports: no symptoms. Respiratory: Reports: short of breath. Gastrointestinal: Reports: no symptoms. Genitourinary: Reports: no symptoms. Musculoskeletal: Reports: see HPI, joint pain. Objective Last 24 Hrs of Vital Signs/I&O Vital Signs Date Time Temp Pulse Resp B/P B/P Pulse O2 O2 Flow FiO2 Mean Ox Delivery Rate 08/03 1820 72 132/76 08/03 1600 Nasal 2.0L Cannula 08/03 1515 97.9 68 16 120/90 97 Room Air 08/03 1027 76 124/74 08/03 1026 76 124/74 08/03 1026 76 124/74 08/03 0800 94 Nasal 2.0L Cannula 08/03 0643 97.4 76 20 124/74 96 Nasal 2.0L Cannula 08/03 0000 Nasal 2.0L Cannula 08/02 2213 98.9 84 20 130/70 94 08/02 1915 70 124/64 08/02 1915 70 142/64 Intake & Output 08/03 1600 08/03 0800 08/03 0000 Intake Total 900 120 Output Total 50 100 Balance 850 20 Intake, Oral 900 120 Output, Urine 50 100 Patient 142 lb Weight Physical Exam General Appearance: Alert, Oriented X3, Cooperative, Moderate Distress Cardiovascular: slight tachycardia Lungs: decreased air movement but moving more air than yesterday. continues to have minimal air movement in LM and LL bases Abdomen: Normal Bowel Sounds, Soft, No Tenderness Extremities: swollen R arm compared to left Vascular: 2+ radial pulses Current Medications: Current Medications Sig/Jed Start time Last Medication Dose Route Stop Time Status Admin Amlodipine Besylate 10 MG DAILY 08/01 1000 AC 08/03 PO 1026 Aspirin Buffered 81 MG DAILY 08/01 1000 AC 08/03 PO 1340 Cholecalciferol 1,000 IU DAILY 08/01 1000 AC 08/03 PO 1026 Dextrose/Sodium 1,000 ML Q13H 08/04 0000 AC Chloride IV Epoetin Slava 3,000 UNIT DAILY PRN 08/01 0745 AC IV Furosemide 80 MG TUES THURS SAT 08/01 1000 AC 08/03 PO 1027 Hydralazine HCl 100 MG TID 08/01 1000 AC 08/03 PO 1820 Insulin Aspart 0 TIDAC 08/01 0800 AC 08/03 SC 1815 Insulin Human Regular 0 Q6 08/04 0000 CAN SC Labetalol HCl 200 MG BID 08/01 1000 AC 08/03 PO 1027 Multivitamins 1 TAB DAILY 08/02 1815 AC 08/03 PO 1027 Oxycodone HCl 5 MG Q6 PRN 08/02 0130 AC 08/03 PO 1340 Phytonadione 5 MG ONCE ONE 08/03 1500 DC PO 08/03 1501 Pravastatin Sodium 20 MG 1700 08/01 1700 AC 08/03 PO 1815 Prochlorperazine 10 MG .STK-MED ONE 08/03 0644 DC IM 08/03 0645 Prochlorperazine 10 MG Q6 PRN 08/01 1300 AC 08/03 PO 1727 Sevelamer Carbonate 1,600 MG TID 08/01 1000 AC PO Last 24 Hrs of Lab/Haroon Results Last 24 Hrs of Labs/Mics: Laboratory Tests 08/03/17 0817: Anion Gap 14, Estimated GFR 26 L, BUN/Creatinine Ratio 6.4 L, PT 20.9 H, INR 2.00 H Assessment/Plan Assessment: 66-year-old male with past medical history of cardiomyopathy, CHF EF 55%, hypertension, hyperlipidemia, CAD status post cardiac stent, CKD stage V on hemodialysis Monday, diabetes,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 #Generalized weakness most likely due SOB due to Large L pleural effusion due to lung cancer WBC 8.0 -> 5.6 Received 1 dose of ceftriaxone and azithromycin in the ED Flu negative Chest ct: 1. Numerous pulmonary parenchymal mass lesions as described with mediastinal and right hilar lymphadenopathy. Likely left hilar lymphadenopathy is well however the left hilar region is difficult to evaluate due to a large left-sided pleural effusion. There is mass effect on the right upper lobe bronchus from the right hilar lymphadenopathy. 2. Large left-sided pleural effusion and smaller right-sided pleural effusion. 3. Hypoattenuating mass in the lateral margin of the right lobe of the liver is suspicious, however is incompletely included in the study. -holding coumadin with goal of <2. plan for IR US guided thoracentis tomorrow after dialysis. -Follow-up urinary legionella, strep pneumo, and pancultures. 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 Pleural effusion 2. Generalized weakness 3. Thrombus 4. Chronic renal failure Pain Ratin Pain Location: R arm and hip Pain Goal: Pain 4 or less Pain Plan: pain pathway Tomorrow's Labs & Rationales: cbc bep Quincy Madrigal 08/03/17 1234: Attending MD Review Statement Attending Statement Attending MD Statement: examined this patient, discuss w/resident/PA/HISTOLOGIC AIDE, agreed w/resident/PA/HISTOLOGIC AIDE, discussed with family, reviewed EMR data (avail), discussed with nursing, discussed with case mgmt, reviewed images, amended to note Attending Assessment/Plan: #Large pleural effusion: Plan for thoracocentesis, INR supratherpeutic. f/u INR, Consulted IR for possible thoracentesis #Fever (low grade)/Doubtful Pneumonia- CXR read as multifocal air space disease "suspicious" for pneumonia. Patient is immunocompromized. rapid flu negative, afebrile. Plan: Dobbs culture-f/u negative so far. DisContinued Ceftriaxone/Zithromax for CAP. #Non-Small Cell Lung Cancer- is s/p prior treatment with plan originally to consider alternative treatment at appointment later this week. Plan: notified Dr. Saucedo that patient is admitted. Now presents with large pleural effusion left sided. #Chronic Renal Failure-on dialysis, f/u nephrology. Plan for dialysis as per nephro. #DM2- on insulin. Plan: Will follow glucoscans and continue insulin. #CAD/HTN/HL- on multiple meds. Plan: Continue Amlodipine, Hydralazine, Isosorbide, Pravastatin, Labetalol, etc. #S/P DVT- on Coumadin. non compliant. Plan: Follow INR on coumadin. INR 2-3.
[2017-08-03 08:52] LABS: PT 20.9 SEC (9.4-12.5)
[2017-08-03 15:15] VITALS: BP 120/90
--- NOTE | 2017-08-03 16:32 | PN- Nephrology ---
Assessment/Plan Assessment: 1. ESRD 2. Pneumonia with left pleural effusion 3. Multiple comorbidities as detailed elsewhere including metastatic lung cancer and cardiomyopathy Suggestion: 1. Hemodialysis tommorrw a.m. 2. Thoracentesis tomorrow afternoon 3. Continue antibiotic therapy Subjective Subjective: No new issues or complaints. Remains fatigued and somewhat anxious about both dialysis and thoracentesis sessions scheduled for tomorrow. He remains afebrile with normal WBC and negative cultures thus far. Objective Vital Signs and I&Os Vital Signs Date Time Temp Pulse Resp B/P B/P Pulse O2 O2 Flow FiO2 Mean Ox Delivery Rate 08/03 1515 97.9 68 16 120/90 97 Room Air 08/03 1027 76 124/74 08/03 1026 76 124/74 08/03 1026 76 124/74 08/03 0800 94 Nasal 2.0L Cannula 08/03 0643 97.4 76 20 124/74 96 Nasal 2.0L Cannula 08/03 0000 Nasal 2.0L Cannula 08/02 2213 98.9 84 20 130/70 94 08/02 1915 70 124/64 08/02 1915 70 142/64 Intake & Output 08/03 1600 08/03 0400 08/02 1600 08/02 0400 08/01 1600 08/01 0400 Intake Total 1020 450 350 520 120 Output Total 150 200 100 Balance 870 250 350 420 120 Intake, IV 0 Intake, Oral 1020 450 350 520 120 Number 1 Bowel Movements Output, Urine 150 200 100 Patient 142 lb 142 lb 127 lb 142 lb Weight Weight Bed scale Reported by Patient Measurement Method Physical Exam: General: Chronically ill-appearing black male in no acute distress Skin: No rash or lesions HEENT: Conjunctivae pale, sclerae anicteric, mucous membranes dry Neck: Without masses or thyromegaly, no supraclavicular or cervical adenopathy Chest: Clear on right, markedly diminished breath sounds and dullness to percussion on the left; right IJ dialysis catheter in place Heart: Regular rate and rhythm without S3 or rub Abdomen: Soft and nontender without palpable masses or organomegaly Extremities: Without cyanosis; there is bilateral lower extremity edema slightly worse on the right. Neuro: Lethargic but easily arousable, no focal findings, no asterixis or myoclonus Results Pertinent Lab Results: Laboratory Tests 08/03 08/02 08/02 0817 1609 1236 Chemistry Sodium (137 - 145 mmol/L) 141 141 142 Potassium (3.5 - 5.1 mmol/L) 3.6 3.4 L 3.6 Chloride (98 - 107 mmol/L) 100 100 100 Carbon Dioxide (22 - 30 mmol/L) 27 28 28 Anion Gap (5 - 16) 14 13 15 BUN (9 - 20 mg/dL) 16 9 30 H Creatinine (0.7 - 1.2 mg/dL) 2.5 H 1.3 H 3.8 H Estimated GFR (>60 ml/min) 26 L 55 L 16 L BUN/Creatinine Ratio (7 - 25 %) 6.4 L 6.9 L 7.9 Calcium (8.4 - 10.2 mg/dL) 7.7 L 9.0 Phosphorus (2.5 - 4.5 mg/dL) 4.9 H Albumin (3.5 - 5.0 g/dL) 3.1 L Coagulation PT (9.4 - 12.5 SEC) 20.9 H 25.6 H INR (0.90 - 1.17) 2.00 H 2.46 H Hematology CBC w Diff NO MAN DIFF REQ WBC (4.8 - 10.8 /CUMM) 5.6 RBC (4.70 - 6.10 /CUMM) 3.26 L Hgb (14.0 - 18.0 G/DL) 10.0 L Hct (42 - 52 %) 30.1 L MCV (80.0 - 94.0 FL) 92.4 MCH (27.0 - 31.0 PG) 30.6 MCHC (33.0 - 37.0 G/DL) 33.1 RDW (11.5 - 14.5 %) 15.6 H Plt Count (130 - 400 /CUMM) 250 MPV (7.4 - 10.4 FL) 7.1 L Gran % (42.2 - 75.2 %) 78.4 H Lymphocytes % (20.5 - 51.1 %) 8.2 L Monocytes % (1.7 - 9.3 %) 11.8 H Eosinophils % (0 - 5 %) 1.6 Basophils % (0.0 - 2.0 %) 0 Absolute Granulocytes (1.4 - 6.5 /CUMM) 4.4 Absolute Lymphocytes (1.2 - 3.4 /CUMM) 0.5 L Absolute Monocytes (0.10 - 0.60 /CUMM) 0.7 H Absolute Eosinophils (0.0 - 0.7 /CUMM) 0.1 Absolute Basophils (0.0 - 0.2 /CUMM) 0 08/01 08/01 08/01 1120 1018 0750 Chemistry Sodium (137 - 145 mmol/L) 141 Potassium (3.5 - 5.1 mmol/L) 4.7 Chloride (98 - 107 mmol/L) 101 Carbon Dioxide (22 - 30 mmol/L) 24 Anion Gap (5 - 16) 17 H BUN (9 - 20 mg/dL) 52 H Creatinine (0.7 - 1.2 mg/dL) 5.5 *H Estimated GFR (>60 ml/min) 10 L BUN/Creatinine Ratio (7 - 25 %) 9.5 Coagulation PT (9.4 - 12.5 SEC) 27.9 H Cancelled INR (0.90 - 1.17) 2.68 H Cancelled Hematology CBC w Diff MAN DIFF ORDERED WBC (4.8 - 10.8 /CUMM) 7.0 RBC (4.70 - 6.10 /CUMM) 3.32 L Hgb (14.0 - 18.0 G/DL) 10.2 L Hct (42 - 52 %) 30.9 L MCV (80.0 - 94.0 FL) 93.2 MCH (27.0 - 31.0 PG) 30.8 RDW (11.5 - 14.5 %) 16.2 H Plt Count (130 - 400 /CUMM) 267 MPV (7.4 - 10.4 FL) 7.4 Gran % (42.2 - 75.2 %) 78.9 H Lymphocytes % (20.5 - 51.1 %) 12.0 L Monocytes % (1.7 - 9.3 %) 7.4 Eosinophils % (0 - 5 %) 1.3 Basophils % (0.0 - 2.0 %) 0.4 Absolute Granulocytes (1.4 - 6.5 /CUMM) 5.5 Absolute Lymphocytes (1.2 - 3.4 /CUMM) 0.8 L Absolute Monocytes (0.10 - 0.60 /CUMM) 0.5 Absolute Eosinophils (0.0 - 0.7 /CUMM) 0.1 Absolute Basophils (0.0 - 0.2 /CUMM) 0 Platelet Estimate (ADEQUATE) VERIFIED BY SMEAR Poikilocytosis 1+ Anisocytosis 1+ Ovalocytes 1+ Ralph Cells 1+ PUBS MCHC (33.0 - 37.0 G/DL) 33.0 08/01 0052 Coagulation PT (9.4 - 12.5 SEC) 31.6 H INR (0.90 - 1.17) 3.04 H
[2017-08-03 22:41] VITALS: BP 150/72
[2017-08-04 06:32] VITALS: BP 122/66
--- NOTE | 2017-08-04 07:51 | Discharge Summary ---
Visit Information Visit Dates Admission Date: 07/31/17 Discharge Date: 08/05/17 Hospital Course Course Attending Physician: Quincy Madrigal MD Primary Care Physician: Corby Jackson MD Consulting Request: 1 Consulting Specialty: Nephrology Consulting Physician: Reason for Consult: ESRD on dialysis Consulting Request: 2 Consulting Specialty: Hematology/Oncology Consulting Physician: Reason for Consult: stage IV lung cancer Hospital Course: The patient is a 66 yo male with ho HTN, DM2, ESRD on dialysis (qMWF- secondary to diabetic nephropathy), h/o CHF (reduced EF), CAD (s/p bare metal stents LAC/ CX and life vest), h/o 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 He has had improvement in RUE swelling. He is followed by Dr. Saucedo in oncology. Physical Exam: VS: T 97.6, P 84, R 18, BP 144/70, PO 100% on 2L nasal, HEENT: eyes- PERRLA, EOMI herman- dry mucosa, Neck: no JVD/bruits, Chest: diminished breath sounds, otherwise clear, Heart: RRR nl S1, S2 w/o murm, Abd; BS+, soft, mild tenderness w/o guarding/rebound, Ext: normal capillary refill; RUE w/mild swelling (less than prior per family), + generalized mild tenderness extremities Neuro: sleepy, non-focal exam Labs at presentation are white count of 8, H&H 10/32, BUN/Cr - 52/5.5, INR 3.04. Imaging Chest x-ray did show persistent diffuse multifocal airspace disease with bilateral nodules Chest CT is significant for large left-sided pleural effusion with numerous bedtime lacerations and a very small right-sided pleural effusion. Hypokinetic [place] the lateral margin of right lobe of the liver. Admitted to general medicine floor Impression/Plan: New onset Large Left sided pleural effusion Initially presented with dyspnea, fever, chills. Initial chest x-ray is inconclusive for pneumonia, however given immunosuppressive state considering his dyspnea is started on IV ceftriaxone and azithromycin as an empiric antibiotic therapy for presumed pneumonia. Subsequently chest CT did show a large pleural effusion without any evidence of pneumonia but multiple pulmonary nodules. Discontinued antibiotics. Underwent ultrasound-guided thoracentesis on 08/04/2017 after his INR dropped down to less than 2. Around 1100 mL non-clotted blood tinged fluid is drained. Post procedure chest x-ray ruled out any pneumothorax. Patient had a history of stage IV lung cancer with previous history of right-sided pleural effusion underwent removal. However this is the first time he had left-sided pleural effusion. Pleural fluid work up is consistency with malignancy related effusion. follow up cultures. Diffuse Pain etiology is unclear. Could be related to viral syndrome. No h/o bone metastases on prior evaluations. Non-Small Cell Lung Cancer s/p irradiation of brain He follows and he was consulted. He failed carboplatin with etoposide and planned to start Carboplatin/irnotecan as outpatient. Chronic Renal Failure on dialysis M/W/F He missed a day of dialysis [employer]. He underwent dialysis consequetively on monday and monday. He follows Dr. Santillan. Continue his regular schedule of dialysis. Continue sublaminar 1600 mg 3 times a day, Epol. Continue furosemide 80 mg on nondialysis days. (Monday and ) DM2- on insulin. Plan: Will follow glucose levels and continue insulin. CAD/HTN/HL- on multiple meds. Plan: Continue Amlodipine, Hydralazine 100 mg 3 times a day, Isosorbide, Pravastatin, Labetalol 200 mg twice a day, multivitamin, pravastatin 20 mg daily aspirin 81 mg. He is on Edrabi as outpatient - continue at discharge. Right IJ thrombus Recently diagnosed with right IJ thrombus and started on warfarin 5mg as outpatient. Even tough he holded for few days he is supratherapeutic at admission. We holded his warfarin for thoracentesis and gave a dose of vitamin K. After undergoing the procedure restarted on warfarin. Dose of warfarin need to be adjusted to maintain therapeutic INR 2-3. CODE STATUS Full code Complications: NONE Allergies: Coded Allergies: NO KNOWN ALLERGIES (NONE 07/14/17) Significant Procedures: Chest x-ray on 08/01/2017 IMPRESSION: Stable cardiomegaly. Large left pleural effusion. Multifocal airspace disease, nonspecific, but suspicious for pneumonia. Recommendation is for a followup chest series to be obtained following treatment and/or resolution of symptoms to assure resolution of this appearance. Chest CT on 08/01/2017 IMPRESSION: 1. Numerous pulmonary parenchymal mass lesions as described with mediastinal and right hilar lymphadenopathy. Likely left hilar lymphadenopathy is well however the left hilar region is difficult to evaluate due to a large left-sided pleural effusion. There is mass effect on the right upper lobe bronchus from the right hilar lymphadenopathy. 2. Large left-sided pleural effusion and smaller right-sided pleural effusion. 3. Hypoattenuating mass in the lateral margin of the right lobe of the liver is suspicious, however is incompletely included in the study. Ultrasound-guided thoracocentesis on 08/04/2017 An area of the patient's left back was prepped and draped in the standard sterile fashion. 10 mL of 1% lidocaine was used to obtain local anesthesia of the skin and deeper tissues. A standard small bore needle was introduced to sample fluid and demonstrated a safe access route. There was no evidence of traversing adjacent organs or vascular structures. A 6 Albanian [id number] closed needle/catheter system was utilized for access. 1100 mL of nonclotting blood-tinged fluid was aspirated before drainage ceased. The catheter was removed and a sterile dressing applied. IMPRESSION: Successful left ultrasound-guided therapeutic and diagnostic thoracentesis as described. Postoperative chest x-ray on 08/04/2017 IMPRESSION: No pneumothorax status post thoracentesis. Likely trace left pleural effusion. Persistent diffuse multifocal airspace disease and bilateral nodules and nodular densities. 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 Discharge Disposition: SNF Discharge Instructions General Discharge Information Code Status: Full Code Patient's Diet: renal dialysis diet Patient's Activity: as tolerated Follow-Up Instructions/Appts: Please follow-up with your primary care physician in a week His follow-up with nephrology in a week Please follow-up INR and adjust the dose of warfarin accordingly Please follow-up repeat chest x-ray if persistently dyspneic but increased oxygen requirement for concerns of reaccumulated effusion Medications at Discharge Discharge Medications: Continue taking these medications: Hydralazine HCl (Hydralazine HCl) 100 MG TABLET 1 Tablet ORAL THREE TIMES DAILY Qty = 90 Comments: Last Taken: 08/05/17 Time: 1035 Pravastatin Sodium (Pravastatin Sodium) 20 MG TABLET 1 Tablet ORAL DAILY Comments: Last Taken: 08/04/17 Time: 5 PM Aspirin (Ecotrin*) 81 MG TABLET.DR 1 Tablet ORAL DAILY Comments: Last Taken: 08/05/17 Time: 1100 Insulin NPL/Insulin Lispro (Humalog Mix 75-25 Vial) 100 UNIT/1 ML VIAL 9 Units Inject into fatty tissue Every Morning Instructions: DID NOT TAKE IN HOSPITAL Amlodipine Besylate (Amlodipine Besylate) 10 MG TABLET 1 Tablet ORAL DAILY Qty = 90 Comments: Last Taken: 08/05/17 Time: 1100 AM Azilsartan Medoxomil (Edarbi) 40 MG TABLET 1 Tablet ORAL DAILY Comments: NOT TAKEN IN HOSPITAL Calcium Carbonate (Calcium) 500 MG CALCIUM (1,250 MG) TABLET 1 Tablet ORAL DAILY Comments: NOT TAKEN IN HOSPITAL Cholecalciferol (Vitamin D3) (Vitamin D) 1,000 UNIT TABLET 1 Tablet ORAL DAILY Comments: Last Taken: 08/03/17 Time: 1000 Epoetin Slava (Procrit) 20,000 UNIT/ML VIAL 8,000 Units Right Ear MONDAY, MONDAY AND MONDAY Comments: RECEIVES WITH DIALYSIS Last Taken: 08/05/17 Time: 1200 Insulin NPL/Insulin Lispro (Humalog Mix 75-25 Vial) 100 UNIT/ML (75-25) VIAL 6 Units Inject into fatty tissue TAKE AT BEDTIME Comments: DID NOT RECEIVE IN HOSPITAL Isosorbide Mononitrate (Isosorbide Mononitrate ER) 60 MG TAB.ER.24H 1 Tablet ORAL DAILY Qty = 90 Comments: NOT TAKEN Sevelamer Carbonate (Renvela) 800 MG TABLET 2 Tablet ORAL THREE TIMES DAILY Comments: DID NOT TAKE IN HOSPITAL Insulin NPL/Insulin Lispro (Humalog Mix 75-25 Vial) 100 UNIT/ML (75-25) VIAL 6 Units Inject into fatty tissue 5 PM Comments: DID NOT RECEIVE IN HOSPITAL Labetalol HCl (Labetalol HCl) 100 MG TABLET 2 Tablet ORAL TWICE DAILY Comments: Last Taken: 08/04/17 1310 AM Multiple Vitamin (Multivitamins) 1 EACH TABLET 1 Tablet ORAL DAILY Comments: Last Taken:08/04/17 Time:1300 Prochlorperazine Maleate (Prochlorperazine Maleate) 10 MG TABLET 1 Tablet ORAL EVERY SIX HOURS as needed for NAUSEA Comments: Last Taken:08/04/17 Time:0800 Furosemide (Furosemide) 40 MG TABLET 2 Tablet ORAL NONDIALYSIS DAYS Qty = 60 Instructions: take (2) 40mg pills (80mg total) in the morning on non-dialysis days - navid cooney sat, sun Comments: Last Taken:08/05/17 Time: 1100 Warfarin Sodium (Coumadin) 5 MG TABLET 1 Tablet ORAL DAILY Qty = 30 Comments: Last Taken: 08/04/17 Time: 5PM Oxycodone HCl (Oxycodone HCl) 10 MG TABLET 1 Tablet ORAL Every 4 hours as needed for pain Qty = 10 Comments: Last Taken: 08/04/17 Time: 1640 Copies To: Manuel MUSE,Corby Pack; Sheryl MUSE,[facility] HospitalLiam Santillan MD,Kody Vigil Attending MD Review Statement Documenting Attending: Quincy Madrigal MD
--- NOTE | 2017-08-04 08:10 | PN- Housestaff ---
Sergio MUSE,[facility] 08/04/17 0810: Subjective Follow-up For: pleural effusion Subjective: No acute events. Still complaining of fatigue and pain. Got dialysis this afternoon. Geting thoracocentesis this afternoon. States SOB ok after thoracocentesis. Review of Systems Constitutional: Reports: see HPI, malaise, weakness. Cardiovascular: Reports: no symptoms. Respiratory: Reports: short of breath. Gastrointestinal: Reports: no symptoms. Genitourinary: Reports: no symptoms. Musculoskeletal: Reports: see HPI (R hip/shoulder pain). Objective Last 24 Hrs of Vital Signs/I&O Vital Signs Date Time Temp Pulse Resp B/P B/P Pulse O2 O2 Flow FiO2 Mean Ox Delivery Rate 08/04 1311 79 130/70 08/04 1310 79 130/70 08/04 1147 97.6 79 20 130/70 97 Nasal 2.0L Cannula 08/04 0632 98.0 72 20 122/66 97 Nasal 2.0L Cannula 08/04 0000 97 Nasal 2.0L Cannula 08/03 2250 74 150/72 08/03 2241 97.8 74 20 150/72 98 Nasal 2.0L Cannula 08/03 2047 72 132/76 08/03 1820 72 132/76 08/03 1600 Nasal 2.0L Cannula 08/03 1515 97.9 68 16 120/90 97 Room Air Intake & Output 08/04 1600 08/04 0800 08/04 0000 Intake Total 360 Output Total 50 50 Balance -50 310 Intake, Oral 360 Output, Urine 50 50 Patient 130 lb 134 lb Weight Physical Exam General Appearance: Alert, Oriented X3, Cooperative, No Acute Distress Cardiovascular: slight tachycardia Lungs: decreased air movement but very slightly improved compared to yesterday. improved air movement of LLL after thoracoentesis though still very limited. Abdomen: Normal Bowel Sounds, Soft, No Tenderness Vascular: 2+ radial pulses Current Medications: Current Medications Sig/Jed Start time Last Medication Dose Route Stop Time Status Admin Amlodipine Besylate 10 MG DAILY 08/01 1000 AC 08/04 PO 1311 Aspirin Buffered 81 MG DAILY 08/01 1000 AC 08/04 PO 1310 Cholecalciferol 1,000 IU DAILY 08/01 1000 AC 08/04 PO 1311 Dextrose/Sodium 1,000 ML Q13H 08/04 0000 CAN Chloride IV Epoetin Slava 3,000 UNIT DAILY PRN 08/01 0745 AC IV Furosemide 80 MG TUES THURS SAT 08/01 1000 AC 08/03 PO 1027 Hydralazine HCl 100 MG TID 08/01 1000 AC 08/03 PO 2047 Insulin Aspart 0 TIDAC 08/01 0800 AC 08/03 SC 1815 Insulin Human Regular 0 Q6 08/04 0000 CAN SC Labetalol HCl 200 MG BID 08/01 1000 AC 08/04 PO 1310 Multivitamins 1 TAB DAILY 08/02 1815 AC 08/04 PO 1310 Oxycodone HCl 5 MG Q6 PRN 08/02 0130 AC 08/04 PO 0409 Phytonadione 5 MG ONCE ONE 08/03 1500 DC 08/03 PO 08/03 1501 2045 Pravastatin Sodium 20 MG 1700 08/01 1700 AC 08/03 PO 1815 Prochlorperazine 10 MG Q6 PRN 08/01 1300 AC 08/04 PO 1244 Sevelamer Carbonate 1,600 MG TID 08/01 1000 AC PO Last 24 Hrs of Lab/[place] Results Last 24 Hrs of Labs/Mics: Laboratory Tests 08/04/17 1110: 08/04/17 0735: Hep Bs Antigen Cancelled, Hep Bs Antibody Cancelled 08/04/17 0735: Anion Gap 11, Estimated GFR 16 L, BUN/Creatinine Ratio 7.0, Calcium 9.4, Phosphorus 4.3, Magnesium 2.5 H, Albumin 3.5, PT 18.0 H, INR 1.72 H, CBC w Diff NO MAN DIFF REQ, RBC 3.32 L, MCV 93.3, MCH 30.5, MCHC 32.8 L, RDW 15.6 H , MPV 7.3 L, Gran % 75.2, Lymphocytes % 11.2 L, Monocytes % 11.1 H, Eosinophils % 2.3, Basophils % 0.2, Absolute Granulocytes 3.8, Absolute Lymphocytes 0.6 L, Absolute Monocytes 0.6, Absolute Eosinophils 0.1, Absolute Basophils 0, Hep Bs Antigen NONREACTIVE, Hep Bs Antibody REACTIVE 08/04/17 0600: Sodium Cancelled, Potassium Cancelled, Chloride Cancelled, Carbon Dioxide Cancelled, Anion Gap Cancelled, BUN Cancelled, Creatinine Cancelled, BUN/ Creatinine Ratio Cancelled Microbiology 08/04 08 BODY FLUID: Body Fluid Culture - COLB 01/26 0800 BODY FLUID: Gram Stain - COLB Assessment/Plan Assessment: 66-year-old male with past medical history of cardiomyopathy, CHF EF 55%, hypertension, hyperlipidemia, CAD status post cardiac stent, CKD stage V on hemodialysis Monday, diabetes,right lung carcinoma with brain and liver metastases status post radiation, end-stage renal disease on hemodialysis every Monday,Monday,and Monday, recently discharged from [place] in Jul after 11 day stay which he was diagnosed with right IJ thrombus reasons for worsening weakness found to have pneumonia. #Generalized weakness most likely due SOB due to Large L pleural effusion due to lung cancer Continues to be aferile without leukocytosis Received 1 dose of ceftriaxone and azithromycin in the ED Flu negative Chest ct: 1. Numerous pulmonary parenchymal mass lesions as described with mediastinal and right hilar lymphadenopathy. Likely left hilar lymphadenopathy is well however the left hilar region is difficult to evaluate due to a large left-sided pleural effusion. There is mass effect on the right upper lobe bronchus from the right hilar lymphadenopathy. 2. Large left-sided pleural effusion and smaller right-sided pleural effusion. 3. Hypoattenuating mass in the lateral margin of the right lobe of the liver is suspicious, however is incompletely included in the study. Thoracocentesis labs:wbc 1430, mesothelial 45, rbc [id number], glucose 153, total protein 3.5, LDH 391, ph 7.42 -pleural effusion more liekly due to cancer rather than an infectious process -Follow-up urinary legionella, strep pneumo, and pancultures. -continue off abx as his SOB is most likely due to pleural effusion -plan for discharge to [facility] tomorrow #Recent right IJ thrombus Inr 1.72 today -restarting warfarin after thoracoentesis -monitor INR #hx of right lung carcinoma with brain and liver metastases status post radiation -follow oncology recommendations #Chronic renal failure Patient is on dialysis Creatinine 3.7 -Continue dialysis as scheduled on // -Continue sevelamer -follow nephro recommendations #History of hyperlipidemia, hypertension, diabetes Continue pravastatin, labetalol, hydralazine, amlodipine, Lasix, aspirin, novolog sliding scale, levemir -Holding insulin for blood sugars less than 200 #Vitamin supplementation #DVT prophylaxis #FULL CODE Problem List: 1. Generalized weakness 2. Pleural effusion 3. Thrombus 4. Chronic renal failure 5. Large cell neuroendocrine carcinoma Pain Ratin Pain Location: R shoulder and hip Pain Goal: Pain 4 or less Pain Plan: pain pathway Tomorrow's Labs & Rationales: cbc bep inr Quincy Madrigal 08/04/17 1248: Attending MD Review Statement Attending Statement Attending MD Statement: examined this patient, discuss w/resident/PA/SURGERY MANAGER, agreed w/resident/PA/SURGERY MANAGER, discussed with family, reviewed EMR data (avail), discussed with nursing, discussed with case mgmt, reviewed images, amended to note Attending Assessment/Plan: #Large pleural effusion: Plan for thoracocentesis, INR 1.7 received vit K 1 dose PO, f/u IR for possible thoracentesis #Fever (low grade)/Doubtful Pneumonia- CXR read as multifocal air space disease "suspicious" for pneumonia. Patient is immunocompromized. rapid flu negative, afebrile. Plan: Dobbs culture-f/u negative so far. DisContinued antibiotic #Non-Small Cell Lung Cancer- is s/p prior treatment with plan originally to consider alternative treatment at appointment later this week. Plan: Notified Dr. Saucedo that patient is admitted. Now presents with large pleural effusion left sided. Plan pt had failure o/p chemotherapy. F/u o/p Oncology for further management. #Chronic Renal Failure-on dialysis, f/u nephrology. Plan for dialysis as per nephro. #DM2- on insulin. Plan: Will follow glucoscans and continue insulin. #CAD/HTN/HL- on multiple meds. Plan: Continue Amlodipine, Hydralazine, Isosorbide, Pravastatin, Labetalol, etc. #S/P DVT- on Coumadin. non compliant. Plan: Follow INR on coumadin. INR 2-3.
[2017-08-04 08:48] LABS: ABSOLUTE BASOPHIL COUNT 0 /CUMM (0.0-0.2); ABSOLUTE EOSINOPHIL COUNT 0.1 /CUMM (0.0-0.7); ABSOLUTE GRANULOCYTE CT 3.8 /CUMM (1.4-6.5); ABSOLUTE LYMPH COUNT 0.6 /CUMM (1.2-3.4); ABSOLUTE MONOCYTE COUNT 0.6 /CUMM (0.10-0.60); BASOPHIL % 0.2 % (0.0-2.0); EOSINOPHIL % 2.3 % (0-5); GRANULOCYTE % 75.2 % (42.2-75.2); MEAN CORPUSCULAR HGB 30.5 PG (27.0-31.0); MEAN CORPUSCULAR HGB CONC 32.8 G/DL (33.0-37.0); MEAN CORPUSCULAR VOLUME 93.3 FL (80.0-94.0); MEAN PLATELET VOLUME 7.3 FL (7.4-10.4); PLATELET COUNT 226 /CUMM (130-400); RBC DISTRIBUTION WIDTH 15.6 % (11.5-14.5); RED BLOOD CELL CT 3.32 /CUMM (4.70-6.10); WHITE BLOOD CELL COUNT 5.1 /CUMM (4.8-10.8)
--- NOTE | 2017-08-04 08:52 | PN- Oncology ---
Subjective Subjective: He had 1 episode of nausea and vomiting this morning. He feels generally better. He has more energy. He is able to ambulate more. Review of Systems Constitutional: Reports: weakness. Denies: chills, fever. Cardiovascular: Denies: chest pain. Respiratory: Reports: short of breath. Gastrointestinal: Reports: nausea, vomiting. Denies: diarrhea. Musculoskeletal: Reports: back pain. Neurological/Psychological: Denies: anxiety. All Other Systems: Reviewed and Negative Objective Vital Signs and I&Os Vital Signs Date Time Temp Pulse Resp B/P B/P Pulse O2 O2 Flow FiO2 Mean Ox Delivery Rate 08/04 0632 98.0 72 20 122/66 97 Nasal 2.0L Cannula 08/04 0000 97 Nasal 2.0L Cannula 08/03 2250 74 150/72 08/03 2241 97.8 74 20 150/72 98 Nasal 2.0L Cannula 08/03 2047 72 132/76 08/03 1820 72 132/76 08/03 1600 Nasal 2.0L Cannula 08/03 1515 97.9 68 16 120/90 97 Room Air 08/03 1027 76 124/74 08/03 1026 76 124/74 08/03 1026 76 124/74 Intake & Output 08/04 1600 08/04 0800 08/04 0000 08/03 1600 08/03 0800 08/03 0000 Intake Total 360 900 120 Output Total 50 50 50 100 Balance -50 310 850 20 Intake, Oral 360 900 120 Output, Urine 50 50 50 100 Patient 60.781 kg 64.41 kg Weight Physical Exam: General Appearance: no apparent distress, alert, awake, comfortable Ears, Nose, Throat: normal pharynx Respiratory: normal breath sounds, quiet respiration, decreased breath sounds, crackles Cardiovascular: regular rate/rhythm Gastrointestinal: normal bowel sounds, soft, non-tender, no organomegaly Back: ecchymosis, no vertebral tenderness Extremities: right upper extremity with 3+ edema, left upper extremity with av fistula in place Neurologic/Psych: awake, alert, oriented x 3 Current Medications: Current Medications Sig/Jed Start time Last Medication Dose Route Stop Time Status Admin Amlodipine Besylate 10 MG DAILY 08/01 1000 AC 08/03 PO 1026 Aspirin Buffered 81 MG DAILY 08/01 1000 AC 08/03 PO 1340 Cholecalciferol 1,000 IU DAILY 08/01 1000 AC 08/03 PO 1026 Dextrose/Sodium 1,000 ML Q13H 08/04 0000 CAN Chloride IV Epoetin Slava 3,000 UNIT DAILY PRN 08/01 0745 AC IV Furosemide 80 MG TUES THURS SAT 08/01 1000 AC 08/03 PO 1027 Hydralazine HCl 100 MG TID 08/01 1000 AC 08/03 PO 2047 Insulin Aspart 0 TIDAC 08/01 0800 AC 08/03 SC 1815 Insulin Human Regular 0 Q6 08/04 0000 CAN SC Labetalol HCl 200 MG BID 08/01 1000 AC 08/03 PO 2250 Multivitamins 1 TAB DAILY 08/02 1815 AC 08/03 PO 1027 Oxycodone HCl 5 MG Q6 PRN 08/02 0130 AC 08/04 PO 0409 Phytonadione 5 MG ONCE ONE 08/03 1500 DC 08/03 PO 08/03 1501 2045 Pravastatin Sodium 20 MG 1700 08/01 1700 AC 08/03 PO 1815 Prochlorperazine 10 MG Q6 PRN 08/01 1300 AC 08/04 PO 0713 Sevelamer Carbonate 1,600 MG TID 08/01 1000 AC PO Results Last 24 Hours of Lab Results: Laboratory Tests 08/04 0735 Coagulation PT (9.4 - 12.5 SEC) 18.0 H INR (0.90 - 1.17) 1.72 H Hematology CBC w Diff Pending WBC Pending RBC Pending Hgb Pending Hct Pending MCV Pending MCH Pending MCHC Pending RDW Pending Plt Count Pending MPV Pending Serology Hep Bs Antigen Pending Hep Bs Antibody Pending Assessment/Plan Assessment/Recommendations: Mr. 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 On admission he was noted to have chest x-ray showing large left pleural effusion with some suspicion for pneumonia. He was started empirically on ceftriaxone and azithromycin. He is currently getting dialysis Monday, Monday, and Monday. He is to undergo thoracentesis today. He did receive a dose of vitamin K yesterday. He is clinically. Physical therapy is working with him. He has no fever or chills. Clinically stable. Pneumonia: -Monitor for worsening respiratory status Pleural effusion: -thoracentesis today End-stage renal disease on dialysis: -Dialysis as per nephrology Metastatic large cell neuroendocrine tumor: -Failed carboplatin and etoposide with plan for carboplatin/irinotecan -Follow up as outpatient -Pain control as per primary -Physical therapy Please call [phone] with any questions or concerns. Problem List: 1. Pleural effusion 2. Large cell neuroendocrine carcinoma 3. DVT (deep venous thrombosis) 4. ESRD (end stage renal disease) 5. Thrombosis of intravascular line
--- NOTE | 2017-08-04 11:42 | PN- Nephrology ---
Assessment/Plan Assessment: 1. ESRD 2. Pneumonia with left pleural effusion 3. Multiple comorbidities as detailed elsewhere including metastatic lung cancer and cardiomyopathy Suggestion: 1. Hemodialysis today with goal of 2-2.5 L ultrafiltration as tolerated; estimated dry weight decreased to 58 kg 2. Thoracentesis this afternoon 3. Continue antibiotic therapy Subjective Subjective: Patient offers no new complaints or issues today. Seen with hemodialysis. He clearly has been eating poorly and therefore his solid weight has been decreasing. This is apparent from his persistent edema despite being below his previous target weight. Will lower her estimated dry weight to 58 kg. Objective Vital Signs and I&Os Vital Signs Date Time Temp Pulse Resp B/P B/P Pulse O2 O2 Flow FiO2 Mean Ox Delivery Rate 08/04 0632 98.0 72 20 122/66 97 Nasal 2.0L Cannula 08/04 0000 97 Nasal 2.0L Cannula 08/03 2250 74 150/72 08/03 2241 97.8 74 20 150/72 98 Nasal 2.0L Cannula 08/03 2047 72 132/76 08/03 1820 72 132/76 08/03 1600 Nasal 2.0L Cannula 08/03 1515 97.9 68 16 120/90 97 Room Air Intake & Output 08/04 1600 08/04 0400 08/03 1600 08/03 0400 08/02 1600 08/02 0400 Intake Total 360 1020 450 350 Output Total 50 50 150 200 Balance -50 310 870 250 350 Intake, IV 0 Intake, Oral 360 1020 450 350 Number 1 Bowel Movements Output, Urine 50 50 150 200 Patient 134 lb 142 lb 142 lb Weight Physical Exam: General: Chronically ill-appearing black male in no acute distress Skin: No rash or lesions HEENT: Conjunctivae pale, sclerae anicteric, mucous membranes dry Neck: Without masses or thyromegaly, no supraclavicular or cervical adenopathy Chest: Clear on right, markedly diminished breath sounds and dullness to percussion on the left; right IJ dialysis catheter in place Heart: Regular rate and rhythm without S3 or rub Abdomen: Soft and nontender without palpable masses or organomegaly Extremities: Without cyanosis; there is bilateral lower extremity edema slightly worse on the right. Neuro: Lethargic but easily arousable, no focal findings, no asterixis or myoclonus Results Pertinent Lab Results: Laboratory Tests 08/04 08/04 08/04 1110 0735 0764 Chemistry Sodium (137 - 145 mmol/L) 139 Potassium (3.5 - 5.1 mmol/L) 3.7 Chloride (98 - 107 mmol/L) 98 Carbon Dioxide (22 - 30 mmol/L) 30 Anion Gap (5 - 16) 11 BUN (9 - 20 mg/dL) Pending 26 H Creatinine (0.7 - 1.2 mg/dL) 3.7 H Estimated GFR (>60 ml/min) 16 L BUN/Creatinine Ratio (7 - 25 %) 7.0 Calcium (8.4 - 10.2 mg/dL) 9.4 Phosphorus (2.5 - 4.5 mg/dL) 4.3 Magnesium (1.6 - 2.3 mg/dL) 2.5 H Albumin (3.5 - 5.0 g/dL) 3.5 Coagulation PT (9.4 - 12.5 SEC) 18.0 H INR (0.90 - 1.17) 1.72 H Hematology CBC w Diff NO MAN DIFF REQ WBC (4.8 - 10.8 /CUMM) 5.1 RBC (4.70 - 6.10 /CUMM) 3.32 L Hgb (14.0 - 18.0 G/DL) 10.1 L Hct (42 - 52 %) 31.0 L MCV (80.0 - 94.0 FL) 93.3 MCH (27.0 - 31.0 PG) 30.5 MCHC (33.0 - 37.0 G/DL) 32.8 L RDW (11.5 - 14.5 %) 15.6 H Plt Count (130 - 400 /CUMM) 226 MPV (7.4 - 10.4 FL) 7.3 L Gran % (42.2 - 75.2 %) 75.2 Lymphocytes % (20.5 - 51.1 %) 11.2 L Monocytes % (1.7 - 9.3 %) 11.1 H Eosinophils % (0 - 5 %) 2.3 Basophils % (0.0 - 2.0 %) 0.2 Absolute Granulocytes (1.4 - 6.5 /CUMM) 3.8 Absolute Lymphocytes (1.2 - 3.4 /CUMM) 0.6 L Absolute Monocytes (0.10 - 0.60 /CUMM) 0.6 Absolute Eosinophils (0.0 - 0.7 /CUMM) 0.1 Absolute Basophils (0.0 - 0.2 /CUMM) 0 Serology Hep Bs Antigen (NONREACTIVE) Cancelled NONREACTIVE Hep Bs Antibody (NONREACTIVE) Cancelled REACTIVE 08/04 08/03 08/02 0600 0817 1609 Chemistry Sodium (137 - 145 mmol/L) Cancelled 141 141 Potassium (3.5 - 5.1 mmol/L) Cancelled 3.6 3.4 L Chloride (98 - 107 mmol/L) Cancelled 100 100 Carbon Dioxide (22 - 30 mmol/L) Cancelled 27 28 Anion Gap (5 - 16) Cancelled 14 13 BUN (9 - 20 mg/dL) Cancelled 16 9 Creatinine (0.7 - 1.2 mg/dL) Cancelled 2.5 H 1.3 H Estimated GFR (>60 ml/min) 26 L 55 L BUN/Creatinine Ratio (7 - 25 %) Cancelled 6.4 L 6.9 L Calcium (8.4 - 10.2 mg/dL) 7.7 L Coagulation PT (9.4 - 12.5 SEC) 20.9 H INR (0.90 - 1.17) 2.00 H 08/02 1236 Chemistry Sodium (137 - 145 mmol/L) 142 Potassium (3.5 - 5.1 mmol/L) 3.6 Chloride (98 - 107 mmol/L) 100 Carbon Dioxide (22 - 30 mmol/L) 28 Anion Gap (5 - 16) 15 BUN (9 - 20 mg/dL) 30 H Creatinine (0.7 - 1.2 mg/dL) 3.8 H Estimated GFR (>60 ml/min) 16 L BUN/Creatinine Ratio (7 - 25 %) 7.9 Calcium (8.4 - 10.2 mg/dL) 9.0 Phosphorus (2.5 - 4.5 mg/dL) 4.9 H Albumin (3.5 - 5.0 g/dL) 3.1 L Coagulation PT (9.4 - 12.5 SEC) 25.6 H INR (0.90 - 1.17) 2.46 H Hematology CBC w Diff NO MAN DIFF REQ WBC (4.8 - 10.8 /CUMM) 5.6 RBC (4.70 - 6.10 /CUMM) 3.26 L Hgb (14.0 - 18.0 G/DL) 10.0 L Hct (42 - 52 %) 30.1 L MCV (80.0 - 94.0 FL) 92.4 MCH (27.0 - 31.0 PG) 30.6 MCHC (33.0 - 37.0 G/DL) 33.1 RDW (11.5 - 14.5 %) 15.6 H Plt Count (130 - 400 /CUMM) 250 MPV (7.4 - 10.4 FL) 7.1 L Gran % (42.2 - 75.2 %) 78.4 H Lymphocytes % (20.5 - 51.1 %) 8.2 L Monocytes % (1.7 - 9.3 %) 11.8 H Eosinophils % (0 - 5 %) 1.6 Basophils % (0.0 - 2.0 %) 0 Absolute Granulocytes (1.4 - 6.5 /CUMM) 4.4 Absolute Lymphocytes (1.2 - 3.4 /CUMM) 0.5 L Absolute Monocytes (0.10 - 0.60 /CUMM) 0.7 H Absolute Eosinophils (0.0 - 0.7 /CUMM) 0.1 Absolute Basophils (0.0 - 0.2 /CUMM) 0
[2017-08-04 11:47] VITALS: BP 130/70
--- NOTE | 2017-08-04 14:27 | Patient Discharge Instructions ---
Discharge Instructions General Discharge Information Special Instructions: Please follow up with your pcp in 1-2 weeks. Please follow up with your oncologist in 1-2 weeks. Please continue your dialysis care with [facility]. Please f/u with your tug master in 1-2 weeks. Please continue having your INR monitored and continue coumadin per your INR. INR should be in the 2-3 range. Please continue your medications as perscribed. Acute Coronary Syndrome Inclusion Criteria At DC or during hospital stay patient has or had the following: Discharge Core Measures Meds if any: Prescribed or Continued at Discharge Meds if any: NOT Prescribed or Continued at Discharge Congestive Heart Failure Inclusion Criteria At DC or during hospital stay patient has or had the following: Discharge Core Measures Meds if any: Prescribed or Continued at Discharge Meds if any: NOT Prescribed or Continued at Discharge Cerebrovascular accident Inclusion Criteria At DC or during hospital stay patient has or had the following: CVA/TIA Diagnosis No Discharge Core Measures Meds if any: Prescribed or Continued at Discharge Meds if any: NOT Prescribed or Continued at Discharge Venous thromboembolism Discharge Core Measures - Per Current guidelines, there needs to be overlap - treatment for the first 5 days of Warfarin therapy. - If discharged on Warfarin prior to 5 days of - overlap therapy, the patient will need to be - assessed for post discharge needs including - *Post discharge parental anticoagulation - *Warfarin and/or parental anticoagulation education - *Follow up date to check INR post discharge Meds if any: Prescribed or Continued at Discharge Note: Overlap Therapy is Warfarin and Anticoagulant Meds if any: NOT Prescribed or Continued at Discharge
--- NOTE | 2017-08-04 15:14 | RADIOLOGY REPORT ---
EXAMINATION: CHEST 1 VIEW CLINICAL INFORMATION: Follow-up following thoracentesis. Evaluate for pneumothorax. COMPARISON: 08/01/2017. TECHNIQUE: An AP view of the chest is provided. FINDINGS: The cardiac silhouette is stable. A dual-lumen right central venous line is in unchanged position. There are no pneumothoraces. There is likely a trace left pleural effusion. There is nonspecific patchy multifocal airspace disease bilaterally as well as several rounded opacities. The osseous structures are stable. IMPRESSION: No pneumothorax status post thoracentesis. Likely trace left pleural effusion. Persistent diffuse multifocal airspace disease and bilateral nodules and nodular densities.
--- NOTE | 2017-08-04 16:17 | ULTRASOUND REPORT ---
PROCEDURE: ULTRASOUND-GUIDED THORACENTESIS INDICATION: History of lung cancer. Left pleural effusion. SPECIMEN: A specimen was appropriately labeled and sent to the laboratory as requested. ACCESS: 6 Ukrainian [id number]-E-Oqevydku closed needle/catheter system. REQUESTING PRACTITIONER: Jonny Hill MD PERFORMING CLINICIAN: John Caceres MD CONSENT: Informed consent was obtained from the patient prior to the procedure. During this process, the procedure and potential alternatives were explained along with the intended outcome and benefits. The risks of the procedure, including the possibility of an unsuccessful procedure as well as the risk of not doing the procedure were discussed. The patient was given the opportunity to ask any questions regarding the procedure and appeared competent to make medical decisions. A signed consent form which documents this discussion was placed in the medical record. A timeout procedure was performed. MEDICATIONS: 10mL 1% lidocaine. TECHNIQUE/FINDINGS: Appropriate preprocedure medical history and imaging studies were reviewed. The patient was brought to the ultrasound department and placed in the seated position. Ultrasound images of the left thorax were obtained to localize a moderate pleural effusion. Images were permanently saved to the record. An area of the patient's left back was prepped and draped in the standard sterile fashion. 10 mL of 1% lidocaine was used to obtain local anesthesia of the skin and deeper tissues. A standard small bore needle was introduced to sample fluid and demonstrated a safe access route. There was no evidence of traversing adjacent organs or vascular structures. A 6 Ukrainian Ijjw-I-Ujjvwfti closed needle/catheter system was utilized for access. 1100 mL of nonclotting blood-tinged fluid was aspirated before drainage ceased. The catheter was removed and a sterile dressing applied. The patient tolerated the procedure well without evidence of complications. IMPRESSION: Successful left ultrasound-guided therapeutic and diagnostic thoracentesis as described. RECOMMENDATIONS: A postprocedure chest x-ray shows no pneumothorax. Trace residual left pleural effusion.
[2017-08-04 19:30] VITALS: BP 140/80
--- NOTE | 2017-08-04 20:23 | RADIOLOGY REPORT ---
EXAMINATION: CHEST 1 VIEW CLINICAL INFORMATION: Shortness of breath. Status post thoracentesis. COMPARISON: Same day chest radiograph. TECHNIQUE: An AP view of the chest is provided. FINDINGS: The cardiac silhouette is stable. A right dual-lumen central venous line is in unchanged position. There is increasing airspace disease within the lower left hemithorax. There is stable right upper lobe airspace disease. There is likely a left pleural effusion. There are no pneumothoraces. The osseous structures are stable. IMPRESSION: Multifocal airspace disease with increasing opacification within the left lung base. Likely small left pleural effusion.
[2017-08-04 21:13] LABS: ABSOLUTE BASOPHIL COUNT 0 /CUMM (0.0-0.2); ABSOLUTE EOSINOPHIL COUNT 0 /CUMM (0.0-0.7); ABSOLUTE GRANULOCYTE CT 8.6 /CUMM (1.4-6.5); ABSOLUTE LYMPH COUNT 0.4 /CUMM (1.2-3.4); ABSOLUTE MONOCYTE COUNT 0.6 /CUMM (0.10-0.60); BASOPHIL % 0.1 % (0.0-2.0); EOSINOPHIL % 0.3 % (0-5); GRANULOCYTE % 89.7 % (42.2-75.2); HEMATOCRIT 34.8 % (42-52); MEAN CORPUSCULAR HGB 30.4 PG (27.0-31.0); MEAN CORPUSCULAR HGB CONC 32.4 G/DL (33.0-37.0); MEAN CORPUSCULAR VOLUME 93.9 FL (80.0-94.0); MEAN PLATELET VOLUME 7.3 FL (7.4-10.4); PLATELET COUNT 229 /CUMM (130-400); RBC DISTRIBUTION WIDTH 15.6 % (11.5-14.5); RED BLOOD CELL CT 3.71 /CUMM (4.70-6.10)
[2017-08-04 21:14] LABS: WHITE BLOOD CELL COUNT 9.6 /CUMM (4.8-10.8)
[2017-08-04 21:33] VITALS: BP 122/60
--- NOTE | 2017-08-04 23:07 | Event Note ---
Event Note Event Note: S: Rapid response called for patient D satting 280s B: Patient had left thoracocentesis performed today A/R: Patient states his symptoms began after my attending had touched his thoracocentesis site which caused him pain and cough. trops .04 ekg sinus rhythm with very slight increase in t wave depression of lateral leads abg: PH 7.41, PCO2 39, PO2 70, bicarbonate 24, O2 sat 94% on non-rebreather at 100% O2 concentration cxr: There is increasing airspace disease within the lower left hemithorax. There is stable right upper lobe airspace disease. Multifocal airspace disease with increasing opacification within the left lung base. Likely small left pleural effusion. I reassessed the patient later this a.m. he was sleeping comfortably and stated that his shortness was with better. His O2 sat was 98.% on 4 L. I had the nurse decreases oxygen to 2 L and the patient was still satting at 98%. Most likely his oxygen desaturation was due to anxiety or pain.
[2017-08-05] MEDS ORDERED: OXYCODONE HCL10 M2 PO (05:57)
[2017-08-05 06:44] VITALS: BP 124/62
--- NOTE | 2017-08-05 08:00 | PN- Housestaff ---
Sergio MUSE,[facility] 08/05/17 0800: Subjective Follow-up For: L pleural effusion Subjective: Rapid response called last night as patient desat'ed to 77%. Patient states that symptoms occured after attending had touched his thoracocentesis site causing him to cough. Most likely an anxiety attack. Patient requested to be continued to be on 4L of O2 after rapid response. We decreased it to 2L while he was sleeping this AM and his O2 saturation remained 97-98% as per baseline during admission. Review of Systems Constitutional: Reports: see HPI. Cardiovascular: Reports: no symptoms. Respiratory: Reports: cough, short of breath. Gastrointestinal: Reports: no symptoms. Genitourinary: Reports: no symptoms. Musculoskeletal: Reports: no symptoms. Objective Last 24 Hrs of Vital Signs/I&O Vital Signs Date Time Temp Pulse Resp B/P B/P Pulse O2 O2 Flow FiO2 Mean Ox Delivery Rate 08/05 1406 97.7 79 20 130/70 97 08/05 1354 98.6 80 18 130/68 08/05 1038 130/68 08/05 1037 80 130/68 08/05 1037 130/68 08/05 0800 Nasal 2.0L Cannula 08/05 0644 98.6 88 18 124/62 98 Nasal 4.0L Cannula 08/05 0000 94 Nasal 4.0L Cannula Intake & Output 08/05 1600 08/05 0800 08/05 0000 Intake Total 400 120 800 Output Total 50 200 Balance 350 -80 800 Intake, Oral 400 120 800 Output, Urine 50 200 Patient 132 lb Weight Weight Bed scale Measurement Method Physical Exam General Appearance: Alert, Oriented X3, Cooperative, Mild Distress Cardiovascular: mild tachycardia Lungs: decerased air movement b/l. able to hear some air movement in LLL Abdomen: Normal Bowel Sounds, Soft, No Tenderness Extremities: R arm swelling stable Vascular: 2+ radial pulses Current Medications: Current Medications Sig/Jed Start time Last Medication Dose Route Stop Time Status Admin Acetaminophen 650 MG .STK-MED ONE 08/05 1013 DC PO 08/05 1014 Amlodipine Besylate 10 MG DAILY 08/01 1000 DCD 08/05 PO 1038 Aspirin Buffered 81 MG DAILY 08/01 1000 DCD 08/05 PO 1038 Cholecalciferol 1,000 IU DAILY 08/01 1000 DCD 08/04 PO 1311 Epoetin Slava 3,000 UNIT DAILY PRN 08/01 0745 DCD IV Furosemide 80 MG TUES THURS SAT 08/01 1000 DCD 08/05 PO 1038 Guaifenesin 10 ML Q6P PRN 08/04 1845 DCD 08/04 PO 1851 Hydralazine HCl 100 MG TID 08/01 1000 DCD 08/05 PO 1035 Insulin Aspart 0 TIDAC 08/01 0800 DCD 08/03 SC 1815 Isosorbide 60 MG DAILY 08/04 1801 DCD Mononitrate PO Labetalol HCl 200 MG BID 08/01 1000 DCD 08/04 PO 1310 Multivitamins 1 TAB DAILY 08/02 1815 DCD 08/04 PO 1310 Oxycodone HCl 5 MG .STK-MED ONE 08/05 0253 DC PO 08/05 0254 Oxycodone HCl 5 MG Q6P PRN 08/04 1934 DCD 08/05 PO 0249 Pravastatin Sodium 20 MG 1700 08/01 1700 DCD 08/04 PO 1640 Prochlorperazine 10 MG Q6 PRN 08/01 1300 DCD 08/05 PO 0828 Sevelamer Carbonate 1,600 MG TID 08/01 1000 DCD PO Last 24 Hrs of Lab/[place] Results Last 24 Hrs of Labs/Mics: Laboratory Tests 08/05/17 1145: PT Cancelled, INR Cancelled, CBC w Diff NO MAN DIFF REQ, RBC 3.49 L, MCV 93.6, MCH 29.6, MCHC 31.7 L, RDW 15.6 H, MPV 7.3 L, Gran % 85.9 H, Lymphocytes % 7.4 L, Monocytes % 5.4, Eosinophils % 0.8, Basophils % 0.5, Absolute Granulocytes 6.6 H, Absolute Lymphocytes 0.6 L, Absolute Monocytes 0.4, Absolute Eosinophils 0.1, Absolute Basophils 0 08/05/17 0923: Anion Gap 14, Estimated GFR 23 L, BUN/Creatinine Ratio 7.1 Assessment/Plan Assessment: 66-year-old male with past medical history of cardiomyopathy, CHF EF 55%, hypertension, hyperlipidemia, CAD status post cardiac stent, CKD stage V on hemodialysis Monday, diabetes,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 #Generalized weakness most likely due SOB due to Large L pleural effusion due to lung cancer Continues to be aferile without leukocytosis Received 1 dose of ceftriaxone and azithromycin in the ED Flu negative Chest ct: 1. Numerous pulmonary parenchymal mass lesions as described with mediastinal and right hilar lymphadenopathy. Likely left hilar lymphadenopathy is well however the left hilar region is difficult to evaluate due to a large left-sided pleural effusion. There is mass effect on the right upper lobe bronchus from the right hilar lymphadenopathy. 2. Large left-sided pleural effusion and smaller right-sided pleural effusion. 3. Hypoattenuating mass in the lateral margin of the right lobe of the liver is suspicious, however is incompletely included in the study. Thoracocentesis labs:wbc 1430, mesothelial 45, rbc 37847, glucose 153, total protein 3.5, LDH 391, ph 7.42 Patient had a rapid response last night. Most likely anxiety attack. CXR, ekg, trops, abg negative for an acute cause. Patient states it happened after the attending had touched his thoracocentesis site causing him pain and cough. Patient was on 4L O2 overnight but at baseline @ his regular 2L this AM. -pleural effusion more liekly due to cancer rather than an infectious process -Follow-up urinary legionella, strep pneumo, and pancultures. 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 Pleural effusion Pain Ratin Pain Location: none this AM Pain Goal: Remain pain free Pain Plan: oxycodone Tomorrow's Labs & Rationales: none Consulting Request: Consulting Specialty: Hematology/Oncology Consulting Physician: Reason for Consult: stage IV lung cancer Michael MUSE,[facility] 08/05/17 1300: Attending MD Review Statement Attending Statement Attending MD Statement: examined this patient, discuss w/resident/PA/NEW AUTOS DELIVERY DRIVER, agreed w/resident/PA/NEW AUTOS DELIVERY DRIVER, discussed with family, reviewed EMR data (avail), discussed with nursing, discussed with case mgmt, reviewed images, amended to note Attending Assessment/Plan: Patient seen and examined, complain of some right shoulder pain. Told patient's nurse to give Tylenol. Paracentesis was consistent with the history of . Patient has a bed available at rehabilitation and he will be discharged to rehabilitation today.
[2017-08-05 12:04] LABS: ABSOLUTE BASOPHIL COUNT 0 /CUMM (0.0-0.2); ABSOLUTE EOSINOPHIL COUNT 0.1 /CUMM (0.0-0.7); ABSOLUTE GRANULOCYTE CT 6.6 /CUMM (1.4-6.5); ABSOLUTE LYMPH COUNT 0.6 /CUMM (1.2-3.4); ABSOLUTE MONOCYTE COUNT 0.4 /CUMM (0.10-0.60); BASOPHIL % 0.5 % (0.0-2.0); EOSINOPHIL % 0.8 % (0-5); GRANULOCYTE % 85.9 % (42.2-75.2); HEMATOCRIT 32.7 % (42-52); MEAN CORPUSCULAR HGB 29.6 PG (27.0-31.0); MEAN CORPUSCULAR HGB CONC 31.7 G/DL (33.0-37.0); MEAN CORPUSCULAR VOLUME 93.6 FL (80.0-94.0); MEAN PLATELET VOLUME 7.3 FL (7.4-10.4); PLATELET COUNT 230 /CUMM (130-400); RBC DISTRIBUTION WIDTH 15.6 % (11.5-14.5); RED BLOOD CELL CT 3.49 /CUMM (4.70-6.10)
[2017-08-05 12:53] LABS: WHITE BLOOD CELL COUNT 7.7 /CUMM (4.8-10.8)
[2017-08-05 13:54] VITALS: BP 130/68
[2017-08-05 14:06] VITALS: BP 130/70
== END 2017-08-05 14:50 | DRG 193 ==
LOC: ERH 13:50 → ERHI 16:03 → 2NA 16:03 → ENRESERV 16:41 → ENTRNSPT 17:20 → EDTRNSPTSTS 17:23 → CMPTRNSPT 17:48 → 2NA 18:00
PROVIDERS: Internal Medicine Nephrology; Physician Assistant; Student in an Organized Health Care Education/Training Program
PROC: 5A1D70Z Performance of Urinary Filtration, Intermittent, Less than 6 Hours Per Day (ICD-10-PCS; principal; 2017-08-01)
PROC: 0W9B3ZZ Drainage of Left Pleural Cavity, Percutaneous Approach (ICD-10-PCS; 2017-08-04)
DX: J18.9 Pneumonia, unspecified organism (principal); N18.6 End stage renal disease; I13.2 Hypertensive heart and chronic kidney disease with heart failure and with stage 5 chronic kidney disease, or end stage renal disease; J90 Pleural effusion, not elsewhere classified; C79.31 Secondary malignant neoplasm of brain; C78.7 Secondary malignant neoplasm of liver and intrahepatic bile duct; I50.22 Chronic systolic (congestive) heart failure; C34.90 Malignant neoplasm of unspecified part of unspecified bronchus or lung; E11.22 Type 2 diabetes mellitus with diabetic chronic kidney disease; E11.65 Type 2 diabetes mellitus with hyperglycemia; Z99.2 Dependence on renal dialysis; Z79.4 Long term (current) use of insulin; I25.5 Ischemic cardiomyopathy; I25.10 Atherosclerotic heart disease of native coronary artery without angina pectoris; Z95.5 Presence of coronary angioplasty implant and graft; Z86.718 Personal history of other venous thrombosis and embolism; Z79.01 Long term (current) use of anticoagulants; R79.1 Abnormal coagulation profile; R59.0 Localized enlarged lymph nodes
CPT/HCPCS: 2NASP; 87075; 36415; 71045; 71046; 82436; 87040; 87070; 87449; 87450; 87804; 87804-59; 93005; 93010; 96365; 96372; 97110-GO; 97116-GO; 97161-GP; J0456; J0696; J0780; J0885; J1815; J7042; J7060